=== PATIENT | female | born 1945 | race Caucasian/White ===

== ENCOUNTER 2017-11-02 12:44 | Emergency (ER) | payer MEDICARE, OTHER, SELFPAY ==
[2017-11-02 12:45] VITALS: BP 125/66; PULSE 77; RESP 14; O2SAT 98; BMI 24.5
--- NOTE | 2017-11-02 13:49 | HMH.EDGENADL ---
ED Disposition Clinical Impression: Osteoarthritis of both knees Qualifiers: Osteoarthritis type: primary Qualified Code(s): M17.0 - Bilateral primary osteoarthritis of knee Disposition: Home, Self-Care Condition on Discharge: Fair Instructions: DI for Acute Pain -- Adult Additional Instructions: alternate ice and heat and use whichever helps the most Prescriptions: Diclofenac Potassium [Diclofenac 50mg Tab] 50 mg PO BID 30 Days #60 tab predniSONE [Prednisone 5mg Tab Dose-Pack] 5 mg PO UD DOSE PK 6 Days #21 pack Referrals: Krissy Marin APRN [Primary Care Provider] - Antonio Cruz MD [Staff Physician] - Cy Hatch MD [Staff Physician] - Time of Disposition: 16:21 - Critical Care Critical Care Time: No Attestation: On 11/02/17, the high probability of a clinically significant, sudden or life threatening deterioration of the following system(s) required my full and direct attention, intervention and personal management. The time I documented below is in addition to time spent performing reported procedures but includes the following listed in this critical care notation. Medical Decision Making - Medical Records Medical records reviewed: Yes: I reviewed the patient's medical records. Vital Signs: 11/02/17 12:45 11/02/17 15:45 Temperature 98.3 F Temperature Source Oral Pulse Rate [Right Brachial] 77 60 Respiratory Rate 14 16 Blood Pressure [Right Arm] 125/66 112/70 Blood Pressure Mean [Right Arm] 85 84 Blood Pressure Source [Right Arm] Automatic Cuff Automatic Cuff Blood Pressure Position [Right Arm] Sitting Sitting 02 Sat by Pulse Oximetry 98 98 Oxygen Delivery Method Room Air Room Air - Lab Data Lab results reviewed: Yes: I reviewed the patient's lab results. Lab Results 11/02/17 14:42: WBC 13.7 H, RBC 3.94 L, Hgb 12.4, Hct 38.1, MCV 96.7, MCH 31.4 H, MCHC 32.5, RDW 13.2, Plt Count 366, MPV 7.7, Neut % (Auto) 87.9 H, Lymph % (Auto) 6.9 L, [place] % (Auto) 4.3, Eos % (Auto) 0.6, Baso % (Auto) 0.2, Neut # (Auto) 12.0 H, Lymph # (Auto) 1.0, [place] # (Auto) 0.6, Eos # (Auto) 0.1, Baso # (Auto) 0.0, Total Counted 100, Neutrophils % (Manual) 84 H, Band Neutrophils % 1.0, Lymphocytes % (Manual) 8 L, Atypical Lymphs % 4.0, Monocytes % (Manual) 3, Platelet Estimate Normal, RBC Morphology Normal 11/02/17 14:42: Sodium 137, Potassium 3.3 L, Chloride 102, Carbon Dioxide 26, Anion Gap 12.3, BUN 14, Creatinine 0.73, Estimated Creat Clear 48, Estimated GFR 79, Est GFR ( Amer) 95, Glucose 117 H, Uric Acid 4.3, Calcium 8.2 L, Total Bilirubin 0.7, AST 13 L, ALT 34, Alkaline Phosphatase 113, Total Protein 7.5, Albumin 3.2 L, Globulin 4.3 H, Albumin/Globulin Ratio 0.7 L Result diagrams: 11/02/17 14:42 11/02/17 14:42 Orders (Tests/Meds): ORDERS Category Date Time Status Knee XR bilateral standing [XR knee standing BI] Stat Exams 11/02/17 14:15 Taken - Radiology Data #1 Image(s): Knee Image Reviewed: Yes I reviewed the patient's radiology results, Yes I discussed the image results w/the radiologist severe osteoarthritis - Jn Inquiry Pt receiving controlled substance: No Jn was queried for this patient: No General Adult HPI - General Chief complaint: PAIN Stated complaint: Right knee swollen no accident Time Seen by Provider: 11/02/17 14:00 Mode of Arrival: Ambulatory Limitations: No Limitations Description of Symptoms (Recalled from ER Triage Doc. by RN): Pt c/o right knee swelling. Advises it has been swollen for over a year but is hurting worse today - History of Present Illness HPI narrative: Pt reports she has had problems with both knees for several years after working standing on concrete floor all day. She has never had any surgery on the knees. 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 At one point in time she got a cortisone shot in her shoulder but not in her knee. Now more swollen and more painful than ever before Onset (ago): day(s) Location: lower extremity (ri
--- NOTE | 2017-11-02 14:15 | XR_ITS ---
XR knee standing BI COMPARISON: Right knee 05/10/2014 HISTORY: Bilateral knee pain TECHNIQUE: AP PA and lateral weight-bearing views and sunrise views of each knee FINDINGS: Right knee: There is moderate joint space narrowing medially with almost [id number] appearance of the medial joint space. There is osteophytic spurring at both the medial and lateral tibial plateau. There is a fabella noted. There is minor spurring of the patella superiorly. There is no obvious effusion. Left knee: There is severe joint space narrowing medially with [id number] appearance. There is minimal osteophytic spurring of the medial and lateral tibial plateau. The patella appears normal except for minimal spurring superiorly. There is no obvious effusion. IMPRESSION: Prominent degenerative changes of both knees, the changes in the right knee have only shown slight progression from the previous study in 2013.
[2017-11-02 14:54] LABS: Basophils % 0.2 % (0.1-2.0); Eosinophils # 0.1 K/mm3 (0.0-0.4); Eosinophils % 0.6 % (0.1-12.0); Hematocrit 38.1 % (37.0-47.0); Hemoglobin 12.4 g/dL (12.2-16.2); Lymphocytes % 6.9 K/mm3 (10-50); Mean Corpuscular HGB Conc 32.5 g/dL (31.8-35.4); Mean Corpuscular Hemoglobin 31.4 pg (27.0-31.2); Mean Corpuscular Volume 96.7 fl (81-99); Mean Platelet Volume 7.7 fl (7.4-10.4); Monocytes # 0.6 K/mm3 (0.1-1.0); Monocytes % 4.3 % (1.7-9.3); Neutrophils % 87.9 % (37.0-80.0); Platelet Count 366 K/mm3 (142-424); Red Blood Count 3.94 M/mm3 (4.20-5.40); Red Cell Distribution Width 13.2 % (11.5-17.5); White Blood Count 13.7 K/mm3 (4.8-10.8)
[2017-11-02 15:01] LABS: Alanine Aminotransferase 34 U/L (12-78); Albumin Level 3.2 gm/dL (3.4-5.0); Albumin/Globulin Ratio 0.7 (1.1-1.8); Alkaline Phosphatase 113 U/L (46-116); Anion Gap 12.3 mEq/L (5-15); Aspartate Amino Transferase 13 U/L (15-37); Bilirubin,Total 0.7 mg/dL (0.2-1.0); Blood Urea Nitrogen 14 mg/dL (7-18); Calcium 8.2 mg/dL (8.5-10.1); Carbon Dioxide 26 mmol/L (21.0-32.0); Chloride 102 mmol/L (98-107); Creatinine Clearance Estimated 48 mL/min (0-300); Creatinine,Serum 0.73 mg/dL (0.55-1.02); Estimated Glomerular Filt Rate 79 ml/min (>60); GFR (African American) 95 ML/MIN (>60); Globulin 4.3 gm/dl (1.3-3.2); Glucose 117 mg/dL (74-106); Potassium 3.3 mmoL/L (3.5-5.1); Sodium 137 mmol/L (136-145); Total Protein,Serum 7.5 gm/dL (6.4-8.2); Uric Acid 4.3 mg/dL (2.6-7.2)
[2017-11-02 15:10] LABS: MANUAL DIFFERENTIAL MANUAL DIFFERENTIAL (MANUAL DIFF)
[2017-11-02 15:40] LABS: Lymphocytes % 8 % (10-50); Monocytes % 3 % (2-9); Neutrophils % 84 % (42-76); Platelet Estimate Normal; RBC Morphology Normal; Total Cells Counted 100
[2017-11-02 15:45] VITALS: BP 112/70; PULSE 60; RESP 16; TEMP 36.8; O2SAT 98
[2017-11-02 16:51] VITALS: BP 110/70; PULSE 60; RESP 16; TEMP 36.8; O2SAT 98
== END 2017-11-02 16:52 | disposition home or self-care (01) ==
PROVIDERS: Emergency Provider General Practice; Family Provider Family Medicine; PCP Nurse Practitioner Family
DX: M17.0 Bilateral primary osteoarthritis of knee (principal); M25.461 Effusion, right knee; I10 Essential (primary) hypertension
CPT/HCPCS: 36415; 73565; 80053; 84550; 85007; 85025; 96372; 99282; J1040

== ENCOUNTER → 2018-04-01 09:33 | Outpatient (CLI) | payer MEDICARE, SELFPAY ==
--- NOTE | 2018-04-01 09:35 | MM_ITS ---
MM Dig screening mamm BI w/CAD CAD Screening COMPARISON: None, patient had previous mammograms but there are not available for review. INDICATION: Persistent breast cancer patient's mother diagnosed after menopause. TECHNIQUE: Standard CC and MLO images were obtained. R2 CAD reviewed. FINDINGS: There is a markedly and diffusely dense and heterogenic parenchymal pattern definitely lessening the sensitivity of mammography. There are multiple scattered benign-appearing calcifications in each breast. There is arterial calcification in each breast as well. There is no suspicious lesion and there are no suspicious microcalcifications. IMPRESSION: Markedly dense parenchymal pattern with no suspicious lesion seen BI-RADS Category: 2 Benign Finding(s) RECOMMENDED FOLLOW-UP: 1YR - 1 YEAR FOLLOW-UP (A letter has been sent to the patient regarding results of the study.)
== END ==
PROVIDERS: Family Provider Family Medicine; PCP Nurse Practitioner Family; Visit Provider Obstetrics & Gynecology
DX: Z12.31 Encounter for screening mammogram for malignant neoplasm of breast (principal)
CPT/HCPCS: 77067

== ENCOUNTER → 2019-05-12 09:06 | Outpatient (CLI) | payer MEDICARE, OTHER, SELFPAY ==
--- NOTE | 2019-05-12 09:07 | MM_ITS ---
PROCEDURE: MM DIG SCREENING MAMM BI W/CAD CLINICAL INDICATION: screening there is a history of breast cancer in patient's mother diagnosed age 59 COMPARISON: MM Dig screening mamm BI w/CAD from 04/01/2018 TECHNIQUE: Standard CC and MLO images were obtained. R2 CAD reviewed. FINDINGS: Markedly prominent diffuse heterogenic fibroglandular densities seen throughout both breasts. This definitely lessens the sensitivity of mammography. There are scattered benign-appearing micro and macrocalcifications in each breast. There is moderate arterial calcification in each breast. There is no new or suspicious lesion in either breast and no suspicious microcalcifications. IMPRESSION: Diffusely dense parenchymal pattern with no suspicious lesions seen BI-RAD Category: 2 Benign Finding(s) FOLLOW-UP: 1YR 1 Year Follow-up (A letter has been sent to the patient regarding results of the study.) Dictated by: Dr. Milton Jones MD 05/22/2019 11:50 Signed by: <Electronically signed by Dr. Milton Jones MD in [place]> 05/22/2019 11:50
== END ==
PROVIDERS: PCP Nurse Practitioner Family; Visit Provider Obstetrics & Gynecology
DX: Z12.31 Encounter for screening mammogram for malignant neoplasm of breast (principal)
CPT/HCPCS: 77067

== ENCOUNTER 2022-09-19 19:10 | Emergency (ER) | payer MEDICARE, SELFPAY ==
[2022-09-19 19:11] VITALS: BP 136/76; PULSE 80; RESP 19; TEMP 36.9; O2SAT 97; BMI 22.6
[2022-09-19 19:26] VITALS: BP 130/57; BP 137/66; BP 138/62; PULSE 84; PULSE 86; PULSE 88
[2022-09-19 19:26] LABS: Coronavirus 19, PCR Not Detected (NotDetected); Influenza A, PCR Not Detected (NotDetected); Influenza B, PCR Not Detected (NotDetected)
--- NOTE | 2022-09-19 20:03 | XR_ITS ---
PROCEDURE INFORMATION: Exam: XR Chest Exam date and time: 09/19/2022 8:01 PM Age: 77 years old Clinical indication: Cough TECHNIQUE: Imaging protocol: Radiologic exam of the chest. Views: 2 views. COMPARISON: No relevant prior studies available. FINDINGS: Lungs: Patchy basilar airspace opacity. Pleural spaces: No pneumothorax. Heart/Mediastinum: No cardiomegaly. Bones/joints: No acute fracture. IMPRESSION: Patchy basilar airspace opacity which may be on the basis of atelectasis or pneumonia. Follow-up to radiographic clearance is recommended.
[2022-09-19 20:04] LABS: Basophils # 0.1 K/mm3 (0-0.2); Basophils % 0.3 % (0.1-2.0); Eosinophils # 0.2 K/mm3 (0.0-0.4); Eosinophils % 1.2 % (0.1-12.0); Hematocrit 31.8 % (37.0-47.0); Hemoglobin 10.1 g/dL (12.2-16.2); Lymphocytes # 1.5 K/mm3 (0.7-4.5); Lymphocytes % 10.2 % (10-50); Mean Corpuscular HGB Conc 31.8 g/dL (31.8-35.4); Mean Corpuscular Hemoglobin 27.4 pg (27.0-31.2); Mean Platelet Volume 8.1 fl (7.4-10.4); Monocytes # 0.9 K/mm3 (0.1-1.0); Monocytes % 5.9 % (1.7-9.3); Neutrophils % 82.3 % (37.0-80.0); Platelet Count 558 K/mm3 (142-424); Red Blood Count 3.69 M/mm3 (4.20-5.40); Red Cell Distribution Width 15.3 % (11.5-17.5); White Blood Count 14.6 K/mm3 (4.8-10.8)
[2022-09-19 20:12] LABS: Alanine Aminotransferase 12 U/L (12-78); Albumin Level 3.6 g/dl (3.5-5.0); Alkaline Phosphatase 215 U/L (38-126); Anion Gap 11.6 mEq/L (5-15); Aspartate Amino Transferase 17 U/L (14-36); Bilirubin,Total 0.6 mg/dl (0.2-1.3); Blood Urea Nitrogen 17 mg/dl (7-17); Calcium 8.6 mg/dl (8.4-10.2); Carbon Dioxide 25 mmol/L (22.0-30.0); Chloride 101 mmol/L (98-107); Creatinine Clearance Estimated 27 mL/min (50-200); Estimated Glomerular Filt Rate 34 ml/min (>60); GFR (African American) 41 ML/MIN (>60); Globulin 3.7 g/dL (1.3-3.2); Glucose 131 mg/dl (74-100); Potassium 3.6 mmoL/L (3.5-5.1); Sodium 134 mmol/L (136-145); Total Protein,Serum 7.3 g/dl (6.3-8.2)
[2022-09-19 20:24] LABS: Troponin I 0.05 ng/ml (0.00-0.034)
--- NOTE | 2022-09-19 20:25 | HMH.EDWEAK ---
Discharge Plan Disposition Patient Disposition: Home, Self-Care Prescriptions Prescriptions: New prednisone [prednisone] 20 mg tablet 20 mg PO BID Qty: 10 0RF levofloxacin 500 mg tablet 500 mg PO DAILY Qty: 7 0RF No Action loperamide 2 mg capsule 2 mg PO TID PRN (Reason: diarrhea) 30 Days Qty: 60 0RF amlodipine 10 mg tablet 10 mg PO DAILY 90 Days Qty: 90 1RF metoprolol tartrate 100 mg tablet 100 mg PO DAILY 90 Days Qty: 90 1RF benzonatate 100 mg capsule 100 mg PO TIDP PRN (Reason: Cough) Label Comments: TAKE 1 CAPSULE BY MOUTH EVERY 8 HOURS NEEDED doxepin 10 mg capsule 10 mg PO BID estradiol 2 mg tablet 2 mg PO DAILY losartan 100 mg tablet 100 mg PO DAILY Referrals Follow up/Referrals: Karlos Vickers MD [Primary Care Provider] - See instructions Clinical Impressions Clinical Impression: CAP (community acquired pneumonia), SIRS (systemic inflammatory response syndrome), Arthritis Instructions Patient Instructions: Pneumonia-Adult Discharge ED Provider: Uri Coleman Weakness HPI General Chief complaint: Weakness Stated complaint: cough, weak,diarrhea Time Seen by Provider: 09/19/22 20:10 Mode of Arrival: Family Vehicle Source of Information: Patient, Relative and Medical Record Limitations: No Limitations Description of Symptoms (Recalled from ER Triage Doc. by RN): Pt c/o productive cough, weakness, and poor intake since Saturday (09/15). States she went to [facility] and was tested for Flu & Covid and was negative. History of Present Illness HPI Narrative: pt with prog cough with weakness has seen pcp on saturday and was in [facility] last sat - also has swollen rt wrist w/o trauma - Complaint: generalized weakness Onset (ago): day(s) Duration: intermittent Location: generalized Migration: none Severity: moderate Associated symptoms: denies other symptoms Related Data Home Medications Medication Instructions Recorded Confirmed benzonatate 100 mg capsule 100 mg PO TIDP PRN Cough 09/19/22 09/19/22 doxepin 10 mg capsule 10 mg PO BID . 09/19/22 09/19/22 estradiol 2 mg tablet 2 mg PO DAILY hormone 09/19/22 09/19/22 losartan 100 mg tablet 100 mg PO DAILY htn 09/19/22 09/19/22 Previous Rx's Medication Instructions Recorded loperamide 2 mg capsule 2 mg PO TID PRN diarrhea 30 days 07/12/22 #60 caps amlodipine 10 mg tablet 10 mg PO DAILY HTN 90 days #90 tabs 08/08/22 metoprolol tartrate 100 mg tablet 100 mg PO DAILY HTN 90 days #90 08/08/22 tabs levofloxacin 500 mg tablet 500 mg PO DAILY #7 tabs 09/19/22 prednisone 20 mg tablet 20 mg PO BID #10 tabs 09/19/22 Allergies Allergy/AdvReac Type Severity Reaction Status Date / Time NO KNOWN ALLERGIES - NKA Allergy Unknown Uncoded 08/08/22 12:58 [facility] Disclaimer: The information contained in this section may have been updated after the patient was seen, as this information can be updated by other users. Medical History Cervical cancer Surgical History History of hysterectomy Family History Mother Cancer Father Coronary artery disease Social History Smoking Status: Never smoker alcohol intake: never substance use type: denies use current occupational status: unemployed Travel in the last 8 weeks: None household members: spouse housing: house marital status: ROS Obtained: Yes All systems reviewed & no additional complaints except as documented Physical Exam General General appearance: alert Head Head exam: normocephalic Eye Eye exam: Present PERRL and EOMI ENT ENT exam: Present mucous membranes moist Neck Neck exam: Present trachea midline Respiratory Respiratory exam: Present other (bronchitis ); Absent
[2022-09-19 20:29] LABS: T4 (Thyroxine) 16.5 ug/dl (5.53-11.0)
[2022-09-19 20:43] LABS: Thyroid Stimulating Hormone 0.97 uIU/mL (0.465-4.68)
[2022-09-19 21:00] VITALS: BP 140/61; PULSE 86; O2SAT 93
--- NOTE | 2022-09-19 21:06 | CT_ITS ---
PROCEDURE INFORMATION: Exam: CT Chest Without Contrast; Diagnostic Exam date and time: 09/19/2022 9:24 PM Age: 77 years old Clinical indication: Abnormal findings; Abnormal radiologic exam of lung or chest; Cough; Additional info: Abn cxr, cough TECHNIQUE: Imaging protocol: Diagnostic computed tomography of the chest without contrast. Radiation optimization: All CT scans at this facility use at least one of these dose optimization techniques: automated exposure control; mA and/or kV adjustment per patient size (includes targeted exams where dose is matched to clinical indication); or iterative reconstruction. COMPARISON: CR XR CHEST 2V 09/19/2022 8:01 PM FINDINGS: Lungs: Patchy opacity at the left lung base. Pleural spaces: No pneumothorax. No pleural effusion. Heart: Cardiomegaly. Coronary arteries: Coronary artery calcifications. Lymph nodes: No enlarged lymph nodes. Vasculature: Calcified atherosclerosis. No aneurysm. Gallbladder and bile ducts: Post cholecystectomy change. Bones/joints: No acute fracture. Soft tissues: Limited evaluation without contrast. No obvious soft tissue swelling. IMPRESSION: Patchy opacity at the left lung base as seen on prior chest radiograph which is nonspecific but would be compatible with pneumonia. Follow-up to radiographic clearance is again recommended.
[2022-09-19 21:26] LABS: Lactic Acid 1.2 mmol/L (0.7-2.1)
[2022-09-19 21:30] VITALS: BP 130/79; PULSE 111; O2SAT 92
[2022-09-19 23:10] LABS: Troponin I 0.04 ng/ml (0.00-0.034)
[2022-09-19 23:14] VITALS: BP 131/80; PULSE 98; RESP 18; TEMP 36.8; O2SAT 97
== END 2022-09-19 23:43 | disposition home or self-care (01) ==
PROVIDERS: Emergency Medicine; Emergency Provider Emergency Medicine; PCP Family Medicine
DX: J18.9 Pneumonia, unspecified organism (principal); R19.7 Diarrhea, unspecified; R65.10 Systemic inflammatory response syndrome (SIRS) of non-infectious origin without acute organ dysfunction; R53.1 Weakness; M25.431 Effusion, right wrist; Z20.822 Contact with and (suspected) exposure to COVID-19; Z79.3 Long term (current) use of hormonal contraceptives; Z79.52 Long term (current) use of systemic steroids; Z79.899 Other long term (current) drug therapy; Z85.41 Personal history of malignant neoplasm of cervix uteri; Z82.49 Family history of ischemic heart disease and other diseases of the circulatory system; Z80.9 Family history of malignant neoplasm, unspecified
CPT/HCPCS: 71046; 71250; 80053; 83605; 84436; 84443; 84484; 85025; 87040; 96361; 96374; 99285; C9803; U0003; U0005

== ENCOUNTER → 2023-08-14 16:43 | Outpatient (CLI) | payer MEDICARE, SELFPAY ==
[2023-08-14 16:47] LABS: Basophils % 0.6 % (0.1-2.0); Eosinophils # 0.3 K/mm3 (0.0-0.4); Eosinophils % 4.1 % (0.1-12.0); Lymphocytes % 15.5 % (10-50); Mean Corpuscular HGB Conc 30.4 g/dL (31.8-35.4); Mean Corpuscular Hemoglobin 22.1 pg (27.0-31.2); Mean Corpuscular Volume 72.7 fl (81-99); Mean Platelet Volume 9.5 fl (7.4-10.4); Monocytes # 0.4 K/mm3 (0.1-1.0); Monocytes % 5.3 % (1.7-9.3); Neutrophils % 74.5 % (37.0-80.0); Platelet Count 521 K/mm3 (142-424); Red Blood Count 3.09 M/mm3 (4.20-5.40); Red Cell Distribution Width 19.2 % (11.5-17.5); White Blood Count 6.7 K/mm3 (4.8-10.8)
[2023-08-14 16:52] LABS: Hematocrit 22.4 % (37.0-47.0); Hemoglobin 6.8 g/dL (12.2-16.2)
[2023-08-14 17:07] LABS: Alanine Aminotransferase 14 U/L (12-78); Albumin Level 3.2 g/dl (3.5-5.0); Albumin/Globulin Ratio 1.1 (1.1-1.8); Alkaline Phosphatase 110 U/L (38-126); Anion Gap 15.1 mEq/L (5-15); Aspartate Amino Transferase 19 U/L (14-36); Bilirubin,Total 0.5 mg/dl (0.2-1.3); Blood Urea Nitrogen 11 mg/dl (7-17); Calcium 8.1 mg/dl (8.4-10.2); Carbon Dioxide 21 mmol/L (22.0-30.0); Chloride 106 mmol/L (98-107); Estimated Glomerular Filt Rate 61 ml/min (>60); GFR (African American) 74 ML/MIN (>60); Globulin 2.9 g/dL (1.3-3.2); Glucose 95 mg/dl (74-100); Potassium 4.1 mmoL/L (3.5-5.1); Sodium 138 mmol/L (136-145); Total Protein,Serum 6.1 g/dl (6.3-8.2)
[2023-08-14 17:54] LABS: Vitamin B12 779 pg/mL (239-931)
[2023-08-14 18:07] LABS: Iron 23 ug/dL (37-170)
[2023-08-14 18:17] LABS: Total Iron Binding Capacity 453 ug/dL (265-497)
== END ==
PROVIDERS: PCP Family Medicine; Visit Provider Nurse Practitioner Family
DX: R06.02 Shortness of breath (principal)
CPT/HCPCS: 80053; 82607; 83540; 83550; 85025

== ENCOUNTER 2023-08-14 18:27 | Inpatient (IN) | payer MEDICARE, OTHER, SELFPAY ==
[2023-08-14] VITALS (14 sets, daily range): BP systolic 117–143; BP diastolic 57–73; PULSE 95–137; RESP 16–30; TEMP 36.2–36.7; O2SAT 88–100; BMI 25.9; BMI 25.7
--- NOTE | 2023-08-14 18:39 | ECG_ITS ---
APPROVED REPORT Exam: Resting ECG HR:106 bpm ECG Measurements Heart Rate 106 AXES VT 160 P 71 QRSd 114 QRS -20 QT 326 T 130 QTc 388 Conclusion SINUS TACHYCARDIA POSSIBLE ANTERIOR MYOCARDIAL INFARCTION , OF INDETERMINATE AGE [30 ms Q WAVE IN V3/V4, OR R < 0.2 mV IN V4] POSSIBLE INFERIOR MYOCARDIAL INFARCTION , OF INDETERMINATE AGE [30 ms Q WAVE IN II/aVF] ABNORMAL ECG UNCONFIRMED REPORT Electronically signed by : Olegario Armas MD 08/15/2023 20:59:42
--- NOTE | 2023-08-14 18:48 | HMH.EDGENADL ---
Discharge Plan Disposition Patient Disposition: Admitted Clinical Impressions Clinical Impression: CHF (congestive heart failure) Qualifiers: Heart failure type: systolic Heart failure chronicity: acute Qualified Code(s): I50.21 - Acute systolic (congestive) heart failure Anemia Qualifiers: Anemia type: unspecified type Qualified Code(s): D64.9 - Anemia, unspecified Discharge ED Provider: Tahir Cummings Adult HPI General Chief complaint: Weakness Stated complaint: sent by Dr. Granger, blood transfusion, hemoglobin-7 Time Seen by Provider: 08/14/23 18:34 Mode of Arrival: Wheelchair Source of Information: Patient, Spouse and Medical Record Limitations: No Limitations Description of Symptoms (Recalled from ER Triage Doc. by RN): c/o low blood from PCP, PT states she went to her pcp today for weakness, dizziness and out of breath, he did some lab work and called her this afternoon stating she needed to come to the ER to get blood due to her level being 7. History of Present Illness HPI narrative: 77-year-old female, history of hypertension presents with multiple complaints. She was sent to the ED by PCP for transfusion for anemia. She reports that she over the last 3 days has had sudden onset of bilateral lower extremity swelling and significant shortness of breath. She is unable to lay down secondary to dyspnea. She reports no history of anemia in the past. Reports no history of GI bleeding or other bleeding. Reports no blood thinner use. Reports no chest pain. Reports no cardiac history. No recent illness. Related Data Previous Rx's Medication Instructions Recorded loperamide 2 mg capsule 2 mg PO TID PRN diarrhea 90 days 11/08/22 #270 caps estradiol 2 mg tablet See Rx Instructions .Route 05/22/23 .COMPLEX #90 tabs losartan 100 mg tablet See Rx Instructions .Route 05/22/23 .COMPLEX #90 tabs doxepin 10 mg capsule 10 mg PO BID . 90 days #180 caps 05/29/23 amlodipine 10 mg tablet 10 mg PO DAILY HTN 90 days #90 tabs 08/05/23 metoprolol tartrate 100 mg tablet 100 mg PO DAILY HTN 90 days #90 08/05/23 tabs multivitamin (Daily Multi-Vitamin 1 tab PO DAILY #30 tabs 08/14/23 tablet) prednisone 10 mg tablets in a dose See Rx Instructions PO PER PKG DIR 08/14/23 pack #21 tabs Allergies Allergy/AdvReac Type Severity Reaction Status Date / Time No Known Allergies Allergy Unverified 08/14/23 21:09 [facility] Disclaimer: The information contained in this section may have been updated after the patient was seen, as this information can be updated by other users. Medical History (Updated 08/15/23 @ 00:43 by Tahir Cummings MD) Cervical cancer Surgical History History of hysterectomy Total knee replacement status Family History Mother Cancer Father Coronary artery disease Social History (Updated 08/14/23 @ 21:11 by Dianne Frias RN) Smoking Status: Never smoker alcohol intake: never substance use type: denies use current occupational status: unemployed Travel in the last 8 weeks: None household members: spouse housing: house marital status: ROS Obtained: Yes All systems reviewed & no additional complaints except as documented Physical Exam General General appearance: alert and in no apparent distress Head Head exam: atraumatic and normocephalic Eye Eye exam: Present normal appearance, PERRL, EOMI and other (Pale mucous membranes) ENT ENT exam: Present normal oropharynx and normal external ear exam Neck Neck exam: Present normal inspection and full ROM Chest Chest inspection: Present normal inspection and symmetric chest wall rise; Absent tenderness Respiratory Respiratory exam: Present normal lung sounds bilaterally; Absent respiratory distress Cardiovascular Cardiovascular exam: Present normal rhythm and tachycardia Abdominal Exam Abdo
--- NOTE | 2023-08-14 19:14 | XR_ITS ---
PROCEDURE INFORMATION: Exam: XR Chest Exam date and time: 08/14/2023 7:16 PM Age: 77 years old Clinical indication: Other: Volume overload TECHNIQUE: Imaging protocol: Radiologic exam of the chest. Views: 1 view. COMPARISON: CT CHEST WO CON 09/19/2022 9:24 PM FINDINGS: Lungs: Patchy density at the right lung base. Remainder of the lungs are clear. Pleural spaces: Small right pleural effusion. Heart/Mediastinum: Normal. No cardiomegaly. Bones/joints: Unremarkable. IMPRESSION: 1. Small right pleural effusion. 2. Right lung base patchy density could be atelectasis or pneumonia.
[2023-08-14 19:21] LABS: Basophils % 0.2 % (0.1-2.0); Eosinophils # 0.1 K/mm3 (0.0-0.4); Eosinophils % 1.1 % (0.1-12.0); Hematocrit 21.4 % (37.0-47.0); Lymphocytes # 0.5 K/mm3 (0.7-4.5); Lymphocytes % 7.5 % (10-50); Mean Corpuscular HGB Conc 30.9 g/dL (31.8-35.4); Mean Corpuscular Volume 71.3 fl (81-99); Mean Platelet Volume 8.7 fl (7.4-10.4); Monocytes # 0.1 K/mm3 (0.1-1.0); Monocytes % 0.8 % (1.7-9.3); Neutrophils # 6.1 K/mm3 (1.8-7.8); Neutrophils % 90.5 % (37.0-80.0); Platelet Count 431 K/mm3 (142-424); Red Blood Count 2.99 M/mm3 (4.20-5.40); Red Cell Distribution Width 19.4 % (11.5-17.5); White Blood Count 6.8 K/mm3 (4.8-10.8)
[2023-08-14 19:23] LABS: Hemoglobin 6.6 g/dL (12.2-16.2)
[2023-08-14 19:24] LABS: MANUAL DIFFERENTIAL MANUAL DIFFERENTIAL (MANUAL DIFF)
--- NOTE | 2023-08-14 19:33 | PC.NURSE ---
Resumed care from MARCK Espinosa
[2023-08-14 19:35] LABS: Alanine Aminotransferase 16 U/L (12-78); Albumin Level 3.4 g/dl (3.5-5.0); Alkaline Phosphatase 118 U/L (38-126); Anion Gap 15.5 mEq/L (5-15); Aspartate Amino Transferase 21 U/L (14-36); Bilirubin,Total 0.6 mg/dl (0.2-1.3); Blood Urea Nitrogen 11 mg/dl (7-17); Calcium 8.4 mg/dl (8.4-10.2); Carbon Dioxide 20 mmol/L (22.0-30.0); Chloride 106 mmol/L (98-107); Creatinine Clearance Estimated 47 mL/min (50-200); Estimated Glomerular Filt Rate 61 ml/min (>60); GFR (African American) 74 ML/MIN (>60); Globulin 3.3 g/dL (1.3-3.2); Glucose 161 mg/dl (74-100); Potassium 3.5 mmoL/L (3.5-5.1); Sodium 138 mmol/L (136-145); Total Protein,Serum 6.7 g/dl (6.3-8.2)
[2023-08-14 19:48] LABS: Troponin I < 0.01 ng/ml (0.00-0.034)
--- NOTE | 2023-08-14 19:51 | PC.NURSE ---
collected urine and hemoccult at this time. UO 200 ml. 2nd IV placed in RAC, 20G
--- NOTE | 2023-08-14 19:51 | PC.NURSE ---
on phone with hospitalist
[2023-08-14 19:55] LABS: Occult Blood,Stool Negative (Negative)
--- NOTE | 2023-08-14 19:56 | PC.NURSE ---
notified domestic housekeeper of anemia
[2023-08-14 19:59] LABS: Eosinophils % 1 % (0-3); Hypochromasia 2+; Lymphocytes % 5 % (10-50); Neutrophils % 94 % (42-76); Total Cells Counted 100
[2023-08-14 20:00] LABS: Microcytosis 2+; Platelet Estimate Normal
[2023-08-14 20:01] LABS: Microscopic, Urine URINE MICROSCOPIC (MICROSCOPIC)
[2023-08-14 20:05] LABS: Appearance,Urine CLEAR (Clear); Bilirubin,Urine Negative (Negative); Blood, Urine Negative (Negative); Color,Urine YELLOW (Yellow); Glucose,Urine (UA) Negative (Negative); Ketones,Urine Negative (Negative); Leukocyte Esterase,Urine TRACE (Negative); Nitrate,Urine POSITIVE (Negative); PH,Urine 5.5 (5.0-8.5); Protein,Urine Negative (Negative); Urobilinogen,Urine 0.2 EU/dl (0.2)
[2023-08-14 20:08] LABS: Activated Partial Thrombo Time 24.8 seconds (22.8-30.6); INR 1.01 (0.9-1.1); Prothrombin Time 10.9 seconds (10.1-12.5)
[2023-08-14 20:20] LABS: Bacteria,Urine 1+ /lpf; Squamous Epithelial Cell,Urine Occasional #/hpf (0-5)
--- NOTE | 2023-08-14 20:24 | PC.NURSE ---
Report called to Lucero ACHARYA on 2nd floor
--- NOTE | 2023-08-14 20:40 | PC.NURSE ---
pt arrived to the floor via wheelchair @20:40
--- NOTE | 2023-08-14 21:08 | EXP.HP ---
History of Present Illness *Admission Date: 08/14/23 *Reason for visit:: anemia *History of present illness: 77 year old female presented to ED after being called for abnormal lab result. She presented to her PCP this morning for c/o SOB and increased lower leg swelling for the past few days. At the PCP her hgb was 6.8, at ED repeat was 6.6. No active bleeding reported. Denies dark tarry stools or coffee grounds vomiting. occult stool negative in ED negative. PMHX of htn and chronic diarrhea. The ED work up reveals hgb of 6.6, negative troponin, and chest xray reveals small right pleural effusion. The ED physician ordered 40 mg of lasix and 1 unit of PRBC. The pt appears to have +3 pitting edema which is new. ED physician consulted the hospitalist team for admission. ED physician reports that he did bedside echo that reveals decreased EF. See his note please. I admitted the pt to the medical surgical floor. Upon admission I have ordered a BNP, echo for the morning, and placed a Cardiology consult. Her EKG reveals sinus tachycardia with q waves. [facility] Disclaimer: The information contained in this section may have been updated after the patient was seen, as this information can be updated by other users. Medical History (Updated 08/15/23 @ 12:13 by NADIRA Hu) Cervical cancer Surgical History History of hysterectomy Total knee replacement status Family History Mother Cancer Father Coronary artery disease Social History (Updated 08/14/23 @ 21:11 by Dianne Frias RN) Smoking Status: Never smoker alcohol intake: never substance use type: denies use current occupational status: unemployed Travel in the last 8 weeks: None household members: spouse housing: house marital status: Review of Systems *Cardiovascular Cardiovascular: Reports dyspnea on exertion and Reports leg edema *Respiratory Respiratory: Reports dyspnea on exertion *Gastrointestinal Gastrointestinal: Reports system reviewed and no additional complaints, except as documented and Reports loose stools *Genitourinary Genitourinary: Reports system reviewed and no additional complaints, except as documented *Musculoskeletal Musculoskeletal: Reports system reviewed and no additional complaints, except as documented *Neurologic Neurologic: Reports system reviewed and no additional complaints, except as documented Meds Home Medications and Allergies Home Medications Medication Instructions Recorded Confirmed Type loperamide 2 mg capsule 2 mg PO TID PRN diarrhea 90 days 11/08/22 08/14/23 Rx #270 caps metoprolol tartrate 100 mg tablet 100 mg PO DAILY HTN 90 days #90 08/05/23 08/15/23 Rx tabs multivitamin (Daily Multi-Vitamin 1 tab PO DAILY #30 tabs 08/14/23 08/14/23 Rx tablet) amlodipine 10 mg tablet 10 mg PO DAILY High Blood Pressure 08/15/23 08/15/23 History doxepin 10 mg capsule 10 mg PO BID 08/15/23 08/15/23 History estradiol 2 mg tablet 2 mg PO DAILY 08/15/23 08/15/23 History losartan 100 mg tablet 100 mg PO DAILY High Blood Pressure 08/15/23 08/15/23 History New Prescriptions to Start Prescriptions: Allergies Allergy/AdvReac Type Severity Reaction Status Date / Time No Known Allergies Allergy Unverified 08/14/23 21:09 Exam Data for Last 24 hours Vital signs and Labs for Last 24 Hours: Temp Pulse Resp BP Pulse Ox O2 Del Method 97.9 F 107 H 16 143/71 H 92 L Room Air 08/14/23 20:56 08/14/23 20:56 08/14/23 20:56 08/14/23 20:56 08/14/23 20:56 08/14/23 20:56 Laboratory Results - last 24 hr 08/14/23 10:35: Blood Type Confirm O Positive 08/14/23 17:55: WBC 6.8, RBC 2.99 L, Hgb 6.6 L*, Hct 21.4 L, MCV 71.3 L, MCH 22.0 L, MCHC 30.9 L, RDW 19.4 H, Plt Count 431 H, MPV 8.7, Neut % (Auto) 90.5 H, Lymph % (Auto) 7.5 L, [place] % (Auto) 0.8 L, Eos % (Auto) 1.1, Baso % (Auto) 0.
--- NOTE | 2023-08-14 21:19 | PC.NURSE ---
Ree Mullins APRN states to give 1 unit of PRBC over 4 hours due to pt new onset CHF. repeated and verified.
[2023-08-14 21:27] LABS: NT Pro Brain Natriuretic Pep. 5970 pg/mL (0-450)
[2023-08-14 22:21] LABS: Troponin I < 0.01 ng/ml (0.00-0.034)
[2023-08-15] VITALS (11 sets, daily range): BP systolic 116–139; BP diastolic 49–70; PULSE 80–97; RESP 18; TEMP 36.5–36.8; O2SAT 92–100; BMI 25.8
[2023-08-15 01:14] LABS: Troponin I 0.03 ng/ml (0.00-0.034)
[2023-08-15 03:28] LABS: Chloride 103 mmol/L (98-107); Potassium 3.6 mmoL/L (3.5-5.1); Sodium 139 mmol/L (136-145)
[2023-08-15 03:31] LABS: Anion Gap 13.6 mEq/L (5-15); Blood Urea Nitrogen 13 mg/dl (7-17); Carbon Dioxide 26 mmol/L (22.0-30.0); Creatinine Clearance Estimated 43 mL/min (50-200); Estimated Glomerular Filt Rate 48 ml/min (>60); GFR (African American) 58 ML/MIN (>60)
[2023-08-15 03:32] LABS: Calcium 8.1 mg/dl (8.4-10.2); Glucose 176 mg/dl (74-100)
--- NOTE | 2023-08-15 05:21 | PC.NURSE ---
patient has had a good night. since arriving to the floor the patient has been able to rest, but has not slept at all night. Did get 1 unit of blood. tolerated that well. Dose have a purewick on for I&O has had 2 BM and voided with those as well and then also was incontinent once. Swelling in her legs has gone down alot during the shift. Was a +3 to +4 edema now we are a +2 bilaterally. Patient initially was on 5L of O2 when starting the blood as the blood went in was able to wean her down to RA and remains on RA. No other issue shave been noted on the shift.
[2023-08-15 06:27] LABS: Basophils % 0.2 % (0.1-2.0); Eosinophils % 0.5 % (0.1-12.0); Hemoglobin 7.9 g/dL (12.2-16.2); Lymphocytes # 0.8 K/mm3 (0.7-4.5); Lymphocytes % 10.5 % (10-50); Mean Corpuscular HGB Conc 31.6 g/dL (31.8-35.4); Mean Corpuscular Hemoglobin 22.8 pg (27.0-31.2); Mean Corpuscular Volume 72.2 fl (81-99); Mean Platelet Volume 8.3 fl (7.4-10.4); Monocytes # 0.4 K/mm3 (0.1-1.0); Monocytes % 5.7 % (1.7-9.3); Neutrophils # 6.2 K/mm3 (1.8-7.8); Neutrophils % 83.1 % (37.0-80.0); Platelet Count 443 K/mm3 (142-424); Red Blood Count 3.46 M/mm3 (4.20-5.40); Red Cell Distribution Width 19.4 % (11.5-17.5); White Blood Count 7.5 K/mm3 (4.8-10.8)
[2023-08-15 06:33] LABS: Anion Gap 13.6 mEq/L (5-15); Blood Urea Nitrogen 13 mg/dl (7-17); Calcium 8.2 mg/dl (8.4-10.2); Carbon Dioxide 25 mmol/L (22.0-30.0); Chloride 103 mmol/L (98-107); Creatinine Clearance Estimated 47 mL/min (50-200); Estimated Glomerular Filt Rate 61 ml/min (>60); GFR (African American) 74 ML/MIN (>60); Glucose 149 mg/dl (74-100); Potassium 3.6 mmoL/L (3.5-5.1); Sodium 138 mmol/L (136-145)
--- NOTE | 2023-08-15 07:00 | CA_ITS ---
APPROVED REPORT EXAM: Comprehensive 2D, Doppler, and color-flow Echocardiogram Military Technician: Alise Flores RDCS Ht: 5 ft 1 in Wt: 137lbs BSA: 1.61 BP: 143/71 mmHg Indications: CHF,HTN,HLP,SOA 2D Dimensions LVOT 1.51 cm (M/F) 1.5-2.5 M-Mode Dimensions RVDd 2.04 cm (0.9-2.6) LA Diam 3.83 cm (1.9-4.0) LVDd 5.74 cm (3.5-5.7) Ao Diam 2.89 cm (2.0-3.7) LVDs 4.21 cm (3.5-5.7) IVSd 0.60 cm (0.6-1.1) PWd 0.91 cm (0.6-1.1) EF (Teich) 51.40% FS 26.70% EDV (Teich) 162.60 mL ESV (Teich) 79.00 mL LV Diastology E Decel Time 190.00 (160-240 msec) E/A Ratio 5.0 MED E' 244.40 (< 7 cm/sec) E'/MED E' Ratio 0.45 (>14) LAT E' 10.30 (<10 cm/sec) E/LAT E' Ratio 10.56 (>14) Mitral Valve MV E Max Linus. 109.00 (40-130 cm/s) MV A Velocity 22.00 (40-130 cm/s) E/A Ratio 4.95 MV Decel. Time 190.00 (160-240 ms) MV PHT 56.00 ms Tricuspid Valve TR P. Velocity 375.00 cm/s RAP Estimate 10.00 mmHg RVSP 66.20 mmHg Left Ventricle The left ventricle is normal size. Left ventricular systolic function is mildly decreased. There is increased LV wall thickness. There is akinesis of the distal septal LV wall and the LV apex. Grade 2 diastolic dysfunction is present. LVEF is 45%. Right Ventricle The right ventricle is normal size. Atria The left atrium is normal in size. The right atrium size is normal. There is no Doppler evidence of interatrial shunt. Aortic Valve The aortic valve is mildly thickened. Trace aortic regurgitation. Mitral Valve The mitral valve is normal in structure. No evidence of mitral valve stenosis. Mild mitral regurgitation. Tricuspid Valve The tricuspid valve leaflets are thin and pliable. Mild tricuspid regurgitation. RVSP is 55-60 mmHg. Pulmonic Valve The pulmonary valve is normal in structure. Trace pulmonic regurgitation. Great Vessels The aortic root is normal in size. The ascending aorta is normal in size. IVC is normal in size and collapses >50% with inspiration. Pericardium There is no pericardial effusion. Other Information Study Quality: Fair Conclusion Mild reduction in global LV systolic function (LVEF 45%). Akinesis of the distal septal LV wall and the LV apex. Electronically signed by : Karla Sol MD 08/15/2023 15:08:13
--- NOTE | 2023-08-15 08:07 | HMH.PHAINT1 ---
Pharmacy Intervention Comments: Med reconciliation completed using external fill history and patient interview
--- NOTE | 2023-08-15 12:09 | EXP.CARD.CON ---
History of Present Illness History of Present Illness Consult date: 08/15/23 Requesting physician: Shara Mason Consult reason: congestive heart failure Chief complaint: SOA, weakness History of present illness: 77-year-old white female without known cardiovascular disease. She is treated at home for hypertension and history of cervical cancer and follows closely with primary care physician. Saw her PCP yesterday for complaint of 1 week gradual onset worsening severe shortness of breath with orthopnea and lower extremity edema weakness and tachycardia. She was found to have hemoglobin of 6.6 and referred to the emergency room for evaluation. In ED labs confirm hemoglobin 6.6, she also had right pleural effusion 3+ lower extremity edema. Bedside echo in ER showed low EF she was given Lasix IV x1 admitted to the hospitalist with echo ordered. This morning she reports feeling significantly better following Lasix IV. WBC 7.5, hemoglobin 7.9, creatinine 0.9, proBNP 5970, chest x-ray-right lung base patchy density, atelectasis versus pneumonia otherwise okay. Patient denies any recent acute illness. States she is typically active at home with her and can do daily house chores without symptoms. She denies any prior cardiac issues, denies alcohol, denies family history of heart disease. [facility] Disclaimer: The information contained in this section may have been updated after the patient was seen, as this information can be updated by other users. Medical History (Updated 08/15/23 @ 12:13 by NADIRA Hu) Cervical cancer Surgical History History of hysterectomy Total knee replacement status Family History Mother Cancer Father Coronary artery disease Social History (Updated 08/14/23 @ 21:11 by Dianne Frias RN) Smoking Status: Never smoker alcohol intake: never substance use type: denies use current occupational status: unemployed Travel in the last 8 weeks: None household members: spouse housing: house marital status: Review of Systems Constitutional Constitutional: Denies fatigue and Denies weakness Eyes Eyes: Denies loss of vision ENT Ears, Nose, Mouth, and Throat: Denies hearing loss *Cardiovascular Cardiovascular: Denies chest pain, Reports dyspnea, Reports leg edema and Reports orthopnea *Respiratory Respiratory: Denies cough and Reports dyspnea *Gastrointestinal Gastrointestinal: Denies change in stool character, Denies nausea and Denies vomiting *Musculoskeletal Musculoskeletal: Denies muscle weakness Integumentary/Breasts Skin/Breast: Denies changing lesions *Neurologic Neurologic: Reports system reviewed and no additional complaints, except as documented, Denies loss of vision and Denies weakness Endocrine Endocrine: Denies fatigue Exam Data for Last 24 hours Vital signs and Labs for Last 24 Hours: Temp Pulse Resp BP Pulse Ox O2 Del Method O2 Flow Rate 98.2 F 90 18 134/70 94 L Room Air 1 08/15/23 11:17 08/15/23 11:17 08/15/23 11:17 08/15/23 11:17 08/15/23 11:17 08/15/23 11:17 08/14/23 23:00 Laboratory Results - last 24 hr 08/14/23 10:35: Blood Type Confirm O Positive 08/14/23 17:55: WBC 6.8, RBC 2.99 L, Hgb 6.6 L*, Hct 21.4 L, MCV 71.3 L, MCH 22.0 L, MCHC 30.9 L, RDW 19.4 H, Plt Count 431 H, MPV 8.7, Neut % (Auto) 90.5 H, Lymph % (Auto) 7.5 L, Custer % (Auto) 0.8 L, Eos % (Auto) 1.1, Baso % (Auto) 0.2, Neut # (Auto) 6.1, Lymph # (Auto) 0.5 L, C[place] # (Auto) 0.1, Eos # (Auto) 0.1, Baso # (Auto) 0.0, Total Counted 100, Neutrophils % (Manual) 94 H, Lymphocytes % (Manual) 5 L, Eosinophils % (Manual) 1, Platelet Estimate Normal, Hypochromasia 2+, Microcytosis 2+, PT 10.9, INR 1.01, APTT 24.8, Sodium 138, Potassium 3.5, Chloride 106, Carbon Dioxide 20 L, Anion Gap 15.5 H, BUN 11, Creatinine 0.90, Estimated Creat Clear 47, Estimated GFR 61, Es
--- NOTE | 2023-08-15 13:22 | EXP.PN ---
Subjective *Date: 08/15/23 *Time: 13:22 Interval history: Patient was seen and evaluated at the bedside. denies chest pain, shortness of breath, nausea, vomiting, abdominal pain. Patient does not have any complaints at this time. feels better overall Exam Data for Last 24 hours Vital signs and Labs for Last 24 Hours: Temp Pulse Resp BP Pulse Ox O2 Del Method O2 Flow Rate 98.2 F 90 18 134/70 94 L Room Air 1 08/15/23 11:17 08/15/23 11:17 08/15/23 11:17 08/15/23 11:17 08/15/23 11:17 08/15/23 12:57 08/14/23 23:00 Laboratory Results - last 24 hr 08/14/23 10:35: Blood Type Confirm O Positive 08/14/23 17:55: WBC 6.8, RBC 2.99 L, Hgb 6.6 L*, Hct 21.4 L, MCV 71.3 L, MCH 22.0 L, MCHC 30.9 L, RDW 19.4 H, Plt Count 431 H, MPV 8.7, Neut % (Auto) 90.5 H, Lymph % (Auto) 7.5 L, Elliott % (Auto) 0.8 L, Eos % (Auto) 1.1, Baso % (Auto) 0.2, Neut # (Auto) 6.1, Lymph # (Auto) 0.5 L, Elliott # (Auto) 0.1, Eos # (Auto) 0.1, Baso # (Auto) 0.0, Total Counted 100, Neutrophils % (Manual) 94 H, Lymphocytes % (Manual) 5 L, Eosinophils % (Manual) 1, Platelet Estimate Normal, Hypochromasia 2+, Microcytosis 2+, PT 10.9, INR 1.01, APTT 24.8, Sodium 138, Potassium 3.5, Chloride 106, Carbon Dioxide 20 L, Anion Gap 15.5 H, BUN 11, Creatinine 0.90, Estimated Creat Clear 47, Estimated GFR 61, Est GFR ( Amer) 74, Glucose 161 H D, Calcium 8.4, Total Bilirubin 0.6, AST 21, ALT 16, Alkaline Phosphatase 118, Troponin I < 0.01, NT-Pro-B Natriuret Pep 5970 H, Total Protein 6.7, Albumin 3.4 L, Globulin 3.3 H, Albumin/Globulin Ratio 1.0 L, Blood Type O Positive, Antibody Screen Negative, Crossmatch (AHG) See Detail 08/14/23 19:45: Urine Color Yellow, Urine Appearance Clear, Urine pH 5.5, Ur Specific Chester 1.020, Urine Protein Negative, Urine Glucose (UA) Negative, Urine Ketones Negative, Urine Blood Negative, Urine Nitrate Positive, Urine Bilirubin Negative, Urine Urobilinogen 0.2, Ur Leukocyte Esterase Trace, Urine RBC None, Urine WBC 3-5, Ur Squamous Epith Cells Occasional, Urine Bacteria 1+, Stool Occult Blood Negative 08/14/23 21:55: Troponin I < 0.01 08/15/23 00:45: Troponin I 0.03 08/15/23 03:00: Hgb 8.0 L D, Hct 25.0 L, Sodium 139, Potassium 3.6, Chloride 103, Carbon Dioxide 26, Anion Gap 13.6, BUN 13, Creatinine 1.10 H D, Estimated Creat Clear 43, Estimated GFR 48 L, Est GFR ( Amer) 58 L D, Glucose 176 H, Calcium 8.1 L 08/15/23 06:01: WBC 7.5, RBC 3.46 L, Hgb 7.9 L, Hct 25.0 L, MCV 72.2 L, MCH 22.8 L, MCHC 31.6 L, RDW 19.4 H, Plt Count 443 H, MPV 8.3, Neut % (Auto) 83.1 H, Lymph % (Auto) 10.5, Elliott % (Auto) 5.7, Eos % (Auto) 0.5, Baso % (Auto) 0.2, Neut # (Auto) 6.2, Lymph # (Auto) 0.8, Elliott # (Auto) 0.4, Eos # (Auto) 0.0, Baso # (Auto) 0.0, Sodium 138, Potassium 3.6, Chloride 103, Carbon Dioxide 25, Anion Gap 13.6, BUN 13, Creatinine 0.90, Estimated Creat Clear 47, Estimated GFR 61, Est GFR ( Amer) 74 D, Glucose 149 H, Calcium 8.2 L I & O for Last 24 hours: Intake & Output 08/12/23 08/13/23 08/14/23 08/15/23 23:59 23:59 23:59 23:59 Intake Total 0 / 0 490 / 490 Output Total 500 / 1400 1150 / 1150 Balance -500 / -1400 -660 / -660 Weight 61.915 kg 62.051 kg Constitutional Constitutional: no acute distress *Routine HEENT Exam Head: Present normocephalic Eye: Present EOMI and PERRL ENT: Present mucous membranes moist *Routine Neck Exam Neck: Present supple; Absent lymphadenopathy *Routine Respiratory Exam Respiratory: Present CTA bilaterally *Routine Cardiovascular Exam Cardiovascular: Present RRR *Routine Abdominal Exam Abdominal: Present soft and normoactive bowel sounds; Absent tenderness *Routine Extremities Exam Extremities: Present edema; Absent cyanosis or clubbing Comments: has edema b/l lower legs *Routine Skin Exam Skin: Present warm; Absent rash *Routine Neurological Exam Neurological: Present alert and oriented X3 Assessment and Plan *Assessment and plan (1) CHF (congestive heart failure): Stat
--- NOTE | 2023-08-15 17:12 | PC.NURSE ---
[facility] STATED THAT PT CAN HAVE LOVENOX THIS EVENING BUT HOLD MORNING DOSE BEFORE HEART CATH.
--- NOTE | 2023-08-15 18:24 | PC.NURSE ---
Pt A&Ox4, no complaints of pain or nausea. Pt did complain of diarrhea, treated per mar. Pt ambulating to the restroom with standby assist. 1+ edema to Bilateral lower extremities. Pt has been room air all shift. Lung sounds clear.
[2023-08-16] VITALS (23 sets, daily range): BP systolic 99–134; BP diastolic 53–69; PULSE 70–83; RESP 16–19; TEMP 36.5–36.9; O2SAT 90–100; BMI 25.0
--- NOTE | 2023-08-16 07:23 | IR_ITS ---
APPROVED REPORT Patient Location: Inpatient PROCEDURES Left heart catheterization Left ventriculogram Selective coronary angiogram INDICATION Abnormal echocardiogram, Regional wall motion abnormality, Non-ST elevation myocardial infarction, Informed consent was obtained prior to the procedure. COMPLICATIONS NONE Estimated Blood Loss: LESS THAN 10 ML TECHNIQUE One percent lidocaine used to anesthetize the right anterior aspect of the wrist. The right radial artery was accessed via the Seldinger technique. A 6 [place] sheath was placed in the right radial artery. 2.5 mg of Verapamil, 800 mcg of nitroglycerin, 1mg Lidocaine and 5000 U Heparin were given through the arterial sheath. The papa catheter was also used to perform left heart catheterization, left ventriculogram and selective coronary angiogram. At the end of the procedure the sheath was removed good hemostasis was achieved using Traclet band, patient was transferred to the postop holding area in stable condition. ANGIOGRAPHIC RESULTS The left main artery Normal The left anterior descending artery Has proximal 10 to 20% stenosis with mid vessel 30% concentric stenosis in the LAD is then occluded after the second septal garnett mechanic. The distal vessel fills via collaterals from the circumflex artery. The entire mid LAD is angiographically absent with antegrade angiography however the vessel is collateralized through septal perforators from the posterior descending artery. A large first diagonal artery has long proximal tubular 40% stenosis with remaining vessel being tortuous. Large septal garnett mechanic collateralizes the right coronary arteries posterior descending artery The circumflex artery Is a large-caliber vessel and gives rise to a moderate size ramus intermedius which has a proximal eccentric 70% stenosis. The circumflex artery itself has mid vessel 40% stenosis with a focal concentric 70% stenosis supplying a large terminal obtuse marginal artery. The right coronary artery Is a dominant vessel and has an ostial 40% stenosis which creates significant dampening upon engagement of a 6 [place] catheter. There is additional 40% proximal stenosis. A large RV marginal branch arises and is widely patent. Distal to the RV marginal branch there is an additional marginal branch which is tortuous but patent. Distal to this large marginal branch of the right coronary artery is subtotally occluded. The vessel fills via left to right collaterals mostly from the large first septal garnett mechanic off the LAD The FLAHERTY ventriculogram reveals Mid anterior apical akinesis with suggestion of aneurysmal dilatation. Estimated ejection fraction 40% The left ventricular end-diastolic pressure 15 mmHg IMPRESSION Three-vessel coronary disease as described above Large regional wall motion abnormality with reduced ejection fraction PLAN 1. Recommend medical management for the chronically occluded LAD. 2. I would recommend stenting of the circumflex artery as this is a large-caliber vessel with a focal concentric stenosis which supplies a large amount of myocardium 3. Standard therapy for ischemic cardiomyopathy 4. Standard therapy for systolic congestive heart failure 5. Evaluation of acute on chronic anemia and once stable only then consider percutaneous revascularization Electronically signed by : Brian Martins MD 08/16/2023 14:35:18
--- NOTE | 2023-08-16 08:57 | PC.NURSE ---
TYPE CUTTER APPROVED ADMIN OF JARDIANCE THIS MORNING.
[2023-08-16 09:46] LABS: Basophils % 0.4 % (0.1-2.0); Eosinophils # 0.3 K/mm3 (0.0-0.4); Eosinophils % 4.1 % (0.1-12.0); Hematocrit 27.1 % (37.0-47.0); Hemoglobin 8.4 g/dL (12.2-16.2); Lymphocytes # 1.2 K/mm3 (0.7-4.5); Lymphocytes % 15.1 % (10-50); Mean Corpuscular HGB Conc 30.9 g/dL (31.8-35.4); Mean Corpuscular Hemoglobin 22.7 pg (27.0-31.2); Mean Corpuscular Volume 73.6 fl (81-99); Mean Platelet Volume 7.3 fl (7.4-10.4); Monocytes # 0.4 K/mm3 (0.1-1.0); Neutrophils # 5.8 K/mm3 (1.8-7.8); Neutrophils % 75.4 % (37.0-80.0); Platelet Count 379 K/mm3 (142-424); Red Blood Count 3.68 M/mm3 (4.20-5.40); Red Cell Distribution Width 18.9 % (11.5-17.5); White Blood Count 7.7 K/mm3 (4.8-10.8)
[2023-08-16 10:06] LABS: Alanine Aminotransferase 12 U/L (12-78); Albumin Level 2.8 g/dl (3.5-5.0); Alkaline Phosphatase 96 U/L (38-126); Anion Gap 6.7 mEq/L (5-15); Aspartate Amino Transferase 18 U/L (14-36); Bilirubin,Total 0.7 mg/dl (0.2-1.3); Blood Urea Nitrogen 11 mg/dl (7-17); Calcium 7.9 mg/dl (8.4-10.2); Carbon Dioxide 28 mmol/L (22.0-30.0); Chloride 105 mmol/L (98-107); Creatinine Clearance Estimated 45 mL/min (50-200); Estimated Glomerular Filt Rate 70 ml/min (>60); GFR (African American) 84 ML/MIN (>60); Globulin 2.9 g/dL (1.3-3.2); Glucose 103 mg/dl (74-100); Potassium 3.7 mmoL/L (3.5-5.1); Sodium 136 mmol/L (136-145); Total Protein,Serum 5.7 g/dl (6.3-8.2)
[2023-08-16 10:37] LABS: NT Pro Brain Natriuretic Pep. 5840 pg/mL (0-450)
--- NOTE | 2023-08-16 12:05 | PC.NURSE ---
courtesy tech note: rounded on patient. no verbalized requests at this time. call light w/in reach.
--- NOTE | 2023-08-16 13:31 | EXP.CARD.PN ---
Subjective Subjective Date: 08/16/23 Time: 09:30 Principal diagnosis: Shortness of breath, weakness Interval history: No events overnight. She is able to ambulate to the restroom on her own. Denies orthopnea. Agreeable to diagnostic left heart cath today. Exam Constitutional Constitutional: no acute distress *Routine Respiratory Exam Respiratory: Present normal respiratory effort; Absent wheezes or crackles *Routine Cardiovascular Exam Cardiovascular: Present RRR; Absent murmur *Routine Extremities Exam Extremities: Absent edema *Routine Skin Exam Skin: Present intact and warm *Routine Neurological Exam Neurological: Present alert and oriented X3 Routine Psychiatric Exam Psychiatric: Present cooperative Progress Note: A&P Assessment and plan (1) Heart failure, left systolic, acute: Status: Acute (2) Anemia: Status: Acute (3) Hypertension: Status: Acute Assessment and Plan Assessment and Plan for All Diagnoses:: ALSHF/HFrEF -new dx this admission with 1 week of LE edema, orthopnea, GARCIA, ProBNP 5k -symptoms improved following Lasix 40mg IV x1 -ECHO revealed EF 45% with severe apical hypokinesis -Start Entresto, Aldactone, Jardiance. She is already on metoprolol. -Reduce Lasix to as needed -She is agreeable to [facility] to discern ischemic vs nonischemic etiology of her symptoms. Will await her anemia w/u before any stenting which would necessitate DAPT therapy. Severe microcytic anemia -Hemoglobin 6.6 on arrival status post transfusion -No source identified yet, she has negative Hemoccult here, this is possibly chronic iron deficiency -Hospital service recommending outpatient colonoscopy -This will need clarification prior to any possible stenting/DAPT Hypertension -Well-controlled at this time, 120 -Continue home dose metoprolol -DC amlodipine, add Entresto and Aldactone for heart failure
--- NOTE | 2023-08-16 13:50 | EXP.PN ---
Subjective *Date: 08/16/23 *Time: 13:50 Interval history: Patient was seen and evaluated at the bedside. denies chest pain, shortness of breath, nausea, vomiting, abdominal pain. Patient does not have any complaints at this time. feels better overall Exam Data for Last 24 hours Vital signs and Labs for Last 24 Hours: Temp Pulse Resp BP Pulse Ox O2 Del Method O2 Flow Rate 98.1 F 79 16 129/67 91 L Room Air 1 08/16/23 11:08 08/16/23 11:08 08/16/23 11:08 08/16/23 11:08 08/16/23 11:08 08/16/23 11:08 08/14/23 23:00 Laboratory Results - last 24 hr 08/16/23 09:37: WBC 7.7, RBC 3.68 L, Hgb 8.4 L, Hct 27.1 L, MCV 73.6 L, MCH 22.7 L, MCHC 30.9 L, RDW 18.9 H, Plt Count 379, MPV 7.3 L, Neut % (Auto) 75.4, Lymph % (Auto) 15.1, Benton % (Auto) 5.0, Eos % (Auto) 4.1, Baso % (Auto) 0.4, Neut # (Auto) 5.8, Lymph # (Auto) 1.2, Benton # (Auto) 0.4, Eos # (Auto) 0.3, Baso # (Auto) 0.0, Sodium 136, Potassium 3.7, Chloride 105, Carbon Dioxide 28, Anion Gap 6.7, BUN 11, Creatinine 0.80, Estimated Creat Clear 45, Estimated GFR 70, Est GFR ( Amer) 84, Glucose 103 H, Calcium 7.9 L, Total Bilirubin 0.7, AST 18, ALT 12, Alkaline Phosphatase 96, NT-Pro-B Natriuret Pep 5840 H, Total Protein 5.7 L, Albumin 2.8 L, Globulin 2.9, Albumin/Globulin Ratio 1.0 L I & O for Last 24 hours: Intake & Output 08/13/23 08/14/23 08/15/23 08/16/23 23:59 23:59 23:59 23:59 Intake Total 0 / 0 730 / 1030 300 / 300 Output Total 500 / 1400 1275 / 1475 200 / 200 Balance -500 / -1400 -545 / -445 100 / 100 Weight 61.915 kg 62.051 kg 60.192 kg Constitutional Constitutional: no acute distress *Routine HEENT Exam Head: Present normocephalic Eye: Present EOMI and PERRL ENT: Present mucous membranes moist *Routine Neck Exam Neck: Present supple; Absent lymphadenopathy *Routine Respiratory Exam Respiratory: Present CTA bilaterally *Routine Cardiovascular Exam Cardiovascular: Present RRR *Routine Abdominal Exam Abdominal: Present soft and normoactive bowel sounds; Absent tenderness *Routine Extremities Exam Extremities: Present edema; Absent cyanosis or clubbing Comments: has edema b/l lower legs *Routine Skin Exam Skin: Present warm; Absent rash *Routine Neurological Exam Neurological: Present alert and oriented X3 Assessment and Plan *Assessment and plan (1) CHF (congestive heart failure): Status: Acute Qualifiers: Heart failure chronicity: acute Heart failure type: systolic Qualified Code(s): I50.21 - Acute systolic (congestive) heart failure Category: Medical Code(s): I50.9 - Heart failure, unspecified (2) Anemia: Status: Acute Qualifiers: Anemia type: unspecified type Qualified Code(s): D64.9 - Anemia, unspecified Category: Medical Code(s): D64.9 - Anemia, unspecified (3) Hypertension: Status: Acute Category: Medical Code(s): I10 - Essential (primary) hypertension (4) Chronic diarrhea: Status: Acute Category: Medical Code(s): K52.9 - Noninfective gastroenteritis and colitis, unspecified Plan Patient is a 77-year-old female who presented to hospital due to low hemoglobin. She was called from PCP office due to low hemoglobin. Patient also mentions she has been feeling short of breath especially while walking. Assessment Exertional shortness of breath, bilateral lower extremity edema likely secondary to CHF Anemia Hypertension Chronic diarrhea Plan Echo results pending-showed severe apical hypokinesis Cardiology consulted-recommend cardiac cath, patient agrees with the plan Monitor and replace electrolytes Continue diuresis Patient was given 1 unit of RBC, had a good response, denies blood in his stool, urine, denies being on blood thinners, did not have colonoscopy recently Monitor and replace electrolytes Patient may need colonoscopy as outpatient Patient is started on iron supplementation for anemia DVT prophylaxis
[2023-08-17] VITALS: PULSE 70
[2023-08-17 04:00] VITALS: BP 121/61; PULSE 70; PULSE 80; RESP 17; TEMP 36.6; O2SAT 95; BMI 24.3
[2023-08-17 07:54] VITALS: BP 118/61; PULSE 84; RESP 16; TEMP 36.6; O2SAT 98
[2023-08-17 08:00] VITALS: PULSE 80
[2023-08-17 11:52] VITALS: BP 121/64; PULSE 70; RESP 16; TEMP 36.4; O2SAT 98
--- NOTE | 2023-08-20 14:50 | CARE MANAGER ---
Contacted patient related to hospital discharge. She states she is tired but doing better. She picked up her medications. She has not made a follow up appointment with cardiology and so attempted to transfer her down there to schedule it, but there was no answer. Patient states she will call them back later and schedule it. MARCK Banegas
--- NOTE | 2023-08-30 15:18 | EXP.DC.SUM ---
General Admission date:: 08/16/23 Discharge date: 08/17/23 HPI HPI HPI: 77 year old female presented to ED after being called for abnormal lab result. She presented to her PCP this morning for c/o SOB and increased lower leg swelling for the past few days. At the PCP her hgb was 6.8, at ED repeat was 6.6. No active bleeding reported. Denies dark tarry stools or coffee grounds vomiting. occult stool negative in ED negative. PMHX of htn and chronic diarrhea. The ED work up reveals hgb of 6.6, negative troponin, and chest xray reveals small right pleural effusion. The ED physician ordered 40 mg of lasix and 1 unit of PRBC. The pt appears to have +3 pitting edema which is new. ED physician consulted the hospitalist team for admission. ED physician reports that he did bedside echo that reveals decreased EF. See his note please. I admitted the pt to the medical surgical floor. Upon admission I have ordered a BNP, echo for the morning, and placed a Cardiology consult. Her EKG reveals sinus tachycardia with q waves. Hospital Course Hospital Course Hospital Course: Patient is a 77-year-old female who presented to hospital due to low hemoglobin. She was called from PCP office due to low hemoglobin. Patient also mentions she has been feeling short of breath especially while walking. Assessment Exertional shortness of breath, bilateral lower extremity edema likely secondary to CHF Anemia Hypertension Chronic diarrhea Plan Echo results pending-showed severe apical hypokinesis Cardiology consulted-recommend cardiac cath- patient underwent cath and tolerated well. New Medications prescribed and patient was cleared for dc per cardiology, patient discharged ion stable condition Patient was seen and evaluated at the bedside on the day of discharge. Patient is stable for discharge. Patient wishes to be discharged. All patient questions were answered and patient was given time to ask questions. Patient was discharged in stable condition. Patient understands that she can return to ER in case of any sudden changes in health. Total time spent on DC - 38 mins Exam Data for Last 24 hours Vital signs and Labs for Last 24 Hours: Temp Pulse Resp BP Pulse Ox O2 Del Method O2 Flow Rate 97.5 F L 70 16 121/64 98 Room Air 1 08/17/23 11:52 08/17/23 11:52 08/17/23 11:52 08/17/23 11:52 11/18/23 11:52 08/17/23 13:00 08/14/23 23:00 Constitutional Constitutional: no acute distress *Routine HEENT Exam Head: Present normocephalic Eye: Present EOMI and PERRL ENT: Present mucous membranes moist *Routine Neck Exam Neck: Present supple; Absent lymphadenopathy *Routine Respiratory Exam Respiratory: Present CTA bilaterally *Routine Cardiovascular Exam Cardiovascular: Present RRR *Routine Abdominal Exam Abdominal: Present soft and normoactive bowel sounds; Absent tenderness *Routine Extremities Exam Extremities: Present edema; Absent cyanosis or clubbing Comments: has edema b/l lower legs *Routine Skin Exam Skin: Present warm; Absent rash *Routine Neurological Exam Neurological: Present alert and oriented X3 DS: Diagnosis Discharge Diagnosis (1) CHF (congestive heart failure): Status: Inactive Code(s): I50.9 - Heart failure, unspecified Qualifiers: Heart failure chronicity: acute Heart failure type: systolic Qualified Code(s): I50.21 - Acute systolic (congestive) heart failure (2) Anemia: Status: Inactive Code(s): D64.9 - Anemia, unspecified Qualifiers: Anemia type: unspecified type Qualified Code(s): D64.9 - Anemia, unspecified (3) Hypertension: Status: Inactive Code(s): I10 - Essential (primary) hypertension (4) Chronic diarrhea: Status: Acute Code(s): K52.9 - Noninfective gastroenteritis and colitis, unspecified Meds Home Medications and Allergies Home Medications Medication Instructions Recorded Confirmed Type loperamide 2 mg capsul
== END 2023-08-17 13:08 | disposition home or self-care (01) | DRG 286 ==
LOC: ER 18:46 → 2ND 20:03
PROVIDERS: Internal Medicine; Nurse Practitioner Critical Care Medicine; Physician Assistant; Admitting Provider Internal Medicine; Emergency Provider Emergency Medicine; PCP Family Medicine; Visit Provider Internal Medicine
PROC: 4A023N7 Measurement of Cardiac Sampling and Pressure, Left Heart, Percutaneous Approach (ICD-10-PCS; principal; 2023-08-16 14:00)
DX: I11.0 Hypertensive heart disease with heart failure (principal); I50.23 Acute on chronic systolic (congestive) heart failure; K52.9 Noninfective gastroenteritis and colitis, unspecified; Z85.41 Personal history of malignant neoplasm of cervix uteri; D50.9 Iron deficiency anemia, unspecified; K52.89 Other specified noninfective gastroenteritis and colitis; I25.10 Atherosclerotic heart disease of native coronary artery without angina pectoris; I25.5 Ischemic cardiomyopathy
CPT/HCPCS: 36415; 71045; 80048; 80053; 81001; 82272; 82607; 83540; 83550; 83880; 84484; 85007; 85014; 85018; 85025; 85610; 85730; 86850; 93005; 93306; 93458; 99152; 99291; C1725; C1769; G0328; G0378; J1644; P9016; Q9967

== ENCOUNTER → 2023-08-27 07:56 | Outpatient (CLI) | payer MEDICARE, OTHER, SELFPAY ==
[2023-08-27 16:30] LABS: Chloride 107 mmol/L (98-107); Sodium 138 mmol/L (136-145)
[2023-08-27 16:31] LABS: Potassium 5.2 mmoL/L (3.5-5.1)
[2023-08-27 16:33] LABS: Alanine Aminotransferase 12 U/L (12-78); Alkaline Phosphatase 92 U/L (38-126); Anion Gap 10.2 mEq/L (5-15); Aspartate Amino Transferase 21 U/L (14-36); Bilirubin,Total 0.4 mg/dl (0.2-1.3); Blood Urea Nitrogen 27 mg/dl (7-17); Carbon Dioxide 26 mmol/L (22.0-30.0); Estimated Glomerular Filt Rate 44 ml/min (>60); GFR (African American) 53 ML/MIN (>60); Iron 35 ug/dL (37-170)
[2023-08-27 16:34] LABS: Albumin Level 3.4 g/dl (3.5-5.0); Albumin/Globulin Ratio 1.1 (1.1-1.8); Calcium 8.2 mg/dl (8.4-10.2); Globulin 3.1 g/dL (1.3-3.2); Glucose 109 mg/dl (74-100); Total Protein,Serum 6.5 g/dl (6.3-8.2)
[2023-08-27 16:40] LABS: Basophils % 0.4 % (0.1-2.0); Eosinophils # 0.3 K/mm3 (0.0-0.4); Hematocrit 26.8 % (37.0-47.0); Hemoglobin 8.1 g/dL (12.2-16.2); Lymphocytes # 1.2 K/mm3 (0.7-4.5); Lymphocytes % 14.3 % (10-50); Mean Corpuscular HGB Conc 30.1 g/dL (31.8-35.4); Mean Corpuscular Hemoglobin 23.1 pg (27.0-31.2); Mean Corpuscular Volume 76.7 fl (81-99); Mean Platelet Volume 7.4 fl (7.4-10.4); Monocytes # 0.3 K/mm3 (0.1-1.0); Monocytes % 3.9 % (1.7-9.3); Neutrophils # 6.6 K/mm3 (1.8-7.8); Neutrophils % 78.4 % (37.0-80.0); Platelet Count 606 K/mm3 (142-424); Red Cell Distribution Width 20.4 % (11.5-17.5); White Blood Count 8.5 K/mm3 (4.8-10.8)
[2023-08-27 16:43] LABS: Total Iron Binding Capacity 486 ug/dL (265-497)
== END ==
PROVIDERS: PCP Nurse Practitioner Family; Visit Provider Nurse Practitioner Family
DX: D50.9 Iron deficiency anemia, unspecified (principal); D64.9 Anemia, unspecified
CPT/HCPCS: 80053; 83540; 83550; 85025

== ENCOUNTER → 2023-09-03 23:12 | Outpatient (CLI) | payer MEDICARE, OTHER, SELFPAY | PROVIDERS: PCP Nurse Practitioner Family; Visit Provider Nurse Practitioner Family | DX: D50.9 Iron deficiency anemia, unspecified (principal) ==

== ENCOUNTER → 2023-09-04 07:46 | Outpatient (CLI) | payer MEDICARE, OTHER, SELFPAY ==
[2023-09-03 17:11] LABS: Basophils % 0.4 % (0.1-2.0); Eosinophils # 0.4 K/mm3 (0.0-0.4); Eosinophils % 5.1 % (0.1-12.0); Hematocrit 26.8 % (37.0-47.0); Hemoglobin 8.1 g/dL (12.2-16.2); Lymphocytes # 1.2 K/mm3 (0.7-4.5); Lymphocytes % 14.3 % (10-50); Mean Corpuscular HGB Conc 30.3 g/dL (31.8-35.4); Mean Corpuscular Hemoglobin 23.7 pg (27.0-31.2); Mean Corpuscular Volume 78.3 fl (81-99); Mean Platelet Volume 7.9 fl (7.4-10.4); Monocytes # 0.4 K/mm3 (0.1-1.0); Monocytes % 4.9 % (1.7-9.3); Neutrophils # 6.5 K/mm3 (1.8-7.8); Neutrophils % 75.4 % (37.0-80.0); Platelet Count 574 K/mm3 (142-424); Red Blood Count 3.43 M/mm3 (4.20-5.40); Red Cell Distribution Width 22.6 % (11.5-17.5); White Blood Count 8.6 K/mm3 (4.8-10.8)
[2023-09-03 18:03] LABS: Chloride 107 mmol/L (98-107); Potassium 5.4 mmoL/L (3.5-5.1); Sodium 137 mmol/L (136-145)
[2023-09-03 18:06] LABS: Blood Urea Nitrogen 20 mg/dl (7-17); Estimated Glomerular Filt Rate 54 ml/min (>60); GFR (African American) 65 ML/MIN (>60)
[2023-09-03 18:07] LABS: Anion Gap 10.4 mEq/L (5-15); Calcium 8.3 mg/dl (8.4-10.2); Carbon Dioxide 25 mmol/L (22.0-30.0); Glucose 101 mg/dl (74-100)
== END ==
PROVIDERS: PCP Nurse Practitioner Family; Visit Provider Nurse Practitioner Family
DX: D50.9 Iron deficiency anemia, unspecified (principal)
CPT/HCPCS: 80048; 85025

== ENCOUNTER 2023-10-03 10:35 | Outpatient (CLI) | payer MEDICARE, OTHER, SELFPAY ==
[2023-10-03 16:36] LABS: Iron 31 ug/dL (37-170)
[2023-10-03 16:37] LABS: Reticulocyte % (Auto) 2.4 % (0.9-3.2)
[2023-10-03 16:45] LABS: Total Iron Binding Capacity 360 ug/dL (265-497)
[2023-10-04 08:17] LABS: Alanine Aminotransferase 13 U/L (12-78); Albumin Level 2.8 g/dl (3.5-5.0); Alkaline Phosphatase 95 U/L (38-126); Anion Gap 6.2 mEq/L (5-15); Aspartate Amino Transferase 20 U/L (14-36); Bilirubin,Total 0.2 mg/dl (0.2-1.3); Blood Urea Nitrogen 16 mg/dl (7-17); Calcium 7.7 mg/dl (8.4-10.2); Carbon Dioxide 26 mmol/L (22.0-30.0); Chloride 107 mmol/L (98-107); Estimated Glomerular Filt Rate 54 ml/min (>60); GFR (African American) 65 ML/MIN (>60); Globulin 2.8 g/dL (1.3-3.2); Glucose 93 mg/dl (74-100); Potassium 5.2 mmoL/L (3.5-5.1); Sodium 134 mmol/L (136-145); Total Protein,Serum 5.6 g/dl (6.3-8.2)
[2023-10-04 09:01] LABS: Basophils # 0.1 K/mm3 (0-0.2); Basophils % 0.7 % (0.1-2.0); Eosinophils # 0.3 K/mm3 (0.0-0.4); Eosinophils % 4.4 % (0.1-12.0); Hemoglobin 9.9 g/dL (12.2-16.2); Lymphocytes # 1.2 K/mm3 (0.7-4.5); Mean Corpuscular Hemoglobin 28.2 pg (27.0-31.2); Mean Corpuscular Volume 97.3 fl (81-99); Mean Platelet Volume 10.4 fl (7.4-10.4); Monocytes # 0.3 K/mm3 (0.1-1.0); Monocytes % 5.1 % (1.7-9.3); Neutrophils # 4.9 K/mm3 (1.8-7.8); Platelet Count 462 K/mm3 (142-424); Red Blood Count 3.49 M/mm3 (4.20-5.40); Red Cell Distribution Width 21.7 % (11.5-17.5); White Blood Count 6.7 K/mm3 (4.8-10.8)
== END 2023-10-03 23:59 ==
LOC: LAB.DROPOF 10-04 11:13
PROVIDERS: PCP Nurse Practitioner Family; Visit Provider Nurse Practitioner Family
DX: D64.9 Anemia, unspecified (principal); R30.0 Dysuria; B96.29 Other Escherichia coli [E. coli] as the cause of diseases classified elsewhere
CPT/HCPCS: 80053; 83540; 83550; 85025; 85044; 87086

== ENCOUNTER 2023-10-25 20:37 | Outpatient (CLI) | payer MEDICARE, OTHER, SELFPAY ==
[2023-10-25 17:34] LABS: Basophils # 0.1 K/mm3 (0-0.2); Basophils % 0.5 % (0.1-2.0); Eosinophils # 0.3 K/mm3 (0.0-0.4); Eosinophils % 3.3 % (0.1-12.0); Hemoglobin 9.1 g/dL (12.2-16.2); Lymphocytes # 1.1 K/mm3 (0.7-4.5); Lymphocytes % 12.6 % (10-50); Mean Corpuscular HGB Conc 30.2 g/dL (31.8-35.4); Mean Corpuscular Hemoglobin 27.5 pg (27.0-31.2); Mean Corpuscular Volume 90.9 fl (81-99); Mean Platelet Volume 8.9 fl (7.4-10.4); Monocytes # 0.5 K/mm3 (0.1-1.0); Monocytes % 5.4 % (1.7-9.3); Neutrophils # 6.8 K/mm3 (1.8-7.8); Neutrophils % 78.1 % (37.0-80.0); Platelet Count 570 K/mm3 (142-424); Red Cell Distribution Width 17.5 % (11.5-17.5); White Blood Count 8.7 K/mm3 (4.8-10.8)
[2023-10-25 18:37] LABS: Anion Gap 13.5 mEq/L (5-15); Blood Urea Nitrogen 11 mg/dl (7-17); Calcium 7.9 mg/dl (8.4-10.2); Carbon Dioxide 25 mmol/L (22.0-30.0); Chloride 104 mmol/L (98-107); Estimated Glomerular Filt Rate 61 ml/min (>60); GFR (African American) 73 ML/MIN (>60); Glucose 62 mg/dl (74-100); Potassium 4.5 mmoL/L (3.5-5.1); Sodium 138 mmol/L (136-145)
[2023-10-25 19:22] LABS: Iron 27 ug/dL (37-170)
[2023-10-25 19:31] LABS: Total Iron Binding Capacity 254 ug/dL (265-497)
== END 2023-10-25 23:59 ==
LOC: LAB.DROPOF 20:38
PROVIDERS: PCP Nurse Practitioner Family; Visit Provider Nurse Practitioner Family
DX: D64.9 Anemia, unspecified (principal)
CPT/HCPCS: 80048; 83540; 83550; 85025

== ENCOUNTER 2023-11-01 11:00 | Outpatient (CLI) | payer MEDICARE, OTHER, SELFPAY ==
[2023-11-01 11:25] VITALS: BP 128/62; PULSE 82; RESP 16; TEMP 36.4; BMI 24.0
[2023-11-01] MEDS: SODIUM CHLORIDE 0.9% 10ML FLUSH SYRINGE 10 ML IV (11:28)
[2023-11-01] MEDS: FERRIC CARBOXYMALTOSE 750 MG in 0.9 % SODIUM CHLORIDE 250 ML 530 MG IV (11:28)
[2023-11-01] MEDS: SODIUM CHLORIDE 0.9% 50ML BAG 50 ML IV (11:29)
[2023-11-01 12:25] VITALS: BP 127/66; PULSE 85; RESP 16; TEMP 36.6; O2SAT 97
== END 2023-11-01 12:25 | disposition home or self-care (01) ==
PROVIDERS: PCP Family Medicine; Visit Provider Nurse Practitioner Family
DX: D64.9 Anemia, unspecified (principal); D50.8 Other iron deficiency anemias; T45.4X5A Adverse effect of iron and its compounds, initial encounter
CPT/HCPCS: 96365; J1439

== ENCOUNTER 2023-11-08 10:47 | Outpatient (CLI) | payer MEDICARE, OTHER, SELFPAY ==
[2023-11-08 11:15] VITALS: BP 109/45; PULSE 72; RESP 18; TEMP 36.7; O2SAT 97
[2023-11-08] MEDS: FERRIC CARBOXYMALTOSE 750 MG in 0.9 % SODIUM CHLORIDE 250 ML 530 MG IV (11:15)
[2023-11-08 11:45] VITALS: BP 119/58; PULSE 74
[2023-11-08] MEDS: SODIUM CHLORIDE 0.9% 10ML FLUSH SYRINGE 10 ML IV (11:47)
[2023-11-08] MEDS: SODIUM CHLORIDE 0.9% 50ML BAG 50 ML IV (11:47)
== END 2023-11-08 11:50 | disposition home or self-care (01) ==
LOC: INF 10:47
PROVIDERS: PCP Nurse Practitioner Family; Visit Provider Nurse Practitioner Family
DX: D64.9 Anemia, unspecified (principal)
CPT/HCPCS: 96365; J1439

== ENCOUNTER 2023-12-17 16:49 | Outpatient (CLI) | payer MEDICARE, OTHER, SELFPAY ==
[2023-12-17 17:50] LABS: Basophils # 0.1 K/mm3 (0-0.2); Eosinophils # 0.3 K/mm3 (0.0-0.4); Eosinophils % 5.1 % (0.1-12.0); Hematocrit 36.2 % (37.0-47.0); Hemoglobin 10.6 g/dL (12.2-16.2); Lymphocytes # 0.8 K/mm3 (0.7-4.5); Lymphocytes % 12.4 % (10-50); Mean Corpuscular HGB Conc 29.3 g/dL (31.8-35.4); Mean Corpuscular Hemoglobin 31.9 pg (27.0-31.2); Mean Corpuscular Volume 108.6 fl (81-99); Mean Platelet Volume 9.1 fl (7.4-10.4); Monocytes # 0.4 K/mm3 (0.1-1.0); Monocytes % 5.2 % (1.7-9.3); Neutrophils # 5.1 K/mm3 (1.8-7.8); Neutrophils % 76.3 % (37.0-80.0); Platelet Count 431 K/mm3 (142-424); Red Blood Count 3.33 M/mm3 (4.20-5.40); Red Cell Distribution Width 20.6 % (11.5-17.5); White Blood Count 6.7 K/mm3 (4.8-10.8)
[2023-12-17 18:08] LABS: Iron 68 ug/dL (37-170)
[2023-12-17 18:21] LABS: Total Iron Binding Capacity 245 ug/dL (265-497)
== END 2023-12-17 23:59 ==
PROVIDERS: PCP Nurse Practitioner Family; Visit Provider Nurse Practitioner Family
DX: D64.9 Anemia, unspecified (principal)
CPT/HCPCS: 83540; 83550; 85025

== ENCOUNTER 2024-01-14 16:40 | Outpatient (CLI) | payer MEDICARE, OTHER, SELFPAY ==
[2024-01-14 17:43] LABS: Basophils # 0.1 K/mm3 (0-0.2); Basophils % 0.8 % (0.1-2.0); Eosinophils # 0.3 K/mm3 (0.0-0.4); Eosinophils % 3.5 % (0.1-12.0); Hematocrit 31.5 % (37.0-47.0); Hemoglobin 9.9 g/dL (12.2-16.2); Lymphocytes # 1.1 K/mm3 (0.7-4.5); Lymphocytes % 14.4 % (10-50); Mean Corpuscular HGB Conc 31.6 g/dL (31.8-35.4); Mean Corpuscular Hemoglobin 32.6 pg (27.0-31.2); Mean Corpuscular Volume 103.3 fl (81-99); Mean Platelet Volume 9.9 fl (7.4-10.4); Monocytes # 0.4 K/mm3 (0.1-1.0); Monocytes % 5.1 % (1.7-9.3); Neutrophils # 5.6 K/mm3 (1.8-7.8); Neutrophils % 76.2 % (37.0-80.0); Platelet Count 423 K/mm3 (142-424); Red Blood Count 3.05 M/mm3 (4.20-5.40); Red Cell Distribution Width 16.2 % (11.5-17.5); White Blood Count 7.3 K/mm3 (4.8-10.8)
[2024-01-14 20:16] LABS: Alanine Aminotransferase 17 U/L (12-78); Albumin Level 3.4 g/dl (3.5-5.0); Albumin/Globulin Ratio 1.2 (1.1-1.8); Alkaline Phosphatase 115 U/L (38-126); Anion Gap 12.4 mEq/L (5-15); Aspartate Amino Transferase 29 U/L (14-36); Bilirubin,Total 0.5 mg/dl (0.2-1.3); Blood Urea Nitrogen 14 mg/dl (7-17); Calcium 9.1 mg/dl (8.4-10.2); Carbon Dioxide 24 mmol/L (22.0-30.0); Chloride 109 mmol/L (98-107); Estimated Glomerular Filt Rate 81 ml/min (>60); GFR (African American) 98 ML/MIN (>60); Globulin 2.8 g/dL (1.3-3.2); Glucose 91 mg/dl (74-100); Potassium 4.4 mmoL/L (3.5-5.1); Sodium 141 mmol/L (136-145); Total Protein,Serum 6.2 g/dl (6.3-8.2)
[2024-01-14 20:46] LABS: Thyroid Stimulating Hormone 4.55 uIU/mL (0.465-4.68)
[2024-01-14 21:05] LABS: Vitamin B12 325 pg/mL (239-931)
[2024-01-14 22:00] LABS: Iron 68 ug/dL (37-170)
[2024-01-14 22:09] LABS: Total Iron Binding Capacity 299 ug/dL (265-497)
== END 2024-01-14 23:59 | disposition home or self-care (01) ==
LOC: LAB.DROPOF 16:40
PROVIDERS: PCP Nurse Practitioner Family; Visit Provider Nurse Practitioner Family
DX: D64.9 Anemia, unspecified (principal); I10 Essential (primary) hypertension; Z68.24 Body mass index [BMI] 24.0-24.9, adult
CPT/HCPCS: 80053; 82607; 83540; 83550; 84443; 85025

== ENCOUNTER 2024-02-21 09:59 | Outpatient (CLI) | payer MEDICARE, OTHER, SELFPAY ==
--- NOTE | 2024-02-21 10:01 | CA_ITS ---
APPROVED REPORT EXAM: Comprehensive 2D, Doppler, and color-flow Echocardiogram Track Layer: VALREIE Walker, RVS Ht: 5 ft 1 in Wt: 131lbs BSA: 1.58 BP: 143/59 mmHg Indications: CM, CAD, CHF, Known akinetic LV apex, SOA, Fatigue Echo Enhancing Agent Comments: no IV access/ Patient declined contrast 2D Dimensions Left Atrium 3.38 cm F: 2.7 - 3.8 LA Volume 69.70 mL LA Volume Index 44.11 mL/m2 (M/F) 16-34 EF AP4 35.80 % GL Strain -10.9 % M-Mode Dimensions RVDd 2.07 cm (0.9-2.6) LA Diam 3.86 cm (1.9-4.0) LVDd 5.81 cm (3.5-5.7) LVDs 3.89 cm (3.5-5.7) IVSd 0.85 cm (0.6-1.1) PWd 0.72 cm (0.6-1.1) EF (Teich) 53.20% EPSs 1.00 cm FS 27.70% EDV (Teich) 140.10 mL TAPSE 1.72 (<1.7) ESV (Teich) 65.50 mL LV Diastology E Decel Time 143 (160-240 msec) E/A Ratio 0.93 MED A' 7.70 cm/s LAT A' 5.30 cm/s Aortic Valve ZAHIRA Index 1.08 cm2/m2 AoV Peak Linus. 128.0 (50-130 cm/s) AO Peak GR. 6.60 mmHg AO Mean GR. 3.30 (<5 mmHg) AO VTI 30.3 (18-25 cm) ZAHIRA (VTI) 1.75 (2.5-4.5 cm2) Mitral Valve MV A Velocity 102.0 (40-130 cm/s) E/A Ratio 0.93 MV Mean Gr. 2.70 (<2mmHg) Pulmonary Valve MA End VMAX 146.0 cm/s Tricuspid Valve TR P. Velocity 280.00 cm/s RAP Estimate 10.00 mmHg RVSP 41.40 mmHg Left Ventricle The left ventricle is normal size. There is moderate reduction in LV systolic function. There is normal left ventricular wall thickness. In the mid to distal septal, inferoseptal, and anteroseptal LV greene, as well as the LV apex are akinetic. Grade 2 diastolic dysfunction. The LV apex is highly suspicious for presence of LV thrombus. However, the patient declined administration of ultrasound enhancing agent. LVEF is 40%. Right Ventricle The right ventricle is normal size. The right ventricular systolic function is normal. Atria Left atrium is moderately dilated. Right atrium is moderately dilated. There is no Doppler evidence of interatrial shunt. Aortic Valve Aortic valve is mildly thickened. There is no aortic valvular stenosis. No aortic regurgitation is present. Mitral Valve Mild mitral annular calcification. The mitral valve leaflets are mildly thickened. No evidence of mitral valve stenosis. Moderate mitral regurgitation. Tricuspid Valve The tricuspid valve leaflets are thin and pliable. Mild tricuspid regurgitation. RVSP is 30-35 mmHg. Pulmonic Valve The pulmonary valve is normal in structure. Trace pulmonic regurgitation. Great Vessels The aortic root is normal in size. The ascending aorta is not well-visualized. IVC is normal in size and collapses >50% with inspiration. Pericardium There is no pericardial effusion. Other Information Study Quality: Fair Conclusion Moderate reduction in LV systolic function (LVEF 40%). Grade 2 diastolic dysfunction. The LV function in the bases is preserved, however there is akinesis of the mid to distal septal, inferoseptal, and anteroseptal LV greene, as well as the LV apex. The LV apex is highly suspicious for presence of LV thrombus. However, the patient declined administration of ultrasound enhancing agent. Biatrial dilation. Moderate MR. Mild TR. RVSP 30-35 mmHg. In the setting of persistent reduction in LVEF and difficult to quantify LVEF (due to mismatch between LV bases and LV apex), as well as due to concern for apical LV thrombus, further evaluation with cardiac MRI (cardiomyopathy protocol + mass protocol to r/o LV thrombus) is recommended. Electronically signed by : Karla Sol MD 02/25/2024 13:10:16
== END 2024-02-21 23:59 | disposition home or self-care (01) ==
LOC: RT 09:59
PROVIDERS: PCP Family Medicine; Visit Provider Physician Assistant
DX: I25.5 Ischemic cardiomyopathy (principal); I11.0 Hypertensive heart disease with heart failure; I25.10 Atherosclerotic heart disease of native coronary artery without angina pectoris; I50.21 Acute systolic (congestive) heart failure; R42 Dizziness and giddiness; R06.00 Dyspnea, unspecified; D64.9 Anemia, unspecified
CPT/HCPCS: 93306

== ENCOUNTER 2024-03-10 12:41 | Outpatient (CLI) | payer MEDICARE, OTHER, SELFPAY ==
[2024-03-10 14:26] LABS: Occult Blood,Stool Positive (Negative)
[2024-03-14 15:01] LABS: Pancreatic Elastase, Fecal 178 (>200)
[2024-03-15 03:36] LABS: Calprotectin, Fecal 31 ug/g (0-120)
== END 2024-03-10 23:59 | disposition home or self-care (01) ==
LOC: LAB 12:42
PROVIDERS: PCP Family Medicine; Visit Provider Nurse Practitioner
DX: K52.9 Noninfective gastroenteritis and colitis, unspecified (principal); R10.10 Upper abdominal pain, unspecified
CPT/HCPCS: 82272; 82656; 83993; G0328

== ENCOUNTER 2024-04-06 09:05 | Outpatient (CLI) | payer MEDICARE, OTHER, SELFPAY ==
--- NOTE | 2024-04-06 09:28 | MR_ITS ---
APPROVED REPORT Admissions Dean: CLINICAL INDICATION Cardiomyopathy evaluation, possible apical LV thrombus TECHNIQUE Image Acquisition: Cardiac magnetic resonance (CMR) was performed on Siemens Espree MRI 1.5T scanner. Software platform sequences were performed using the Siemens Remotium MR B19 platform. A set of three-plane, low-resolution, large aehcr-mc-pzaw localizers were initially acquired. Then axial, coronal, sagittal TrueFISP, as well as axial HASTE images, were obtained. These were followed by gated TrueFISP breathold cinematic sequences obtained in the short axis with 8 mm slices and 2 mm gaps, 2-chamber (vertical long axis), 3-chamber, 4-chamber (horizontal long axis). A bolus of contrast was injected intravenously with first-pass sequences obtained in the short axis and four-chamber planes. After approximately 10 minutes, a TI curtain stretcher sequence was performed to determine the optimal TI time. Using the optimized TI time, delayed contrast enhancement segmented inversion???recovery TurboFLASH sequences were obtained in the short axis, 2-chamber, 3-chamber, and 4-chamber projections. 2D-velocity phase mapping was performed. Functional parameters were calculated by offline analysis on an independent workstation ([employer] Imaging Platform, [employer]). Contrast: ProHance??? (Gadoteridol) FINDINGS MORPHOLOGY AND FUNCTION Left ventricle: The left ventricle is severely dilated.. The indexed left ventricular end-diastolic volume (LVEDVi) is 134 ml/m2 (reference range 57-105 ml/m2 in males, 56-96 ml/m2 in females). There is moderate reduction in left ventricular systolic function. There is normal left ventricular wall thickness. There is akinesis of the mid to distal septal, anteroseptal, inferior and inferolateral LV greene, as well as the LV apex. An LV apical thrombus is present, measuring 1.2 cm x 1.3 cm in its largest dimensions. LVEF is calculated at 37.7% (reference range 57-77%). Right ventricle: The right ventricle is normal in size. The indexed right ventricular end-diastolic volume (RVEDVi) is 70 ml/m2 (reference range 61-121 ml/m2 in males, 48-112 ml/m2 in females). Normal right ventricular systolic function is present. RVEF is calculated at 57.0% (reference range 52-72% in males, 51-71% in females). Atria: The left atrium is mildly dilated. The maximum indexed left atrial volume is 53 ml/m2 (reference range 26-52 ml/m2 in males, 27-53 ml/m2 in females). The right atrium is normal in size. The maximum indexed right atrial volume is 35 ml/m2 (reference range 18-90 ml/m2). Aorta: The diameter of the aortic annulus is normal, measuring 26 mm (coronal view reference range 21-30 mm in males, 19-27 mm in females). The diameter of the aortic sinus is normal, measuring 37 mm (coronal view reference range 25-42 mm in males, 24-36 mm in females). The diameter of the sinotubular junction is normal, measuring 23 mm (coronal view reference range 18-32 mm in males, 18-28 mm in females). The diameters of the ascending and descending thoracic aorta are normal. Main pulmonary artery: The main pulmonary artery diameter is normal. Pericardium: The pericardial thickness is normal. The pericardial thickness measures 2.3 mm (normal < 4.0 mm). There is no pericardial effusion. VALVES The posterior mitral valve leaflet is tethered with restricted motion. There is mild mitral regurgitation present. The MR jet is eccentric and posteriorly directed. Systolic anterior motion of the mitral valve is not visualized. Ratio of pulmonary to systemic flow, Qp:Qs ratio = 1.14 (normal < or = 1.2, hemodynamically significant shunt > 1.5), demonstrating no evidence of hemodynamically significant shunt. TISSUE CHARACTERIZATION Resting Perfusion: Resting hypoperfusion is present in the inferior, inferolateral, and septal LV greene. Myocardial Fibrosis and/or edema: Abnormal gadolinium kinetics are present. There is transmural late gadolinium enhancement (LGE) noted in the mid to distal septal, anteroseptal, anterior, inferior, and inferolateral LV greene, as well as the LV apex. Within the scarred LV apical region, there is a region of microvascular obstruction present. The scarred region does not demonstrate evidence of viable tissue. OTHER No other significant findings are noted. However, this exam is focused on the cardiac structure and function. IMPRESSION Severely dilated LV size with moderate reduction in LV systolic function. LVEDVi= 134 ml/m2 and LVEF= 37.7%. Akinesis of the mid to distal septal, anteroseptal, inferior and inferolateral LV greene, as well as the LV apex. An LV apical thrombus is present, measuring 1.2 cm x 1.3 cm in its largest dimensions. Normal RV size with normal RV systolic function. RVEDVi= 70 ml/m2 and RVEF= 57.0%. Mild LA dilation. Transmural LGE in the mid to distal septal, anteroseptal, anterior, inferior, and inferolateral LV greene, as well as the LV apex. Within the scarred LV apical region, there is a region of microvascular obstruction present. The scarred region does not demonstrate evidence of viable tissue. Resting hypoperfusion is present in the inferior, inferolateral, and septal LV greene. Tethering of the posterior MV leaflet. Mild MR (posteriorly directed eccentric jet). Ratio of pulmonary to systemic flow, Qp:Qs ratio = 1.14 (normal < or = 1.2, hemodynamically significant shunt > 1.5), demonstrating no evidence of hemodynamically significant shunt. The above findings are most suggestive of ischemic cardiomyopathy (LVEF 37%) with prior infarct in the LAD and possibly LCx territories. The infarcted region demonstrates transmural LGE with evidence of microvascular obstruction, and is unlikely to have underlying viable tissue. Apical LV thrombus is also present, which requires anticoagulation if clinically feasible. Repeat cardiac MRI within 3 months after inititaion of management is recommended. COMPARISON None CRITICAL RESULT Apical LV thrombus is present. COMMUNICATION The above findings, including presence of LV apical thrombus, were communicated with the outpatient cardiology team. The patient is planned to attend cardiology clinic very shortly to discuss above findings and possible initiation of anticoagulation. The findings of this cardiac MR were reviewed, reported, and signed by Gene Sol MD ([employer]). Conclusion Electronically signed by : Karla Sol MD 04/13/2024 01:45:27
[2024-04-06 09:37] LABS: Blood Urea Nitrogen 17 mg/dl (7-17); Estimated Glomerular Filt Rate 70 ml/min (>60); GFR (African American) 84 ML/MIN (>60)
[2024-04-06] MEDS: SODIUM CHLORIDE 0.9% 10ML SYR (RAD ONLY) 10 ML IV (11:00)
[2024-04-06] MEDS: GADOTERIDOL INJ 20ML SYRINGE 14 ML IV (11:00)
[2024-04-06] MEDS: 0.9 % SODIUM CHLORIDE 50 ML VIAL 25 ML IV (11:00)
== END 2024-04-06 23:59 | disposition home or self-care (01) ==
LOC: RAD 09:08
PROVIDERS: PCP Family Medicine; Visit Provider Nurse Practitioner
DX: I25.5 Ischemic cardiomyopathy (principal); I11.0 Hypertensive heart disease with heart failure; I25.10 Atherosclerotic heart disease of native coronary artery without angina pectoris; I50.21 Acute systolic (congestive) heart failure; R06.09 Other forms of dyspnea; R42 Dizziness and giddiness; D64.9 Anemia, unspecified
CPT/HCPCS: 36415; 75561; 82565; 84520; A9576

== ENCOUNTER 2024-04-13 14:41 | Outpatient (CLI) | payer MEDICARE, OTHER, SELFPAY ==
[2024-04-13 15:49] LABS: Basophils # 0.1 K/mm3 (0-0.2); Basophils % 0.8 % (0.1-2.0); Eosinophils # 0.3 K/mm3 (0.0-0.4); Eosinophils % 3.8 % (0.1-12.0); Hemoglobin 10.3 g/dL (12.2-16.2); Lymphocytes # 1.5 K/mm3 (0.7-4.5); Mean Corpuscular HGB Conc 32.3 g/dL (31.8-35.4); Mean Corpuscular Hemoglobin 30.3 pg (27.0-31.2); Mean Corpuscular Volume 93.8 fl (81-99); Mean Platelet Volume 8.4 fl (7.4-10.4); Monocytes # 0.4 K/mm3 (0.1-1.0); Monocytes % 4.3 % (1.7-9.3); Neutrophils # 6.4 K/mm3 (1.8-7.8); Neutrophils % 74.1 % (37.0-80.0); Platelet Count 459 K/mm3 (142-424); Red Blood Count 3.41 M/mm3 (4.20-5.40); Red Cell Distribution Width 15.2 % (11.5-17.5); White Blood Count 8.6 K/mm3 (4.8-10.8)
[2024-04-13 21:56] LABS: Alanine Aminotransferase 15 U/L (12-78); Albumin Level 3.5 g/dl (3.5-5.0); Alkaline Phosphatase 101 U/L (38-126); Anion Gap 9.8 mEq/L (5-15); Aspartate Amino Transferase 23 U/L (14-36); Bilirubin,Indirect 0.5 mg/dL (0.0-0.9); Bilirubin,Total 0.5 mg/dl (0.2-1.3); Bilirubin,Unconjugated 0.5 mg/dL (0.0-1.1); Blood Urea Nitrogen 20 mg/dl (7-17); Calcium 9.6 mg/dl (8.4-10.2); Carbon Dioxide 26 mmol/L (22.0-30.0); Chloride 106 mmol/L (98-107); Chol/HDL Ratio 3.8 (1-3.5); Cholesterol 150 mg/dl (140-200); Estimated Glomerular Filt Rate 54 ml/min (>60); GFR (African American) 65 ML/MIN (>60); Glucose 88 mg/dl (74-100); HDL Cholesterol 39 mg/dl (40-60); Magnesium 1.6 mg/dl (1.6-2.3); Potassium 4.8 mmoL/L (3.5-5.1); Sodium 137 mmol/L (136-145); Total Protein,Serum 6.7 g/dl (6.3-8.2); Triglycerides 283 mg/dl (30-150); VLDL Cholesterol 57 mg/dL (0-40)
[2024-04-13 22:15] LABS: Free T4 (Free Thyroxine) 1.02 ng/dl (0.78-2.19)
[2024-04-13 22:28] LABS: Thyroid Stimulating Hormone 6.29 uIU/mL (0.465-4.68)
== END 2024-04-13 23:59 | disposition home or self-care (01) ==
LOC: LAB 14:42
PROVIDERS: PCP Family Medicine; Visit Provider Physician Assistant
DX: I25.10 Atherosclerotic heart disease of native coronary artery without angina pectoris (principal); I25.5 Ischemic cardiomyopathy; D64.9 Anemia, unspecified; I10 Essential (primary) hypertension; I50.21 Acute systolic (congestive) heart failure
CPT/HCPCS: 36415; 80048; 80061; 80076; 83735; 84439; 84443; 85025

== ENCOUNTER 2024-05-14 07:28 | Day surgery (SDC) | payer MEDICARE, OTHER, SELFPAY ==
[2024-05-13 10:42] VITALS: BMI 24.9
[2024-05-14] MEDS: LACTATED RINGERS 1000ML 1,000 ML 25 ML IV (07:41)
[2024-05-14 07:46] VITALS: BP 148/71; PULSE 84; RESP 18; TEMP 36.8; O2SAT 98
--- NOTE | 2024-05-14 08:21 | P.PNANES_ITS ---
[facility] Disclaimer: The information contained in this section may have been updated after the patient was seen, as this information can be updated by other users. 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 History of hysterectomy Family History Mother Cancer Father Coronary artery disease Social History Smoking Status: Never smoker alcohol intake: never substance use type: denies use current occupational status: unemployed Travel in the last 8 weeks: None household members: spouse housing: house marital status: [facility] Anesthesia Checklist Patient Identification Patient Identification: Arm Band and Family Structural Data Admitted From: Home Planned Operative Procedure/s: EGD/Colonoscopy Consent for Planned Operative Procedure(s) Verified: Yes Verified Documents: Surgical Consent and History and Physical NPO Status Verified Time NPO: 00:00 Additional verifications Anesthesia Reactions: No Airway Assessment Mallampati Score:: Class II C-Spine Mobility Assessed: Yes TMJ Mobility Assessed: Yes Dentition: Good Dentition (upper dentures removed) Neurological Assessment Level of Consciousness: Awake, Alert and Appropriate Anesthesia Plan Anesthesia Risk discussed: Yes Anesthesia Plan: Verified ASA Class: III Anesthesia Type: MAC
[2024-05-14 09:03] VITALS: O2SAT 98
--- NOTE | 2024-05-14 09:30 | HMH.SCOPE ---
Procedure: Date: 05/14/24 Patient Date of :: 1945 Procedure Performed:: EGD Indications:: Recurrent anemia Performing Provider:: Marlen Rogers MD Referring Provider:: Flower Rogers APRN Sedation:: Propofol Procedure:: The gastroscope was gently passed through the incisoral orifice into the oral cavity and under direct visualization the esophagus was intubated. The endoscope was passed down the esophagus, through the stomach, and into the duodenum. Color, texture, mucosa, and anatomy of the esophagus, stomach, and duodenum were carefully examined with the scope. Findings:: Oropharynx: normal Esophagus: normal EG Junction: intact at 40 cm Cardia: normal Fundus: normal Body: normal Antrum: normal Duodenal bulb: normal Duodenum (second and third portion): normal Impression: Normal EGD, no blood loss identified Recommendations:: Proceed with colonoscopy evaluation Complications:: None Estimated blood obtained (mL): 0 Colonoscopy Component Colonoscopy Component Was a colonoscopy performed during today's procedure?: No
--- NOTE | 2024-05-14 09:34 | HMH.SCOPE ---
Procedure: Date: 05/14/24 Patient Date of :: 1945 Procedure Performed:: Colonoscopy with biopsies and tattoo Indications:: Recurrent anemia Performing Provider:: Marlen Rogers MD Referring Provider:: Flower Rogers APRN Sedation:: Propofol Procedure:: After placing the patient in the left lateral decubitus position, the colonoscopy was gently inserted into the rectum and under direct visualization advanced to the cecum which was identified by transillumination in the right lower quadrant, identification of the ileocecal valve, appendiceal orifice, and cecal strap. Color, texture, mucosa, and anatomy of the colon were carefully examined with the scope. Findings:: Anal canal: normal Rectum: normal Sigmoid colon: normal with several adenomatous polyps identified Descending colon: normal without polyps or inflammatory changes Splenic flexure: normal Transverse colon: Large multilobulated fungating mass at proxminal transverse colon, biopsied, area marked with tattoo ink Hepatic flexure: normal Ascending colon: Proximal region affected by the cecal mass Cecum: Large ulcerated, fungating, multilobulated villous mass occupying the entire cecal region, biopsied and area marked with tattoo ink Terminal ileum: not visualized Impression: Large malignant colon masses affecting the cecum and transverse colon. This is the reason for recurrent anemia Specimens:: Colon mass Recommendations:: Oncology consult Complications:: None Estimated blood obtained (mL): 1 Colonoscopy Component Colonoscopy Component Was a colonoscopy performed during today's procedure?: Yes Recommended follow up colonoscopy of at least 10 years?: No If no, follow up colonoscopy recommended in ___ years?: To be determined Reason for not recommending >/= 10 yr follow-up interval?: Colon cancer found
[2024-05-14 09:38] VITALS: BP 122/65; PULSE 85; RESP 16; TEMP 36.6; O2SAT 95
[2024-05-14 09:40] VITALS: BP 124/68; PULSE 78; RESP 16; O2SAT 97
[2024-05-14 09:50] VITALS: BP 140/67; PULSE 78; RESP 16; O2SAT 99
--- NOTE | 2024-05-14 10:51 | SUR.PHASEII ---
1030- Sue at bedside with this RN explaining colonoscopy results. MD Rogers ordered for an appointment with oncology at this time. Shweta Felton RN contacted Oncology appointment scheduled with Shweta Felton RN, pt called and verbalized understanding. Also scheduled a follow up appointment with Dr Chamberlain.
== END 2024-05-14 10:15 | disposition home or self-care (01) ==
PROVIDERS: PCP Family Medicine; Visit Provider Internal Medicine Gastroenterology
PROC: 0DJ08ZZ Inspection of Upper Intestinal Tract, Via Natural or Artificial Opening Endoscopic (ICD-10-PCS; CPT 43235; principal; 2024-05-14 09:00)
DX: R19.7 Diarrhea, unspecified (principal); K52.9 Noninfective gastroenteritis and colitis, unspecified; D64.9 Anemia, unspecified; C18.0 Malignant neoplasm of cecum; C18.2 Malignant neoplasm of ascending colon; C18.4 Malignant neoplasm of transverse colon
CPT/HCPCS: 45380; 45381; 88305; 88341; 88342; J7120

== ENCOUNTER 2024-05-27 12:09 | Outpatient (CLI) | payer MEDICARE, OTHER, SELFPAY ==
[2024-05-27 12:54] LABS: Basophils # 0.1 K/mm3 (0-0.2); Basophils % 0.7 % (0.1-2.0); Eosinophils # 0.5 K/mm3 (0.0-0.4); Eosinophils % 4.7 % (0.1-12.0); Hematocrit 33.1 % (37.0-47.0); Hemoglobin 10.3 g/dL (12.2-16.2); Lymphocytes # 1.4 K/mm3 (0.7-4.5); Lymphocytes % 14.1 % (10-50); Mean Corpuscular HGB Conc 31.1 g/dL (31.8-35.4); Mean Corpuscular Volume 93.3 fl (81-99); Mean Platelet Volume 8.1 fl (7.4-10.4); Monocytes # 0.4 K/mm3 (0.1-1.0); Neutrophils # 7.3 K/mm3 (1.8-7.8); Neutrophils % 76.6 % (37.0-80.0); Platelet Count 512 K/mm3 (142-424); Red Blood Count 3.55 M/mm3 (4.20-5.40); Red Cell Distribution Width 14.5 % (11.5-17.5); White Blood Count 9.6 K/mm3 (4.8-10.8)
[2024-05-27 13:17] LABS: Albumin Level 3.6 g/dl (3.5-5.0); Chloride 107 mmol/L (98-107); Sodium 139 mmol/L (136-145)
[2024-05-27 13:18] LABS: Potassium 4.9 mmoL/L (3.5-5.1)
[2024-05-27 13:20] LABS: Alanine Aminotransferase 14 U/L (12-78); Albumin/Globulin Ratio 1.2 (1.1-1.8); Alkaline Phosphatase 93 U/L (38-126); Anion Gap 10.9 mEq/L (5-15); Aspartate Amino Transferase 22 U/L (14-36); Bilirubin,Total 0.5 mg/dl (0.2-1.3); Blood Urea Nitrogen 17 mg/dl (7-17); Carbon Dioxide 26 mmol/L (22.0-30.0); Estimated Glomerular Filt Rate 70 ml/min (>60); GFR (African American) 84 ML/MIN (>60); Globulin 3.1 g/dL (1.3-3.2); Total Protein,Serum 6.7 g/dl (6.3-8.2)
[2024-05-27 13:21] LABS: Calcium 8.9 mg/dl (8.4-10.2); Glucose 100 mg/dl (74-100)
== END 2024-05-27 23:59 | disposition home or self-care (01) ==
LOC: LAB 12:10
PROVIDERS: PCP Family Medicine; Visit Provider Internal Medicine Medical Oncology
DX: C18.9 Malignant neoplasm of colon, unspecified (principal)
CPT/HCPCS: 36415; 80053; 82378; 85025

== ENCOUNTER 2024-05-29 12:30 | Outpatient (CLI) | payer MEDICARE, OTHER, SELFPAY ==
--- NOTE | 2024-05-29 | CT_ITS ---
FINAL REPORT TECHNIQUE: Routine axial images were obtained from the lung apices to below the diaphragm following IV contrast administration. Individualized dose reduction techniques using automated exposure control or adjustment of the mA and/or kV according to the patient size were employed. CLINICAL HISTORY: COLON CANCER COMPARISON: 09/20/2022 FINDINGS: No pleural or pericardial effusion is seen. No adenopathy or mass lesion is present. There is a calcified granuloma in the left upper lobe. There is a noncalcified nodule in the anterior right upper lobe measuring 4 mm in diameter which is unchanged. Nodule at the left base was previously obscured by consolidation and measures 4 mm in diameter. This nodule appears to be centrally calcified. IMPRESSION: Stable right upper lobe nodule. Left base nodule, centrally calcified. Reviewed, Interpreted and Dictated by Ishaan Cedillo MD Transcribed by Sonia Bose Authenticated and [facility]
--- NOTE | 2024-05-29 12:37 | CT_ITS ---
FINAL REPORT TECHNIQUE: After the administration of intravenous contrast, axial images were obtained through the abdomen and pelvis by computed tomography. The study was performed with techniques to keep radiation dose as low as reasonably achievable, (ALARA). Individual dose reduction techniques using automated exposure control or adjustment of mA and/or kV according to the patient's size were employed. CLINICAL HISTORY: COLON CANCER COMPARISON: None FINDINGS: Abdomen: There are several low-attenuation lesions in the liver. Three separate lesions are identified. The largest in the lateral segment of the left lobe of the liver measures 2.7 cm in greatest dimension. These masses are somewhat lobular and ill-defined. The gallbladder is absent. The spleen, pancreas, and adrenals are unremarkable. There is a benign-appearing cyst in the right kidney measuring 3.8 cm in diameter. The aorta is normal in caliber. There is a low-attenuation nodule or mass or masses in the mesentery medial to the ascending colon measuring up to 4.0 cm in greatest dimension, probably related to confluent necrotic adenoma. Pelvis: There is a mass in the proximal transverse colon measuring approximately 5.2 x 4.1 cm highly concerning for underlying neoplasm. The appendix is unremarkable. The urinary bladder is incompletely distended. Trace free fluid is noted in the pelvis. IMPRESSION: Dominant mass proximal transverse colon consistent with localized neoplasm. Low-attenuation lesions in the liver, likely related to hepatic metastases. Lobular density right lower quadrant, likely related to confluent necrotic adenoma. Reviewed, Interpreted and Dictated by Ishaan Cedillo MD Transcribed by Sonia Bose Authenticated and [facility]
[2024-05-29] MEDS: IOPAMIDOL-370 (76%);100ML BOTTLE 75 ML IV (13:09)
[2024-05-29] MEDS: SODIUM CHLORIDE 0.9% 10ML SYR (RAD ONLY) 10 ML IV (13:09)
== END 2024-05-29 23:59 | disposition home or self-care (01) ==
LOC: RAD 12:31
PROVIDERS: PCP Family Medicine; Visit Provider Internal Medicine Medical Oncology
DX: C18.9 Malignant neoplasm of colon, unspecified (principal)
CPT/HCPCS: 71260; 74177; Q9967

== ENCOUNTER 2024-06-03 09:53 | Outpatient (CLI) | payer MEDICARE, OTHER, SELFPAY ==
[2024-06-03 09:56] VITALS: BMI 24.9
[2024-06-03 10:28] LABS: Iron 41 ug/dL (37-170)
--- NOTE | 2024-06-03 10:33 | PC.NURSE ---
1011 - BLOOD DRAWN USING BUTTERFLY NEEDLE TO CHECK LABS PER DR AGUIAR, INCLUDING GUARDANT 360.
[2024-06-03 10:43] LABS: Total Iron Binding Capacity 348 ug/dL (265-497)
[2024-06-03 11:12] LABS: Ferritin 17.6 ng/ml (11.1-264)
== END 2024-06-03 10:15 | disposition home or self-care (01) ==
LOC: INF 09:55
PROVIDERS: PCP Family Medicine; Visit Provider Internal Medicine Medical Oncology
DX: C18.9 Malignant neoplasm of colon, unspecified (principal)
CPT/HCPCS: 36415; 82728; 83540; 83550

== ENCOUNTER 2024-06-08 08:58 | Outpatient (CLI) | payer MEDICARE, OTHER, SELFPAY ==
--- NOTE | 2024-06-08 | CA_ITS ---
APPROVED REPORT EXAM: Limited 2D Echocardiogram with contrast Sales Receptionist: Alfreda Dominguez CRT Ht: 5 ft 1 in Wt: 137lbs BSA: 1.61 BP: 140/96 mmHg Indications: Cardiac thrombus, CHF, CAD, CM, colon CA Echo Enhancing Agent Indication: Rule out thrombus Agent(s) / Amount(s) Used: Definity 2 cc Comments: Definity contrast ordered to rule out LV thrombus. Cardiac MRI + for LV thrombus 04/06/24 Other Information Study Quality: Fair Conclusion This is a limited TTE to evaluate for LV thrombus. Limited windows were obtained. The left ventricle is normal in size. There is increased LV wall thickness. There is moderate to severe reduction in LV systolic function. The distal and apical LV greene are akinetic. LVEF is 35-40%. Administration of ultrasound enhancing agent demonstrates apical filling defect, consistent with the presence of apical LV thrombus, measuring 1.2 x 0.8 cm in its largest dimensions. Overall, there are 2 foci of thrombi in the apical region which correlate with the cardiac MRI findings. Continued anticoagulation is recommended. Electronically signed by : Karla Sol MD 06/08/2024 12:37:40
[2024-06-08] MEDS: DEFINITY US ECHO CONTRAST 2ML INJ 2 MG IV (10:50)
== END 2024-06-08 23:59 | disposition home or self-care (01) ==
LOC: RT 08:58
PROVIDERS: PCP Family Medicine; Visit Provider Physician Assistant
DX: I51.3 Intracardiac thrombosis, not elsewhere classified (principal)
CPT/HCPCS: 93308; Q9957

== ENCOUNTER 2024-06-12 10:00 | Outpatient (CLI) | payer MEDICARE, OTHER, SELFPAY ==
[2024-06-12 10:20] VITALS: BP 115/51; PULSE 62; RESP 18; O2SAT 99
[2024-06-12] MEDS: SODIUM CHLORIDE 0.9% 50ML BAG 50 ML IV (10:20)
[2024-06-12] MEDS: SODIUM CHLORIDE 0.9% 10ML FLUSH SYRINGE 10 ML IV (10:20)
[2024-06-12] MEDS: IRON SUCROSE COMPLEX 200 MG in 0.9 % SODIUM CHLORIDE 100 ML 220 MG IV (10:20)
[2024-06-12 10:50] VITALS: BP 107/43; PULSE 61
== END 2024-06-12 11:00 | disposition home or self-care (01) ==
LOC: INF 10:01
PROVIDERS: PCP Family Medicine; Visit Provider Internal Medicine Medical Oncology
DX: D50.9 Iron deficiency anemia, unspecified (principal)
CPT/HCPCS: 96365; J1756

== ENCOUNTER 2024-06-16 15:14 | Outpatient (CLI) | payer MEDICARE, OTHER, SELFPAY ==
[2024-06-16 15:36] LABS: Basophils # 0.1 K/mm3 (0-0.2); Basophils % 0.8 % (0.1-2.0); Eosinophils # 0.6 K/mm3 (0.0-0.4); Eosinophils % 5.9 % (0.1-12.0); Hematocrit 32.7 % (37.0-47.0); Lymphocytes # 1.4 K/mm3 (0.7-4.5); Lymphocytes % 14.1 % (10-50); Mean Corpuscular HGB Conc 30.7 g/dL (31.8-35.4); Mean Corpuscular Hemoglobin 29.2 pg (27.0-31.2); Mean Platelet Volume 7.3 fl (7.4-10.4); Monocytes # 0.5 K/mm3 (0.1-1.0); Monocytes % 4.6 % (1.7-9.3); Neutrophils # 7.3 K/mm3 (1.8-7.8); Neutrophils % 74.6 % (37.0-80.0); Platelet Count 514 K/mm3 (142-424); Red Blood Count 3.44 M/mm3 (4.20-5.40); Red Cell Distribution Width 15.5 % (11.5-17.5); White Blood Count 9.8 K/mm3 (4.8-10.8)
[2024-06-16 16:00] LABS: Chloride 108 mmol/L (98-107)
[2024-06-16 16:01] LABS: Albumin Level 3.7 g/dl (3.5-5.0); Potassium 4.5 mmoL/L (3.5-5.1); Sodium 138 mmol/L (136-145)
[2024-06-16 16:03] LABS: Alanine Aminotransferase 15 U/L (12-78); Anion Gap 8.5 mEq/L (5-15); Aspartate Amino Transferase 23 U/L (14-36); Blood Urea Nitrogen 20 mg/dl (7-17); Carbon Dioxide 26 mmol/L (22.0-30.0); Estimated Glomerular Filt Rate 70 ml/min (>60); GFR (African American) 84 ML/MIN (>60)
[2024-06-16 16:04] LABS: Albumin/Globulin Ratio 1.3 (1.1-1.8); Alkaline Phosphatase 112 U/L (38-126); Bilirubin,Total 0.6 mg/dl (0.2-1.3); Calcium 8.9 mg/dl (8.4-10.2); Globulin 2.9 g/dL (1.3-3.2); Glucose 99 mg/dl (74-100); Total Protein,Serum 6.6 g/dl (6.3-8.2)
[2024-06-18 08:41] LABS: CEA 27.8 ng/mL (0.0-4.7)
== END 2024-06-16 23:59 | disposition home or self-care (01) ==
LOC: LAB 15:15
PROVIDERS: PCP Family Medicine; Visit Provider Internal Medicine Medical Oncology
DX: D64.9 Anemia, unspecified (principal); I10 Essential (primary) hypertension; C18.9 Malignant neoplasm of colon, unspecified
CPT/HCPCS: 36415; 80053; 82378; 85025

== ENCOUNTER 2024-06-19 10:10 | Outpatient (CLI) | payer MEDICARE, OTHER, SELFPAY ==
[2024-06-19 10:35] VITALS: BP 122/59; PULSE 67; RESP 18; TEMP 37.1; O2SAT 97
[2024-06-19] MEDS: IRON SUCROSE COMPLEX 200 MG in 0.9 % SODIUM CHLORIDE 100 ML 220 MG IV (10:35)
[2024-06-19] MEDS: 0.9 % SODIUM CHLORIDE 50 ML 100 ML IV (10:35)
[2024-06-19 11:10] VITALS: BP 113/68; PULSE 67; RESP 18; TEMP 37; O2SAT 98
== END 2024-06-19 11:10 | disposition home or self-care (01) ==
LOC: INF 10:11
PROVIDERS: PCP Family Medicine; Visit Provider Internal Medicine Medical Oncology
DX: D50.9 Iron deficiency anemia, unspecified (principal)
CPT/HCPCS: J1756

== ENCOUNTER 2024-06-29 09:55 | Outpatient (CLI) | payer MEDICARE, OTHER, SELFPAY ==
[2024-06-29 10:08] VITALS: BP 129/55; PULSE 80; RESP 16; TEMP 36.8; O2SAT 99; BMI 24.9
[2024-06-29] MEDS: 0.9 % SODIUM CHLORIDE 50 ML IV (10:13)
[2024-06-29] MEDS: SODIUM CHLORIDE 0.9% 10ML FLUSH SYRINGE 10 ML IV (10:13)
[2024-06-29] MEDS: IRON SUCROSE COMPLEX 200 MG in 0.9 % SODIUM CHLORIDE 100 ML 220 MG IV (10:13)
[2024-06-29 10:56] VITALS: BP 113/40; PULSE 62; RESP 16; TEMP 36.8; O2SAT 98
== END 2024-06-29 10:57 | disposition home or self-care (01) ==
LOC: INF 09:58
PROVIDERS: PCP Family Medicine; Visit Provider Internal Medicine Medical Oncology
DX: D50.9 Iron deficiency anemia, unspecified (principal)
CPT/HCPCS: 96365; J1756

== ENCOUNTER 2024-07-07 13:30 | Outpatient (CLI) | payer MEDICARE, OTHER, SELFPAY ==
[2024-07-07 13:47] VITALS: BMI 24.9
--- NOTE | 2024-07-07 14:20 | PC.NURSE ---
1411 Patient here for labs only. Labs collected per MD order via venipuncture to R outer AC area with butterfly needle x 1 stick. patient tolerated well.
[2024-07-07 14:23] LABS: Basophils % 0.6 % (0.1-2.0); Eosinophils # 0.4 K/mm3 (0.0-0.4); Eosinophils % 6.1 % (0.1-12.0); Hematocrit 27.6 % (37.0-47.0); Hemoglobin 9.1 g/dL (12.2-16.2); Lymphocytes % 15.1 % (10-50); Mean Corpuscular HGB Conc 33.1 g/dL (31.8-35.4); Mean Corpuscular Hemoglobin 30.5 pg (27.0-31.2); Mean Platelet Volume 7.7 fl (7.4-10.4); Monocytes # 0.3 K/mm3 (0.1-1.0); Monocytes % 4.5 % (1.7-9.3); Neutrophils # 4.8 K/mm3 (1.8-7.8); Neutrophils % 73.8 % (37.0-80.0); Platelet Count 462 K/mm3 (142-424); Red Cell Distribution Width 20.1 % (11.5-17.5); White Blood Count 6.5 K/mm3 (4.8-10.8)
[2024-07-07 14:29] LABS: Albumin Level 3.4 g/dl (3.5-5.0); Chloride 107 mmol/L (98-107); Potassium 3.9 mmoL/L (3.5-5.1); Sodium 139 mmol/L (136-145)
[2024-07-07 14:31] LABS: Blood Urea Nitrogen 13 mg/dl (7-17); Creatinine Clearance Estimated 45 mL/min (50-200); Estimated Glomerular Filt Rate 61 ml/min (>60); GFR (African American) 73 ML/MIN (>60)
[2024-07-07 14:32] LABS: Alanine Aminotransferase 12 U/L (12-78); Albumin/Globulin Ratio 1.2 (1.1-1.8); Alkaline Phosphatase 75 U/L (38-126); Anion Gap 10.9 mEq/L (5-15); Aspartate Amino Transferase 21 U/L (14-36); Bilirubin,Total 0.7 mg/dl (0.2-1.3); Calcium 8.9 mg/dl (8.4-10.2); Carbon Dioxide 25 mmol/L (22.0-30.0); Globulin 2.9 g/dL (1.3-3.2); Glucose 101 mg/dl (74-100); Total Protein,Serum 6.3 g/dl (6.3-8.2)
== END 2024-07-07 14:21 | disposition home or self-care (01) ==
PROVIDERS: PCP Family Medicine; Visit Provider Internal Medicine Medical Oncology
DX: C18.9 Malignant neoplasm of colon, unspecified (principal)
CPT/HCPCS: 36415; 80053; 82378; 85025

== ENCOUNTER 2024-07-15 11:52 | Outpatient (CLI) | payer MEDICARE, OTHER, SELFPAY ==
--- NOTE | 2024-07-15 12:07 | PC.NURSE ---
1207-collected labs via venipuncture in left ac; pt d/c home.
[2024-07-15 12:21] LABS: Basophils # 0.1 K/mm3 (0-0.2); Basophils % 0.7 % (0.1-2.0); Eosinophils # 0.6 K/mm3 (0.0-0.4); Eosinophils % 8.6 % (0.1-12.0); Hematocrit 28.8 % (37.0-47.0); Hemoglobin 9.3 g/dL (12.2-16.2); Lymphocytes % 13.1 % (10-50); Mean Corpuscular HGB Conc 32.5 g/dL (31.8-35.4); Mean Corpuscular Hemoglobin 31.7 pg (27.0-31.2); Mean Corpuscular Volume 97.8 fl (81-99); Mean Platelet Volume 7.4 fl (7.4-10.4); Monocytes # 0.4 K/mm3 (0.1-1.0); Monocytes % 5.6 % (1.7-9.3); Neutrophils # 5.3 K/mm3 (1.8-7.8); Neutrophils % 71.9 % (37.0-80.0); Platelet Count 338 K/mm3 (142-424); Red Blood Count 2.94 M/mm3 (4.20-5.40); Red Cell Distribution Width 22.3 % (11.5-17.5); White Blood Count 7.3 K/mm3 (4.8-10.8)
[2024-07-15 12:26] LABS: Albumin Level 3.5 g/dl (3.5-5.0); Chloride 112 mmol/L (98-107); Sodium 140 mmol/L (136-145)
[2024-07-15 12:27] LABS: Potassium 3.8 mmoL/L (3.5-5.1)
[2024-07-15 12:29] LABS: Alanine Aminotransferase 15 U/L (12-78); Anion Gap 7.8 mEq/L (5-15); Aspartate Amino Transferase 22 U/L (14-36); Blood Urea Nitrogen 15 mg/dl (7-17); Carbon Dioxide 24 mmol/L (22.0-30.0); Estimated Glomerular Filt Rate 70 ml/min (>60); GFR (African American) 84 ML/MIN (>60)
[2024-07-15 12:30] LABS: Albumin/Globulin Ratio 1.2 (1.1-1.8); Alkaline Phosphatase 87 U/L (38-126); Bilirubin,Total 0.7 mg/dl (0.2-1.3); Calcium 8.7 mg/dl (8.4-10.2); Glucose 102 mg/dl (74-100); Total Protein,Serum 6.5 g/dl (6.3-8.2)
[2024-07-16 08:23] LABS: CEA 51.4 ng/mL (0.0-4.7)
== END 2024-07-15 12:08 | disposition home or self-care (01) ==
LOC: INF 11:53
PROVIDERS: PCP Family Medicine; Visit Provider Internal Medicine Medical Oncology
DX: C18.9 Malignant neoplasm of colon, unspecified (principal)
CPT/HCPCS: 36415; 80053; 82378; 85025

== ENCOUNTER 2024-08-05 09:49 | Outpatient (CLI) | payer MEDICARE, OTHER, SELFPAY ==
--- NOTE | 2024-08-05 10:12 | PC.NURSE ---
0958-l.shabana alva collected labs via venipuncture stick with butterfly needle; to call pt with results.
[2024-08-05 10:13] LABS: Basophils # 0.1 K/mm3 (0-0.2); Basophils % 0.8 % (0.1-2.0); Eosinophils # 0.7 K/mm3 (0.0-0.4); Eosinophils % 8.4 % (0.1-12.0); Hematocrit 27.6 % (37.0-47.0); Lymphocytes % 12.4 % (10-50); Mean Corpuscular HGB Conc 32.6 g/dL (31.8-35.4); Mean Corpuscular Hemoglobin 32.8 pg (27.0-31.2); Mean Corpuscular Volume 100.5 fl (81-99); Mean Platelet Volume 7.7 fl (7.4-10.4); Monocytes # 0.5 K/mm3 (0.1-1.0); Monocytes % 6.7 % (1.7-9.3); Neutrophils # 5.6 K/mm3 (1.8-7.8); Neutrophils % 71.6 % (37.0-80.0); Platelet Count 526 K/mm3 (142-424); Red Blood Count 2.74 M/mm3 (4.20-5.40); Red Cell Distribution Width 23.7 % (11.5-17.5); White Blood Count 7.8 K/mm3 (4.8-10.8)
[2024-08-05 10:17] LABS: Alanine Aminotransferase 14 U/L (12-78); Albumin Level 3.5 g/dl (3.5-5.0); Albumin/Globulin Ratio 1.2 (1.1-1.8); Alkaline Phosphatase 114 U/L (38-126); Anion Gap 11.2 mEq/L (5-15); Aspartate Amino Transferase 26 U/L (14-36); Bilirubin,Total 0.8 mg/dl (0.2-1.3); Blood Urea Nitrogen 14 mg/dl (7-17); Calcium 8.7 mg/dl (8.4-10.2); Carbon Dioxide 24 mmol/L (22.0-30.0); Chloride 109 mmol/L (98-107); Estimated Glomerular Filt Rate 61 ml/min (>60); GFR (African American) 73 ML/MIN (>60); Globulin 2.9 g/dL (1.3-3.2); Glucose 105 mg/dl (74-100); Potassium 4.2 mmoL/L (3.5-5.1); Sodium 140 mmol/L (136-145); Total Protein,Serum 6.4 g/dl (6.3-8.2)
== END 2024-08-05 10:00 | disposition home or self-care (01) ==
LOC: INF 09:50
PROVIDERS: PCP Family Medicine; Visit Provider Internal Medicine Medical Oncology
DX: C18.9 Malignant neoplasm of colon, unspecified (principal)
CPT/HCPCS: 36415; 80053; 85025

== ENCOUNTER 2024-08-06 10:53 | Outpatient (CLI) | payer MEDICARE, OTHER, SELFPAY ==
--- NOTE | 2024-08-06 10:55 | PC.NURSE ---
1055-collected labs via venipuncture stick in in left ac with butterfly needle; to call pt with results.
== END 2024-08-06 11:00 | disposition home or self-care (01) ==
LOC: INF 10:53
PROVIDERS: PCP Family Medicine; Visit Provider Internal Medicine Medical Oncology
DX: C18.9 Malignant neoplasm of colon, unspecified (principal)
CPT/HCPCS: 36415; 82378

== ENCOUNTER 2024-08-11 08:55 | Outpatient (CLI) | payer MEDICARE, OTHER, SELFPAY ==
--- NOTE | 2024-08-11 08:56 | CT_ITS ---
FINAL REPORT TECHNIQUE: After the administration of intravenous contrast, axial images through the chest were performed by computed tomography.This study was performed with techniques to keep radiation doses as low as reasonably achievable, (ALARA). Individualized dose reduction techniques using automated exposure control or adjustment of mA and/or kV according to the patient''s size were employed. CLINICAL HISTORY: tumor marker rising regardless of chemo COMPARISON: 05/29/2024 FINDINGS: There is a 7 mm right thyroid lobe nodule which is stable. There is no axillary adenopathy. There is no hilar or mediastinal adenopathy. The heart size is normal. There is no pericardial or pleural effusion. Note is made of mild scarring. There are several calcified granulomas. No new mass or nodule is identified. 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 IMPRESSION: Stable left ventricular apex aneurysm. Stable right thyroid lobe nodule. Reviewed, Interpreted and Dictated by Khanh Krause III, MD Transcribed by Nicolette Wall Authenticated and [facility]
--- NOTE | 2024-08-11 08:56 | CT_ITS ---
FINAL REPORT TECHNIQUE: After the administration of intravenous contrast, axial images were obtained through the abdomen and pelvis by computed tomography. The study was performed with techniques to keep radiation dose as low as reasonably achievable, (ALARA). Individual dose reduction techniques using automated exposure control or adjustment of mA and/or kV according to the patient's size were employed. CLINICAL HISTORY: tumor marker rising regardless of chemo COMPARISON: 05/29/2024 FINDINGS: Abdomen: There are multiple hepatic masses consistent with hepatic metastatic disease, visually worse. Largest mass in the lateral segment of the left hepatic lobe measures 3.8 x 3.6 cm, previously measured 2.4 x 2.3 cm. Other hepatic masses are larger. There is a new mass in the right liver dome measuring 1.8 x 1.8 cm consistent with new metastases. Several other new smaller masses are identified. The patient is status postcholecystectomy. The spleen is unremarkable. The adrenals are normal. The pancreas is unremarkable. Bilateral renal cysts are identified. The aorta is normal in caliber. Pelvis: The appendix is not identified. Proximal transverse colon mass measuring 3.8 cm is stable. Mass is involving the cecum is stable consistent with neoplastic involvement. There is a mass superomedial to this measuring 4.5 x 4.3 cm, previously measured 3.3 x 3.1 cm, likely cystic or necrotic adenopathy. Multiple other enlarged lymph nodes are identified. There is a small to moderate amount of pelvic free fluid. The urinary bladder is unremarkable. IMPRESSION: Worsening hepatic metastatic disease. Worsening right lower quadrant mass consistent with worsening neoplastic involvement. Worsening other areas of adenopathy in the right pelvis. Reviewed, Interpreted and Dictated by Khanh Krause III, MD Transcribed by Nicolette Wall Authenticated and [facility]
[2024-08-11] MEDS: IOPAMIDOL-370 (76%);100ML BOTTLE 75 ML IV (10:08)
[2024-08-11] MEDS: SODIUM CHLORIDE 0.9% 10ML SYR (RAD ONLY) 10 ML IV (10:08)
== END 2024-08-11 23:59 | disposition home or self-care (01) ==
LOC: RAD 08:56
PROVIDERS: PCP Family Medicine; Visit Provider Internal Medicine Medical Oncology
DX: C18.9 Malignant neoplasm of colon, unspecified (principal)
CPT/HCPCS: 71260; 74177; Q9967

== ENCOUNTER 2024-08-20 07:32 | Day surgery (SDC) | payer MEDICARE, OTHER, SELFPAY ==
[2024-08-18 08:59] VITALS: BMI 24.7
[2024-08-20] VITALS (9 sets, daily range): BP systolic 130–168; BP diastolic 62–79; PULSE 79–87; RESP 16–18; TEMP 36.2–36.5; O2SAT 95–99
--- NOTE | 2024-08-20 08:06 | P.PNANES_ITS ---
[facility] Disclaimer: The information contained in this section may have been updated after the patient was seen, as this information can be updated by other users. Medical History Pre-op evaluation LV (left ventricular) mural thrombus Iron deficiency anemia Heart failure, left systolic, acute Chronic diarrhea Anemia CHF (congestive heart failure) Arthritis SIRS (systemic inflammatory response syndrome) CAP (community acquired pneumonia) Menopausal symptom Hypertension Cervical cancer Hormone replacement therapy (HRT) Osteoarthritis of both knees Surgical History H/O colonoscopy Total knee replacement status History of hysterectomy Family History Mother Cancer Father Coronary artery disease Social History Smoking Status: Never smoker alcohol intake: never substance use type: denies use current occupational status: unemployed and retired Travel in the last 8 weeks: None household members: spouse housing: house marital status: [facility] Anesthesia Checklist Patient Identification Patient Identification: Arm Band and Verbal (Name & ) Structural Data Admitted From: Home Planned Operative Procedure/s: Port placement Consent for Planned Operative Procedure(s) Verified: Yes Verified Documents: Surgical Consent, History and Physical and Cardiac Clearance NPO Status Verified Time NPO: 00:00 Chart Verification Results Verified: CBC, BMP and ECG Additional verifications Anesthesia Reactions: No Hx Blood Transfusions: No Blood Transfusion Reaction: No Airway Assessment Mallampati Score:: Class III C-Spine Mobility Assessed: Yes TMJ Mobility Assessed: Yes Dentition: Dentures-poor fitting (Removed) Neurological Assessment Level of Consciousness: Awake Hx Seizures: No Numbness or tingling in extremities: No Anesthesia Plan Anesthesia Risk discussed: Yes Anesthesia Plan: Verified ASA Class: IV Anesthesia Type: General
[2024-08-20] MEDS: 0.9 % SODIUM CHLORIDE 1000ML 1,000 ML 25 ML IV (08:27)
--- NOTE | 2024-08-20 08:33 | P.OP_ITS ---
Date of procedure: 08/20/24 Pre-op Diagnosis:: Colon cancer Post-op Diagnosis:: Same Procedure performed:: Port-A-Cath placement Surgeon:: Pascual Nuñez MD DIRECTOR OCCUPATIONAL:: Antonio Burger Anesthesia: local and LMA Estimated blood loss (mL): 10 Operative findings:: Catheter placement confirmed fluoroscopically Operative note:: After informed consent was obtained the patient was taken to the operating room and placed in the supine position. General anesthesia with laryngeal mask airway was achieved. Her chest and neck were prepped and draped in a sterile fashion. After infiltration with local anesthetic a large bore needle was utilized to access the left subclavian vein. The guidewire was placed in position and confirmed fluoroscopically. A transverse incision was made at the guidewire exit site. Electrocautery was then utilized to transect through the subcutaneous tissue to create a pocket for the port hub. Utilizing a modified Seldinger technique the port catheter was placed in position and confirmed fluo roscopically. The catheter was cut to appropriate length and secured to the hub. The hub was then secured to the underlying fascia with interrupted Prolene suture. The deep subcutaneous tissue was reapproximated with interrupted Vicryl. Skin was then closed with 4-0 Monocryl in a running subcuticular manner. The port was flushed with heparinized saline without difficulty. Dressings were applied and the patient was transferred to recovery in stable condition. Condition: stable Disposition: PACU Specimens:: None Complications:: No immediate. Chest x-ray pending.
[2024-08-20] MEDS: CEFAZOLIN SODIUM 1 GM in 0.9 % SODIUM CHLORIDE 50 ML IV (08:44)
[2024-08-20] MEDS: LIDOCAINE 1% 20ML MDV 20 ML (09:08)
[2024-08-20] MEDS: SODIUM CHLORIDE 0.9% 20ML VIAL 40 ML IV (09:08)
--- NOTE | 2024-08-20 09:32 | XR_ITS ---
FINAL REPORT CLINICAL HISTORY: PORT A CATH PLACEMENT IN THE OR FT: 0.27 5.91MGY FINDINGS: FLUOROSCOPY LESS THAN 1 HOUR HISTORY: Fluoroscopy guidance. FINDINGS: Fluoroscopic guidance was provided for Port-A-Cath placement in the OR. Two spot films were obtained. A total of 0.27 minutes of fluoroscopy time were used. DAP: 5.91 mGy IMPRESSION: As above. Reviewed, Interpreted and Dictated by Ishaan Cedillo MD Transcribed by Sonia Bose Authenticated and [facility]
--- NOTE | 2024-08-20 09:45 | XR_ITS ---
FINAL REPORT CLINICAL HISTORY: port placement COMPARISON: 08/14/2023 FINDINGS: The heart size is mildly enlarged. There is a left subclavian chest port with the tip in the SVC. The previously noted patchy bibasilar airspace infiltrates have improved, consistent with resolving pneumonia. There are no pleural effusions. There is no pneumothorax. There is no osseous abnormality. IMPRESSION: Left subclavian chest port tip in the SVC. Resolving bibasilar pneumonia. Reviewed, Interpreted and Dictated by Ishaan Cedillo MD Transcribed by Sonia Bose Authenticated and [facility]
--- NOTE | 2024-08-20 09:58 | P.PNANES_ITS ---
[facility] Anesthesia Record Part I Anesthesia Record I Intake, IV Amount: 1,200 Hydration: Adequate Estimated blood loss (mL): 2 Urine output (mL): 0 Blood Products used (#): none Blood Pressure: 148/64 SaO2: 96 Pulse Rate: 83 Airway Patency: Patent (16) Respiratory Rate: 16 Temperature: 97.2 F Patient is:: Drowsy and Stable Stable to PACU at:: 09:51
--- NOTE | 2024-08-21 08:08 | P.PNANES_ITS ---
[facility] Anesthesia Record Part II Anesthesia Record Part II Discharge Time: 10:21 Destination: Surgical Day Care (OP Surgery) PACU nurse assessment reviewed?: Yes Patient Condition:: Good Anesthesia Complications:: None Swallowing reflex intact?: Yes Airway Patency: Patent Cyanosis?: No Blood Pressure: 167/62 SaO2: 95 Respiratory Rate: 16 Pulse Rate: 80 Temperature: 97.2 F Mental Status: Alert & Oriented Pain level:: 0 Nausea and/or vomitting:: None Intake, IV Amount: 0 Hydration: Adequate
[2024-08-21 08:09] VITALS: BP 167/62; PULSE 80; RESP 16; TEMP 36.2; O2SAT 95
== END 2024-08-20 11:40 | disposition home or self-care (01) ==
PROVIDERS: PCP Family Medicine; Visit Provider Surgery
PROC: (CPT 36561; principal; 2024-08-20 09:15)
DX: C18.9 Malignant neoplasm of colon, unspecified (principal)
CPT/HCPCS: 36561; 77001; 71045; 76000; 96374; C1788; J1100; J1642; J2250; J2405; J3010; J7030

== ENCOUNTER 2024-09-02 08:24 | Outpatient (CLI) | payer MEDICARE, OTHER, SELFPAY ==
[2024-09-02] VITALS (8 sets, daily range): BP systolic 146–154; BP diastolic 58–76; PULSE 74–85; RESP 18; TEMP 36.8; O2SAT 96–97
[2024-09-02 09:00] LABS: Basophils # 0.1 K/mm3 (0-0.2); Basophils % 0.9 % (0.1-2.0); Eosinophils # 0.8 K/mm3 (0.0-0.4); Eosinophils % 10.2 % (0.1-12.0); Hematocrit 26.7 % (37.0-47.0); Hemoglobin 8.2 g/dL (12.2-16.2); Lymphocytes # 0.8 K/mm3 (0.7-4.5); Lymphocytes % 10.6 % (10-50); Mean Corpuscular HGB Conc 30.5 g/dL (31.8-35.4); Mean Corpuscular Hemoglobin 29.4 pg (27.0-31.2); Mean Corpuscular Volume 96.3 fl (81-99); Mean Platelet Volume 8.9 fl (7.4-10.4); Monocytes # 0.4 K/mm3 (0.1-1.0); Monocytes % 5.3 % (1.7-9.3); Neutrophils # 5.4 K/mm3 (1.8-7.8); Neutrophils % 73.1 % (37.0-80.0); Platelet Count 339 K/mm3 (142-424); Red Blood Count 2.78 M/mm3 (4.20-5.40); Red Cell Distribution Width 19.6 % (11.5-17.5); White Blood Count 7.4 K/mm3 (4.8-10.8)
[2024-09-02 09:07] LABS: Albumin Level 3.1 g/dl (3.5-5.0); Chloride 108 mmol/L (98-107); Potassium 3.6 mmoL/L (3.5-5.1); Sodium 139 mmol/L (136-145)
[2024-09-02 09:10] LABS: Alanine Aminotransferase 13 U/L (12-78); Albumin/Globulin Ratio 1.1 (1.1-1.8); Alkaline Phosphatase 114 U/L (38-126); Anion Gap 6.6 mEq/L (5-15); Aspartate Amino Transferase 24 U/L (14-36); Bilirubin,Total 0.7 mg/dl (0.2-1.3); Blood Urea Nitrogen 12 mg/dl (7-17); Calcium 8.3 mg/dl (8.4-10.2); Carbon Dioxide 28 mmol/L (22.0-30.0); Estimated Glomerular Filt Rate 61 ml/min (>60); GFR (African American) 73 ML/MIN (>60); Globulin 2.7 g/dL (1.3-3.2); Glucose 109 mg/dl (74-100); Total Protein,Serum 5.8 g/dl (6.3-8.2)
[2024-09-02] MEDS: POTASSIUM CHLORIDE 20MEQ TAB 40 MEQ PO (09:42)
[2024-09-02] MEDS: DEXAMETHASONE 4MG TABLET 12 MG PO (09:42)
[2024-09-02] MEDS: FAMOTIDINE 20MG TABLET 20 MG PO (09:43)
[2024-09-02] MEDS: MONTELUKAST SODIUM 10MG TAB 10 MG PO (09:43)
[2024-09-02] MEDS: diphenhydrAMINE 25MG CAPSULE 25 MG PO (09:43)
[2024-09-02] MEDS: ONDANSETRON 4MG ODT 16 MG SL (09:44)
[2024-09-02] MEDS: SODIUM CHLORIDE 0.9% 10ML FLUSH SYRINGE 10 ML IV (09:47)
[2024-09-02] MEDS: CALCIUM GLUCONATE 1,000 MG, MAGNESIUM SULFATE 1 GM in DEXTROSE 5 % IN WATER 100 ML 224 MG IV ×2 (09:49→12:31)
[2024-09-02] MEDS: OXALIPLATIN IV (10:17)
[2024-09-02] MEDS: DEXTROSE 5% IV (10:17)
[2024-09-02] MEDS: WATER IV (10:17)
== END 2024-09-02 13:15 | disposition home or self-care (01) ==
LOC: INF 08:26
PROVIDERS: PCP Family Medicine; Visit Provider Internal Medicine Medical Oncology
DX: C18.9 Malignant neoplasm of colon, unspecified (principal)
CPT/HCPCS: 80053; 82378; 85025; 96413; 96415; J1642; J7060; J8540; J9263; Q0162

== ENCOUNTER 2024-09-26 11:54 | Emergency (ER) | payer MEDICARE, OTHER, SELFPAY ==
--- NOTE | 2024-09-26 12:32 | XR_ITS ---
PROCEDURE INFORMATION: Exam: XR Right Wrist Exam date and time: 09/26/2024 12:37 PM Age: 79 years old Clinical indication: Pain; Wrist; Right TECHNIQUE: Imaging protocol: Radiologic exam of the right wrist. Views: 3 or more views. COMPARISON: No relevant prior studies available. FINDINGS: Bones/joints: There are moderate to severe chronic osteoarthritic changes of the 1st metacarpal trapezial joint space and scaphotrapezial joint space. No visible right wrist fracture. The distal right radius and ulna are intact. Soft tissues: Normal. IMPRESSION: Chronic degenerative changes of the right wrist as above. No evidence of a fracture.
--- NOTE | 2024-09-26 12:32 | XR_ITS ---
PROCEDURE INFORMATION: Exam: XR Right Hip Exam date and time: 09/26/2024 12:31 PM Age: 79 years old Clinical indication: Hip pain; Right hip TECHNIQUE: Imaging protocol: Radiologic exam of the right hip. Views: 2 or 3 views hip with pelvis when performed. COMPARISON: CT ABDOMEN PELVIS W CON 08/11/2024 9:52 AM FINDINGS: Bones/joints: Normal anatomic alignment of both hips. No evidence of a fracture. There are mild osteoarthritic changes at both hips. The sacrum, iliac bones and pubic rami are intact. Soft tissues: Unremarkable. IMPRESSION: Mild chronic osteoarthritic changes of both hips without fracture.
--- NOTE | 2024-09-26 12:32 | XR_ITS ---
PROCEDURE INFORMATION: Exam: XR Right Hand Exam date and time: 09/26/2024 12:39 PM Age: 79 years old Clinical indication: Pain; Hand; Right TECHNIQUE: Imaging protocol: Radiologic exam of the right hand. Views: 3 or more views. COMPARISON: CR Wrist R 09/26/2024 12:37 PM FINDINGS: Bones/joints: There are moderate-severe chronic osteoarthritic changes of the 1st metacarpal-trapezial joint space. There are moderate-severe chronic osteoarthritic changes of the DIP and MIP joints of the right fingers. No right hand fracture or destructive bone lesion identified. Soft tissues: Normal. IMPRESSION: 1. No evidence of a right hand fracture. 2. Chronic osteoarthritic changes throughout the DIP and MIP joints of the right fingers. 3. Chronic osteoarthritic changes at the 1st metacarpal-trapezial joint.
--- NOTE | 2024-09-26 12:32 | XR_ITS ---
PROCEDURE INFORMATION: Exam: XR Right Forearm Exam date and time: 09/26/2024 12:41 PM Age: 79 years old Clinical indication: Pain; Lower or forearm; Right TECHNIQUE: Imaging protocol: Radiologic exam of the right forearm. Views: 2 views. COMPARISON: CR Hand R 09/26/2024 12:39 PM FINDINGS: Bones/joints: Normal. No fracture or destructive bone lesion. Please reference the right hand and wrist radiograph reports dictated separately earlier today. Soft tissues: Normal. IMPRESSION: No acute findings.
[2024-09-26 12:42] LABS: POC Glucose,Bedside 130 (70-110)
[2024-09-26 13:25] VITALS: BP 113/55; PULSE 92; RESP 20; TEMP 36.8; O2SAT 99; BMI 24.3
--- NOTE | 2024-09-26 13:29 | EXP.UTC ---
Discharge Plan Disposition Patient Disposition: Home, Self-Care Condition: Good Prescriptions Prescriptions: New prednisone 10 mg tablet 10 mg PO BID 4 Days Qty: 8 0RF ondansetron 4 mg Tablet,Disintegrating 4 mg PO Q8H PRN (Reason: Nausea) Qty: 20 2RF No Action nystatin 100,000 unit/gram ointment 1 applic topical NEEDED PRN (Reason: Rash) Patient Comments: APPLY A THIN FILM TO THE AFFECTED AREA OF SKIN 3 TIMES EACH DAY mirtazapine 15 mg tablet 15 mg PO DAILY Patient Comments: TAKE 1 TABLET 1 TIME EACH DAY AT BEDTIME FOR SLEEP oxybutynin chloride 5 mg tablet 5 mg PO DAILY Patient Comments: TAKE 1 TABLET 1 TIME EACH DAY valsartan 40 mg tablet 40 mg PO DAILY Patient Comments: TAKE 1 TABLET 1 TIME EACH DAY colestipol [Colestid] 1 gram tablet 1 g PO BID Qty: 60 12RF Creon 36,000-114,000- 180,000 unit capsule,delayed release(DR/EC) 1 cap PO .With meals 30 Days Qty: 100 4RF Rx Instructions: administer with meals and/or snacks Eliquis 2.5 mg tablet 2.5 mg PO BID Qty: 60 5RF methylprednisolone 4 mg tablets,dose pack 4 mg PO PER PKG DIR Qty: 21 0RF multivitamin [Daily Multi-Vitamin] Tablet 1 tab PO DAILY Qty: 30 8RF metoprolol succinate [Toprol XL] 100 mg tablet extended release 24 hr 100 mg PO DAILY Qty: 30 5RF ferrous sulfate [FeroSul] 325 mg (65 mg iron) tablet 325 mg PO DAILY Qty: 30 3RF spironolactone 25 mg tablet 25 mg PO DAILY 90 Days Qty: 90 1RF doxepin 10 mg capsule 10 mg PO BID 90 Days Qty: 180 0RF meclizine 12.5 mg tablet 12.5 mg PO TID PRN (Reason: dizziness) Qty: 90 1RF estradiol 2 mg tablet 2 mg PO DAILY 90 Days Qty: 90 0RF loperamide 2 mg capsule 2 mg PO TID PRN (Reason: diarrhea) 90 Days Qty: 270 0RF amlodipine 10 mg tablet 10 mg PO DAILY 90 Days Qty: 90 0RF prochlorperazine maleate [Compazine] 10 mg tablet 10 mg PO Q6H PRN (Reason: nausea and vomiting) Qty: 30 1RF ondansetron 8 mg tablet,disintegrating 8 mg PO Q8H Qty: 30 3RF Referrals Follow up/Referrals: Karlos Vickers MD [Primary Care Provider] - See instructions Activity Restrictions/Add. Instructions Additional Instructions/Restrictions: Go home and rest. Take tylenol or ibuprofen for pain. Take the medications as directed. Follow up with your regular doctor as scheduled on Saturday. Call them on Saturday if you are not feeling any better by then. GO TO THE ER FOR ANY WORSENING SYMPTOMS Clinical Impressions Clinical Impression: Arthralgia, Fatigue Instructions Patient Instructions: Ketorolac Injection, Dexamethasone Injection Print Language Print Language: Maldivian Discharge ED Provider: Antonio Arrington [facility] General Stated complaint: Pain in R hip, Pain in R arm Mode of Arrival: Ambulatory Source of Information: Patient Time Seen by Provider: 09/26/24 13:26 Description of Symptoms (Recalled from Triage Doc. by RN): RIGHT HAND SWOLLEN, RIGHT HIP PAIN ACHY, CAN NOT SLEEP OR EAT HEENT Symptoms (Recalled from RN notes): No Resp Symptoms (Recalled from RN notes): No Skin Symptoms (Recalled from RN notes): No MS Symptoms (Recalled from RN notes): Yes Functional Status (Recalled from RN notes): WNL Related Data Home Medications ?Medication ?Instructions ?Recorded ?Confirmed nystatin 100,000 unit/gram topical 1 applic topical NEEDED PRN Rash 12/17/23 09/29/24 ointment mirtazapine 15 mg tablet 15 mg PO DAILY 05/27/24 09/29/24 oxybutynin chloride 5 mg tablet 5 mg PO DAILY 05/27/24 09/29/24 valsartan 40 mg tablet 40 mg PO DAILY 05/27/24 09/29/24 Previous Rx's ?Medication ?Instructions ?Recorded multivitamin (Daily Multi-Vitamin 1 tab PO DAILY #30 tabs 08/14/23 tablet) ferrous sulfate 325 mg (65 mg 325 mg PO DAILY #30 tabs 08/27/23 iron) tablet (FeroSul) spironolactone 25 mg tablet 25 mg PO DAILY 90 days #90 tabs 03/12/24 doxepin 10 mg capsule 10 mg PO BID 90 days #180 caps 03/16/24 meclizine 12.5 mg tablet 12.5 mg PO TID PRN dizziness #90 03/16/24 tabs estradiol 2 mg tablet 2 mg PO DAILY 90 days #90 tabs 06/02/24 loperamide 2 mg capsule 2 mg PO TID PRN diarrhea 90 days 06/02/24 #270 caps amlodipine 10 mg tablet 10 mg PO DAILY High Blood Pressure 06/09/24 90 days #90 tabs apixaban 2.5 mg tablet (Eliquis) 2.5 mg PO BID #60 tabs 06/16/24 prochlorperazine maleate 10 mg 10 mg PO Q6H PRN nausea and 06/30/24 tablet (Compazine) vomiting #30 tabs colestipol 1 gram tablet (Colestid) 1 g PO BID #60 tabs 07/07/24 [id number] 1 cap PO .With meals 30 days #100 07/07/24 36,000-114,000-180,000 unit caps capsule,delay rel (Creon) metoprolol succinate 100 mg 100 mg PO DAILY #30 tabs 07/15/24 tablet,extended release 24 hr (Toprol XL) ondansetron 8 mg disintegrating 8 mg PO Q8H #30 tabs 08/21/24 tablet ondansetron 4 mg disintegrating 4 mg PO Q8H PRN Nausea #20 tabs 09/26/24 tablet prednisone 10 mg tablet 10 mg PO BID 4 days #8 tabs 09/26/24 methylprednisolone 4 mg tablets in 4 mg PO PER PKG DIR #21 tabs 09/29/24 a dose pack Allergies Allergy/AdvReac Type Severity Reaction Status Date / Time No Known Allergies Allergy Verified 09/29/24 09:08 Worker's Comp Is this a Worker's Comp case?: No [facility] Disclaimer: The information contained in this section may have been updated after the patient was seen, as this information can be updated by other users. 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 History of hysterectomy Family History Mother Cancer Father Coronary artery disease Social History Smoking Status: Never smoker alcohol intake: never substance use type: denies use current occupational status: unemployed and retired Travel in the last 8 weeks: None household members: none housing: house lives independently: Yes marital status: ROS Obtained: Yes All systems reviewed & no additional complaints except as documented Constitutional Constitutional: Reports poor appetite Eyes Eyes: Reports system reviewed and no additional complaints, except as documented ENT Ears, Nose, Mouth, and Throat: Reports as per HPI Cardiovascular Cardiovascular: Reports system reviewed and no additional complaints, except as documented and Denies chest pain Respiratory Respiratory: Denies shortness of breath, Denies chest congestion, Reports cough, Denies stridor and Denies wheezing Gastrointestinal Gastrointestingal: Reports system reviewed and no additional complaints, except as documented; Denies abdominal pain, diarrhea or vomiting Musculoskeletal Musculoskeletal: Reports system reviewed and no additional complaints, except as documented and Denies arthralgias Integumentary/Breasts Skin/Breast: Reports system reviewed and no additional complaints, except as documented and Denies rash Neurologic Neurologic: Denies paresthesias Allergic/Immunologic Allergic/Immunologic: Denies wheezing Physical Exam General General appearance: alert and in no apparent distress Head Head exam: atraumatic, normocephalic and normal inspection Eye Eye exam: Present normal appearance, PERRL and EOMI ENT ENT exam: Present normal exam, normal oropharynx, mucous membranes moist, TM's normal bilaterally and normal external ear exam Neck Neck exam: Present normal inspection, full ROM and trachea midline; Absent meningismus or lymphadenopathy Chest Chest inspection: Present normal inspection and symmetric chest wall rise; Absent tenderness Respiratory Respiratory exam: Present normal lung sounds bilaterally; Absent respiratory distress Cardiovascular Cardiovascular exam: Present regular rate and normal rhythm; Absent JVD Abdominal Exam Abdominal exam: Present soft and normal bowel sounds; Absent distention, tenderness or guarding Extremities Exam Extremities exam: Present normal inspection, full ROM and normal capillary refill; Absent calf tenderness Back Exam Back exam: Present normal inspection; Absent tenderness Neurological Exam Neurological exam: Present alert and oriented X3 Psychiatric Psychiatric exam: Present normal affect and normal mood Skin Skin exam: Present warm, dry, intact and normal color Lymphatic Lymphatic Findings: no adenopathy Medical Decision Making Medical Records Medical records reviewed: No I reviewed the patient's medical records. Screening: Per USPSTF and CDC recommendations, given the prevalence of disease in our region, it is our hospital?s policy to screen for HIV and viral Hepatitis for all patients aged 18 and over and those with ongoing risk factors. Jn Inquiry Pt receiving controlled substance: No Vital Signs: 09/26/24 13:25 Temperature 98.2 F Temperature Source Oral Pulse Rate [Left Radial] 92 H Respiratory Rate 20 Blood Pressure [Left Arm] 113/55 L Blood Pressure Mean [Left Arm] 74 02 Sat by Pulse Oximetry 99 Lab Data Lab results reviewed: Yes I reviewed the patient's lab results. Lab Results 09/26/24 12:34: POC Glucose 130 H 09/26/24 14:36 09/26/24 14:36 Orders (Tests/Meds): ORDERS Category Date Time Status Hand XR right minimum 3 views [XR hand RT min 3V] Stat Exams 09/26/24 12:32 Taken XR forearm RT 2V Stat Exams 09/26/24 12:32 Taken XR hip RT 2-3V w/pelvis Stat Exams 09/26/24 12:32 Taken XR wrist RT min 3V Stat Exams 09/26/24 12:32 Taken POC Glucose,Bedside Routine Lab 09/26/24 12:34 Completed
[2024-09-26 14:50] LABS: Basophils % 0.4 % (0.1-2.0); Eosinophils # 0.1 K/mm3 (0.0-0.4); Eosinophils % 0.6 % (0.1-12.0); Hematocrit 26.4 % (37.0-47.0); Hemoglobin 8.3 g/dL (12.2-16.2); Lymphocytes # 0.7 K/mm3 (0.7-4.5); Lymphocytes % 7.4 % (10-50); Mean Corpuscular HGB Conc 31.4 g/dL (31.8-35.4); Mean Corpuscular Hemoglobin 29.3 pg (27.0-31.2); Mean Corpuscular Volume 93.3 fl (81-99); Mean Platelet Volume 9.5 fl (7.4-10.4); Monocytes # 0.8 K/mm3 (0.1-1.0); Monocytes % 8.2 % (1.7-9.3); Neutrophils # 8.2 K/mm3 (1.8-7.8); Neutrophils % 83.1 % (37.0-80.0); Platelet Count 294 K/mm3 (142-424); Red Blood Count 2.83 M/mm3 (4.20-5.40); Red Cell Distribution Width 20.3 % (11.5-17.5); White Blood Count 9.8 K/mm3 (4.8-10.8)
[2024-09-26 15:02] LABS: Chloride 101 mmol/L (98-107); Potassium 3.9 mmoL/L (3.5-5.1); Sodium 132 mmol/L (136-145)
[2024-09-26 15:05] LABS: Blood Urea Nitrogen 14 mg/dl (7-17); Creatinine Clearance Estimated 43 mL/min (50-200); Estimated Glomerular Filt Rate 54 ml/min (>60); GFR (African American) 65 ML/MIN (>60)
[2024-09-26 15:06] LABS: Anion Gap 10.9 mEq/L (5-15); Calcium 8.8 mg/dl (8.4-10.2); Carbon Dioxide 24 mmol/L (22.0-30.0); Glucose 135 mg/dl (74-100)
[2024-09-26] MEDS: DEXAMETHASONE 4MG/ML 1ML VIAL 6 MG IM (15:31)
[2024-09-26] MEDS: KETOROLAC 60MG/2ML VIAL 30 MG IM (15:31)
[2024-09-26 15:49] VITALS: BP 113/55; PULSE 92; RESP 20; TEMP 36.8
== END 2024-09-26 15:55 | disposition home or self-care (01) ==
PROVIDERS: Emergency Provider Nurse Practitioner Family; PCP Family Medicine
DX: M25.50 Pain in unspecified joint (principal); R53.83 Other fatigue; M25.551 Pain in right hip; M79.601 Pain in right arm; R63.8 Other symptoms and signs concerning food and fluid intake; R05.9 Cough, unspecified
CPT/HCPCS: 73090; 73110; 73130; 73502; 80048; 82962; 85025; 99212; G0381; J1100; J1885

== ENCOUNTER 2024-09-29 08:08 | Outpatient (CLI) | payer MEDICARE, OTHER, SELFPAY ==
[2024-09-29] VITALS (7 sets, daily range): BP systolic 126–145; BP diastolic 58–66; PULSE 70–79; RESP 17–18; O2SAT 99; BMI 24.7
[2024-09-29 08:35] LABS: Albumin Level 3.3 g/dl (3.5-5.0); Chloride 106 mmol/L (98-107); Sodium 135 mmol/L (136-145)
[2024-09-29 08:36] LABS: Potassium 4.2 mmoL/L (3.5-5.1)
[2024-09-29 08:38] LABS: Alanine Aminotransferase 14 U/L (12-78); Albumin/Globulin Ratio 1.1 (1.1-1.8); Alkaline Phosphatase 122 U/L (38-126); Anion Gap 9.2 mEq/L (5-15); Aspartate Amino Transferase 21 U/L (14-36); Basophils % 0.1 % (0.1-2.0); Bilirubin,Total 0.5 mg/dl (0.2-1.3); Blood Urea Nitrogen 40 mg/dl (7-17); Carbon Dioxide 24 mmol/L (22.0-30.0); Creatinine Clearance Estimated 43 mL/min (50-200); Estimated Glomerular Filt Rate 54 ml/min (>60); GFR (African American) 65 ML/MIN (>60); Globulin 3.1 g/dL (1.3-3.2); Hematocrit 26.1 % (37.0-47.0); Lymphocytes # 0.6 K/mm3 (0.7-4.5); Lymphocytes % 6.4 % (10-50); Mean Corpuscular HGB Conc 30.7 g/dL (31.8-35.4); Mean Corpuscular Hemoglobin 29.5 pg (27.0-31.2); Mean Corpuscular Volume 96.3 fl (81-99); Mean Platelet Volume 9.6 fl (7.4-10.4); Monocytes # 0.4 K/mm3 (0.1-1.0); Monocytes % 4.4 % (1.7-9.3); Neutrophils # 8.5 K/mm3 (1.8-7.8); Neutrophils % 88.7 % (37.0-80.0); Platelet Count 435 K/mm3 (142-424); Red Blood Count 2.71 M/mm3 (4.20-5.40); Total Protein,Serum 6.4 g/dl (6.3-8.2); White Blood Count 9.6 K/mm3 (4.8-10.8)
[2024-09-29 08:39] LABS: Calcium 8.8 mg/dl (8.4-10.2); Glucose 129 mg/dl (74-100)
[2024-09-29 08:40] LABS: MANUAL DIFFERENTIAL MANUAL DIFFERENTIAL (MANUAL DIFF)
[2024-09-29 09:11] LABS: Lymphocytes % 5 % (10-50); Monocytes % 2 % (2-9); Neutrophils % 93 % (42-76); Total Cells Counted 100
[2024-09-29 09:12] LABS: Platelet Estimate Slight Increase; RBC Morphology Normal
[2024-09-29] MEDS: DEXAMETHASONE 4MG TABLET 12 MG PO (10:01)
[2024-09-29] MEDS: CALCIUM GLUCONATE 1,000 MG, MAGNESIUM SULFATE 1 GM in DEXTROSE 5 % IN WATER 100 ML 224 MG IV ×2 (10:01→12:56)
[2024-09-29] MEDS: ONDANSETRON 4MG ODT 16 MG SL (10:02)
[2024-09-29] MEDS: diphenhydrAMINE 25MG CAPSULE 25 MG PO (10:02)
[2024-09-29] MEDS: FAMOTIDINE 20MG TABLET 20 MG PO (10:02)
[2024-09-29] MEDS: OXALIPLATIN IV (10:36)
[2024-09-29] MEDS: DEXTROSE 5% IV (10:36)
[2024-09-29] MEDS: WATER IV (10:36)
[2024-09-29] MEDS: SODIUM CHLORIDE 0.9% 10ML FLUSH SYRINGE 10 ML IV (13:30)
== END 2024-09-29 13:35 ==
LOC: INF 08:10
PROVIDERS: PCP Family Medicine; Visit Provider Internal Medicine Medical Oncology
DX: C18.0 Malignant neoplasm of cecum (principal)
CPT/HCPCS: 80053; 85007; 85025; 96413; 96415; J1642; J7060; J8540; J9263; Q0162

== ENCOUNTER 2024-10-20 07:55 | Outpatient (CLI) | payer MEDICARE, OTHER, SELFPAY ==
[2024-10-20] VITALS (8 sets, daily range): BP systolic 140–172; BP diastolic 65–94; PULSE 73–79; RESP 18; TEMP 36.8; O2SAT 100; BMI 24.0
[2024-10-20 08:32] LABS: Basophils % 0.6 % (0.1-2.0); Eosinophils # 0.3 K/mm3 (0.0-0.4); Eosinophils % 4.9 % (0.1-12.0); Hematocrit 27.5 % (37.0-47.0); Hemoglobin 8.2 g/dL (12.2-16.2); Lymphocytes # 0.8 K/mm3 (0.7-4.5); Lymphocytes % 15.5 % (10-50); Mean Corpuscular HGB Conc 29.8 g/dL (31.8-35.4); Mean Corpuscular Hemoglobin 28.8 pg (27.0-31.2); Mean Corpuscular Volume 96.5 fl (81-99); Monocytes # 0.5 K/mm3 (0.1-1.0); Neutrophils # 3.5 K/mm3 (1.8-7.8); Neutrophils % 68.8 % (37.0-80.0); Platelet Count 242 K/mm3 (142-424); Red Blood Count 2.85 M/mm3 (4.20-5.40); Red Cell Distribution Width 20.3 % (11.5-17.5); White Blood Count 5.1 K/mm3 (4.8-10.8)
[2024-10-20 08:42] LABS: Albumin Level 2.8 g/dl (3.5-5.0); Chloride 105 mmol/L (98-107)
[2024-10-20 08:43] LABS: Potassium 3.6 mmoL/L (3.5-5.1); Sodium 135 mmol/L (136-145)
[2024-10-20 08:45] LABS: Alanine Aminotransferase 14 U/L (12-78); Aspartate Amino Transferase 23 U/L (14-36); Blood Urea Nitrogen 9 mg/dl (7-17); Creatinine Clearance Estimated 42 mL/min (50-200); Estimated Glomerular Filt Rate 81 ml/min (>60); GFR (African American) 98 ML/MIN (>60)
[2024-10-20 08:46] LABS: Alkaline Phosphatase 138 U/L (38-126); Anion Gap 5.6 mEq/L (5-15); Bilirubin,Total 0.5 mg/dl (0.2-1.3); Carbon Dioxide 28 mmol/L (22.0-30.0); Globulin 2.9 g/dL (1.3-3.2); Glucose 94 mg/dl (74-100); Iron 33 ug/dL (37-170); Total Protein,Serum 5.7 g/dl (6.3-8.2)
[2024-10-20 08:55] LABS: Total Iron Binding Capacity 352 ug/dL (265-497)
[2024-10-20 09:23] LABS: Ferritin 52.3 ng/ml (11.1-264)
[2024-10-20] MEDS: MONTELUKAST SODIUM 10MG TAB 10 MG PO (10:04)
[2024-10-20] MEDS: ONDANSETRON 4MG ODT 16 MG SL (10:04)
[2024-10-20] MEDS: POTASSIUM CHLORIDE 20MEQ TAB 40 MEQ PO (10:04)
[2024-10-20] MEDS: DEXAMETHASONE 4MG TABLET 12 MG PO (10:04)
[2024-10-20] MEDS: diphenhydrAMINE 25MG CAPSULE 25 MG PO (10:05)
[2024-10-20] MEDS: CALCIUM GLUCONATE 1,000 MG, MAGNESIUM SULFATE 1 GM in DEXTROSE 5 % IN WATER 100 ML 224 MG IV ×2 (10:05→12:51)
[2024-10-20] MEDS: FAMOTIDINE 20MG TABLET 20 MG PO (10:05)
[2024-10-20] MEDS: WATER IV (10:46)
[2024-10-20] MEDS: OXALIPLATIN IV (10:46)
[2024-10-20] MEDS: DEXTROSE 5% IV (10:46)
[2024-10-20] MEDS: SODIUM CHLORIDE 0.9% 50ML BAG 50 ML IV (13:30)
[2024-10-20] MEDS: SODIUM CHLORIDE 0.9% 10ML FLUSH SYRINGE 10 ML IV (13:30)
== END 2024-10-20 13:35 | disposition home or self-care (01) ==
LOC: INF 07:57
PROVIDERS: PCP Family Medicine; Visit Provider Internal Medicine Medical Oncology
DX: Z51.11 Encounter for antineoplastic chemotherapy (principal); C18.9 Malignant neoplasm of colon, unspecified; D63.0 Anemia in neoplastic disease; C78.7 Secondary malignant neoplasm of liver and intrahepatic bile duct; C79.89 Secondary malignant neoplasm of other specified sites; C78.6 Secondary malignant neoplasm of retroperitoneum and peritoneum
CPT/HCPCS: 80053; 82728; 83540; 83550; 85025; 96413; 96415; J1642; J7060; J8540; J9263; Q0162

== ENCOUNTER 2024-10-26 10:40 | Outpatient (CLI) | payer MEDICARE, OTHER, SELFPAY ==
[2024-10-26] VITALS (8 sets, daily range): BP systolic 147–155; BP diastolic 63–75; PULSE 72–78; RESP 18; O2SAT 99; BMI 24.9
[2024-10-26] MEDS: IRON SUCROSE COMPLEX 200 MG in 0.9 % SODIUM CHLORIDE 100 ML 220 MG IV (11:05)
[2024-10-26] MEDS: ONDANSETRON 4MG/2ML VIAL 8 MG IV (11:48)
[2024-10-26 12:10] LABS: Basophils % 0.7 % (0.1-2.0); Eosinophils # 0.2 K/mm3 (0.0-0.4); Eosinophils % 3.4 % (0.1-12.0); Hematocrit 27.6 % (37.0-47.0); Hemoglobin 8.4 g/dL (12.2-16.2); Lymphocytes # 0.7 K/mm3 (0.7-4.5); Lymphocytes % 16.6 % (10-50); Mean Corpuscular HGB Conc 30.4 g/dL (31.8-35.4); Mean Corpuscular Hemoglobin 28.8 pg (27.0-31.2); Mean Corpuscular Volume 94.5 fl (81-99); Mean Platelet Volume 10.8 fl (7.4-10.4); Monocytes # 0.5 K/mm3 (0.1-1.0); Neutrophils % 67.1 % (37.0-80.0); Platelet Count 180 K/mm3 (142-424); Red Blood Count 2.92 M/mm3 (4.20-5.40); Red Cell Distribution Width 18.9 % (11.5-17.5); White Blood Count 4.4 K/mm3 (4.8-10.8)
[2024-10-26 12:40] LABS: Chloride 102 mmol/L (98-107); Potassium 3.1 mmoL/L (3.5-5.1); Sodium 137 mmol/L (136-145)
[2024-10-26 12:42] LABS: Alanine Aminotransferase 13 U/L (12-78); Aspartate Amino Transferase 26 U/L (14-36); Blood Urea Nitrogen 10 mg/dl (7-17); Creatinine Clearance Estimated 44 mL/min (50-200); Estimated Glomerular Filt Rate 54 ml/min (>60); GFR (African American) 65 ML/MIN (>60)
[2024-10-26 12:43] LABS: Alkaline Phosphatase 148 U/L (38-126); Anion Gap 10.1 mEq/L (5-15); Bilirubin,Total 1.1 mg/dl (0.2-1.3); Calcium 7.8 mg/dl (8.4-10.2); Carbon Dioxide 28 mmol/L (22.0-30.0); Glucose 103 mg/dl (74-100); Magnesium 1.5 mg/dl (1.6-2.3)
[2024-10-26] MEDS: 0.9 % SODIUM CHLORIDE 1000ML 1,000 ML 999 ML IV (13:05)
[2024-10-26] MEDS: KCl 20mEq/100ml 100 ML 50 MEQ IV (13:10)
[2024-10-26] MEDS: SODIUM CHLORIDE 0.9% 50ML BAG 50 ML IV (13:10)
[2024-10-26] MEDS: SODIUM CHLORIDE 0.9% 10ML FLUSH SYRINGE 10 ML IV (14:08)
== END 2024-10-26 14:15 | disposition home or self-care (01) ==
LOC: INF 10:42
PROVIDERS: PCP Family Medicine; Visit Provider Internal Medicine Medical Oncology
DX: D64.9 Anemia, unspecified (principal)
CPT/HCPCS: 36591; 80053; 83735; 85025; 96360; 96361; 96365; 96367; 96375; J1642; J1756; J2405; J7030

== ENCOUNTER 2024-10-27 14:32 | Outpatient (CLI) | payer MEDICARE, OTHER, SELFPAY ==
[2024-10-27 14:37] VITALS: BMI 24.9
[2024-10-27 15:08] LABS: Alanine Aminotransferase 13 U/L (12-78); Alkaline Phosphatase 137 U/L (38-126); Anion Gap 10.4 mEq/L (5-15); Aspartate Amino Transferase 25 U/L (14-36); Bilirubin,Total 0.5 mg/dl (0.2-1.3); Blood Urea Nitrogen 8 mg/dl (7-17); Calcium 7.7 mg/dl (8.4-10.2); Carbon Dioxide 27 mmol/L (22.0-30.0); Chloride 103 mmol/L (98-107); Creatinine Clearance Estimated 44 mL/min (50-200); Estimated Glomerular Filt Rate 54 ml/min (>60); GFR (African American) 65 ML/MIN (>60); Globulin 2.9 g/dL (1.3-3.2); Glucose 97 mg/dl (74-100); Potassium 3.4 mmoL/L (3.5-5.1); Sodium 137 mmol/L (136-145); Total Protein,Serum 5.9 g/dl (6.3-8.2)
[2024-10-27] MEDS: SODIUM CHLORIDE 0.9% 10ML FLUSH SYRINGE 10 ML IV (15:43)
== END 2024-10-27 15:37 | disposition home or self-care (01) ==
LOC: INF 14:33
PROVIDERS: PCP Family Medicine; Visit Provider Internal Medicine Medical Oncology
DX: C18.9 Malignant neoplasm of colon, unspecified (principal)
CPT/HCPCS: 36591; 80053; J1642

== ENCOUNTER 2024-11-02 10:28 | Outpatient (CLI) | payer MEDICARE, OTHER, SELFPAY ==
[2024-11-02] MEDS: SODIUM CHLORIDE 0.9% 50ML BAG 50 ML IV (10:52)
[2024-11-02 10:53] VITALS: BP 146/63; PULSE 71; RESP 16; TEMP 37.3; O2SAT 99
[2024-11-02] MEDS: IRON SUCROSE COMPLEX 200 MG in 0.9 % SODIUM CHLORIDE 100 ML 220 MG IV (10:53)
[2024-11-02 11:30] VITALS: BP 140/62; PULSE 75; RESP 16; TEMP 37.3; O2SAT 98
[2024-11-02] MEDS: SODIUM CHLORIDE 0.9% 10ML FLUSH SYRINGE 10 ML IV (11:30)
== END 2024-11-02 11:35 | disposition home or self-care (01) ==
LOC: INF 10:30
PROVIDERS: PCP Family Medicine; Visit Provider Internal Medicine Medical Oncology
DX: D50.9 Iron deficiency anemia, unspecified (principal)
CPT/HCPCS: 96365; J1642; J1756

== ENCOUNTER 2024-11-09 10:39 | Outpatient (CLI) | payer MEDICARE, OTHER, SELFPAY ==
[2024-11-09 10:55] VITALS: BMI 23.8
[2024-11-09 11:00] VITALS: BP 112/55; PULSE 88; RESP 16; TEMP 36.6; O2SAT 97
[2024-11-09] MEDS: IRON SUCROSE COMPLEX 200 MG in 0.9 % SODIUM CHLORIDE 100 ML 220 MG IV (11:00)
[2024-11-09] MEDS: SODIUM CHLORIDE 0.9% 50ML BAG 50 ML IV (11:00)
[2024-11-09 11:03] LABS: Basophils % 0.7 % (0.1-2.0); Eosinophils # 0.1 K/mm3 (0.0-0.4); Eosinophils % 1.1 % (0.1-12.0); Hematocrit 32.3 % (37.0-47.0); Hemoglobin 9.6 g/dL (12.2-16.2); Lymphocytes # 0.7 K/mm3 (0.7-4.5); Lymphocytes % 12.4 % (10-50); Mean Corpuscular HGB Conc 29.7 g/dL (31.8-35.4); Mean Corpuscular Hemoglobin 28.6 pg (27.0-31.2); Mean Corpuscular Volume 96.1 fl (81-99); Mean Platelet Volume 9.7 fl (7.4-10.4); Monocytes # 0.6 K/mm3 (0.1-1.0); Monocytes % 10.2 % (1.7-9.3); Neutrophils # 4.1 K/mm3 (1.8-7.8); Neutrophils % 75.2 % (37.0-80.0); Platelet Count 331 K/mm3 (142-424); Red Blood Count 3.36 M/mm3 (4.20-5.40); Red Cell Distribution Width 19.2 % (11.5-17.5); White Blood Count 5.4 K/mm3 (4.8-10.8)
[2024-11-09 11:14] LABS: Chloride 102 mmol/L (98-107)
[2024-11-09 11:15] LABS: Albumin Level 3.1 g/dl (3.5-5.0); Potassium 3.5 mmoL/L (3.5-5.1); Sodium 136 mmol/L (136-145)
[2024-11-09 11:17] LABS: Alanine Aminotransferase 16 U/L (12-78); Anion Gap 10.5 mEq/L (5-15); Aspartate Amino Transferase 25 U/L (14-36); Blood Urea Nitrogen 11 mg/dl (7-17); Carbon Dioxide 27 mmol/L (22.0-30.0); Creatinine Clearance Estimated 42 mL/min (50-200); Estimated Glomerular Filt Rate 54 ml/min (>60); GFR (African American) 65 ML/MIN (>60)
[2024-11-09 11:18] LABS: Alkaline Phosphatase 147 U/L (38-126); Bilirubin,Total 0.4 mg/dl (0.2-1.3); Calcium 8.3 mg/dl (8.4-10.2); Glucose 111 mg/dl (74-100); Total Protein,Serum 6.1 g/dl (6.3-8.2)
[2024-11-09 11:40] VITALS: BP 116/52; PULSE 83; RESP 16; TEMP 36.6; O2SAT 98
[2024-11-09] MEDS: SODIUM CHLORIDE 0.9% 10ML FLUSH SYRINGE 10 ML IV (11:40)
== END 2024-11-09 11:45 | disposition home or self-care (01) ==
LOC: INF 10:40
PROVIDERS: PCP Family Medicine; Visit Provider Internal Medicine Medical Oncology
DX: D64.9 Anemia, unspecified (principal)
CPT/HCPCS: 36591; 80053; 85025; 96365; J1642; J1756

== ENCOUNTER 2024-11-12 10:40 | Outpatient (CLI) | payer MEDICARE, OTHER, SELFPAY ==
[2024-11-12] VITALS (7 sets, daily range): BP systolic 124–157; BP diastolic 60–77; PULSE 68–77; RESP 20; TEMP 36.7; O2SAT 97–98
[2024-11-12] MEDS: POTASSIUM CHLORIDE 20MEQ TAB 40 MEQ PO (11:55)
[2024-11-12] MEDS: CALCIUM GLUCONATE 1,000 MG, MAGNESIUM SULFATE 1 GM in DEXTROSE 5 % IN WATER 100 ML 224 MG IV ×2 (11:55→14:43)
[2024-11-12] MEDS: MONTELUKAST SODIUM 10MG TAB 10 MG PO (11:55)
[2024-11-12] MEDS: diphenhydrAMINE 25MG CAPSULE 25 MG PO (11:56)
[2024-11-12] MEDS: DEXAMETHASONE 4MG TABLET 12 MG PO (11:56)
[2024-11-12] MEDS: ONDANSETRON 4MG ODT 16 MG SL (11:56)
[2024-11-12] MEDS: FAMOTIDINE 20MG TABLET 20 MG PO (11:56)
--- NOTE | 2024-11-12 12:23 | PC.NURSE ---
1223-C.CHANDRIKA RN CALLED [employer] TO VERBALLY ORDER DOSE REDUCTION PER . GAVE NEW ORDER XELODA 500MG TAB X2 PO BID AND 150MG TAB X 2 PO BID.
[2024-11-12] MEDS: WATER IV (12:32)
[2024-11-12] MEDS: DEXTROSE 5% IV (12:32)
[2024-11-12] MEDS: OXALIPLATIN IV (12:32)
[2024-11-12] MEDS: SODIUM CHLORIDE 0.9% 10ML FLUSH SYRINGE 10 ML IV (15:27)
== END 2024-11-12 15:10 | disposition home or self-care (01) ==
LOC: INF 10:40
PROVIDERS: PCP Family Medicine; Visit Provider Internal Medicine Medical Oncology
DX: C18.9 Malignant neoplasm of colon, unspecified (principal); C78.7 Secondary malignant neoplasm of liver and intrahepatic bile duct
CPT/HCPCS: 96413; 96415; J1642; J7060; J8540; J9263; Q0162

== ENCOUNTER 2024-11-16 10:30 | Outpatient (CLI) | payer MEDICARE, OTHER, SELFPAY ==
[2024-11-16 10:48] VITALS: BMI 24.5
[2024-11-16] MEDS: DEXAMETHASONE 4MG/ML 1ML VIAL 8 MG IV (10:55)
[2024-11-16 11:00] VITALS: BP 121/66; PULSE 122; RESP 18; TEMP 37.1; O2SAT 98
[2024-11-16] MEDS: 0.9 % SODIUM CHLORIDE 1000ML 1,000 ML 999 ML IV (11:00)
[2024-11-16 11:02] LABS: Basophils % 0.6 % (0.1-2.0); Eosinophils # 0.1 K/mm3 (0.0-0.4); Eosinophils % 1.2 % (0.1-12.0); Hematocrit 34.7 % (37.0-47.0); Hemoglobin 10.6 g/dL (12.2-16.2); Lymphocytes # 0.6 K/mm3 (0.7-4.5); Lymphocytes % 11.1 % (10-50); Mean Corpuscular HGB Conc 30.5 g/dL (31.8-35.4); Mean Corpuscular Hemoglobin 28.7 pg (27.0-31.2); Mean Platelet Volume 10.1 fl (7.4-10.4); Monocytes # 0.5 K/mm3 (0.1-1.0); Monocytes % 10.4 % (1.7-9.3); Neutrophils # 3.9 K/mm3 (1.8-7.8); Neutrophils % 75.5 % (37.0-80.0); Platelet Count 229 K/mm3 (142-424); Red Blood Count 3.69 M/mm3 (4.20-5.40); Red Cell Distribution Width 18.3 % (11.5-17.5); White Blood Count 5.1 K/mm3 (4.8-10.8)
[2024-11-16 11:13] LABS: Albumin Level 3.2 g/dl (3.5-5.0); Chloride 105 mmol/L (98-107)
[2024-11-16 11:14] LABS: Potassium 3.4 mmoL/L (3.5-5.1); Sodium 138 mmol/L (136-145)
[2024-11-16 11:16] LABS: Alanine Aminotransferase 14 U/L (12-78); Aspartate Amino Transferase 33 U/L (14-36); Blood Urea Nitrogen 11 mg/dl (7-17); Creatinine Clearance Estimated 43 mL/min (50-200); Estimated Glomerular Filt Rate 61 ml/min (>60); GFR (African American) 73 ML/MIN (>60)
[2024-11-16 11:17] LABS: Alkaline Phosphatase 168 U/L (38-126); Anion Gap 9.4 mEq/L (5-15); Bilirubin,Total 0.7 mg/dl (0.2-1.3); Carbon Dioxide 27 mmol/L (22.0-30.0); Globulin 3.1 g/dL (1.3-3.2); Glucose 111 mg/dl (74-100); Magnesium 1.4 mg/dl (1.6-2.3); Total Protein,Serum 6.3 g/dl (6.3-8.2)
[2024-11-16 11:30] VITALS: BP 134/62; PULSE 113
[2024-11-16 12:00] VITALS: BP 140/68; PULSE 105
[2024-11-16 12:15] VITALS: BP 157/77; PULSE 104; RESP 18; O2SAT 99
[2024-11-16] MEDS: KCl 20mEq/100ml 100 ML 50 MEQ IV (12:15)
[2024-11-16] MEDS: MAGNESIUM OXIDE 400MG TABLET 800 MG PO (12:22)
[2024-11-16 12:45] VITALS: BP 130/71; PULSE 100
[2024-11-16 13:15] VITALS: BP 152/62; PULSE 103
== END 2024-11-16 13:23 | disposition home or self-care (01) ==
LOC: INF 10:32
PROVIDERS: PCP Family Medicine; Visit Provider Internal Medicine Medical Oncology
DX: C18.9 Malignant neoplasm of colon, unspecified (principal); C78.7 Secondary malignant neoplasm of liver and intrahepatic bile duct
CPT/HCPCS: 36591; 80053; 83735; 85025; 96360; 96367; 96375; J1100; J1642; J7030

== ENCOUNTER 2024-11-17 10:28 | Outpatient (CLI) | payer MEDICARE, OTHER, SELFPAY ==
[2024-11-17 10:34] VITALS: BMI 23.4
[2024-11-17 10:42] VITALS: BP 132/68; PULSE 72; RESP 18; TEMP 36.8; O2SAT 99
[2024-11-17] MEDS: 0.9 % SODIUM CHLORIDE 1000ML 1,000 ML 999 ML IV (10:52)
[2024-11-17 11:00] LABS: Albumin Level 3.2 g/dl (3.5-5.0); Chloride 108 mmol/L (98-107); Potassium 3.8 mmoL/L (3.5-5.1); Sodium 139 mmol/L (136-145)
[2024-11-17 11:03] LABS: Alanine Aminotransferase 17 U/L (12-78); Alkaline Phosphatase 140 U/L (38-126); Anion Gap 7.8 mEq/L (5-15); Aspartate Amino Transferase 29 U/L (14-36); Bilirubin,Total 0.6 mg/dl (0.2-1.3); Blood Urea Nitrogen 10 mg/dl (7-17); Carbon Dioxide 27 mmol/L (22.0-30.0); Creatinine Clearance Estimated 41 mL/min (50-200); Estimated Glomerular Filt Rate 61 ml/min (>60); GFR (African American) 73 ML/MIN (>60); Globulin 3.1 g/dL (1.3-3.2); Total Protein,Serum 6.3 g/dl (6.3-8.2)
[2024-11-17 11:04] LABS: Calcium 8.1 mg/dl (8.4-10.2); Glucose 108 mg/dl (74-100)
[2024-11-17 11:27] LABS: Magnesium 1.5 mg/dl (1.6-2.3)
[2024-11-17] MEDS: IRON SUCROSE COMPLEX 200 MG in 0.9 % SODIUM CHLORIDE 100 ML 220 MG IV (11:50)
[2024-11-17] MEDS: SODIUM CHLORIDE 0.9% 10ML FLUSH SYRINGE 10 ML IV (11:55)
[2024-11-17 11:56] VITALS: BP 144/77; PULSE 78; RESP 18; O2SAT 99
[2024-11-17 12:35] VITALS: BP 155/79; PULSE 78; RESP 18; O2SAT 98
== END 2024-11-17 12:40 | disposition home or self-care (01) ==
LOC: INF 10:29
PROVIDERS: PCP Family Medicine; Visit Provider Internal Medicine Medical Oncology
DX: D50.9 Iron deficiency anemia, unspecified (principal)
CPT/HCPCS: 80053; 83735; 96360; 96361; 96365; 96367; J1642; J1756; J7030

== ENCOUNTER 2024-11-23 10:23 | Outpatient (CLI) | payer MEDICARE, OTHER, SELFPAY ==
[2024-11-23 10:37] VITALS: BP 139/59; PULSE 62; RESP 16; TEMP 36.8; O2SAT 98
[2024-11-23] MEDS: IRON SUCROSE COMPLEX 200 MG in 0.9 % SODIUM CHLORIDE 100 ML 220 MG IV (10:37)
[2024-11-23] MEDS: SODIUM CHLORIDE 0.9% 50ML BAG 50 ML IV (10:37)
[2024-11-23 11:10] VITALS: BP 126/64; PULSE 68; RESP 16; TEMP 36.8; O2SAT 99
[2024-11-23] MEDS: SODIUM CHLORIDE 0.9% 10ML FLUSH SYRINGE 10 ML IV (11:10)
== END 2024-11-23 11:15 | disposition home or self-care (01) ==
LOC: INF 10:24
PROVIDERS: PCP Family Medicine; Visit Provider Internal Medicine Medical Oncology
DX: D50.9 Iron deficiency anemia, unspecified (principal)
CPT/HCPCS: 96365; J1642; J1756

== ENCOUNTER 2024-12-01 09:32 | Outpatient (CLI) | payer MEDICARE, OTHER, SELFPAY ==
[2024-12-01 09:31] VITALS: BMI 23.4
--- NOTE | 2024-12-01 09:40 | CT_ITS ---
FINAL REPORT TECHNIQUE: After the administration of intravenous contrast, axial images through the chest were performed by computed tomography. Coronal and sagittal reconstructions obtained and reviewed. This study was performed with techniques to keep radiation doses as low as reasonably achievable, (ALARA). Individualized dose reduction techniques using automated exposure control or adjustment of mA and/or kV according to the patient''s size were employed. CLINICAL HISTORY: colon cancer COMPARISON: 08/11/2024 FINDINGS: There is a right thyroid nodule measuring 8 mm which is unchanged there is no axillary adenopathy. There is no hilar or mediastinal adenopathy. Significant cardiac enlargement is noted. 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 The mural thrombus appears larger in quantity from the prior exam. There is no pericardial or pleural effusion. There is a 3 mm nodule in the anterior aspect of the right upper lobe seen on image 15. This may have been calcified on the prior exam but is stable in size. No new suspicious pulmonary nodules are identified. IMPRESSION: No evidence of metastatic disease. Increasing thrombus within left ventricular aneurysm. Reviewed, Interpreted and Dictated by Dayanara Gonzalez MD Transcribed by Sonia Bose Authenticated and [facility]
--- NOTE | 2024-12-01 09:40 | CT_ITS ---
FINAL REPORT TECHNIQUE: Oral and IV contrast enhanced exam. Coronal and sagittal reconstructions obtained and reviewed. This study was performed with techniques to keep radiation doses as low as reasonably achievable, (ALARA). Individualized dose reduction techniques using automated exposure control or adjustment of mA and/or kV according to the patient''s size were employed. CLINICAL HISTORY: colon cancer COMPARISON: 08/11/2024 FINDINGS: Abdomen: Multiple liver masses are again noted, compatible with metastatic disease. A new lesion in the posterior right liver measuring 13 mm is well-seen on image 30. The largest lesion in the lateral segment of the left hepatic lobe measures 50 x 46 mm and previously measured 38 x 38 mm. Lesion in the liver dome measures 39 x 28 mm and previously measured 20 x 18 mm. There is a right renal cyst measuring 40 mm. Remaining solid organs are normal. The patient is status postcholecystectomy. There is a new small amount of perihepatic ascites. Long segment wall thickening of the colon is new and compatible with colitis. There is no evidence of bowel obstruction. There is no adenopathy. Pelvis: There is a mass in the pericolonic region above the ileocecal valve measuring 57 x 53 mm and previously measured 45 x 43 mm. A mass of the ileocecal region directly involves bowel and measures 63 x 45 mm, previously measured 57 x 40 mm. There is a small amount of ascites, slightly increased from the prior exam. The urinary bladder is decompressed. There is no adenopathy IMPRESSION: Worsening metastatic disease as above Reviewed, Interpreted and Dictated by Dayanara Gonzalez MD Transcribed by Sonia Bose Authenticated and [facility]
[2024-12-01 09:49] LABS: Chloride 106 mmol/L (98-107); Sodium 139 mmol/L (136-145)
[2024-12-01 09:51] LABS: Basophils % 0.6 % (0.1-2.0); Eosinophils # 0.1 K/mm3 (0.0-0.4); Eosinophils % 2.3 % (0.1-12.0); Hematocrit 33.1 % (37.0-47.0); Hemoglobin 10.2 g/dL (12.2-16.2); Lymphocytes # 0.6 K/mm3 (0.7-4.5); Lymphocytes % 18.1 % (10-50); Mean Corpuscular HGB Conc 30.8 g/dL (31.8-35.4); Mean Corpuscular Hemoglobin 29.4 pg (27.0-31.2); Mean Corpuscular Volume 95.4 fl (81-99); Mean Platelet Volume 9.7 fl (7.4-10.4); Monocytes # 0.4 K/mm3 (0.1-1.0); Monocytes % 11.3 % (1.7-9.3); Neutrophils # 2.4 K/mm3 (1.8-7.8); Neutrophils % 67.4 % (37.0-80.0); Platelet Count 206 K/mm3 (142-424); Red Blood Count 3.47 M/mm3 (4.20-5.40); Red Cell Distribution Width 18.1 % (11.5-17.5); White Blood Count 3.5 K/mm3 (4.8-10.8)
[2024-12-01 09:52] LABS: Alanine Aminotransferase 16 U/L (12-78); Alkaline Phosphatase 150 U/L (38-126); Aspartate Amino Transferase 26 U/L (14-36); Bilirubin,Total 0.4 mg/dl (0.2-1.3); Blood Urea Nitrogen 6 mg/dl (7-17); Carbon Dioxide 26 mmol/L (22.0-30.0); Creatinine Clearance Estimated 41 mL/min (50-200); Estimated Glomerular Filt Rate 61 ml/min (>60); GFR (African American) 73 ML/MIN (>60); Globulin 2.9 g/dL (1.3-3.2); Total Protein,Serum 5.9 g/dl (6.3-8.2)
[2024-12-01 09:53] LABS: Calcium 8.2 mg/dl (8.4-10.2); Glucose 116 mg/dl (74-100)
[2024-12-01] MEDS: SODIUM CHLORIDE 0.9% 10ML SYR (RAD ONLY) 10 ML IV (10:15)
[2024-12-01] MEDS: IOPAMIDOL-370 (76%);100ML BOTTLE 75 ML IV (10:15)
== END 2024-12-01 23:59 | disposition home or self-care (01) ==
LOC: RAD 09:34 → INF 10:46
PROVIDERS: PCP Family Medicine; Visit Provider Internal Medicine Medical Oncology
DX: C18.9 Malignant neoplasm of colon, unspecified (principal); C78.7 Secondary malignant neoplasm of liver and intrahepatic bile duct
CPT/HCPCS: 36591; 71260; 74177; 80053; 85025; Q9967

== ENCOUNTER 2024-12-03 10:07 | Outpatient (CLI) | payer MEDICARE, OTHER, SELFPAY | END 2024-12-03 10:25 | LOC: INF 10:08 | PROVIDERS: PCP Family Medicine; Visit Provider Internal Medicine Medical Oncology | DX: C18.9 Malignant neoplasm of colon, unspecified (principal); C78.7 Secondary malignant neoplasm of liver and intrahepatic bile duct | CPT/HCPCS: 36415; 82378; J1642 ==

== ENCOUNTER 2024-12-08 09:58 | Outpatient (CLI) | payer MEDICARE, OTHER, SELFPAY ==
[2024-12-08 10:05] VITALS: BMI 22.8
[2024-12-08 10:32] LABS: Basophils % 0.9 % (0.1-2.0); Eosinophils # 0.1 K/mm3 (0.0-0.4); Eosinophils % 3.1 % (0.1-12.0); Hematocrit 31.8 % (37.0-47.0); Hemoglobin 9.9 g/dL (12.2-16.2); Lymphocytes # 0.9 K/mm3 (0.7-4.5); Lymphocytes % 19.2 % (10-50); Mean Corpuscular HGB Conc 31.1 g/dL (31.8-35.4); Mean Corpuscular Hemoglobin 29.8 pg (27.0-31.2); Mean Corpuscular Volume 95.8 fl (81-99); Mean Platelet Volume 9.9 fl (7.4-10.4); Monocytes # 0.4 K/mm3 (0.1-1.0); Monocytes % 8.4 % (1.7-9.3); Neutrophils # 3.1 K/mm3 (1.8-7.8); Neutrophils % 68.2 % (37.0-80.0); Platelet Count 204 K/mm3 (142-424); Red Blood Count 3.32 M/mm3 (4.20-5.40); Red Cell Distribution Width 17.5 % (11.5-17.5); White Blood Count 4.5 K/mm3 (4.8-10.8)
[2024-12-08 10:55] LABS: Alanine Aminotransferase 14 U/L (12-78); Albumin Level 2.8 g/dl (3.5-5.0); Alkaline Phosphatase 138 U/L (38-126); Anion Gap 6.1 mEq/L (5-15); Aspartate Amino Transferase 25 U/L (14-36); Bilirubin,Total 0.4 mg/dl (0.2-1.3); Blood Urea Nitrogen 8 mg/dl (7-17); Calcium 8.1 mg/dl (8.4-10.2); Carbon Dioxide 27 mmol/L (22.0-30.0); Chloride 107 mmol/L (98-107); Creatinine Clearance Estimated 40 mL/min (50-200); Estimated Glomerular Filt Rate 69 ml/min (>60); GFR (African American) 84 ML/MIN (>60); Globulin 2.9 g/dL (1.3-3.2); Glucose 86 mg/dl (74-100); Potassium 4.1 mmoL/L (3.5-5.1); Sodium 136 mmol/L (136-145); Total Protein,Serum 5.7 g/dl (6.3-8.2)
[2024-12-08 11:25] VITALS: BP 153/63; PULSE 65; RESP 18; TEMP 36.8; O2SAT 98
[2024-12-08] MEDS: 0.9 % SODIUM CHLORIDE 50 ML IV (11:25)
[2024-12-08] MEDS: DEXAMETHASONE 4MG TABLET 12 MG PO (11:25)
[2024-12-08] MEDS: ONDANSETRON 4MG ODT 16 MG SL (11:25)
[2024-12-08 11:54] VITALS: BP 150/64; PULSE 63; RESP 18; O2SAT 97
[2024-12-08] MEDS: IRINOTECAN HCL IV (11:54)
[2024-12-08] MEDS: DEXTROSE 5% IV (11:54)
[2024-12-08] MEDS: WATER IV (11:54)
[2024-12-08 12:16] VITALS: BP 164/76; PULSE 64; RESP 18; O2SAT 98
[2024-12-08] MEDS: ATROPINE SULFATE 0.4MG/ML VIAL 0.25 MG IV (12:16)
[2024-12-08 12:46] VITALS: BP 167/78; PULSE 78; RESP 18; O2SAT 97
[2024-12-08 13:16] VITALS: BP 144/71; PULSE 79; RESP 18; O2SAT 97
[2024-12-08] MEDS: LOPERAMIDE 2MG CAPSULE 4 MG PO (13:29)
[2024-12-08 13:55] VITALS: BP 139/61; PULSE 81; RESP 18; O2SAT 98
== END 2024-12-08 14:00 | disposition home or self-care (01) ==
PROVIDERS: PCP Family Medicine; Visit Provider Internal Medicine Medical Oncology
DX: C18.9 Malignant neoplasm of colon, unspecified (principal)
CPT/HCPCS: 80053; 85025; 96413; 96415; J0461; J1642; J7060; J8540; J9206; Q0162

== ENCOUNTER 2024-12-15 09:26 | Outpatient (CLI) | payer MEDICARE, OTHER, SELFPAY ==
[2024-12-15] VITALS (9 sets, daily range): BP systolic 103–162; BP diastolic 44–73; PULSE 77–82; RESP 17–19; TEMP 37.1; O2SAT 97–98; BMI 22.8
[2024-12-15 09:41] LABS: Eosinophils # 0.1 K/mm3 (0.0-0.4); Eosinophils % 3.4 % (0.1-12.0); Hemoglobin 9.7 g/dL (12.2-16.2); Lymphocytes # 0.5 K/mm3 (0.7-4.5); Lymphocytes % 14.1 % (10-50); Mean Corpuscular HGB Conc 31.3 g/dL (31.8-35.4); Mean Corpuscular Hemoglobin 29.7 pg (27.0-31.2); Mean Corpuscular Volume 94.8 fl (81-99); Mean Platelet Volume 9.3 fl (7.4-10.4); Monocytes # 0.3 K/mm3 (0.1-1.0); Monocytes % 7.3 % (1.7-9.3); Neutrophils # 2.8 K/mm3 (1.8-7.8); Neutrophils % 73.7 % (37.0-80.0); Platelet Count 223 K/mm3 (142-424); Red Blood Count 3.27 M/mm3 (4.20-5.40); Red Cell Distribution Width 16.1 % (11.5-17.5); White Blood Count 3.8 K/mm3 (4.8-10.8)
[2024-12-15 09:53] LABS: Alanine Aminotransferase 18 U/L (12-78); Albumin Level 3.3 g/dl (3.5-5.0); Alkaline Phosphatase 149 U/L (38-126); Aspartate Amino Transferase 24 U/L (14-36); Bilirubin,Total 0.6 mg/dl (0.2-1.3); Blood Urea Nitrogen 7 mg/dl (7-17); Calcium 8.7 mg/dl (8.4-10.2); Carbon Dioxide 27 mmol/L (22.0-30.0); Chloride 103 mmol/L (98-107); Creatinine Clearance Estimated 40 mL/min (50-200); Estimated Glomerular Filt Rate 54 ml/min (>60); GFR (African American) 65 ML/MIN (>60); Globulin 3.2 g/dL (1.3-3.2); Glucose 137 mg/dl (74-100); Sodium 135 mmol/L (136-145); Total Protein,Serum 6.5 g/dl (6.3-8.2)
[2024-12-15] MEDS: 0.9% NaCl w/40mEq KCL 1,000 ML 500 ML IV (10:45)
[2024-12-15 11:35] LABS: Magnesium 1.6 mg/dl (1.6-2.3)
[2024-12-15] MEDS: OCTREOTIDE 100 MCG/ML 1ML AMP SUBCUT (12:50)
[2024-12-15] MEDS: SODIUM CHLORIDE 0.9% 10ML FLUSH SYRINGE 10 ML IV (12:55)
== END 2024-12-15 12:58 | disposition home or self-care (01) ==
LOC: INF 09:27
PROVIDERS: PCP Family Medicine; Visit Provider Internal Medicine Medical Oncology
DX: C18.0 Malignant neoplasm of cecum (principal)
CPT/HCPCS: 80053; 83735; 85025; 96360; 96361; 96372; J1642; J2354

== ENCOUNTER 2024-12-17 09:13 | Outpatient (CLI) | payer MEDICARE, OTHER, SELFPAY ==
[2024-12-17] VITALS (8 sets, daily range): BP systolic 137–145; BP diastolic 64–79; PULSE 88–95; RESP 14–18; TEMP 36.6; O2SAT 97–99
[2024-12-17 09:27] LABS: Basophils % 0.5 % (0.1-2.0); Eosinophils # 0.1 K/mm3 (0.0-0.4); Eosinophils % 2.6 % (0.1-12.0); Hematocrit 31.1 % (37.0-47.0); Hemoglobin 9.8 g/dL (12.2-16.2); Lymphocytes # 0.7 K/mm3 (0.7-4.5); Lymphocytes % 17.5 % (10-50); Mean Corpuscular HGB Conc 31.5 g/dL (31.8-35.4); Mean Corpuscular Volume 95.1 fl (81-99); Mean Platelet Volume 9.6 fl (7.4-10.4); Monocytes # 0.3 K/mm3 (0.1-1.0); Monocytes % 8.8 % (1.7-9.3); Neutrophils # 2.7 K/mm3 (1.8-7.8); Neutrophils % 70.3 % (37.0-80.0); Platelet Count 291 K/mm3 (142-424); Red Blood Count 3.27 M/mm3 (4.20-5.40); Red Cell Distribution Width 16.2 % (11.5-17.5); White Blood Count 3.9 K/mm3 (4.8-10.8)
[2024-12-17 09:33] LABS: Alanine Aminotransferase 18 U/L (12-78); Albumin Level 3.1 g/dl (3.5-5.0); Alkaline Phosphatase 137 U/L (38-126); Anion Gap 7.9 mEq/L (5-15); Aspartate Amino Transferase 24 U/L (14-36); Bilirubin,Total 0.6 mg/dl (0.2-1.3); Blood Urea Nitrogen 4 mg/dl (7-17); Calcium 8.5 mg/dl (8.4-10.2); Carbon Dioxide 26 mmol/L (22.0-30.0); Chloride 106 mmol/L (98-107); Estimated Glomerular Filt Rate 54 ml/min (>60); GFR (African American) 65 ML/MIN (>60); Globulin 3.1 g/dL (1.3-3.2); Glucose 109 mg/dl (74-100); Sodium 137 mmol/L (136-145); Total Protein,Serum 6.2 g/dl (6.3-8.2)
[2024-12-17 09:35] LABS: Potassium 2.9 mmoL/L (3.5-5.1)
[2024-12-17] MEDS: OCTREOTIDE 100 MCG/ML 1ML AMP SUBCUT (10:28)
[2024-12-17] MEDS: 0.9% NaCl w/40mEq KCL 1,000 ML 500 ML IV (10:31)
[2024-12-17 10:41] LABS: Magnesium 1.4 mg/dl (1.6-2.3)
[2024-12-17] MEDS: MAGNESIUM OXIDE 400MG TABLET 400 MG PO (11:39)
[2024-12-17] MEDS: SODIUM CHLORIDE 0.9% 10ML FLUSH SYRINGE 10 ML IV (12:45)
--- NOTE | 2024-12-17 16:17 | DIET.NUTRFU ---
RD was consulted via Dr Pruitt secondary to chemo tx. Patient has been having diarrhea and has been following a BRAT diet for next 2 days and then slowly add blander foods in, encouraged her to add proteins- chicken/turkey eggs or fish in. Nothing greasy/fried and high fat. From chart review she has lost some weight when appropriate she may want to add in a supplements. Currently he recommended no milk products. provided contact information
== END 2024-12-17 23:59 | disposition home or self-care (01) ==
PROVIDERS: PCP Family Medicine; Visit Provider Internal Medicine Medical Oncology
DX: C18.9 Malignant neoplasm of colon, unspecified (principal); C78.7 Secondary malignant neoplasm of liver and intrahepatic bile duct
CPT/HCPCS: 80053; 83735; 85025; 96360; 96361; 96372; J1642; J2354

== ENCOUNTER 2024-12-18 09:28 | Outpatient (CLI) | payer MEDICARE, OTHER, SELFPAY ==
[2024-12-18 09:33] VITALS: BMI 22.1
[2024-12-18 09:52] LABS: Magnesium 1.4 mg/dl (1.6-2.3)
[2024-12-18 10:15] LABS: Alanine Aminotransferase 18 U/L (12-78); Albumin Level 3.1 g/dl (3.5-5.0); Alkaline Phosphatase 130 U/L (38-126); Anion Gap 9.8 mEq/L (5-15); Aspartate Amino Transferase 24 U/L (14-36); Bilirubin,Total 0.8 mg/dl (0.2-1.3); Blood Urea Nitrogen 2 mg/dl (7-17); Calcium 8.4 mg/dl (8.4-10.2); Carbon Dioxide 24 mmol/L (22.0-30.0); Chloride 108 mmol/L (98-107); Creatinine Clearance Estimated 39 mL/min (50-200); Estimated Glomerular Filt Rate 54 ml/min (>60); GFR (African American) 65 ML/MIN (>60); Globulin 3.1 g/dL (1.3-3.2); Glucose 113 mg/dl (74-100); Potassium 3.8 mmoL/L (3.5-5.1); Sodium 138 mmol/L (136-145); Total Protein,Serum 6.2 g/dl (6.3-8.2)
[2024-12-18] MEDS: SODIUM CHLORIDE 0.9% 10ML FLUSH SYRINGE 10 ML IV (10:15)
== END 2024-12-18 10:15 | disposition home or self-care (01) ==
LOC: INF 09:29
PROVIDERS: PCP Family Medicine; Visit Provider Internal Medicine Medical Oncology
DX: C18.9 Malignant neoplasm of colon, unspecified (principal)
CPT/HCPCS: 36591; 80053; 83735; J1642

== ENCOUNTER 2024-12-19 09:54 | Outpatient (CLI) | payer MEDICARE, OTHER, SELFPAY | END 2024-12-19 23:59 | disposition home or self-care (01) | LOC: LAB.DROPOF 12-22 10:53 | PROVIDERS: PCP Internal Medicine Medical Oncology; Visit Provider Internal Medicine Medical Oncology | DX: C18.9 Malignant neoplasm of colon, unspecified (principal) | CPT/HCPCS: J1642 ==

== ENCOUNTER 2024-12-23 09:24 | Outpatient (CLI) | payer MEDICARE, OTHER, SELFPAY ==
[2024-12-23 09:45] LABS: Eosinophils # 0.1 K/mm3 (0.0-0.4); Eosinophils % 3.5 % (0.1-12.0); Hemoglobin 10.2 g/dL (12.2-16.2); Lymphocytes # 0.7 K/mm3 (0.7-4.5); Lymphocytes % 18.1 % (10-50); Mean Corpuscular HGB Conc 31.9 g/dL (31.8-35.4); Mean Corpuscular Hemoglobin 30.4 pg (27.0-31.2); Mean Corpuscular Volume 95.2 fl (81-99); Mean Platelet Volume 9.5 fl (7.4-10.4); Monocytes # 0.4 K/mm3 (0.1-1.0); Monocytes % 8.8 % (1.7-9.3); Neutrophils # 2.7 K/mm3 (1.8-7.8); Neutrophils % 68.3 % (37.0-80.0); Platelet Count 269 K/mm3 (142-424); Red Blood Count 3.36 M/mm3 (4.20-5.40); Red Cell Distribution Width 15.9 % (11.5-17.5)
[2024-12-23 10:15] LABS: Alanine Aminotransferase 11 U/L (12-78); Albumin Level 3.2 g/dl (3.5-5.0); Albumin/Globulin Ratio 1.1 (1.1-1.8); Alkaline Phosphatase 124 U/L (38-126); Anion Gap 12.4 mEq/L (5-15); Aspartate Amino Transferase 21 U/L (14-36); Bilirubin,Total 0.5 mg/dl (0.2-1.3); Blood Urea Nitrogen 10 mg/dl (7-17); Calcium 8.2 mg/dl (8.4-10.2); Carbon Dioxide 25 mmol/L (22.0-30.0); Chloride 105 mmol/L (98-107); Estimated Glomerular Filt Rate 36 ml/min (>60); GFR (African American) 44 ML/MIN (>60); Glucose 79 mg/dl (74-100); Potassium 3.4 mmoL/L (3.5-5.1); Sodium 139 mmol/L (136-145); Total Protein,Serum 6.2 g/dl (6.3-8.2)
[2024-12-23] MEDS: SODIUM CHLORIDE 0.9% 10ML FLUSH SYRINGE 10 ML IV (10:45)
== END 2024-12-23 10:40 | disposition home or self-care (01) ==
LOC: INF 09:25
PROVIDERS: PCP Family Medicine; Visit Provider Internal Medicine Medical Oncology
DX: C18.9 Malignant neoplasm of colon, unspecified (principal)
CPT/HCPCS: 36591; 80053; 85025; J1642

== ENCOUNTER 2024-12-29 17:00 | Observation (INO) | payer MEDICARE, OTHER, SELFPAY ==
[2024-12-29] VITALS (19 sets, daily range): BP systolic 121–153; BP diastolic 55–79; PULSE 92–107; RESP 15–18; TEMP 36.6–36.7; O2SAT 80–98; BMI 21.9; BMI 22.4
--- NOTE | 2024-12-29 16:46 | ED_ITS ---
Discharge Plan Disposition Patient Disposition: Admitted Condition: Fair Clinical Impressions Clinical Impression: Hypomagnesemia, Hypokalemia, Widespread metastatic malignant neoplastic disease Discharge ED Provider: Jorge Anders Adult HPI <NADIRA Guzman - Last Filed: 12/29/24 20:56> General Chief complaint: PAIN Stated complaint: Weakness Time Seen by Provider: 12/29/24 17:03 History of Present Illness HPI narrative: Patient presents for evaluation of a left hand injury and back pain. Patient reports that she suddenly fell last falling backwards. She injured her left hand and has been complaining of back pain since. Patient has widespread malignant neoplastic disease and is currently undergoing chemotherapy with Dr. Szymanski. She is also on Eliquis. She did not lose consciousness and initially did not seek care because she thought she was fine. However as the days have gone on her left hand is swollen more it is very painful and her back pain is increased. Patient also reports that she is felt increasingly weak but denies chest pain shortness of breath fever chills hemoptysis hematochezia melena nausea vomit diarrhea. Related Data Home Medications ?Medication ?Instructions ?Recorded ?Confirmed potassium chloride 20 mEq 20 meq PO DAILY 12/08/24 12/30/24 tablet,extended release Previous Rx's ?Medication ?Instructions ?Recorded ferrous sulfate 325 mg (65 mg 325 mg PO DAILY #30 tabs 08/27/23 iron) tablet (FeroSul) loperamide 2 mg capsule 2 mg PO TID PRN diarrhea 90 days 06/02/24 #270 caps colestipol 1 gram tablet (Colestid) 1 g PO BID #60 tabs 07/07/24 metoprolol succinate 100 mg 100 mg PO DAILY #30 tabs 07/15/24 tablet,extended release 24 hr (Toprol XL) apixaban 2.5 mg tablet (Eliquis) 2.5 mg PO BID #60 tabs 12/03/24 prochlorperazine maleate 10 mg 10 mg PO Q6H PRN nausea and 12/08/24 tablet (Compazine) vomiting #30 tabs diphenoxylate-atropine 2.5 1 tab PO QID PRN diarrhea #30 tabs 12/15/24 mg-0.025 mg tablet (Lomotil) magnesium oxide 400 mg PO BID #60 tabs 12/17/24 Allergies Allergy/AdvReac Type Severity Reaction Status Date / Time No Known Allergies Allergy Verified 12/23/24 10:07 [facility] <NADIRA Guzman - Last Filed: 12/29/24 20:56> [facility] Disclaimer: The information contained in this section may have been updated after the patient was seen, as this information can be updated by other users. 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 History of hysterectomy Family History Mother Cancer Father Coronary artery disease Social History (Updated 12/29/24 @ 22:13 by Tahmina Damon RN) Smoking Status: Never smoker alcohol intake: never substance use type: denies use current occupational status: unemployed and retired Travel in the last 8 weeks: None household members: none housing: house lives independently: Yes marital status: Other Medical History Have you received the Flu Vaccine for this season: No Have you received the Pneumonia Vaccine: No <NADIRA Guzman - Last Filed: 12/29/24 20:56> ROS Obtained: Yes Systems reviewed as appropriate & no additional complaints except as documented Physical Exam <NADIRA Guzman - Last Filed: 12/29/24 20:56> General General appearance: alert and in no apparent distress Respiratory Respiratory exam: Present normal lung sounds bilaterally Cardiovascular Cardiovascular exam: Present regular rate Neurological Exam Neurological exam: Present alert and oriented X3 Medical Decision Making <NADIRA Guzman - Last Filed: 12/29/24 20:56> Medical Records Medical records reviewed: Yes I reviewed the patient's medical records. Screening: Per USPSTF and CDC recommendations, given the prevalence of disease in our region, it is our hospital?s policy to screen for HIV and viral Hepatitis for all patients aged 18 and over and those with ongoing risk factors. Jn Inquiry Pt receiving controlled substance: No Vital Signs: 12/29/24 16:57 12/29/24 17:00 12/29/24 17:30 Temperature 97.9 F Temperature Source Oral Pulse Rate 92 H 93 H Pulse Rate [Right] 98 H Respiratory Rate 15 Blood Pressure 148/57 H 146/67 H Blood Pressure [Right Arm] 152/79 H Blood Pressure Mean 87 80 Blood Pressure Mean [Right Arm] 103 Blood Pressure Source Blood Pressure Source [Right Arm] Automatic Cuff Blood Pressure Position Blood Pressure Position [Right Arm] Supine 02 Sat by Pulse Oximetry 98 Oxygen Delivery Method Room Air 12/29/24 18:00 12/29/24 18:30 12/29/24 19:13 Temperature Temperature Source Pulse Rate 97 H 103 H 107 H Pulse Rate [Right] Respiratory Rate Blood Pressure 153/66 H 146/66 H Blood Pressure [Right Arm] Blood Pressure Mean 81 Blood Pressure Mean [Right Arm] Blood Pressure Source Blood Pressure Source [Right Arm] Blood Pressure Position Blood Pressure Position [Right Arm] 02 Sat by Pulse Oximetry 97 97 Oxygen Delivery Method 12/29/24 19:15 12/29/24 19:25 12/29/24 19:30 Temperature Temperature Source Pulse Rate 105 H 104 H 105 H Pulse Rate [Right] Respiratory Rate Blood Pressure 147/64 H 135/63 Blood Pressure [Right Arm] Blood Pressure Mean Blood Pressure Mean [Right Arm] Blood Pressure Source Blood Pressure Source [Right Arm] Blood Pressure Position Blood Pressure Position [Right Arm] 02 Sat by Pulse Oximetry 98 96 97 Oxygen Delivery Method 12/29/24 19:45 12/29/24 20:00 12/29/24 20:15 Temperature Temperature Source Pulse Rate 105 H 105 H 103 H Pulse Rate [Right] Respiratory Rate Blood Pressure 136/68 Blood Pressure [Right Arm] Blood Pressure Mean Blood Pressure Mean [Right Arm] Blood Pressure Source Blood Pressure Source [Right Arm] Blood Pressure Position Blood Pressure Position [Right Arm] 02 Sat by Pulse Oximetry 95 80 L 95 Oxygen Delivery Method 12/29/24 20:30 12/29/24 20:45 12/29/24 21:00 Temperature Temperature Source Pulse Rate 103 H 105 H 101 H Pulse Rate [Right] Respiratory Rate Blood Pressure 121/55 L 134/66 Blood Pressure [Right Arm] Blood Pressure Mean Blood Pressure Mean [Right Arm] Blood Pressure Source Blood Pressure Source [Right Arm] Blood Pressure Position Blood Pressure Position [Right Arm] 02 Sat by Pulse Oximetry 94 L 90 L 96 Oxygen Delivery Method 12/29/24 21:04 12/29/24 21:15 12/29/24 21:18 Temperature 98.1 F Temperature Source Pulse Rate 99 H 101 H Pulse Rate [Right] Respiratory Rate 18 Blood Pressure 134/66 Blood Pressure [Right Arm] Blood Pressure Mean Blood Pressure Mean [Right Arm] Blood Pressure Source Automatic Cuff Blood Pressure Source [Right Arm] Blood Pressure Position Supine Blood Pressure Position [Right Arm] 02 Sat by Pulse Oximetry 96 Oxygen Delivery Method Room Air Room Air Lab Data Lab results reviewed: Yes I reviewed the patient's lab results. Lab Results 12/29/24 17:40: WBC 7.0, RBC 3.21 L, Hgb 9.6 L, Hct 29.3 L, MCV 91.3, MCH 29.9, MCHC 32.8, RDW 15.2, Plt Count 185, MPV 10.2, Neut % (Auto) 82.3 H, Lymph % (Auto) 7.7 L, Jennings % (Auto) 9.2, Eos % (Auto) 0.1, Baso % (Auto) 0.4, Neut # (Auto) 5.7, Lymph # (Auto) 0.5 L, Jennings # (Auto) 0.6, Eos # (Auto) 0.0, Baso # (Auto) 0.0, Sodium 133 L, Potassium 2.9 L*, Chloride 98, Carbon Dioxide 27, Anion Gap 10.9, BUN 9, Creatinine 0.70, Estimated Creat Clear 39, Estimated GFR 81, Est GFR ( Amer) 98, Glucose 126 H, Calcium 7.8 L, Magnesium 0.8 L, T otal Bilirubin 1.5 H, AST 17, ALT 9 L, Alkaline Phosphatase 137 H, Total Protein 6.0 L, Albumin 2.7 L, Globulin 3.3 H, Albumin/Globulin Ratio 0.8 L, HCV Ab AYAN w/Rflx PCR Qn Negative, HIV Ag/Ab Combo Qual Negative 12/30/24 05:31 12/30/24 05:31 Orders (Tests/Meds): ED MEDICATIONS Generic Name Dose Route Start Last Admin Trade Name Freq PRN Reason Stop Dose Admin Acetaminophen 650 mg 12/29/24 20:47 12/30/24 04:36 Acetaminophen 325mg Tab PO 01/28/25 20:46 650 mg Q4HP PRN Administration Fever or Mild Pain (1-3) Apixaban 2.5 mg 12/29/24 21:50 12/30/24 09:33 Apixaban 5mg Tablet PO 01/28/25 21:49 2.5 mg BID JAIME Administration Sodium Chloride 1,000 mls @ 75 mls/hr 12/29/24 21:00 12/30/24 11:29 Sod Chlor 0.9% 1000ml Bag IV 01/28/25 20:59 Not Given .[id number] JAIME Ceftriaxone Sodium 2 gm/ 100 mls @ 200 mls/hr 12/29/24 22:00 12/29/24 22:35 Sodium Chloride IV 01/08/25 21:59 200 mls/hr Q24H JAIME Administration Ondansetron HCl 4 mg 12/29/24 20:47 Ondansetron 4mg/2ml Vial IV 01/28/25 20:46 Q8HP PRN Nausea Sodium Chloride 10 ml 12/30/24 13:58 Sodium Chloride 0.9% 10ml Flush Syringe IV 01/29/25 13:57 NEEDED PRN Maintain IV Site Discontinued Medications Generic Name Dose Route Start Last Admin Trade Name Freq PRN Reason Stop Dose Admin Acetaminophen 1,000 mg 12/29/24 16:58 12/29/24 17:44 Acetaminophen 500mg Tab PO 12/29/24 16:59 1,000 mg ONCE ONE Administration Gadoteridol 10 ml 12/30/24 11:06 12/30/24 11:10 Gadoteridol Inj 20ml Syringe IV 12/30/24 11:07 10 ml ONCE ONE Administration Sodium Chloride 1,000 mls @ 999 mls/hr 12/29/24 16:58 12/29/24 17:44 Sod Chlor 0.9% 1000ml Bag IV 12/29/24 17:58 999 mls/hr .Q1H1M ONE Administration Magnesium Sulfate 2 gm in 50 mls @ 50 mls/hr 12/29/24 18:36 12/29/24 18:44 Magnesium Sulfate 2gm/50ml Premix IV 12/29/24 19:35 50 mls/hr ONCE ONE Administration Potassium Chloride/Water 100 mls @ 50 mls/hr 12/29/24 18:37 12/30/24 00:50 Potassium Chloride 20meq/100ml Ivpb IV 12/30/24 00:36 50 mls/hr Q2H JAIME Administration Magnesium Sulfate 2 gm in 50 mls @ 50 mls/hr 12/30/24 07:45 12/30/24 11:28 Magnesium Sulfate 2gm/50ml Premix IV 12/30/24 09:44 50 mls/hr Q1H JAIME Administration Iopamidol 160 ml 12/29/24 19:13 12/29/24 19:15 Iopamidol-370 (76%);100ml Bottle IV 12/29/24 19:14 160 ml ONCE ONE Administration Ondansetron HCl 4 mg 12/29/24 16:58 12/29/24 17:44 Ondansetron 4mg/2ml Vial IV 12/29/24 16:59 4 mg ONCE ONE Administration Potassium Chloride 40 meq 12/30/24 07:45 12/30/24 11:32 Potassium Chloride 20meq Tab PO 12/30/24 11:46 40 meq Q4H JAIME Administration Sodium Chloride 10 ml 12/29/24 19:13 12/29/24 19:15 Sodium Chloride 0.9% 10ml Syr (Rad Only) IV 01/28/25 19:12 10 ml NEEDED PRN Administration Maintain IV Site Sodium Chloride 100 ml 12/29/24 19:13 12/29/24 19:15 0.9 % Sodium Chloride 50 Ml Vial IV 12/29/24 19:14 100 ml ONCE ONE Administration ORDERS Category Date Time Status CT angio abd/pel - TRAUMA Stat Cat Scan 12/29/24 17:[address] angio chest - dissection Stat Cat Scan 12/29/24 17:[address] angio head Stat Cat Scan 12/29/24 17:[address] angio neck Stat Cat Scan 12/29/24 17:[address] bony pelvis Stat Cat Scan 12/29/24 17:[address] cervical spine wo con Stat Cat Scan 12/29/24 17:[address] head/brain wo con Stat Cat Scan 12/29/24 17:[address] lumbar spine wo con Stat Cat Scan 12/29/24 17:[address] thoracic spine wo con Stat Cat Scan 12/29/24 17:01 Completed Forearm XR left 2 views [XR forearm LT 2V] Stat Exams 12/29/24 16:58 Completed Hand XR left minimum 3 views [XR hand LT min 3V] Stat Exams 12/29/24 16:58 Completed Wrist XR left minimum 3 views [XR wrist LT min 3V] Stat Exams 12/29/24 16:58 Completed Basic Metabolic Panel AMLAB Lab 12/30/24 05:31 Completed CBC w/Auto Diff [Complete Blood Count Auto Diff] Stat Lab 12/29/24 17:40 Completed CMP [Comprehensive Metabolic Panel] Stat Lab 12/29/24 17:40 Completed Complete Blood Count Auto Diff AMLAB Lab 12/30/24 05:31 Completed HIV Combo Stat Lab 12/29/24 17:40 Completed Hepatitis C Ab Qual. W/ RFX Stat Lab 12/29/24 17:40 Completed Magnesium Routine Lab 12/29/24 20:47 Completed Magnesium Stat Lab 12/29/24 17:40 Completed Phosphorous AMLAB Lab 12/30/24 05:31 Completed UA [Urinalysis and Microscopic] Stat Lab 12/29/24 19:54 Stop Req Medical Decision Narrative: In summary patient is a 79-year-old female who presents to the emergency department for evaluation of a fall with back pain and left hand injury. Patient is hemodynamically stable with a blood pressure 152/79 pulse 98 respiratory rate is 15 O2 sat is 98% room air upon arrival, afebrile at 97.9. Physical exam is remarkable for swelling and ecchymosis at the radial aspect of her left wrist that is painful to palpation but no palpable bony deformities. Patient has full but painful range of motion and is neurovascular intact distally. Patient also has ecchymosis in her right flank but no palpable bony deformity dorsal spine is nontender to palpation C-spine is nontender patient has full range of motion of the neck Hali Coma Score is 15 cranial nerves II through XII intact respiratory exam patient has no nuchal rigidity breath sounds clear and equal bilaterally to the bases without adventitious sounds abdomen soft no rebound or guarding no rigidity. Patient moves all 4 extremities and is neurovascularly intact distally.. Differential diagnosis includes wrist sprain versus contusion versus fracture versus occult spinal injury versus occult bleed versus electrolyte abnormality versus infection etc. Initial workup will be conducted with ED trauma scans hematologic labs urinalysis plain film x-rays of the left upper extremity. Initial interventions include Tylenol only for now. Initial workup reviewed by me shows that her white count is normal hemoglobin hematocrit 9.6 and 29.3 respectively absolute neutrophil count is 5.7 sodium is 133 potassium is 2.9 glucose 126 calcium 7.8 but corrected is 8.8 magnesium is critically low at 0.8 total bilirubin is 1.5 AST 17 ALT is 9 alk phos is 137 the remainder of her hematologic labs are nonactionable. My informal interpretation of her plain film and CT scan imaging does not show any evidence of acute fracture intracranial bleed or other acute abnormality however she does have significant widespread metastatic that neoplastic disease in the abdomen.. Upon repeat evaluation patient reports feeling slightly better however given her critically low magnesium which will require IV repletion as well as IV potassium repletion I had an interactive discussion with the patient regarding her KING and findings and I recommended admission. Patient was agreeable.. Given this I had interactive discussion with hospital medicine regarding patient's presentation KING and patient management and she will be admitted for further evaluation and care. <Jorge Anders MD - Last Filed: 12/30/24 16:54> Vital Signs: 12/29/24 16:57 12/29/24 17:00 12/29/24 17:30 Temperature 97.9 F Temperature Source Oral Pulse Rate 92 H 93 H Pulse Rate [Right] 98 H Respiratory Rate 15 Blood Pressure 148/57 H 146/67 H Blood Pressure [Right Arm] 152/79 H Blood Pressure Mean 87 80 Blood Pressure Mean [Right Arm] 103 Blood Pressure Source Blood Pressure Source [Right Arm] Automatic Cuff Blood Pressure Position Blood Pressure Position [Right Arm] Supine 02 Sat by Pulse Oximetry 98 Oxygen Delivery Method Room Air 12/29/24 18:00 12/29/24 18:30 12/29/24 19:13 Temperature Temperature Source Pulse Rate 97 H 103 H 107 H Pulse Rate [Right] Respiratory Rate Blood Pressure 153/66 H 146/66 H Blood Pressure [Right Arm] Blood Pressure Mean 81 Blood Pressure Mean [Right Arm] Blood Pressure Source Blood Pressure Source [Right Arm] Blood Pressure Position Blood Pressure Position [Right Arm] 02 Sat by Pulse Oximetry 97 97 Oxygen Delivery Method 12/29/24 19:15 12/29/24 19:25 12/29/24 19:30 Temperature Temperature Source Pulse Rate 105 H 104 H 105 H Pulse Rate [Right] Respiratory Rate Blood Pressure 147/64 H 135/63 Blood Pressure [Right Arm] Blood Pressure Mean Blood Pressure Mean [Right Arm] Blood Pressure Source Blood Pressure Source [Right Arm] Blood Pressure Position Blood Pressure Position [Right Arm] 02 Sat by Pulse Oximetry 98 96 97 Oxygen Delivery Method 12/29/24 19:45 12/29/24 20:00 12/29/24 20:15 Temperature Temperature Source Pulse Rate 105 H 105 H 103 H Pulse Rate [Right] Respiratory Rate Blood Pressure 136/68 Blood Pressure [Right Arm] Blood Pressure Mean Blood Pressure Mean [Right Arm] Blood Pressure Source Blood Pressure Source [Right Arm] Blood Pressure Position Blood Pressure Position [Right Arm] 02 Sat by Pulse Oximetry 95 80 L 95 Oxygen Delivery Method 12/29/24 20:30 12/29/24 20:45 12/29/24 21:00 Temperature Temperature Source Pulse Rate 103 H 105 H 101 H Pulse Rate [Right] Respiratory Rate Blood Pressure 121/55 L 134/66 Blood Pressure [Right Arm] Blood Pressure Mean Blood Pressure Mean [Right Arm] Blood Pressure Source Blood Pressure Source [Right Arm] Blood Pressure Position Blood Pressure Position [Right Arm] 02 Sat by Pulse Oximetry 94 L 90 L 96 Oxygen Delivery Method 12/29/24 21:04 12/29/24 21:15 12/29/24 21:18 Temperature 98.1 F Temperature Source Pulse Rate 99 H 101 H Pulse Rate [Right] Respiratory Rate 18 Blood Pressure 134/66 Blood Pressure [Right Arm] Blood Pressure Mean Blood Pressure Mean [Right Arm] Blood Pressure Source Automatic Cuff Blood Pressure Source [Right Arm] Blood Pressure Position Supine Blood Pressure Position [Right Arm] 02 Sat by Pulse Oximetry 96 Oxygen Delivery Method Room Air Room Air Lab Data Lab Results 12/29/24 17:40: WBC 7.0, RBC 3.21 L, Hgb 9.6 L, Hct 29.3 L, MCV 91.3, MCH 29.9, MCHC 32.8, RDW 15.2, Plt Count 185, MPV 10.2, Neut % (Auto) 82.3 H, Lymph % (Auto) 7.7 L, Jennings % (Auto) 9.2, Eos % (Auto) 0.1, Baso % (Auto) 0.4, Neut # (Auto) 5.7, Lymph # (Auto) 0.5 L, Jennings # (Auto) 0.6, Eos # (Auto) 0.0, Baso # (Auto) 0.0, Sodium 133 L, Potassium 2.9 L*, Chloride 98, Carbon Dioxide 27, Anion Gap 10.9, BUN 9, Creatinine 0.70, Estimated Creat Clear 39, Estimated GFR 81, Est GFR ( Amer) 98, Glucose 126 H, Calcium 7.8 L, Magnesium 0.8 L, T otal Bilirubin 1.5 H, AST 17, ALT 9 L, Alkaline Phosphatase 137 H, Total Protein 6.0 L, Albumin 2.7 L, Globulin 3.3 H, Albumin/Globulin Ratio 0.8 L, HCV Ab AYAN w/Rflx PCR Qn Negative, HIV Ag/Ab Combo Qual Negative Orders (Tests/Meds): ED MEDICATIONS Generic Name Dose Route Start Last Admin Trade Name Freq PRN Reason Stop Dose Admin Acetaminophen 650 mg 12/29/24 20:47 12/30/24 04:36 Acetaminophen 325mg Tab PO 01/28/25 20:46 650 mg Q4HP PRN Administration Fever or Mild Pain (1-3) Apixaban 2.5 mg 12/29/24 21:50 12/30/24 09:33 Apixaban 5mg Tablet PO 01/28/25 21:49 2.5 mg BID JAIME Administration Sodium Chloride 1,000 mls @ 75 mls/hr 12/29/24 21:00 12/30/24 11:29 Sod Chlor 0.9% 1000ml Bag IV 01/28/25 20:59 Not Given .[id number] JAIME Ceftriaxone Sodium 2 gm/ 100 mls @ 200 mls/hr 12/29/24 22:00 12/29/24 22:35 Sodium Chloride IV 01/08/25 21:59 200 mls/hr Q24H JAIME Administration Ondansetron HCl 4 mg 12/29/24 20:47 Ondansetron 4mg/2ml Vial IV 01/28/25 20:46 Q8HP PRN Nausea Sodium Chloride 10 ml 12/30/24 13:58 Sodium Chloride 0.9% 10ml Flush Syringe IV 01/29/25 13:57 NEEDED PRN Maintain IV Site Discontinued Medications Generic Name Dose Route Start Last Admin Trade Name Freq PRN Reason Stop Dose Admin Acetaminophen 1,000 mg 12/29/24 16:58 12/29/24 17:44 Acetaminophen 500mg Tab PO 12/29/24 16:59 1,000 mg ONCE ONE Administration Gadoteridol 10 ml 12/30/24 11:06 12/30/24 11:10 Gadoteridol Inj 20ml Syringe IV 12/30/24 11:07 10 ml ONCE ONE Administration Sodium Chloride 1,000 mls @ 999 mls/hr 12/29/24 16:58 12/29/24 17:44 Sod Chlor 0.9% 1000ml Bag IV 12/29/24 17:58 999 mls/hr .Q1H1M ONE Administration Magnesium Sulfate 2 gm in 50 mls @ 50 mls/hr 12/29/24 18:36 12/29/24 18:44 Magnesium Sulfate 2gm/50ml Premix IV 12/29/24 19:35 50 mls/hr ONCE ONE Administration Potassium Chloride/Water 100 mls @ 50 mls/hr 12/29/24 18:37 12/30/24 00:50 Potassium Chloride 20meq/100ml Ivpb IV 12/30/24 00:36 50 mls/hr Q2H JAIME Administration Magnesium Sulfate 2 gm in 50 mls @ 50 mls/hr 12/30/24 07:45 12/30/24 11:28 Magnesium Sulfate 2gm/50ml Premix IV 12/30/24 09:44 50 mls/hr Q1H JAIME Administration Iopamidol 160 ml 12/29/24 19:13 12/29/24 19:15 Iopamidol-370 (76%);100ml Bottle IV 12/29/24 19:14 160 ml ONCE ONE Administration Ondansetron HCl 4 mg 12/29/24 16:58 12/29/24 17:44 Ondansetron 4mg/2ml Vial IV 12/29/24 16:59 4 mg ONCE ONE Administration Potassium Chloride 40 meq 12/30/24 07:45 12/30/24 11:32 Potassium Chloride 20meq Tab PO 12/30/24 11:46 40 meq Q4H JAIME Administration Sodium Chloride 10 ml 12/29/24 19:13 12/29/24 19:15 Sodium Chloride 0.9% 10ml Syr (Rad Only) IV 01/28/25 19:12 10 ml NEEDED PRN Administration Maintain IV Site Sodium Chloride 100 ml 12/29/24 19:13 12/29/24 19:15 0.9 % Sodium Chloride 50 Ml Vial IV 12/29/24 19:14 100 ml ONCE ONE Administration ORDERS Category Date Time Status CT angio abd/pel - TRAUMA Stat Cat Scan 12/29/24 17:[address] angio chest - dissection Stat Cat Scan 12/29/24 17:[address] angio head Stat Cat Scan 12/29/24 17:[address] angio neck Stat Cat Scan 12/29/24 17:[address] bony pelvis Stat Cat Scan 12/29/24 17:[address] cervical spine wo con Stat Cat Scan 12/29/24 17:[address] head/brain wo con Stat Cat Scan 12/29/24 17:[address] lumbar spine wo con Stat Cat Scan 12/29/24 17:[address] thoracic spine wo con Stat Cat Scan 12/29/24 17:01 Completed Forearm XR left 2 views [XR forearm LT 2V] Stat Exams 12/29/24 16:58 Completed Hand XR left minimum 3 views [XR hand LT min 3V] Stat Exams 12/29/24 16:58 Completed Wrist XR left minimum 3 views [XR wrist LT min 3V] Stat Exams 12/29/24 16:58 Completed Basic Metabolic Panel AMLAB Lab 12/30/24 05:31 Completed CBC w/Auto Diff [Complete Blood Count Auto Diff] Stat Lab 12/29/24 17:40 Completed CMP [Comprehensive Metabolic Panel] Stat Lab 12/29/24 17:40 Completed Complete Blood Count Auto Diff AMLAB Lab 12/30/24 05:31 Completed HIV Combo Stat Lab 12/29/24 17:40 Completed Hepatitis C Ab Qual. W/ RFX Stat Lab 12/29/24 17:40 Completed Magnesium Routine Lab 12/29/24 20:47 Completed Magnesium Stat Lab 12/29/24 17:40 Completed Phosphorous AMLAB Lab 12/30/24 05:31 Completed UA [Urinalysis and Microscopic] Stat Lab 12/29/24 19:54 Stop Req Medical Decision Narrative: In summary patient is a 79-year-old female who presents to the emergency department for evaluation of a fall with back pain and left hand injury. Patient is hemodynamically stable with a blood pressure 152/79 pulse 98 respiratory rate is 15 O2 sat is 98% room air upon arrival, afebrile at 97.9. Physical exam is remarkable for swelling and ecchymosis at the radial aspect of her left wrist that is painful to palpation but no palpable bony deformities. Patient has full but painful range of motion and is neurovascular intact distally. Patient also has ecchymosis in her right flank but no palpable bony deformity dorsal spine is nontender to palpation C-spine is nontender patient has full range of motion of the neck Ahli Coma Score is 15 cranial nerves II through XII intact respiratory exam patient has no nuchal rigidity breath sounds clear and equal bilaterally to the bases without adventitious sounds abdomen soft no rebound or guarding no rigidity. Patient moves all 4 extremities and is neurovascularly intact distally.. Differential diagnosis includes wrist sprain versus contusion versus fracture versus occult spinal injury versus occult bleed versus electrolyte abnormality versus infection etc. Initial workup will be conducted with ED trauma scans hematologic labs urinalysis plain film x-rays of the left upper extremity. Initial interventions include Tylenol only for now. Initial workup reviewed by me shows that her white count is normal hemoglobin hematocrit 9.6 and 29.3 respectively absolute neutrophil count is 5.7 sodium is 133 potassium is 2.9 glucose 126 calcium 7.8 but corrected is 8.8 magnesium is critically low at 0.8 total bilirubin is 1.5 AST 17 ALT is 9 alk phos is 137 the remainder of her hematologic labs are nonactionable. My informal interpretation of her plain film and CT scan imaging does not show any evidence of acute fracture intracranial bleed or other acute abnormality however she does have significant widespread metastatic that neoplastic disease in the abdomen.. Upon repeat evaluation patient reports feeling slightly better however given her critically low magnesium which will require IV repletion as well as IV potassium repletion I had an interactive discussion with the patient regarding her KING and findings and I recommended admission. Patient was agreeable.. Given this I had interactive discussion with hospital medicine regarding patient's presentation KING and patient management and she will be admitted for further evaluation and care. I was consulted by the KAVEH, and we discussed the complexity of the problems being addressed.I approved the treatment and management plan for this patient?s care in the Emergency Department, thus performing a substantive portion of the medical decision making.Signed, Jorge Anders MD MBA Critical Care <NADIRA Guzman - Last Filed: 12/29/24 20:56> Critical Care Time Critical Care Time: Yes Attestation: On 12/29/24, the high probability of a clinically significant, sudden or life threatening deterioration of the following system(s) required my full and direct attention, intervention and personal management. The time I documented below is in addition to time spent performing reported procedures but includes the following listed in this critical care notation. Total Time Total Critical Care Time: 30
--- NOTE | 2024-12-29 16:58 | XR_ITS ---
PROCEDURE INFORMATION: Exam: XR Left Wrist Exam date and time: 12/29/2024 7:05 PM Age: 79 years old Clinical indication: Injury or trauma; Fall; Other: Pain; Additional info: Fall last TECHNIQUE: Imaging protocol: Radiologic exam of the left wrist. Views: 3 or more views. COMPARISON: CR XR HAND LT MIN 3V 12/29/2024 7:05 PM FINDINGS: Bones/joints: Large marginal osteophytes and significant degenerative changes involving the triscaphe joint. Moderate osteophytosis and degenerative changes involve the proximal carpal row. Soft tissues: Moderate left wrist soft tissue swelling without acute osseous abnormality. IMPRESSION: 1. Large marginal osteophytes and significant degenerative changes involving the triscaphe joint. 2. Moderate osteophytosis and degenerative changes involve the proximal carpal row. 3. Moderate left wrist soft tissue swelling without acute osseous abnormality.
--- NOTE | 2024-12-29 16:58 | XR_ITS ---
PROCEDURE INFORMATION: Exam: XR Left Forearm Exam date and time: 12/29/2024 7:05 PM Age: 79 years old Clinical indication: Injury or trauma; Fall; Other: Pain TECHNIQUE: Imaging protocol: Radiologic exam of the left forearm. Views: 2 views. COMPARISON: CR XR WRIST LT MIN 3V 12/29/2024 7:05 PM FINDINGS: Bones/joints: Large marginal osteophytes and significant degenerative changes involving the triscaphe joint. Moderate osteophytosis and degenerative changes involve the proximal carpal row. Small marginal osteophytes and degenerative changes involving the radiocapitellar joint. No evidence of acute osseous abnormality. Soft tissues: Moderate left wrist soft tissue swelling without acute osseous abnormality. IMPRESSION: 1. Large marginal osteophytes and significant degenerative changes involving the triscaphe joint. 2. Moderate osteophytosis and degenerative changes involve the proximal carpal row. 3. Moderate left wrist soft tissue swelling without acute osseous abnormality. 4. Small marginal osteophytes and degenerative changes involving the radiocapitellar joint. 5. No evidence of acute osseous abnormality.
--- NOTE | 2024-12-29 16:58 | XR_ITS ---
PROCEDURE INFORMATION: Exam: XR Left Hand Exam date and time: 12/29/2024 7:05 PM Age: 79 years old Clinical indication: Injury or trauma; Fall; Other: Pain; Additional info: Fall last TECHNIQUE: Imaging protocol: Radiologic exam of the left hand. Views: 3 or more views. COMPARISON: CR XR WRIST LT MIN 3V 12/29/2024 7:05 PM FINDINGS: Bones/joints: Large marginal osteophytes and significant degenerative changes involving the triscaphe joint. Moderate osteophytosis and degenerative changes involve the proximal carpal row. Moderate osteophytosis and degenerative changes involve the PIP and DIP joints. Soft tissues: Moderate left wrist soft tissue swelling without acute osseous abnormality. IMPRESSION: 1. Large marginal osteophytes and significant degenerative changes involving the triscaphe joint. 2. Moderate osteophytosis and degenerative changes involve the proximal carpal row. 3. Moderate left wrist soft tissue swelling without acute osseous abnormality. 4. Moderate osteophytosis and degenerative changes involve the PIP and DIP joints.
--- NOTE | 2024-12-29 17:01 | CT_ITS ---
PROCEDURE INFORMATION: Exam: CTA Abdomen and Pelvis With Contrast Exam date and time: 12/29/2024 6:59 PM Age: 79 years old Clinical indication: Injury or trauma; Fall; Blunt trauma; Lower abdominal or back area; Bilateral; Additional info: Fall on eliquis TECHNIQUE: Imaging protocol: Computed tomographic angiography of the abdomen and pelvis with contrast. Exam focused on the arteries. 3D rendering (Not supervised by radiologist): MIP and/or 3D reconstructed images were created by the technologist. Radiation optimization: All CT scans at this facility use at least one of these dose optimization techniques: automated exposure control; mA and/or kV adjustment per patient size (includes targeted exams where dose is matched to clinical indication); or iterative reconstruction. Contrast material: ISOVUE 370; Contrast volume: 160 ml; Contrast route: INTRAVENOUS (IV); COMPARISON: CT BONY PELVIS 12/29/2024 6:48 PM FINDINGS: Aorta: Moderate calcific atherosclerotic disease of the abdominal aorta without aneurysmal dilatation is present. Celiac trunk and mesenteric arteries: No occlusion or significant stenosis. Renal arteries: No occlusion or significant stenosis. Right iliac arteries: No occlusion or significant stenosis. Left iliac arteries: No occlusion or significant stenosis. Liver: Multiple suspicious liver masses largest within the left hepatic lobe measuring 4.3 cm in diameter favoring colon cancer metastatic disease similar to prior exam.. Enhancing colon mass at the right hepatic flexure measures 4.0 x 4.7 x 3.3 cm and heterogeneously enhancing mass at the cecum measuring 10.3 x 6.9 x 3.7 cm compatible with colon malignancy given liver findings similar to prior exam.. Gallbladder and biliary ducts: There are surgical clips within the gallbladder fossa. Pancreas: Unremarkable. No mass. No ductal dilation. Spleen: Splenomegaly measuring 12.6 cm with heterogeneous enhancement pattern unchanged from prior exam. Adrenal glands: Unremarkable. No mass. Kidneys and ureters: Right renal Bosniak 1 cystic lesion that is homogeneous and fluid density (-9-20 HU), no septations or calcifications, having greene smooth and thin. Measurement is 3.3 cm. No follow-up recommended. Stomach and bowel: See Liver finding. Appendix: No evidence of appendicitis. Intraperitoneal space: Unremarkable. No free air. No significant fluid collection. Lymph nodes: Mesenteric adenopathy tracking along the right lower quadrant mesenteric vein. Urinary bladder: Inflammatory stranding of the urinary bladder wall favors cystitis. Reproductive: Unremarkable as visualized. Bones/joints: No acute fracture. Soft tissues: Unremarkable. IMPRESSION: 1. Multiple suspicious liver masses largest within the left hepatic lobe measuring 4.3 cm in diameter favoring colon cancer metastatic disease similar to prior exam.. 2. Inflammatory stranding of the urinary bladder wall favors cystitis. 3. Enhancing colon mass at the right hepatic flexure measures 4.0 x 4.7 x 3.3 cm and heterogeneously enhancing mass at the cecum measuring 10.3 x 6.9 x 3.7 cm compatible with colon malignancy given liver findings similar to prior exam. 4. Mesenteric adenopathy tracking along the right lower quadrant mesenteric vein.
--- NOTE | 2024-12-29 17:01 | CT_ITS ---
PROCEDURE INFORMATION: Exam: CT Thoracic Spine Without Contrast Exam date and time: 12/29/2024 6:42 PM Age: 79 years old Clinical indication: Injury or trauma; Fall; Blunt trauma (contusions or hematomas); Additional info: Following eliquis TECHNIQUE: Imaging protocol: Computed tomography of the thoracic spine without contrast. Radiation optimization: All CT scans at this facility use at least one of these dose optimization techniques: automated exposure control; mA and/or kV adjustment per patient size (includes targeted exams where dose is matched to clinical indication); or iterative reconstruction. COMPARISON: PT P.E.T./CT SKULL BASE TO MID-THIGH 06/10/2024 12:30 PM FINDINGS: Bones/joints: Moderate loss of intervertebral disc space with degenerative changes involving midthoracic spine without spinal canal or neural foraminal stenosis. The vertebral bodies are maintained in height and alignment. No evidence of acute osseous abnormality. Soft tissues: Unremarkable. IMPRESSION: No evidence of acute osseous abnormality.
--- NOTE | 2024-12-29 17:01 | CT_ITS ---
PROCEDURE INFORMATION: Exam: CTA Neck With Contrast Exam date and time: 12/29/2024 6:54 PM Age: 79 years old Clinical indication: Injury or trauma; Fall; Blunt trauma; Head; Additional info: Following , fall TECHNIQUE: Imaging protocol: Computed tomographic angiography of the neck with contrast. Exam focused on the cervical segments of the vasculature. 3D rendering (Not supervised by radiologist): MIP and/or 3D reconstructed images were created by the technologist. Radiation optimization: All CT scans at this facility use at least one of these dose optimization techniques: automated exposure control; mA and/or kV adjustment per patient size (includes targeted exams where dose is matched to clinical indication); or iterative reconstruction. Contrast material: ISOVUE 370; Contrast volume: 160 ml; Contrast route: INTRAVENOUS (IV); COMPARISON: PT P.E.T./CT SKULL BASE TO MID-THIGH 06/10/2024 12:30 PM FINDINGS: Right common carotid artery: Mild calcific atherosclerotic disease of the right carotid bulb resulting in mild stenosis. Right internal carotid artery: No stenosis of the extracranial segment. No dissection or occlusion. Right external carotid artery: No occlusion or stenosis of the origin. Left common carotid artery: No stenosis. No dissection or occlusion. Left internal carotid artery: No stenosis of the extracranial segment. No dissection or occlusion. Left external carotid artery: No occlusion or stenosis of the origin. Right vertebral artery: No stenosis. No dissection or occlusion. Left vertebral artery: No stenosis. No dissection or occlusion. Soft tissues: Normal. No significant soft tissue swelling. Bones/joints: Moderate loss of intervertebral disc space with degenerative changes involving C4 through T1. IMPRESSION: Mild calcific atherosclerotic disease of the right carotid bulb resulting in mild stenosis. REFERENCES: NASCET CRITERIA. The degree of stenosis in the cervical segment of the internal carotid artery is based on NASCET criteria. Normal is no stenosis. Mild is less than 50% stenosis. Moderate is 50-69% stenosis. Severe is 70% to 99% stenosis. Total occlusion is no detectable patent lumen.
--- NOTE | 2024-12-29 17:01 | CT_ITS ---
PROCEDURE INFORMATION: Exam: CT Head Without Contrast Exam date and time: 12/29/2024 6:38 PM Age: 79 years old Clinical indication: Injury or trauma; Fall; Blunt trauma (contusions or hematomas); Additional info: Fall last TECHNIQUE: Imaging protocol: Computed tomography of the head without contrast. Radiation optimization: All CT scans at this facility use at least one of these dose optimization techniques: automated exposure control; mA and/or kV adjustment per patient size (includes targeted exams where dose is matched to clinical indication); or iterative reconstruction. COMPARISON: PT P.E.T./CT SKULL BASE TO MID-THIGH 06/10/2024 12:30 PM FINDINGS: Brain: No acute intracranial hemorrhage.. There is moderate diffuse heterogeneity of the white matter attenuation, consistent with chronic white matter ischemic changes. Moderate cerebral atrophy. There are multiple small hypodensities in the basal ganglia, consistent with remote lacunar infarctions. Cerebral ventricles: No ventriculomegaly. Paranasal sinuses: Visualized sinuses are unremarkable. No fluid levels. Mastoid air cells: Visualized mastoid air cells are well aerated. Bones: Degenerative changes in the temporomandibular joints. No acute fracture. Soft tissues: Unremarkable. IMPRESSION: No acute intracranial hemorrhage..
--- NOTE | 2024-12-29 17:01 | CT_ITS ---
PROCEDURE INFORMATION: Exam: CT Lumbar Spine Without Contrast Exam date and time: 12/29/2024 6:45 PM Age: 79 years old Clinical indication: Injury or trauma; Fall; Blunt trauma (contusions or hematomas); Additional info: Fall on adelfoquis last TECHNIQUE: Imaging protocol: Computed tomography of the lumbar spine without contrast. Radiation optimization: All CT scans at this facility use at least one of these dose optimization techniques: automated exposure control; mA and/or kV adjustment per patient size (includes targeted exams where dose is matched to clinical indication); or iterative reconstruction. COMPARISON: PT P.E.T./CT SKULL BASE TO MID-THIGH 06/10/2024 12:30 PM FINDINGS: Bones/joints: Moderate loss of intervertebral disc space with degenerative changes involving T12 through L3 with endplate and facet osteophytosis resulting in mild bilateral neural foraminal stenosis at these levels. Mild loss of intervertebral disc space with degenerative changes involving L3 through S1. The vertebral bodies are maintained in height and alignment. No evidence of acute osseous abnormality. Soft tissues: Unremarkable. IMPRESSION: No evidence of acute osseous abnormality.
--- NOTE | 2024-12-29 17:01 | CT_ITS ---
PROCEDURE INFORMATION: Exam: CT Cervical Spine Without Contrast Exam date and time: 12/29/2024 6:40 PM Age: 79 years old Clinical indication: Injury or trauma; Fall; Blunt trauma; Additional info: Fall on eliquis TECHNIQUE: Imaging protocol: Computed tomography of the cervical spine without contrast. Radiation optimization: All CT scans at this facility use at least one of these dose optimization techniques: automated exposure control; mA and/or kV adjustment per patient size (includes targeted exams where dose is matched to clinical indication); or iterative reconstruction. COMPARISON: PT P.E.T./CT SKULL BASE TO MID-THIGH 06/10/2024 12:30 PM FINDINGS: Bones: No acute fracture of the cervical spine. No subluxation or dislocation of the cervical spine. Anterolisthesis of C6 with respect to C7. Intervertebral disc space narrowing C4 through C6 may represent degenerative disc disease.. Anterior osteophyte formation C2 through C6. Posterior osteophyte formation C4 through C6. Degenerative changes in the facets at multiple levels. Degenerative changes at C1/C2. Degenerative changes in the temporomandibular joints Paranasal sinuses: Polyp or retention cyst in the right maxillary sinus Lungs: Lung apices are normal. Thyroid: Nodule in the right lobe of the thyroid 16 mm. Recommend thyroid ultrasound. Soft tissues: Unremarkable. IMPRESSION: 1. No acute fracture of the cervical spine. 2. No subluxation or dislocation of the cervical spine. 3. Intervertebral disc space narrowing C4 through C6 may represent degenerative disc disease.. 4. Nodule in the right lobe of the thyroid 16 mm. Recommend thyroid ultrasound. COMMENTS: Consistent with the [employer]'s Incidental Findings Committee white paper (J Am Abbie Radiol 2015): In patients aged 35 years and older with an incidental thyroid nodule equal to or greater than 1.[address], MRI or extrathyroidal US, further evaluation with dedicated thyroid US is recommended for patients with normal life expectancy and without comorbidities. For smaller nodules without suspicious features, no further evaluation or follow up is recommended.
--- NOTE | 2024-12-29 17:01 | CT_ITS ---
PROCEDURE INFORMATION: Exam: CTA Chest With Contrast Exam date and time: 12/29/2024 6:59 PM Age: 79 years old Clinical indication: Injury or trauma; Fall; Blunt trauma (contusions or hematomas); Additional info: Fall last TECHNIQUE: Imaging protocol: Computed tomographic angiography of the chest with contrast. Exam focused on the arteries. 3D rendering (Not supervised by radiologist): MIP and/or 3D reconstructed images were created by the technologist. Radiation optimization: All CT scans at this facility use at least one of these dose optimization techniques: automated exposure control; mA and/or kV adjustment per patient size (includes targeted exams where dose is matched to clinical indication); or iterative reconstruction. Contrast material: ISOVUE 370; Contrast volume: 160 ml; Contrast route: INTRAVENOUS (IV); COMPARISON: CT CHEST W CON 12/01/2024 10:08 AM FINDINGS: Tubes, catheters and devices: Single lead internal cardiac device implanted at the left chest with lead extending to the right heart. Pulmonary arteries: Normal. No pulmonary emboli. Aorta: There is moderate calcific atherosclerotic disease of the thoracic aorta without aneurysmal dilatation. Lungs: Compressive atelectasis of the lungs. Bilateral upper lobe and left lower lobe calcified nodules compatible with granulomas. Pleural spaces: Small bilateral pleural effusions are present. Heart: Cardiomegaly unchanged from prior exam. Coronary arteries: Moderate three-vessel calcific atherosclerotic disease of the coronary arteries. Lymph nodes: Unremarkable. No enlarged lymph nodes. Bones/joints: Unremarkable. No acute fracture. Soft tissues: Unremarkable. IMPRESSION: Small bilateral pleural effusions with compressive atelectasis.
--- NOTE | 2024-12-29 17:01 | CT_ITS ---
PROCEDURE INFORMATION: Exam: CTA Head With Contrast, Arteriography Exam date and time: 12/29/2024 6:54 PM Age: 79 years old Clinical indication: Injury or trauma; Fall; Blunt trauma; Head; Additional info: Fall on allyn last TECHNIQUE: Imaging protocol: Computed tomographic angiography of the head with contrast. Exam focused on the arteries. 3D rendering (Not supervised by radiologist): MIP and/or 3D reconstructed images were created by the technologist. Radiation optimization: All CT scans at this facility use at least one of these dose optimization techniques: automated exposure control; mA and/or kV adjustment per patient size (includes targeted exams where dose is matched to clinical indication); or iterative reconstruction. Contrast material: ISOVUE 370; Contrast volume: 160 ml; Contrast route: INTRAVENOUS (IV); COMPARISON: CT HEAD/BRAIN WO CON 12/29/2024 6:38 PM FINDINGS: ANTERIOR CIRCULATION: Right internal carotid artery: Intracranial segment is patent with no significant stenosis. No aneurysm. Right middle cerebral artery: No occlusion or significant stenosis. No aneurysm. Right anterior cerebral artery: No occlusion or significant stenosis. No aneurysm. Left internal carotid artery: Intracranial segment is patent with no significant stenosis. No aneurysm. Left middle cerebral artery: No occlusion or significant stenosis. No aneurysm. Left anterior cerebral artery: No occlusion or significant stenosis. No aneurysm. POSTERIOR CIRCULATION: Right vertebral artery: No occlusion or significant stenosis. No aneurysm. Left vertebral artery: No occlusion or significant stenosis. No aneurysm. Basilar artery: No occlusion or significant stenosis. No aneurysm. Right posterior cerebral artery: No occlusion or significant stenosis. No aneurysm. Left posterior cerebral artery: No occlusion or significant stenosis. No aneurysm. Brain: No definite mass, mass effect, or midline shift. Cerebral ventricles: No ventriculomegaly. Bones/joints: Unremarkable. No acute fracture. Soft tissues: Unremarkable. IMPRESSION: No large vessel stenosis or occlusion.
--- NOTE | 2024-12-29 17:01 | CT_ITS ---
PROCEDURE INFORMATION: Exam: CT Pelvis Without Contrast, Skeleton Exam date and time: 12/29/2024 6:48 PM Age: 79 years old Clinical indication: Injury or trauma; Fall; Other: Pain; Additional info: Fall on eliquis. Fell last TECHNIQUE: Imaging protocol: Computed tomography of the pelvis without contrast. Exam focused on the skeleton. Radiation optimization: All CT scans at this facility use at least one of these dose optimization techniques: automated exposure control; mA and/or kV adjustment per patient size (includes targeted exams where dose is matched to clinical indication); or iterative reconstruction. COMPARISON: CT ABDOMEN PELVIS W CON 12/01/2024 10:08 AM FINDINGS: Bones/joints: No evidence of acute osseous abnormality. Scattered lucencies of the pelvic and hips osseous structures may represent metastatic disease versus severe demineralization. Soft tissues: Unremarkable. IMPRESSION: No evidence of acute osseous abnormality.
[2024-12-29] MEDS: ONDANSETRON 4MG/2ML VIAL 4 MG IV (17:44)
[2024-12-29] MEDS: ACETAMINOPHEN 500MG TAB 1000 MG PO (17:44)
[2024-12-29] MEDS: 0.9 % SODIUM CHLORIDE 1000ML 1,000 ML 999 ML IV (17:44)
[2024-12-29 17:53] LABS: Basophils % 0.4 % (0.1-2.0); Eosinophils % 0.1 % (0.1-12.0); Hematocrit 29.3 % (37.0-47.0); Hemoglobin 9.6 g/dL (12.2-16.2); Lymphocytes # 0.5 K/mm3 (0.7-4.5); Lymphocytes % 7.7 % (10-50); Mean Corpuscular HGB Conc 32.8 g/dL (31.8-35.4); Mean Corpuscular Hemoglobin 29.9 pg (27.0-31.2); Mean Corpuscular Volume 91.3 fl (81-99); Mean Platelet Volume 10.2 fl (7.4-10.4); Monocytes # 0.6 K/mm3 (0.1-1.0); Monocytes % 9.2 % (1.7-9.3); Neutrophils # 5.7 K/mm3 (1.8-7.8); Neutrophils % 82.3 % (37.0-80.0); Platelet Count 185 K/mm3 (142-424); Red Blood Count 3.21 M/mm3 (4.20-5.40); Red Cell Distribution Width 15.2 % (11.5-17.5)
[2024-12-29 18:13] LABS: Alanine Aminotransferase 9 U/L (12-78); Albumin Level 2.7 g/dl (3.5-5.0); Albumin/Globulin Ratio 0.8 (1.1-1.8); Alkaline Phosphatase 137 U/L (38-126); Anion Gap 10.9 mEq/L (5-15); Aspartate Amino Transferase 17 U/L (14-36); Bilirubin,Total 1.5 mg/dl (0.2-1.3); Blood Urea Nitrogen 9 mg/dl (7-17); Calcium 7.8 mg/dl (8.4-10.2); Carbon Dioxide 27 mmol/L (22.0-30.0); Chloride 98 mmol/L (98-107); Creatinine Clearance Estimated 39 mL/min (50-200); Estimated Glomerular Filt Rate 81 ml/min (>60); GFR (African American) 98 ML/MIN (>60); Globulin 3.3 g/dL (1.3-3.2); Glucose 126 mg/dl (74-100); Sodium 133 mmol/L (136-145)
[2024-12-29 18:21] LABS: Magnesium 0.8 mg/dl (1.6-2.3); Potassium 2.9 mmoL/L (3.5-5.1)
--- NOTE | 2024-12-29 18:24 | PC.NURSE ---
Critical K+ 2.9 and Mag 0.8 reported to NADIRA Vazquez.
[2024-12-29] MEDS: MAGNESIUM SULFATE IN WATER 2 GM/50 ML PIGGYBACK IV (18:44)
[2024-12-29] MEDS: 0.9 % SODIUM CHLORIDE 50 ML VIAL 100 ML IV (19:15)
[2024-12-29] MEDS: IOPAMIDOL-370 (76%);100ML BOTTLE 160 ML IV (19:15)
[2024-12-29] MEDS: SODIUM CHLORIDE 0.9% 10ML SYR (RAD ONLY) 10 ML IV (19:15)
[2024-12-29] MEDS: KCl 20mEq/100ml 100 ML 50 MEQ IV ×2 (20:14→22:36)
[2024-12-29 21:03] LABS: HIV Combo NEGATIVE (Negative)
[2024-12-29 21:10] LABS: Hepatitis C Ab Qual. W/ RFX NEGATIVE (Negative)
--- NOTE | 2024-12-29 21:30 | PC.NURSE ---
Patient arrived to floor via stretcher from ED at [id number]
--- NOTE | 2024-12-29 21:48 | EXP.HP ---
History of Present Illness *Admission Date: 12/29/24 *Reason for visit:: Fall *History of present illness: This is a 79-year-old female with a past medical history of adenocarcinoma of the colon, intracardiac thrombus on Eliquis, CAD, hypertension, anemia who presents emergency department today with complaints of generalized weakness, nausea vomiting diarrhea. She reports being started on new chemo medicine with Dr. Szymanski on December 08 (Salvage chemotherapy with Camptosar) and developed significant diarrhea. This was stopped due to persistent diarrhea. She is supposed to have an appointment with him tomorrow to restart medication at 20% reduction. She reports vomiting and a fall at home approximately 1 week ago she feels is related to poor nutritional intake. She presents today status post fall with generalized weakness and left wrist swelling and pain. She also endorses vomiting x 4 episodes today. With persistent diarrhea. Emergency department workup notable for hypokalemia with a potassium of 2.9. Hypomagnesemia with mag level of 0.8. Trauma imaging was obtained and no new findings. She does have osteophytes noted to the left hand and wrist. With soft tissue swelling and edema. Given the fact she lives alone has had persistent weakness with nausea vomiting diarrhea and now electrolyte derangement it was felt she would benefit from hospitalization. She is admitted to the hospital service at this time. [facility] Disclaimer: The information contained in this section may have been updated after the patient was seen, as this information can be updated by other users. 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 History of hysterectomy Family History Mother Cancer Father Coronary artery disease Social History (Updated 12/29/24 @ 22:13 by Tahmina Damon RN) Smoking Status: Never smoker alcohol intake: never substance use type: denies use current occupational status: unemployed and retired Travel in the last 8 weeks: None household members: none housing: house lives independently: Yes marital status: Other Medical History Have you received the Flu Vaccine for this season: No Have you received the Pneumonia Vaccine: No Review of Systems Review of Systems Review of systems:: other and pertinent systems reviewed and negative unless documented below Review of systems (narrative): Negative except for HPI Meds Home Medications and Allergies Home Medications ?Medication ?Instructions ?Recorded ?Confirmed ?Type ferrous sulfate 325 mg (65 mg 325 mg PO DAILY #30 tabs 08/27/23 12/29/24 Rx iron) tablet (FeroSul) loperamide 2 mg capsule 2 mg PO TID PRN diarrhea 90 days 06/02/24 12/29/24 Rx #270 caps colestipol 1 gram tablet (Colestid) 1 g PO BID #60 tabs 07/07/24 12/30/24 Rx metoprolol succinate 100 mg 100 mg PO DAILY #30 tabs 07/15/24 12/29/24 Rx tablet,extended release 24 hr (Toprol XL) apixaban 2.5 mg tablet (Eliquis) 2.5 mg PO BID #60 tabs 12/03/24 12/29/24 Rx potassium chloride 20 mEq 20 meq PO DAILY 12/08/24 12/30/24 History tablet,extended release prochlorperazine maleate 10 mg 10 mg PO Q6H PRN nausea and 12/08/24 12/30/24 Rx tablet (Compazine) vomiting #30 tabs diphenoxylate-atropine 2.5 1 tab PO QID PRN diarrhea #30 tabs 12/15/24 12/29/24 Rx mg-0.025 mg tablet (Lomotil) magnesium oxide 400 mg PO BID #60 tabs 12/17/24 12/29/24 Rx New Prescriptions to Start Prescriptions: Allergies Allergy/AdvReac Type Severity Reaction Status Date / Time No Known Allergies Allergy Verified 12/23/24 10:07 Exam Data for Last 24 hours Vital signs and Labs for Last 24 Hours: Temp Pulse Resp BP Pulse Ox O2 Del Method 98.1 F 101 H 18 134/66 96 Room Air 12/29/24 21:18 12/29/24 21:18 12/29/24 21:18 12/29/24 21:18 12/29/24 21:15 12/29/24 21:18 Laboratory Results - last 24 hr 12/29/24 17:40: WBC 7.0, RBC 3.21 L, Hgb 9.6 L, Hct 29.3 L, MCV 91.3, MCH 29.9, MCHC 32.8, RDW 15.2, Plt Count 185, MPV 10.2, Neut % (Auto) 82.3 H, Lymph % (Auto) 7.7 L, [place] % (Auto) 9.2, Eos % (Auto) 0.1, Baso % (Auto) 0.4, Neut # (Auto) 5.7, Lymph # (Auto) 0.5 L, [place] # (Auto) 0.6, Eos # (Auto) 0.0, Baso # (Auto) 0.0, Sodium 133 L, Potassium 2.9 L*, Chloride 98, Carbon Dioxide 27, Anion Gap 10.9, BUN 9, Creatinine 0.70, Estimated Creat Clear 39, Estimated GFR 81, Est GFR ( Amer) 98, Glucose 126 H, Calcium 7.8 L, Magnesium 0.8 L, Total Bilirubin 1.5 H, AST 17, ALT 9 L, Alkaline Phosphatase 137 H, Total Protein 6.0 L, Albumin 2.7 L, Globulin 3.3 H, Albumin/Globulin Ratio 0.8 L, HCV Ab AYAN w/Rflx PCR Qn Negative, HIV Ag/Ab Combo Qual Negative I & O for Last 24 hours: Intake & Output 12/26/24 12/27/24 12/28/24 12/29/24 23:59 23:59 23:59 23:59 Weight 52.617 kg Constitutional Constitutional: no acute distress *Routine HEENT Exam Head: Present normocephalic Eye: Present EOMI and PERRL ENT: Present mucous membranes moist *Routine Neck Exam Neck: Present supple; Absent lymphadenopathy *Routine Respiratory Exam Respiratory: Present CTA bilaterally *Routine Cardiovascular Exam Cardiovascular: Present RRR *Routine Abdominal Exam Abdominal: Present soft and normoactive bowel sounds; Absent tenderness *Routine Rectal Exam Rectal:: deferred *Routine Genitalia Exam Genitalia:: deferred *Routine Extremities Exam Extremities: Present joint swelling (Left wrist and hand, erythema noted, decreased ROM); Absent full ROM *Routine Skin Exam Skin: Present warm; Absent rash *Routine Neurological Exam Neurological: Present alert and oriented X3 Assessment and Plan *Assessment and plan (1) Hypokalemia: Status: Acute Category: Medical Code(s): E87.6 - Hypokalemia (2) Hypomagnesemia: Status: Acute Category: Medical Code(s): E83.42 - Hypomagnesemia (3) Arthralgia: Status: Acute Category: Medical Code(s): M25.50 - Pain in unspecified joint (4) Left wrist pain: Status: Acute Category: Medical Code(s): M25.532 - Pain in left wrist (5) Malignant neoplasm of cecum: Status: Acute Category: Medical Code(s): C18.0 - Malignant neoplasm of cecum (6) LV (left ventricular) mural thrombus: Status: Acute Category: Medical Code(s): I51.3 - Intracardiac thrombosis, not elsewhere classified Plan Admit to medicine #Hypokalemia #Hypomagnesemia Replacement initiated in ER. Continue replacement per protocol. Repeat labs in a.m. #Left wrist pain #Arthralgia Left wrist and hand with erythema and edema. ? Septic arthritis versus inflammation ESR CRP and uric acid pending Will initiate Rocephin in the acute phase. #Left mural thrombus Per oncology, would like patient to stay on Eliquis 2.5 mg. Patient does have risk of bleeding: Given metastatic cancer but benefits outweigh risk. Continue patient's home Eliquis. #Metastatic neoplasm of the cecum/colon #Adenocarcinoma Follows with Dr. Szymanski. Was supposed to follow-up in office tomorrow. Will have the team reach out and let him know that she is hospitalized.
[2024-12-29] MEDS: CEFTRIAXONE SODIUM 2 GM in 0.9 % SODIUM CHLORIDE 100 ML IV (22:35)
[2024-12-29] MEDS: 0.9 % SODIUM CHLORIDE 1000ML 1,000 ML 75 ML IV (22:36)
[2024-12-29] MEDS: APIXABAN 5MG TABLET 2.5 MG PO (22:43)
--- NOTE | 2024-12-29 23:01 | PC.NURSE ---
Patient is unsure of complete medication list at home. The medications I named off and patient knew she took is confirmed. The others, she is unsure.
[2024-12-29 23:02] LABS: Uric Acid 4.2 mg/dl (2.5-6.2)
[2024-12-29 23:07] LABS: C-Reactive Protein 149.3 mg/L (0-4)
[2024-12-29 23:21] LABS: Erythrocyte Sedimentation Rate 135 mm/hr (0-30)
[2024-12-30] VITALS (9 sets, daily range): BP systolic 111–155; BP diastolic 60–88; PULSE 90–130; RESP 16–24; TEMP 36.4–36.9; O2SAT 97–100; BMI 22.4
[2024-12-30] MEDS: KCl 20mEq/100ml 100 ML 50 MEQ IV (00:50)
--- NOTE | 2024-12-30 04:18 | ECG_ITS ---
APPROVED REPORT Exam: Resting ECG HR:103 bpm ECG Measurements Heart Rate 103 AXES IL 125 P 39 QRSd 105 QRS -28 QT 365 T 0 QTc 424 Conclusion SINUS TACHYCARDIA old anterior and inferior changes UNCONFIRMED REPORT Electronically signed by : Olegario Armas MD 12/30/2024 08:24:13
[2024-12-30] MEDS: ACETAMINOPHEN 325MG TAB 650 MG PO ×2 (04:36→18:37)
--- NOTE | 2024-12-30 05:00 | PC.NURSE ---
New admit. Pt arrived with port access to Left chest wall, redressed. V/s, ox4, up with 1 assist to bedside commode. Pt stated she fell at home going to the bathroom, Left wrist area is swollen and ecchymotic. Pt c/o pain, treated per NOV. Plan of care ongoing.
[2024-12-30 06:26] LABS: Basophils % 0.4 % (0.1-2.0); Eosinophils % 0.6 % (0.1-12.0); Hematocrit 27.1 % (37.0-47.0); Hemoglobin 8.8 g/dL (12.2-16.2); Lymphocytes # 0.4 K/mm3 (0.7-4.5); Mean Corpuscular HGB Conc 32.5 g/dL (31.8-35.4); Mean Corpuscular Hemoglobin 30.2 pg (27.0-31.2); Mean Corpuscular Volume 93.1 fl (81-99); Mean Platelet Volume 10.3 fl (7.4-10.4); Monocytes # 0.5 K/mm3 (0.1-1.0); Monocytes % 9.9 % (1.7-9.3); Neutrophils # 3.8 K/mm3 (1.8-7.8); Neutrophils % 79.7 % (37.0-80.0); Platelet Count 165 K/mm3 (142-424); Red Blood Count 2.91 M/mm3 (4.20-5.40); Red Cell Distribution Width 15.5 % (11.5-17.5); White Blood Count 4.8 K/mm3 (4.8-10.8)
[2024-12-30 06:33] LABS: Chloride 104 mmol/L (98-107)
[2024-12-30 06:34] LABS: Potassium 3.3 mmoL/L (3.5-5.1); Sodium 134 mmol/L (136-145)
[2024-12-30 06:37] LABS: Anion Gap 6.3 mEq/L (5-15); Blood Urea Nitrogen 7 mg/dl (7-17); Calcium 7.1 mg/dl (8.4-10.2); Carbon Dioxide 27 mmol/L (22.0-30.0); Creatinine Clearance Estimated 39 mL/min (50-200); Estimated Glomerular Filt Rate 81 ml/min (>60); GFR (African American) 98 ML/MIN (>60); Glucose 110 mg/dl (74-100); Phosphorous 2.2 mg/dl (2.5-4.5)
[2024-12-30 06:55] LABS: Magnesium 1.5 mg/dl (1.6-2.3)
--- NOTE | 2024-12-30 08:26 | P.CONS_ITS ---
History of Present Illness *Admission Date: 12/29/24 *History of present illness: This is a 79-year-old female with a past medical history of adenocarcinoma of the colon, intracardiac thrombus on Eliquis, CAD, hypertension, anemia who presents emergency department today with complaints of generalized weakness, nausea vomiting diarrhea. She reports being started on new chemo medicine with Dr. Szymanski on December 08 (Salvage chemotherapy with Camptosar) and developed significant diarrhea. This was stopped due to persistent diarrhea. She is supposed to have an appointment with him tomorrow to restart medication at 20% reduction. She reports vomiting and a fall at home approximately 1 week ago she feels is related to poor nutritional intake. She presents today status post fall with generalized weakness and left wrist swelling and pain. She also endorses vomiting x 4 episodes today. With persistent diarrhea. Emergency department workup notable for hypokalemia with a potassium of 2.9. Hypomagnesemia with mag level of 0.8. Trauma imaging was obtained and no new findings. She does have osteophytes noted to the left hand and wrist. With soft tissue swelling and edema. Given the fact she lives alone has had persistent weakness with nausea vomiting diarrhea and now electrolyte derangement it was felt she would benefit from hospitalization. She is admitted to the hospital service at this time. Orthopedic service consulted regarding evaluation of left wrist because of redness and swelling inflammatory traumatic versus septic [facility] Disclaimer: The information contained in this section may have been updated after the patient was seen, as this information can be updated by other users. 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 History of hysterectomy Family History Mother Cancer Father Coronary artery disease Social History (Updated 12/29/24 @ 22:13 by Tahmina Damon RN) Smoking Status: Never smoker alcohol intake: never substance use type: denies use current occupational status: unemployed and retired Travel in the last 8 weeks: None household members: none housing: house lives independently: Yes marital status: Have you lived/traveled outside [place] in past 30 days?: No Contact w/someone who lives/traveled outside US past 30 days?: No Exposure to someone with infectious disease in past 14 days?: No Do you have a fever (greater than 100.4 F or 38 C)?: No Have you tested positive for COVID-19: No Exposed to someone with COVID-19 in past 14 days?: No Do you have a sore throat?: No Do you have a cough?: No Do you have any weakness?: No Are you experiencing any nausea/vomitting?: No Do you have any diarrhea?: No Are you experiencing any unusual bleeding?: No Do you have any muscle aches/pain?: No Do you have any abdominal pain?: No Are you experiencing loss of taste or smell?: No Meds Home Medications and Allergies Home Medications ?Medication ?Instructions ?Recorded ?Confirmed ?Type ferrous sulfate 325 mg (65 mg 325 mg PO DAILY #30 tabs 08/27/23 12/29/24 Rx iron) tablet (FeroSul) loperamide 2 mg capsule 2 mg PO TID PRN diarrhea 90 days 06/02/24 12/29/24 Rx #270 caps colestipol 1 gram tablet (Colestid) 1 g PO BID #60 tabs 07/07/24 12/30/24 Rx metoprolol succinate 100 mg 100 mg PO DAILY #30 tabs 07/15/24 12/29/24 Rx tablet,extended release 24 hr (Toprol XL) apixaban 2.5 mg tablet (Eliquis) 2.5 mg PO BID #60 tabs 12/03/24 12/29/24 Rx potassium chloride 20 mEq 20 meq PO DAILY 12/08/24 12/30/24 History tablet,extended release prochlorperazine maleate 10 mg 10 mg PO Q6H PRN nausea and 12/08/24 12/30/24 Rx tablet (Compazine) vomiting #30 tabs diphenoxylate-atropine 2.5 1 tab PO QID PRN diarrhea #30 tabs 12/15/24 12/29/24 Rx mg-0.025 mg tablet (Lomotil) magnesium oxide 400 mg PO BID #60 tabs 12/17/24 12/29/24 Rx New Prescriptions to Start Prescriptions: Allergies Allergy/AdvReac Type Severity Reaction Status Date / Time No Known Allergies Allergy Verified 12/23/24 10:07 Ortho Exam (Inpt) Vital signs and Labs for Last 24 Hours: Temp Pulse Resp BP Pulse Ox O2 Del Method 97.5 F L 117 H 24 147/78 H 99 Room Air 12/30/24 08:00 12/30/24 08:00 12/30/24 08:00 12/30/24 08:00 12/30/24 08:00 12/30/24 08:00 Laboratory Results - last 24 hr 12/29/24 17:40: WBC 7.0, RBC 3.21 L, Hgb 9.6 L, Hct 29.3 L, MCV 91.3, MCH 29.9, MCHC 32.8, RDW 15.2, Plt Count 185, MPV 10.2, Neut % (Auto) 82.3 H, Lymph % (Auto) 7.7 L, [place] % (Auto) 9.2, Eos % (Auto) 0.1, Baso % (Auto) 0.4, Neut # (Auto) 5.7, Lymph # (Auto) 0.5 L, [place] # (Auto) 0.6, Eos # (Auto) 0.0, Baso # (Auto) 0.0, Sodium 133 L, Potassium 2.9 L*, Chloride 98, Carbon Dioxide 27, Anion Gap 10.9, BUN 9, Creatinine 0.70, Estimated Creat Clear 39, Estimated GFR 81, Est GFR ( Amer) 98, Glucose 126 H, Calcium 7.8 L, Magnesium 0.8 L, T otal Bilirubin 1.5 H, AST 17, ALT 9 L, Alkaline Phosphatase 137 H, Total Protein 6.0 L, Albumin 2.7 L, Globulin 3.3 H, Albumin/Globulin Ratio 0.8 L, HCV Ab AAYN w/Rflx PCR Qn Negative, HIV Ag/Ab Combo Qual Negative 12/29/24 22:17: ESR 135 H, Uric Acid 4.2, C-Reactive Protein 149.3 H 12/30/24 05:31: WBC 4.8 D, RBC 2.91 L, Hgb 8.8 L, Hct 27.1 L, MCV 93.1, MCH 30.2, MCHC 32.5, RDW 15.5, Plt Count 165, MPV 10.3, Neut % (Auto) 79.7, Lymph % (Auto) 9.0 L, [place] % (Auto) 9.9 H, Eos % (Auto) 0.6, Baso % (Auto) 0.4, Neut # (Auto) 3.8, Lymph # (Auto) 0.4 L, [place] # (Auto) 0.5, Eos # (Auto) 0.0, Baso # (Auto) 0.0, Sodium 134 L, Potassium 3.3 L, Chloride 104, Carbon Dioxide 27, Anion Gap 6.3, BUN 7, Creatinine 0.70, Estimated Creat Clear 39, Estimated GFR 81, Est GFR ( Amer) 98, Glucose 110 H, Calcium 7.1 L, Phosphorus 2.2 L, M agnesium 1.5 L D I & O for Labs for Last 24 Hours: Intake & Output 12/27/24 12/28/24 12/29/24 12/30/24 23:59 23:59 23:59 23:59 Intake Total 100 / 100 Output Total 500 / 500 Balance -400 / -400 Weight 118 lb 9.6 oz 118 lb 9.6 oz Head: Present normocephalic and atraumatic Additional findings:: Left wrist: Skin intact sensation intact there is diffuse swelling at the wrist down to the index middle finger. There is no increased warmth she has mild pain with passive range of motion with flexion extension at the radiocarpal joint. Mild pain with passive extension of the index middle ring fingers radiating to the radiocarpal joint. Volar and dorsal sided swelling present. No evident ecchymosis. X-rays of the left wrist shows soft tissue swelling but no acute fractures or dislocations are visualized Results Labs 12/30/24 05:31 12/30/24 05:31 Labs: Abnormal lab results 12/29/24 12/29/24 12/30/24 Range/Units 17:40 22:17 05:31 RBC 3.21 L 2.91 L (4.20-5.40) M/mm3 Hgb 9.6 L 8.8 L (12.2-16.2) g/dL Hct 29.3 L 27.1 L (37.0-47.0) % Neut % (Auto) 82.3 H (37.0-80.0) % Lymph % (Auto) 7.7 L 9.0 L (10-50) % [place] % (Auto) 9.9 H (1.7-9.3) % Lymph # (Auto) 0.5 L 0.4 L (0.7-4.5) K/mm3 ESR 135 H (0-30) mm/hr Sodium 133 L 134 L (136-145) mmol/L Potassium 2.9 L* 3.3 L (3.5-5.1) mmoL/L Glucose 126 H 110 H (74-100) mg/dl Calcium 7.8 L 7.1 L (8.4-10.2) mg/dl Phosphorus 2.2 L (2.5-4.5) mg/dl Magnesium 0.8 L 1.5 L D (1.6-2.3) mg/dl Total Bilirubin 1.5 H (0.2-1.3) mg/dl ALT 9 L (12-78) U/L Alkaline Phosphatase 137 H (38-126) U/L C-Reactive Protein 149.3 H (0-4) mg/L Total Protein 6.0 L (6.3-8.2) g/dl Albumin 2.7 L (3.5-5.0) g/dl Globulin 3.3 H (1.3-3.2) g/dL Albumin/Globulin Ratio 0.8 L (1.1-1.8) H & H 12/29/24 12/30/24 Range/Units 17:40 05:31 Hgb 9.6 L 8.8 L (12.2-16.2) g/dL Hct 29.3 L 27.1 L (37.0-47.0) % All other labs normal. Assessment and Plan *Assessment and plan (1) Left wrist pain: Status: Acute Category: Medical Code(s): M25.532 - Pain in left wrist Plan I reviewed findings with the labs with the patient. There is see no acute fractures on the x-ray imaging. The pain seems to be outside of the radiocarpal joint and the soft tissues of the volar aspect of the wrist and dorsal aspect of the wrist. She is at high risk of hematoma given the blood thinners and the traumatic fall. It is possible the swelling is due to that it is difficult to isolate the pain strictly to the radiocarpal joint. Given the traumatic nature increased CRP and swelling findings MRI scan of the wrist is indicated to evaluate for wrist effusion to evaluate the soft tissues of the wrist and rule out occult fracture not evident on plain x-rays. If there is a large wrist effusion aspiration of the wrist would be indicated. Will make evaluation recommendations following MRI scan of the wrist.
--- NOTE | 2024-12-30 08:26 | HMH.PHAINT1 ---
Pharmacy Intervention Comments: HOME MEDICATION LIST VERIFIED USING LIST FROM OUTPATIENT PHARMACY AND PHYSICIAN OFFICES. PT POOR HISTORIAN.
--- NOTE | 2024-12-30 08:31 | MR_ITS ---
FINAL REPORT CLINICAL HISTORY: Rule out occult fracture. Eval wrist effusion fall last week, swelling to the wrist area FINDINGS: Multiplanar MR imaging of the left wrist was performed with and without contrast. The bony structures are intact without evidence of fracture, bone bruise or marrow edema. TFCC is intact. Ligaments are normal. Carpal tunnel is unremarkable. Moderate sized joint effusions are seen involving the radiocarpal joint and intercarpal joints. There is significant synovitis. There is tenosynovitis of the extensor tendons. Diffuse, nonspecific subcutaneous edema is seen. There are severe degenerative changes of the first carpometacarpal joint. IMPRESSION: No evidence of fracture. Moderate joint effusions with findings of synovitis. Tenosynovitis of the extensor tendons without evidence of tear. Reviewed, Interpreted and Dictated by Dayanara Gonzalez MD Transcribed by Sahara Panda Authenticated and [facility]
[2024-12-30] MEDS: MAGNESIUM SULFATE IN WATER 2 GM/50 ML PIGGYBACK IV ×2 (09:33→11:28)
[2024-12-30] MEDS: APIXABAN 5MG TABLET 2.5 MG PO ×2 (09:33→21:11)
[2024-12-30] MEDS: POTASSIUM CHLORIDE 20MEQ TAB 40 MEQ PO ×2 (09:33→11:32)
--- NOTE | 2024-12-30 11:05 | HMH.PTEV ---
Physical Therapy Evaluation Rehab PT IP Evaluation Start: 12/30/24 09:45 Freq: ONCE Status: Active Protocol: Document 12/30/24 09:50 SUNNY (Rec: 12/30/24 11:05 PHODIONISIO [id number]) Subjective/History History History 79-year-old female with a past medical history of adenocarcinoma of the colon, intracardiac thrombus on Eliquis, CAD, hypertension, anemia who presents emergency department today with complaints of generalized weakness, nausea vomiting diarrhea. She reports being started on new chemo medicine with Dr. Szymanski on December 08 (Salvage chemotherapy with Camptosar) and developed significant diarrhea. This was stopped due to persistent diarrhea. She is supposed to have an appointment with him tomorrow to restart medication at 20% reduction. She reports vomiting and a fall at home approximately 1 week ago she feels is related to poor nutritional intake. She presents today status post fall with generalized weakness and left wrist swelling and pain. She also endorses vomiting x 4 episodes today. With persistent diarrhea. She reports she lives alone, no JAIRO the home, and she is generally independent with all ambulation and ADLs with cane at baseline. Subjective Subjective Pt reports pain in the L wrist sustained after her recent fall, but otherwise feeling better. She agrees to mobility assessment this am. [facility] How much help from another person do you currently need... Turning from your back to your side None while in a flat bed without using bedrails? Moving from lying on back to sitting on None the side of a flat bed without using bedrails? Moving to and from a bed to a chair ( None including a wheelchair)? Standing up from a chair using your arms None ? (e.g., wheelchair, bedside chair) Walking in hospital room? A little Climbing 3-5 steps with a railing? A little Mobility Score 22 Mobility Level [facility] Mobility Calculator Mobility 7 Walk 25 feet or more Rehab PT IP Eval Objective Appearance Patient Behavior Appropriate Patient Orientation Person,Place,Time Difficulty following instructions none Speech Pattern Clear Ambulation Patient Able to Ambulate Yes Ambulation Observation IP General Gait Pattern Observation No Deviations/Normal Ambulation Distance (feet) 10 Ambulation Assistive Device None Ambulation Ability Contact Guard/Hand Hold Balance Ability to Arise Able, uses arms to help Sitting Balance Steady, safe Standing Balance Steady, wide stance Dynamic Sitting Balance Ability Good Dynamic Standing Balance Ability Fair Transfers Bed Transfer Ability Contact Guard/Hand Hold Chair Transfer Ability Contact Guard/Hand Hold Sit to Stand Bed Transfer Ability Contact Guard/Hand Hold Sit to Stand Chair Transfer Ability Contact Guard/Hand Hold Rehab PT IP prob,goals,plan Problems Date of Evaluation: 12/30/24 PT IP Problems Transfers,Gait Rehab Potential Rehab Potential Good Plan PT Intervention Plan Transfers,Gait,Therapeutic Exercise PT Plan Frequency Daily Duration LOS Discharge Goals Bed Transfer Ability Independent Sit to Stand Chair Transfer Ability Independent Ambulation Assistive Device Straight Cane Ambulation Distance (feet) 30 Discharge Plan PT Discharge Plan Pt is currently appropriate to return home once medically stable for d/c. Recommend home health therapy after return home. Skilled acute therapy is indicated to improve transfers and gait in order to return pt to [facility]. Eval Complexity Eval Charge Codes 33021 - High Complexity PHYSICIAN CERTIFICATION: I certify the specified therapy services for Viviane Richard are required, authorized, and reviewed every 30 days.
[2024-12-30] MEDS: GADOTERIDOL INJ 20ML SYRINGE 10 ML IV (11:10)
[2024-12-30 11:36] LABS: Adenovirus F 40/41, stool Not Detected (NotDetected); Astrovirus Not Detected (NotDetected); Campylobacter Not Detected (NotDetected); Clostridium Difficile A/B, PCR Not Detected (NotDetected); Cryptosporidium Not Detected (NotDetected); Cyclospora Cayetanesis Not Detected (NotDetected); Entamoeba histolytica Not Detected (NotDetected); Enteroaggregative E coli Not Detected (NotDetected); Enteropathogenic E coli Not Detected (NotDetected); Enterotoxigenic E coli Not Detected (NotDetected); Giardia lamblia Not Detected (NotDetected); Norovirus Not Detected (NotDetected); Plesimonas Shigalloides, PCR Not Detected (NotDetected); Rotavirus A Not Detected (NotDetected); Salmonella, PCR Not Detected (NotDetected); Sapovirus Not Detected (NotDetected); Shiga-like toxin E coli Not Detected (NotDetected); Shigella Enterovasive E coli Not Detected (NotDetected); Vibrio Cholerae Not Detected (NotDetected); Vibrio, PCR Not Detected (NotDetected); Yersinia Entercolitica, PCR Not Detected (NotDetected)
--- NOTE | 2024-12-30 11:58 | SW/DCPLANNER ---
Addendum entered by Netta Bass 12/31/24 13:57: [facility] is able to accept patient. Benjamin Eisenberg Addendum entered by Netta Bass 12/31/24 11:50: Spoke with patient again about home health services this morning and if she might have changed her mind. Patient stated that she would give home health a try. I faxed patients information to [facility] home health and will update when i hear back from them if they were able to accept patient or not. Benjamin Eisenberg Original Note: Spoke with patient about home health services once she is fully stable and ready for DC. Patient stated that once she is fully discharged and home she is able to take care of herself. Benjamin eisenberg
--- NOTE | 2024-12-30 14:53 | P.PN_ITS ---
Subjective *Date: 12/30/24 *Time: 14:53 Interval history: Patient had MRI scan of the wrist this morning. She is sitting up comfortably in bed feels like compared to this morning she feels better she has less swelling around the wrist and less pain. Ortho Exam (Inpt) Vital signs and Labs for Last 24 Hours: Temp Pulse Resp BP Pulse Ox O2 Del Method 97.7 F 110 H 18 155/70 H 100 Room Air 12/30/24 11:38 12/30/24 12:00 12/30/24 11:38 12/30/24 11:38 12/30/24 11:38 12/30/24 11:38 Laboratory Results - last 24 hr 12/29/24 17:40: WBC 7.0, RBC 3.21 L, Hgb 9.6 L, Hct 29.3 L, MCV 91.3, MCH 29.9, MCHC 32.8, RDW 15.2, Plt Count 185, MPV 10.2, Neut % (Auto) 82.3 H, Lymph % (Auto) 7.7 L, [place] % (Auto) 9.2, Eos % (Auto) 0.1, Baso % (Auto) 0.4, Neut # (Auto) 5.7, Lymph # (Auto) 0.5 L, [place] # (Auto) 0.6, Eos # (Auto) 0.0, Baso # (Auto) 0.0, Sodium 133 L, Potassium 2.9 L*, Chloride 98, Carbon Dioxide 27, Anion Gap 10.9, BUN 9, Creatinine 0.70, Estimated Creat Clear 39, Estimated GFR 81, Est GFR ( Amer) 98, Glucose 126 H, Calcium 7.8 L, Magnesium 0.8 L, Total Bilirubin 1.5 H, AST 17, ALT 9 L, Alkaline Phosphatase 137 H, Total Protein 6.0 L, Albumin 2.7 L, Globulin 3.3 H, Albumin/Globulin Ratio 0.8 L, HCV Ab AYAN w/Rflx PCR Qn Negative, HIV Ag/Ab Combo Qual Negative 12/29/24 22:17: ESR 135 H, Uric Acid 4.2, C-Reactive Protein 149.3 H 12/30/24 05:31: WBC 4.8 D, RBC 2.91 L, Hgb 8.8 L, Hct 27.1 L, MCV 93.1, MCH 30.2, MCHC 32.5, RDW 15.5, Plt Count 165, MPV 10.3, Neut % (Auto) 79.7, Lymph % (Auto) 9.0 L, [place] % (Auto) 9.9 H, Eos % (Auto) 0.6, Baso % (Auto) 0.4, Neut # (Auto) 3.8, Lymph # (Auto) 0.4 L, [place] # (Auto) 0.5, Eos # (Auto) 0.0, Baso # (Auto) 0.0, Sodium 134 L, Potassium 3.3 L, Chloride 104, Carbon Dioxide 27, Anion Gap 6.3, BUN 7, Creatinine 0.70, Estimated Creat Clear 39, Estimated GFR 81, Est GFR ( Amer) 98, Glucose 110 H, Calcium 7.1 L, Phosphorus 2.2 L, Magnesium 1.5 L D I & O for Labs for Last 24 Hours: Intake & Output 12/27/24 12/28/24 12/29/24 12/30/24 23:59 23:59 23:59 23:59 Intake Total 610 / 610 Output Total 500 / 500 Balance 110 / 110 Weight 118 lb 9.6 oz 118 lb 9.6 oz Additional findings:: Examination of the wrist does show some improvement in regards to pain especially over the radiocarpal joint she is able to actively and passively stretch her fingers better than this morning. There is still diffuse swelling around the fingers and wrist joint and the volar dorsal aspect of the wrist. No warmth Assessment and Plan *Assessment and plan (1) Left wrist pain: Status: Acute Category: Medical Code(s): M25.532 - Pain in left wrist Plan I reviewed MRI scan findings with the patient. There is no evidence of occult fracture there is no evidence of osteomyelitis there is no large hematoma. There are findings with tenosynovitis and soft tissue nonspecific swelling around the wrist. There are small joint effusions present radiocarpal joint as well. I discussed with her these findings on the MRI scan. I offered to aspirate the wrist to get fluid for cell count and culture also discussed operative intervention if radiocarpal joint was affected and symptoms of septic arthritis exist. Patient is alert and oriented and of sound mind and reported that she does not want a needle or an aspiration of her wrist she certainly does not want surgery. She would like to continue antibiotics to see if this gets better but has no interest in aspiration of the wrist or surgery even if this were to make her systemically ill. I told her that if it was making her systemically ill then intervention certainly is indicated if there is persistence of septic arthritis in the wrist that we will call the degenerative changes and potential complications in the future she states she fully understands this does not want to have an aspiration of the wrist and does not want to have surgery under any circumstances. So we will treat with antibiotics monitor inflammatory markers and plan accordingly.
--- NOTE | 2024-12-30 16:42 | PC.NURSE ---
Pt alert and oriented x4. Pt up to bedside chair most of day. She has had multiple incontinent bowel movements today. She stated this is normal for her, stool sample was collected. Her left wrist is still very swollen, MRI was taken today that found no fractures. Pt has been working with PT who said she could ambulate independently. Pt eating most of meals. She has no complaints at this time, will continue to monitor. Call light in reach.
--- NOTE | 2024-12-30 17:09 | EXP.ACUTE.PN ---
Subjective *Date: 12/30/24 *Time: 17:37 Interval history: Seeing some improvement in the swelling of her left wrist. Remains afebrile. No nausea or vomiting. Denies chest pain. States she is feeling somewhat better. Electrolytes of better this morning on labs though still abnormal. Continues to require patient management Medical Exam Vital signs and Labs for Last 24 Hours: Vital Signs Temp Pulse Pulse Resp BP BP Pulse Ox 12/30/24 16:41 12/30/24 16:00 110 H 12/30/24 16:00 98.3 F 112 H 18 155/85 H 100 12/30/24 15:00 12/30/24 13:00 12/30/24 12:00 110 H 12/30/24 11:38 97.7 F 100 H 18 155/70 H 100 12/30/24 11:00 12/30/24 09:00 12/30/24 08:00 12/30/24 08:00 130 H 12/30/24 08:00 97.5 F L 117 H 24 147/78 H 99 12/30/24 06:10 12/30/24 04:53 12/30/24 04:00 97.9 F 96 H 16 111/60 98 12/30/24 04:00 97.9 F 96 H 16 111/60 98 12/30/24 04:00 90 12/30/24 03:00 12/30/24 01:00 12/30/24 00:00 110 H 12/30/24 00:00 97.8 F 120 H 17 152/88 H 100 12/29/24 23:00 12/29/24 22:10 98.0 F 103 H 16 140/69 98 12/29/24 21:44 95 H 12/29/24 21:18 98.1 F 101 H 18 134/66 12/29/24 21:15 99 H 96 12/29/24 21:04 12/29/24 21:00 101 H 134/66 96 12/29/24 20:45 105 H 90 L 12/29/24 20:30 103 H 121/55 L 94 L 12/29/24 20:15 103 H 95 12/29/24 20:00 105 H 136/68 80 L 12/29/24 19:45 105 H 95 12/29/24 19:30 105 H 135/63 97 12/29/24 19:25 104 H 147/64 H 96 12/29/24 19:15 105 H 98 12/29/24 19:13 107 H 97 12/29/24 18:30 103 H 146/66 H 97 12/29/24 18:00 97 H 153/66 H 12/29/24 17:30 93 H 146/67 H O2 Del Method 12/30/24 16:41 Room Air 12/30/24 16:00 12/30/24 16:00 Room Air 12/30/24 15:00 Room Air 12/30/24 13:00 Room Air 12/30/24 12:00 12/30/24 11:38 Room Air 12/30/24 11:00 Room Air 12/30/24 09:00 Room Air 12/30/24 08:00 Room Air 12/30/24 08:00 12/30/24 08:00 Room Air 12/30/24 06:10 Room Air 12/30/24 04:53 Room Air 12/30/24 04:00 Room Air 12/30/24 04:00 Room Air 12/30/24 04:00 12/30/24 03:00 Room Air 12/30/24 01:00 Room Air 12/30/24 00:00 12/30/24 00:00 Room Air 12/29/24 23:00 Room Air 12/29/24 22:10 Room Air 12/29/24 21:44 12/29/24 21:18 Room Air 12/29/24 21:15 12/29/24 21:04 Room Air 12/29/24 21:00 12/29/24 20:45 12/29/24 20:30 12/29/24 20:15 12/29/24 20:00 12/29/24 19:45 12/29/24 19:30 12/29/24 19:25 12/29/24 19:15 12/29/24 19:13 12/29/24 18:30 12/29/24 18:00 12/29/24 17:30 Intake and Output 12/30/24 12/30/24 12/30/24 07:59 15:59 23:59 Intake Total 100 / 610 510 / 610 Output Total 500 / 500 0 / 500 Balance -400 / 110 510 / 110 Intake: Intake, Oral Amount 100 / 610 510 / 610 Output: Output, Urine Amount 500 / 500 0 / 500 Other: Number of Unmeasured Voids 1 1 Number of Bowel Movements 1 1 Weight 53.796 kg Patient Weight 12/30/24 23:59 Weight 53.796 kg Laboratory Results - last 24 hr 12/29/24 17:40: WBC 7.0, RBC 3.21 L, Hgb 9.6 L, Hct 29.3 L, MCV 91.3, MCH 29.9, MCHC 32.8, RDW 15.2, Plt Count 185, MPV 10.2, Neut % (Auto) 82.3 H, Lymph % (Auto) 7.7 L, [place] % (Auto) 9.2, Eos % (Auto) 0.1, Baso % (Auto) 0.4, Neut # (Auto) 5.7, Lymph # (Auto) 0.5 L, [place] # (Auto) 0.6, Eos # (Auto) 0.0, Baso # (Auto) 0.0, Sodium 133 L, Potassium 2.9 L*, Chloride 98, Carbon Dioxide 27, Anion Gap 10.9, BUN 9, Creatinine 0.70, Estimated Creat Clear 39, Estimated GFR 81, Est GFR ( Amer) 98, Glucose 126 H, Calcium 7.8 L, Magnesium 0.8 L, Total Bilirubin 1.5 H, AST 17, ALT 9 L, Alkaline Phosphatase 137 H, Total Protein 6.0 L, Albumin 2.7 L, Globulin 3.3 H, Albumin/Globulin Ratio 0.8 L, HCV Ab AYAN w/Rflx PCR Qn Negative, HIV Ag/Ab Combo Qual Negative 12/29/24 22:17: ESR 135 H, Uric Acid 4.2, C-Reactive Protein 149.3 H 12/30/24 05:31: WBC 4.8 D, RBC 2.91 L, Hgb 8.8 L, Hct 27.1 L, MCV 93.1, MCH 30.2, MCHC 32.5, RDW 15.5, Plt Count 165, MPV 10.3, Neut % (Auto) 79.7, Lymph % (Auto) 9.0 L, [place] % (Auto) 9.9 H, Eos % (Auto) 0.6, Baso % (Auto) 0.4, Neut # (Auto) 3.8, Lymph # (Auto) 0.4 L, [place] # (Auto) 0.5, Eos # (Auto) 0.0, Baso # (Auto) 0.0, Sodium 134 L, Potassium 3.3 L, Chloride 104, Carbon Dioxide 27, Anion Gap 6.3, BUN 7, Creatinine 0.70, Estimated Creat Clear 39, Estimated GFR 81, Est GFR ( Amer) 98, Glucose 110 H, Calcium 7.1 L, Phosphorus 2.2 L, Magnesium 1.5 L D 12/30/24 11:24: Stl Aeromonas (PCR) Not detected, Stl C. cayetanensis PCR Not detected, Stool Rotavirus (PCR) Not detected, Stl Adenov F 40/41 PCR Not detected, Stool Astrovirus (PCR) Not detected, Stool Campylobacter PCR Not detected, Stl C.difficile Tox PCR Not detected, Stool Cryptosporidium PCR Not detected, Stl E.coli Shiga Tox PCR Not detected, Stool E coli O157 PCR Not detected, Stl Enterotoxigenic E PCR Not detected, Stool EPEC (PCR) Not detected, Stool EAEC (PCR) Not detected, Stl E. histolytica PCR Not detected, Stool Giardia Lamblia PCR Not detected, Stool Salmonella PCR Not detected, Stool Sapovirus (PCR) Not detected, Stl P. shigelloides PCR Not detected, Stl Shigella/EIEC PCR Not detected, St Y.enterocolitica PCR Not detected, Stool Vibrio (PCR) Not detected, Stl Vibrio cholerae PCR Not detected, Stl Norovirus GI/GII PCR Not detected I & O for Labs for Last 24 Hours: Intake & Output 12/27/24 12/28/24 12/29/24 12/30/24 23:59 23:59 23:59 23:59 Intake Total 610 / 610 Output Total 500 / 500 Balance 110 / 110 Weight 53.796 kg 53.796 kg Constitutional: Present no acute distress, average body habitus, chronically ill appearing and cooperative Head: Present atraumatic and normocephalic ENT: Present normal exam Respiratory: Present CTA bilaterally; Absent respiratory distress, rhonchi, stridor or wheezes Cardiac: Present Reg Rate and Rhythm GI: Present soft and normal bowel sounds; Absent distention or tenderness Extremities: Present full ROM; Absent normal inspection Comment:: Left wrist red and tender. Slight improvement in swelling from admission. Skin: Present intact; Absent erythema Neuro: Present Grossly Intact, alert, awake, oriented x 3 and moves all extremities Assessment and Plan *Assessment and plan (1) Hypokalemia: Status: Acute Category: Medical Code(s): E87.6 - Hypokalemia (2) Hypomagnesemia: Status: Acute Category: Medical Code(s): E83.42 - Hypomagnesemia (3) Arthralgia: Status: Acute Category: Medical Code(s): M25.50 - Pain in unspecified joint (4) Left wrist pain: Status: Acute Category: Medical Code(s): M25.532 - Pain in left wrist (5) Malignant neoplasm of cecum: Status: Acute Category: Medical Code(s): C18.0 - Malignant neoplasm of cecum (6) LV (left ventricular) mural thrombus: Status: Acute Category: Medical Code(s): I51.3 - Intracardiac thrombosis, not elsewhere classified Plan 79-year-old female with adenocarcinoma, having diarrhea and electrolyte disturbances. Also found to have swollen left wrist. Concerning for gout versus infection. Orthopedics consulted and assisted with care. Continues to require patient management. Problems addressed as follows: #Hypokalemia #Hypomagnesemia Seeing improvement in electrolytes, potassium 3.3, magnesium 1.5, phosphorus 2.2. Replacing per protocol. Repeat BMP, magnesium, phosphorus ordered for the afternoon. Repeat CBC, CMP, magnesium ordered for the morning #Left wrist pain #Arthralgia # Tenosynovitis -MRI obtained, per my review does not show kellen osteomyelitis. Per formal evaluation, findings concerning for tenosynovitis. Nonspecific soft tissue swelling. No kellen evidence of osteomyelitis. Will continue empiric antibiotics and anti-inflammatories. Patient declined arthrocentesis of wrist. Orthopedics will continue to follow along. Patient understands risk of complication with no aspiration or further workup of wrist. -ESR 135, CRP 149. White count normal at 4.8. Repeat CBC, CMP, ESR and CRP ordered for the morning. -Continue Rocephin 2 g daily #Left mural thrombus Per oncology, would like patient to stay on Eliquis 2.5 mg. Patient does have risk of bleeding: Given metastatic cancer but benefits outweigh risk. Continue patient's home Eliquis. #Metastatic neoplasm of the cecum/colon #Adenocarcinoma Follows with Dr. Pruitt. Was supposed to follow-up in office tomorrow. Will have the team reach out and let him know that she is hospitalized. Full code Eliquis Regular diet
[2024-12-30] MEDS: CEFTRIAXONE SODIUM 2 GM in 0.9 % SODIUM CHLORIDE 100 ML IV (21:12)
[2024-12-31] VITALS: PULSE 110
[2024-12-31] MEDS: ACETAMINOPHEN 325MG TAB 650 MG PO (00:05)
[2024-12-31 04:00] VITALS: BP 151/75; PULSE 100; PULSE 106; RESP 16; TEMP 36.8; O2SAT 99; BMI 23.2
--- NOTE | 2024-12-31 04:00 | PC.NURSE ---
Patient is alert and oriented x4. Family members visited with the patient yesterday evening and later departed at bedtime. She was observed to be awake for the majority of the shift. Patient's left wrist/hand was assessed; wrist/hand is slightly bruised with redness and significant swelling noted. Tylenol was requested and given once per MAR this shift for left hand pain. Ice pack application was utilized for additional pain relief. Elevation of the left upper extremity with pillows encouraged. Due to history of malignancy, the patient has a port, of which is currently accessed, to the left side of her chest. Sinus tachycardia on telemetry. Scheduled medications were administered as appropriately per MAR. Upon auscultation of her lungs, diminished lung sounds were heard. Auscultation of heart and bowels were within normal findings. Patient had 1 loose bowel movement with urgency for this shift thus far. Bedside commode/toilet utilized for elimination needs. She has been requiring standby assistance during ambulation/transfers. Blood pressures and heart rate elevated; other vital signs stable. At this time, the patient is resting upright in bed without any further complaints. No acute changes noted thus far. Call light within reach.
[2024-12-31 06:56] LABS: Basophils % 0.4 % (0.1-2.0); Eosinophils # 0.1 K/mm3 (0.0-0.4); Eosinophils % 2.3 % (0.1-12.0); Hematocrit 27.3 % (37.0-47.0); Hemoglobin 8.6 g/dL (12.2-16.2); Lymphocytes # 0.6 K/mm3 (0.7-4.5); Lymphocytes % 12.9 % (10-50); Mean Corpuscular HGB Conc 31.5 g/dL (31.8-35.4); Mean Corpuscular Hemoglobin 29.8 pg (27.0-31.2); Mean Corpuscular Volume 94.5 fl (81-99); Mean Platelet Volume 10.7 fl (7.4-10.4); Monocytes # 0.4 K/mm3 (0.1-1.0); Neutrophils # 3.6 K/mm3 (1.8-7.8); Neutrophils % 76.2 % (37.0-80.0); Platelet Count 202 K/mm3 (142-424); Red Blood Count 2.89 M/mm3 (4.20-5.40); Red Cell Distribution Width 15.5 % (11.5-17.5); White Blood Count 4.7 K/mm3 (4.8-10.8)
[2024-12-31 07:10] LABS: Albumin Level 2.2 g/dl (3.5-5.0); Chloride 107 mmol/L (98-107); Potassium 3.9 mmoL/L (3.5-5.1); Sodium 136 mmol/L (136-145)
[2024-12-31 07:12] LABS: Blood Urea Nitrogen 7 mg/dl (7-17); Creatinine Clearance Estimated 41 mL/min (50-200); Estimated Glomerular Filt Rate 97 ml/min (>60); GFR (African American) 117 ML/MIN (>60)
[2024-12-31 07:13] LABS: Alanine Aminotransferase 8 U/L (12-78); Albumin/Globulin Ratio 0.8 (1.1-1.8); Alkaline Phosphatase 149 U/L (38-126); Anion Gap 4.9 mEq/L (5-15); Aspartate Amino Transferase 17 U/L (14-36); Bilirubin,Total 0.4 mg/dl (0.2-1.3); Calcium 7.6 mg/dl (8.4-10.2); Carbon Dioxide 28 mmol/L (22.0-30.0); Globulin 2.8 g/dL (1.3-3.2); Glucose 90 mg/dl (74-100)
[2024-12-31 07:20] LABS: C-Reactive Protein 193.2 mg/L (0-4)
[2024-12-31 08:00] VITALS: BP 151/72; PULSE 135; RESP 17; TEMP 36.7; O2SAT 98
[2024-12-31 08:39] LABS: Erythrocyte Sedimentation Rate 125 mm/hr (0-30)
[2024-12-31] MEDS: APIXABAN 5MG TABLET 2.5 MG PO (08:59)
--- NOTE | 2024-12-31 09:50 | EXP.DC.SUM ---
General Admission date:: 12/29/24 Discharge date: 12/31/24 HPI HPI HPI: This is a 79-year-old female with a past medical history of adenocarcinoma of the colon, intracardiac thrombus on Eliquis, CAD, hypertension, anemia who presents emergency department today with complaints of generalized weakness, nausea vomiting diarrhea. She reports being started on new chemo medicine with Dr. Szymanski on December 08 (Salvage chemotherapy with Camptosar) and developed significant diarrhea. This was stopped due to persistent diarrhea. She is supposed to have an appointment with him tomorrow to restart medication at 20% reduction. She reports vomiting and a fall at home approximately 1 week ago she feels is related to poor nutritional intake. She presents today status post fall with generalized weakness and left wrist swelling and pain. She also endorses vomiting x 4 episodes today. With persistent diarrhea. Emergency department workup notable for hypokalemia with a potassium of 2.9. Hypomagnesemia with mag level of 0.8. Trauma imaging was obtained and no new findings. She does have osteophytes noted to the left hand and wrist. With soft tissue swelling and edema. Given the fact she lives alone has had persistent weakness with nausea vomiting diarrhea and now electrolyte derangement it was felt she would benefit from hospitalization. She is admitted to the hospital service at this time. Orthopedic service consulted regarding evaluation of left wrist because of redness and swelling inflammatory traumatic versus septic Hospital Course Hospital Course Hospital Course: 79-year-old female with adenocarcinoma, having diarrhea and electrolyte disturbances. Also found to have swollen left wrist. Concerning for gout versus infection. Orthopedics consulted and assisted with care. Patient showed good response during admission to antibiotics. Improvement in redness. Diarrhea improving with improvement in her electrolyte disturbances and kidney dysfunction. Declined aspiration of joint. Stable discharge home to complete antibiotic course with follow-up with oncology and Ortho as an outpatient. Problems addressed as follows: #Hypokalemia #Hypomagnesemia Significant electrolyte disturbances on admission with potassium, magnesium, phosphorus. Replaced aggressively. Improved by day of discharge. Potassium 3.9, magnesium 2.0, kidney function with BUN 7, creatinine 0.6 on day of discharge. Tolerating p.o. intake. Continue supplementation with magnesium and potassium orally at discharge. #Left wrist pain #Arthralgia # Tenosynovitis -MRI obtained, per my review does not show kellen osteomyelitis. Per formal evaluation, findings concerning for tenosynovitis. Nonspecific soft tissue swelling. No kellen evidence of osteomyelitis. Orthopedics was consulted. Patient was initiated on empiric antibiotics. She declined arthrocentesis. Does not want any further workup at this time of her wrist. Inflammatory markers were elevated, showing slight improvement during admission. White count normal at 4.7 on day of discharge. Transitioned from Rocephin to Bactrim double strength twice daily to complete 10-day course. Follow-up with orthopedics as an outpatient for further evaluation -Would benefit from repeat CBC, ESR, CRP at follow-up. #Left mural thrombus Per oncology, would like patient to stay on Eliquis 2.5 mg. Patient does have risk of bleeding: Given metastatic cancer but benefits outweigh risk. Continue patient's home Eliquis. #Metastatic neoplasm of the cecum/colon #Adenocarcinoma Follows with Dr. Pruitt. Follow-up per routine schedule. Defer chemotherapy regimen to oncology Total time spent on discharge 32 minutes in counseling, documentation, chart review, and direct care with patient. Exam Data for Last 24 hours Vital signs and Labs for Last 24 Hours: Temp Pulse Resp BP Pulse Ox O2 Del Method 98.1 F 135 H 17 151/72 H 98 Room Air 12/31/24 08:00 12/31/24 08:00 12/31/24 08:00 12/31/24 08:00 12/31/24 08:00 12/31/24 09:00 Laboratory Results - last 24 hr 12/30/24 11:24: Stl Aeromonas (PCR) Not detected, Stl C. cayetanensis PCR Not detected, Stool Rotavirus (PCR) Not detected, Stl Adenov F 40/41 PCR Not detected, Stool Astrovirus (PCR) Not detected, Stool Campylobacter PCR Not detected, Stl C.difficile Tox PCR Not detected, Stool Cryptosporidium PCR Not detected, Stl E.coli Shiga Tox PCR Not detected, Stool E coli O157 PCR Not detected, Stl Enterotoxigenic E PCR Not detected, Stool EPEC (PCR) Not detected, Stool EAEC (PCR) Not detected, Stl E. histolytica PCR Not detected, Stool Giardia Lamblia PCR Not detected, Stool Salmonella PCR Not detected, Stool Sapovirus (PCR) Not detected, Stl P. shigelloides PCR Not detected, Stl Shigella/EIEC PCR Not detected, St Y.enterocolitica PCR Not detected, Stool Vibrio (PCR) Not detected, Stl Vibrio cholerae PCR Not detected, Stl Norovirus GI/GII PCR Not detected 12/31/24 06:03: WBC 4.7 L, RBC 2.89 L, Hgb 8.6 L, Hct 27.3 L, MCV 94.5, MCH 29.8, MCHC 31.5 L, RDW 15.5, Plt Count 202, MPV 10.7 H, Neut % (Auto) 76.2, Lymph % (Auto) 12.9, [place] % (Auto) 8.0, Eos % (Auto) 2.3, Baso % (Auto) 0.4, Neut # (Auto) 3.6, Lymph # (Auto) 0.6 L, [place] # (Auto) 0.4, Eos # (Auto) 0.1, Baso # (Auto) 0.0, ESR 125 H, Sodium 136, Potassium 3.9, Chloride 107, Carbon Dioxide 28, Anion Gap 4.9 L, BUN 7, Creatinine 0.60, Estimated Creat Clear 41, Estimated GFR 97, Est GFR ( Amer) 117, Glucose 90, Calcium 7.6 L, Magnesium 2.0 D, Total Bilirubin 0.4, AST 17, ALT 8 L, Alkaline Phosphatase 149 H, C-Reactive Protein 193.2 H, Total Protein 5.0 L, Albumin 2.2 L, Globulin 2.8, Albumin/Globulin Ratio 0.8 L I & O for Last 24 hours: Intake & Output 12/28/24 12/29/24 12/30/24 12/31/24 23:59 23:59 23:59 23:59 Intake Total 1100 / 1422 682 / 682 Output Total 700 / 700 200 / 200 Balance 400 / 722 482 / 482 Weight 53.796 kg 53.796 kg 55.747 kg Constitutional Constitutional: no acute distress, thin, chronically ill appearing and cooperative *Routine HEENT Exam Head: Present normocephalic Eye: Present EOMI and PERRL ENT: Present mucous membranes moist *Routine Neck Exam Neck: Present supple; Absent lymphadenopathy *Routine Respiratory Exam Respiratory: Present CTA bilaterally; Absent rhonchi, wheezes or crackles *Routine Cardiovascular Exam Cardiovascular: Present RRR *Routine Abdominal Exam Abdominal: Present soft and normoactive bowel sounds; Absent tenderness, distended or rebound *Routine Rectal Exam Patient deferred: visual exam *Routine Exam Patient deferred: external exam *Routine Extremities Exam Extremities: Present edema (swelling of left wrist, improved erythema); Absent cyanosis or clubbing *Routine Skin Exam Skin: Present warm; Absent rash *Routine Neurological Exam Neurological: Present alert, oriented X3 and moving all extremities; Absent altered mental status Results Data Completed and Pending Labs on day of discharge: Labs from last 24 hours 12/31/24 12/30/24 06:03 11:24 WBC 4.7 L RBC 2.89 L Hgb 8.6 L Hct 27.3 L MCV 94.5 MCH 29.8 MCHC 31.5 L RDW 15.5 Plt Count 202 MPV 10.7 H Neut % (Auto) 76.2 Lymph % (Auto) 12.9 [place] % (Auto) 8.0 Eos % (Auto) 2.3 Baso % (Auto) 0.4 Neut # (Auto) 3.6 Lymph # (Auto) 0.6 L [place] # (Auto) 0.4 Eos # (Auto) 0.1 Baso # (Auto) 0.0 ESR 125 H Sodium 136 Potassium 3.9 Chloride 107 Carbon Dioxide 28 Anion Gap 4.9 L BUN 7 Creatinine 0.60 Estimated Creat Clear 41 Estimated GFR 97 Est GFR ( Amer) 117 Glucose 90 Calcium 7.6 L Magnesium 2.0 D Total Bilirubin 0.4 AST 17 ALT 8 L Alkaline Phosphatase 149 H C-Reactive Protein 193.2 H Total Protein 5.0 L Albumin 2.2 L Globulin 2.8 Albumin/Globulin Ratio 0.8 L Stl Aeromonas (PCR) Not detected Stl C. cayetanensis PCR Not detected Stool Rotavirus (PCR) Not detected Stl Adenov F 40/41 PCR Not detected Stool Astrovirus (PCR) Not detected Stool Campylobacter PCR Not detected Stl C.difficile Tox PCR Not detected Stool Cryptosporidium PCR Not detected Stl E.coli Shiga Tox PCR Not detected Stool E coli O157 PCR Not detected Stl Enterotoxigenic E PCR Not detected Stool EPEC (PCR) Not detected Stool EAEC (PCR) Not detected Stl E. histolytica PCR Not detected Stool Giardia Lamblia PCR Not detected Stool Salmonella PCR Not detected Stool Sapovirus (PCR) Not detected Stl P. shigelloides PCR Not detected Stl Shigella/EIEC PCR Not detected St Y.enterocolitica PCR Not detected Stool Vibrio (PCR) Not detected Stl Vibrio cholerae PCR Not detected Stl Norovirus GI/GII PCR Not detected DS: Diagnosis Discharge Diagnosis (1) Hypokalemia: Status: Acute Code(s): E87.6 - Hypokalemia (2) Hypomagnesemia: Status: Acute Code(s): E83.42 - Hypomagnesemia (3) Arthralgia: Status: Acute Code(s): M25.50 - Pain in unspecified joint (4) Left wrist pain: Status: Acute Code(s): M25.532 - Pain in left wrist (5) Malignant neoplasm of cecum: Status: Acute Code(s): C18.0 - Malignant neoplasm of cecum (6) LV (left ventricular) mural thrombus: Status: Acute Code(s): I51.3 - Intracardiac thrombosis, not elsewhere classified (7) Tenosynovitis of left wrist: Status: Acute Code(s): M65.932 - Unspecified synovitis and tenosynovitis, left forearm Meds Home Medications and Allergies Home Medications ?Medication ?Instructions ?Recorded ?Confirmed ?Type ferrous sulfate 325 mg (65 mg 325 mg PO DAILY #30 tabs 08/27/23 01/06/25 Rx iron) tablet (FeroSul) loperamide 2 mg capsule 2 mg PO TID PRN diarrhea 90 days 06/02/24 01/06/25 Rx #270 caps colestipol 1 gram tablet (Colestid) 1 g PO BID #60 tabs 07/07/24 01/06/25 Rx metoprolol succinate 100 mg 100 mg PO DAILY #30 tabs 07/15/24 01/06/25 Rx tablet,extended release 24 hr (Toprol XL) apixaban 2.5 mg tablet (Eliquis) 2.5 mg PO BID #60 tabs 12/03/24 01/06/25 Rx potassium chloride 20 mEq 20 meq PO DAILY 12/08/24 01/06/25 History tablet,extended release prochlorperazine maleate 10 mg 10 mg PO Q6H PRN nausea and 12/08/24 01/06/25 Rx tablet (Compazine) vomiting #30 tabs diphenoxylate-atropine 2.5 1 tab PO QID PRN diarrhea #30 tabs 12/15/24 01/06/25 Rx mg-0.025 mg tablet (Lomotil) magnesium oxide 400 mg PO BID #60 tabs 12/17/24 01/06/25 Rx sulfamethoxazole 800 1 tab PO BID 8 days #16 tabs 12/31/24 01/06/25 Rx mg-trimethoprim 160 mg tablet (Bactrim DS) New Prescriptions to Start Prescriptions: sulfamethoxazole-trimethoprim [Bactrim DS] Antonio Garnica Allergies Allergy/AdvReac Type Severity Reaction Status Date / Time No Known Allergies Allergy Verified 01/06/25 10:16 Discharge Plan Disposition Patient Disposition: Home Health Service Condition: Fair Discharge Order Discharge Orders: Discharge Order (Routine); Ordered 12/31/24 Ordered By: Antonio Garnica Follow up Plan Follow up with: Yasir Pascual DO [Staff Physician] - 01/14/25 2:00 pm Uri Pruitt MD [Staff Physician] - Enter time for follow up (please call office for follow up appointment) Prescriptions/Medication Reconciliation: New sulfamethoxazole-trimethoprim [Bactrim DS] 800-160 mg tablet 1 tab PO BID 8 Days Qty: 16 0RF Continued colestipol [Colestid] 1 gram tablet 1 g PO BID Qty: 60 12RF magnesium oxide 400 mg magnesium tablet 400 mg PO BID Qty: 60 3RF metoprolol succinate [Toprol XL] 100 mg tablet extended release 24 hr 100 mg PO DAILY Qty: 30 5RF Eliquis 2.5 mg tablet 2.5 mg PO BID Qty: 60 3RF ferrous sulfate [FeroSul] 325 mg (65 mg iron) tablet 325 mg PO DAILY Qty: 30 3RF loperamide 2 mg capsule 2 mg PO TID PRN (Reason: diarrhea) 90 Days Qty: 270 0RF prochlorperazine maleate [Compazine] 10 mg tablet 10 mg PO Q6H PRN (Reason: nausea and vomiting) Qty: 30 0RF Rx Instructions: take one tablet by mouth every 6 hrs as needed for N/V diphenoxylate-atropine [Lomotil] 2.5-0.025 mg tablet 1 tab PO QID PRN (Reason: diarrhea) Qty: 30 0RF potassium chloride 20 mEq tablet extended release 20 meq PO DAILY Problem Reconciliation Problems Reviewed?: Yes Patient Discharge Instructions ACTIVITY: Continue current activity DIET: continue same diet Patient Instructions: DI for Hypokalemia Print Language: Faroese Providers Primary Care Provider: Provider,Referral Admit Provider: Antonio Garnica Attending Provider: Antonio Garnica
[2024-12-31 11:37] VITALS: BP 159/64; PULSE 128; RESP 17; TEMP 36.6; O2SAT 100
--- NOTE | 2024-12-31 15:52 | HMH.OTEV ---
OT Inpatient Evaluation Rehab OT IP Evaluation Start: 12/30/24 09:45 Freq: ONCE Status: Discharge Protocol: Document 12/30/24 15:50 KOSTAS (Rec: 12/31/24 15:52 KOSTAS [id number]) Rehab OT IP Assessment Subjective History This is a 79-year-old female with a past medical history of adenocarcinoma of the colon, intracardiac thrombus on Eliquis, CAD, hypertension, anemia who presents emergency department today with complaints of generalized weakness, nausea vomiting diarrhea. She reports being started on new chemo medicine with Dr. Szymanski on December 08 (Salvage chemotherapy with Camptosar) and developed significant diarrhea. This was stopped due to persistent diarrhea. She is supposed to have an appointment with him tomorrow to restart medication at 20% reduction. She reports vomiting and a fall at home approximately 1 week ago she feels is related to poor nutritional intake. She presents today status post fall with generalized weakness and left wrist swelling and pain. She also endorses vomiting x 4 episodes today. With persistent diarrhea. Emergency department workup notable for hypokalemia with a potassium of 2.9. Hypomagnesemia with mag level of 0.8. Trauma imaging was obtained and no new findings. She does have osteophytes noted to the left hand and wrist. With soft tissue swelling and edema. Given the fact she lives alone has had persistent weakness with nausea vomiting diarrhea and now electrolyte derangement it was felt she would benefit from hospitalization. She is admitted to the hospital service at this time. Subjective I can get up. Instructed Patient on safety awareness to complete bed mobility, transfers training and LB drsg. Patient completed all tasks with Min A for safety. Objective Patient Orientation Person,Place,Name,Birthday Right Upper Extremity Gross ROM WFL Left Upper Extremity Gross ROM WFL Bed Mobility bed mobility - supine/sit Assist Level Contact Guard/Hand Hold Transfer Training Sit/Stand/Step Transfer Assist Level Contact Guard/Hand Hold Chair Transfer Ability Contact Guard/Hand Hold Chair Transfer Technique Sit to/from Ambulatory Chair Transfer Assistive Devices Rolling Walker Rehab OT IP prob,goals,plan Problems Date of Evaluation: 12/31/24 OT IP Problems Bed Mobility,Transfers,Balance ,Self care,Safety Rehab Potential Rehab Potential Good Equipment Needs Assistive Devices Rolling / Wheeled Walker Plan OT intervention Plan Bed Mobility,Transfers,Balance ,Self care,Safety,Therapeutic Exercise OT Plan Frequency Daily Duration LOS Discharge Goals Bed Mobility Ability Assistance x1 Sit to Stand Chair Transfer Ability Contact Guard/Hand Hold Chair Transfer Ability Contact Guard/Hand Hold Chair Transfer Technique Sit to/from Ambulatory Chair Transfer Assistive Devices Rolling Walker Discharge Plan OT Discharge Plan Recommend patient to return home after medical d/c. Patient to continue skilled OT IP services while here at [facility] . Eval Complexity Eval Charge Codes 88673 - Low Complexity PHYSICIAN CERTIFICATION: I certify the specified therapy services for Viviane Richard are required, authorized, and reviewed every 30 days.
--- NOTE | 2025-01-01 12:02 | SW/DCPLANNER ---
Spoke with patient on the phone. Patient stated that she is doing okay. Patient stated that she is aware of her upcoming appointments. Patient stated that she was able to get her new medicine picked up. Patient stated that she has no concerns or question at this time. Benjamin Eisenberg
== END 2024-12-31 13:30 | disposition home health service (06) ==
LOC: ER 20:47 → 2ND 21:03
PROVIDERS: Nurse Practitioner Acute Care; Physician Assistant; Admitting Provider Internal Medicine Adolescent Medicine; Emergency Provider Emergency Medicine; Visit Provider Internal Medicine Adolescent Medicine
DX: M25.532 Pain in left wrist (principal); E87.6 Hypokalemia; C18.0 Malignant neoplasm of cecum; I51.3 Intracardiac thrombosis, not elsewhere classified; E83.42 Hypomagnesemia; M65.932 Unspecified synovitis and tenosynovitis, left forearm; Z79.01 Long term (current) use of anticoagulants; Z79.899 Other long term (current) drug therapy; I50.22 Chronic systolic (congestive) heart failure; I11.0 Hypertensive heart disease with heart failure; D50.9 Iron deficiency anemia, unspecified; Z96.653 Presence of artificial knee joint, bilateral; W01.0XXA Fall on same level from slipping, tripping and stumbling without subsequent striking against object, initial encounter; Z79.634 Long term (current) use of topoisomerase inhibitor; K52.1 Toxic gastroenteritis and colitis
CPT/HCPCS: 70450; 70496; 70498; 71275; 72125; 72128; 72131; 72192; 73090; 73110; 73130; 73223; 74174; 80048; 80053; 83735; 84100; 84550; 85025; 85651; 86140; 86803; 87389; 87507; 93005; 97110; 97163; 97165; 99291; A9576; G0378; J0696; J1642; J2405; J3475; J7030; Q9967

== ENCOUNTER 2025-01-06 09:29 | Outpatient (CLI) | payer MEDICARE, OTHER, SELFPAY ==
[2025-01-06 09:55] LABS: Albumin Level 2.9 g/dl (3.5-5.0); Basophils # 0.1 K/mm3 (0-0.2); Basophils % 0.9 % (0.1-2.0); Chloride 105 mmol/L (98-107); Eosinophils # 0.2 K/mm3 (0.0-0.4); Eosinophils % 4.1 % (0.1-12.0); Hematocrit 29.9 % (37.0-47.0); Hemoglobin 9.2 g/dL (12.2-16.2); Lymphocytes # 0.9 K/mm3 (0.7-4.5); Lymphocytes % 15.7 % (10-50); Mean Corpuscular HGB Conc 30.8 g/dL (31.8-35.4); Mean Corpuscular Hemoglobin 29.3 pg (27.0-31.2); Mean Corpuscular Volume 95.2 fl (81-99); Mean Platelet Volume 9.4 fl (7.4-10.4); Monocytes # 0.4 K/mm3 (0.1-1.0); Monocytes % 7.7 % (1.7-9.3); Neutrophils # 3.9 K/mm3 (1.8-7.8); Neutrophils % 71.1 % (37.0-80.0); Platelet Count 372 K/mm3 (142-424); Red Blood Count 3.14 M/mm3 (4.20-5.40); Red Cell Distribution Width 15.5 % (11.5-17.5); White Blood Count 5.6 K/mm3 (4.8-10.8)
[2025-01-06 09:56] LABS: Potassium 4.3 mmoL/L (3.5-5.1); Sodium 136 mmol/L (136-145)
[2025-01-06 09:58] LABS: Anion Gap 8.3 mEq/L (5-15); Blood Urea Nitrogen 5 mg/dl (7-17); Carbon Dioxide 27 mmol/L (22.0-30.0); Estimated Glomerular Filt Rate 54 ml/min (>60); GFR (African American) 65 ML/MIN (>60)
[2025-01-06 09:59] LABS: Alanine Aminotransferase 11 U/L (12-78); Albumin/Globulin Ratio 0.9 (1.1-1.8); Alkaline Phosphatase 185 U/L (38-126); Aspartate Amino Transferase 23 U/L (14-36); Bilirubin,Total 0.4 mg/dl (0.2-1.3); Calcium 8.7 mg/dl (8.4-10.2); Globulin 3.3 g/dL (1.3-3.2); Glucose 96 mg/dl (74-100); Magnesium 1.6 mg/dl (1.6-2.3); Total Protein,Serum 6.2 g/dl (6.3-8.2)
[2025-01-06] MEDS: SODIUM CHLORIDE 0.9% 10ML FLUSH SYRINGE 10 ML IV (10:58)
== END 2025-01-06 10:47 | disposition home or self-care (01) ==
LOC: INF 09:30
PROVIDERS: PCP Family Medicine; Visit Provider Internal Medicine Medical Oncology
DX: C18.9 Malignant neoplasm of colon, unspecified (principal); C78.7 Secondary malignant neoplasm of liver and intrahepatic bile duct
CPT/HCPCS: 36591; 80053; 83735; 85025; J1642

== ENCOUNTER 2025-01-13 09:08 | Outpatient (CLI) | payer MEDICARE, OTHER, SELFPAY ==
[2025-01-13 14:31] LABS: Iron 48 ug/dL (37-170)
[2025-01-13 14:42] LABS: Total Iron Binding Capacity 227 ug/dL (265-497)
[2025-01-13 15:06] LABS: Ferritin 211 ng/ml (11.1-264)
== END 2025-01-13 23:59 | disposition home or self-care (01) ==
LOC: LAB.DROPOF 01-15 09:10
PROVIDERS: PCP Family Medicine; Visit Provider Internal Medicine Medical Oncology
DX: C18.9 Malignant neoplasm of colon, unspecified (principal)
CPT/HCPCS: 82728; 83540; 83550

== ENCOUNTER 2025-01-13 10:20 | Outpatient (CLI) | payer MEDICARE, OTHER, SELFPAY ==
[2025-01-13 10:45] LABS: Basophils % 0.5 % (0.1-2.0); Eosinophils # 0.3 K/mm3 (0.0-0.4); Eosinophils % 3.6 % (0.1-12.0); Hematocrit 28.6 % (37.0-47.0); Hemoglobin 8.8 g/dL (12.2-16.2); Lymphocytes # 0.8 K/mm3 (0.7-4.5); Lymphocytes % 9.9 % (10-50); Mean Corpuscular HGB Conc 30.8 g/dL (31.8-35.4); Mean Corpuscular Hemoglobin 29.9 pg (27.0-31.2); Mean Corpuscular Volume 97.3 fl (81-99); Mean Platelet Volume 9.4 fl (7.4-10.4); Monocytes # 0.4 K/mm3 (0.1-1.0); Monocytes % 5.6 % (1.7-9.3); Neutrophils # 6.1 K/mm3 (1.8-7.8); Neutrophils % 80.1 % (37.0-80.0); Nucleated Red Blood Cells # 0 10^3/uL; Nucleated Red Blood Cells % 0 %; Platelet Count 294 K/mm3 (142-424); Red Blood Count 2.94 M/mm3 (4.20-5.40); Red Cell Distribution Width 16.3 % (11.5-17.5); Red Cell Distribution Width-SD 58.4 fL; White Blood Count 7.6 K/mm3 (4.8-10.8)
[2025-01-13 10:57] LABS: Albumin Level 2.9 g/dl (3.5-5.0); Chloride 104 mmol/L (98-107); Potassium 3.8 mmoL/L (3.5-5.1); Sodium 137 mmol/L (136-145)
[2025-01-13 11:00] LABS: Alanine Aminotransferase 10 U/L (12-78); Albumin/Globulin Ratio 0.9 (1.1-1.8); Alkaline Phosphatase 162 U/L (38-126); Anion Gap 8.8 mEq/L (5-15); Aspartate Amino Transferase 21 U/L (14-36); Bilirubin,Total 0.5 mg/dl (0.2-1.3); Blood Urea Nitrogen 11 mg/dl (7-17); Carbon Dioxide 28 mmol/L (22.0-30.0); Estimated Glomerular Filt Rate 48 ml/min (>60); GFR (African American) 58 ML/MIN (>60); Globulin 3.2 g/dL (1.3-3.2); Total Protein,Serum 6.1 g/dl (6.3-8.2)
[2025-01-13 11:01] LABS: Glucose 97 mg/dl (74-100)
[2025-01-13] MEDS: SODIUM CHLORIDE 0.9% 10ML FLUSH SYRINGE 10 ML IV (12:33)
== END 2025-01-13 12:38 | disposition home or self-care (01) ==
LOC: INF 10:23
PROVIDERS: PCP Family Medicine; Visit Provider Internal Medicine Medical Oncology
DX: C18.9 Malignant neoplasm of colon, unspecified (principal)
CPT/HCPCS: 36591; 80053; 85025; J1642

== ENCOUNTER 2025-02-01 20:41 | Inpatient (IN) | payer MEDICARE, OTHER, SELFPAY ==
[2025-02-01] VITALS (15 sets, daily range): BP systolic 140–186; BP diastolic 71–115; PULSE 89–120; RESP 14–16; TEMP 37.2–37.4; O2SAT 92–98; BMI 29.2
--- NOTE | 2025-02-01 21:16 | CT_ITS ---
PROCEDURE INFORMATION: Exam: CT Abdomen And Pelvis With Contrast Exam date and time: 02/01/2025 10:11 PM Age: 79 years old Clinical indication: Abdominal pain; Additional info: Nausea vomiting diarrhea, widespread colon cancer TECHNIQUE: Imaging protocol: Computed tomography of the abdomen and pelvis with contrast. Radiation optimization: All CT scans at this facility use at least one of these dose optimization techniques: automated exposure control; mA and/or kV adjustment per patient size (includes targeted exams where dose is matched to clinical indication); or iterative reconstruction. Contrast material: ISOVUE; Contrast volume: 75 ml; Contrast route: IV; COMPARISON: CT ANGIO ABD/PEL - TRAUMA 12/29/2024 6:59 PM FINDINGS: Tubes, catheters and devices: None noted. Lungs: Lung bases appear clear. Heart: No significant coronary calcifications. No cardiomegaly. No significant pericardial effusion. Liver: Hepatic metastatic disease. Gallbladder and biliary ducts: Cholecystectomy. No ductal dilation. Pancreas: Normal. No ductal dilation. Spleen: Normal. No splenomegaly. Adrenal glands: Normal. No mass. Kidneys and ureters: Normal. No hydronephrosis. Stomach and bowel: Cecal mass. Mass in the hepatic flexure with lead point intussusception into the transverse colon. Appendix: No evidence of appendicitis. Intraperitoneal space: Malignant ascites. No free air. No significant fluid collection. Retroperitoneal space: No significant retroperitoneal inflammatory changes are noted. Vasculature: Unremarkable. No abdominal aortic aneurysm. Lymph nodes: Unremarkable. No enlarged lymph nodes. Urinary bladder: Unremarkable as visualized. Reproductive: Unremarkable as visualized. Bones/joints: Unremarkable. No acute fracture. Soft tissues: Unremarkable. IMPRESSION: 1. 4 cm mass in the hepatic flexure with lead point intussusception into the transverse colon. 2. Cecal mass 8 cm. 3. Hepatic metastatic disease. 4. Malignant ascites.
--- NOTE | 2025-02-01 21:16 | ED_ITS ---
Discharge Plan Disposition Patient Disposition: Home, Self-Care Chief Complaint: Nausea/Vomiting/Diarrhea Prescriptions Prescriptions: No Action colestipol [Colestid] 1 gram tablet 1 g PO BID Qty: 60 12RF magnesium oxide 400 mg magnesium tablet 400 mg PO BID Qty: 60 3RF Eliquis 2.5 mg tablet 2.5 mg PO BID Qty: 60 3RF ferrous sulfate [FeroSul] 325 mg (65 mg iron) tablet 325 mg PO DAILY Qty: 30 3RF prochlorperazine maleate [Compazine] 10 mg tablet 10 mg PO Q6H PRN (Reason: nausea and vomiting) Qty: 30 0RF Rx Instructions: take one tablet by mouth every 6 hrs as needed for N/V diphenoxylate-atropine [Lomotil] 2.5-0.025 mg tablet 1 tab PO QID PRN (Reason: diarrhea) Qty: 30 0RF loperamide 2 mg capsule 2 mg PO TID PRN (Reason: diarrhea) 90 Days Qty: 270 0RF doxepin 10 mg capsule 10 mg PO BID 90 Days Qty: 180 0RF metoprolol succinate [Toprol XL] 100 mg tablet extended release 24 hr 100 mg PO DAILY 90 Days Qty: 90 0RF potassium chloride 20 mEq tablet extended release 20 meq PO DAILY sulfamethoxazole-trimethoprim [Bactrim DS] 800-160 mg tablet 1 tab PO BID 8 Days Qty: 16 0RF Clinical Impressions Clinical Impression: Colon cancer, Hypomagnesemia, Acute hypokalemia, Acute hyponatremia Print Language Print Language: [place] Discharge ED Provider: Eliseo Jung General Adult HPI <NADIRA Guzman - Last Filed: 02/01/25 21:39> General Chief complaint: Nausea/Vomiting/Diarrhea Stated complaint: V/D,stomach pain,low blood count Time Seen by Provider: 02/01/25 20:53 Mode of Arrival: Ambulatory Source of Information: Patient and Relative Description of Symptoms (Recalled from ER Triage Doc. by RN): Pt presents for evaluation of decreased appetite, and vomiting and diarrhea. Pt states she has a hx of colon cancer with mets to liver and stomach. Last chemo was 2 months ago. Per family patient has not ate much in the last 2 days. History of Present Illness HPI narrative: Patient presents for evaluation of nausea vomiting diarrhea. Patient's daughter accompanies her and states that over the last 2 days she is not eaten much or drank much. Patient has widely metastatic colon cancer and is now reached the end of therapeutic treatment. Dr. Edwards of oncology offered hospice however patient declined at the time. She denies any chest pain fever chills hemoptysis hematochezia melena hematemesis hematuria. She denies any abdominal pain currently. Related Data Home Medications ?Medication ?Instructions ?Recorded ?Confirmed potassium chloride 20 mEq 20 meq PO DAILY 12/08/24 01/13/25 tablet,extended release Previous Rx's ?Medication ?Instructions ?Recorded ferrous sulfate 325 mg (65 mg 325 mg PO DAILY #30 tabs 08/27/23 iron) tablet (FeroSul) colestipol 1 gram tablet (Colestid) 1 g PO BID #60 tabs 07/07/24 apixaban 2.5 mg tablet (Eliquis) 2.5 mg PO BID #60 tabs 12/03/24 prochlorperazine maleate 10 mg 10 mg PO Q6H PRN nausea and 12/08/24 tablet (Compazine) vomiting #30 tabs diphenoxylate-atropine 2.5 1 tab PO QID PRN diarrhea #30 tabs 12/15/24 mg-0.025 mg tablet (Lomotil) magnesium oxide 400 mg PO BID #60 tabs 12/17/24 sulfamethoxazole 800 1 tab PO BID 8 days #16 tabs 12/31/24 mg-trimethoprim 160 mg tablet (Bactrim DS) doxepin 10 mg capsule 10 mg PO BID 90 days #180 caps 01/21/25 loperamide 2 mg capsule 2 mg PO TID PRN diarrhea 90 days 01/21/25 #270 caps metoprolol succinate 100 mg 100 mg PO DAILY 90 days #90 tabs 01/21/25 tablet,extended release 24 hr (Toprol XL) Allergies Allergy/AdvReac Type Severity Reaction Status Date / Time No Known Allergies Allergy Verified 01/13/25 10:49 [facility] <NADIRA Guzman - Last Filed: 02/01/25 21:39> [facility] Disclaimer: The information contained in this section may have been updated after the patient was seen, as this information can be updated by other users. 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 History of hysterectomy Family History Mother Cancer Father Coronary artery disease Social History Smoking Status: Never smoker alcohol intake: never substance use type: denies use current occupational status: unemployed and retired Travel in the last 8 weeks?: None household members: none housing: house lives independently: Yes marital status: Have you lived/traveled outside [place] in past 30 days?: No Contact w/someone who lives/traveled outside US past 30 days?: No Exposure to someone with infectious disease in past 14 days?: No Do you have a fever (greater than 100.4 F or 38 C)?: No Have you tested positive for COVID-19?: No Exposed to someone with COVID-19 in past 14 days?: No Do you have a sore throat?: No Do you have a cough?: No Do you have any weakness?: No Do you have any diarrhea?: Yes Are you experiencing any unusual bleeding?: No Do you have any muscle aches/pain?: Yes Do you have any abdominal pain?: No Are you experiencing loss of taste or smell?: No Other Medical History Have you received the Flu Vaccine for this season: No Have you received the Pneumonia Vaccine: No <NADIRA Guzman - Last Filed: 02/01/25 21:39> ROS Obtained: Yes Systems reviewed as appropriate & no additional complaints except as documented Physical Exam <NADIRA Guzman - Last Filed: 02/01/25 21:39> General General appearance: alert Respiratory Respiratory exam: Present normal lung sounds bilaterally Cardiovascular Cardiovascular exam: Present tachycardia Neurological Exam Neurological exam: Present alert Medical Decision Making <NADIRA Guzman - Last Filed: 02/01/25 21:39> Medical Records Medical records reviewed: Yes I reviewed the patient's medical records. Screening: Per USPSTF and CDC recommendations, given the prevalence of disease in our region, it is our hospital?s policy to screen for HIV and viral Hepatitis for all patients aged 18 and over and those with ongoing risk factors. Jn Inquiry Pt receiving controlled substance: No Vital Signs: 02/01/25 20:47 02/01/25 21:00 02/01/25 21:10 Temperature 99.4 F Temperature Source Temporal Artery Scan Pulse Rate 95 H 89 Pulse Rate [Right] 120 H Respiratory Rate 16 Blood Pressure 152/71 H 163/85 H Blood Pressure [Right Arm] 140/81 Blood Pressure Mean [Right Arm] 100 Blood Pressure Source [Right Arm] Automatic Cuff Blood Pressure Position [Right Arm] Sitting 02 Sat by Pulse Oximetry 98 98 98 Oxygen Delivery Method Room Air 02/01/25 21:20 02/01/25 21:30 02/01/25 21:40 Temperature Temperature Source Pulse Rate 95 H 90 93 H Pulse Rate [Right] Respiratory Rate Blood Pressure 168/84 H 164/84 H 161/73 H Blood Pressure [Right Arm] Blood Pressure Mean [Right Arm] Blood Pressure Source [Right Arm] Blood Pressure Position [Right Arm] 02 Sat by Pulse Oximetry 95 98 96 Oxygen Delivery Method 02/01/25 21:50 02/01/25 22:00 02/01/25 22:20 Temperature Temperature Source Pulse Rate 92 H 94 H 112 H Pulse Rate [Right] Respiratory Rate Blood Pressure 166/83 H 142/115 H 186/93 H Blood Pressure [Right Arm] Blood Pressure Mean [Right Arm] Blood Pressure Source [Right Arm] Blood Pressure Position [Right Arm] 02 Sat by Pulse Oximetry 96 96 98 Oxygen Delivery Method Room Air Room Air Room Air 02/01/25 22:30 Temperature Temperature Source Pulse Rate 110 H Pulse Rate [Right] Respiratory Rate Blood Pressure 181/92 H Blood Pressure [Right Arm] Blood Pressure Mean [Right Arm] Blood Pressure Source [Right Arm] Blood Pressure Position [Right Arm] 02 Sat by Pulse Oximetry 97 Oxygen Delivery Method Room Air Lab Data Lab results reviewed: Yes I reviewed the patient's lab results. Lab Results 02/01/25 21:30: WBC 3.6 L, RBC 2.97 L, Hgb 9.1 L, Hct 27.6 L, MCV 92.9, MCH 30.6, MCHC 33.0, RDW 14.2, Plt Count 193, MPV 9.7, Neut % (Auto) 82.4 H, Lymph % (Auto) 8.1 L, [place] % (Auto) 7.5, Eos % (Auto) 0.8, Baso % (Auto) 0.6, Neut # (Auto) 3.0, Lymph # (Auto) 0.3 L, [place] # (Auto) 0.3, Eos # (Auto) 0.0, Baso # (Auto) 0.0, Total Counted 100, Neutrophils % (Manual) 85 H, Band Neutrophils % 1, Lymphocytes % (Manual) 7 L, Monocytes % (Manual) 5, Eosinophils % (Manual) 2, Platelet Estimate Normal, RBC Morphology Normal, Hypochromasia 1+, PT 13.0 H, I NR 1.18 H, Sodium 130 L, Potassium 2.9 L*, Chloride 100, Carbon Dioxide 29, A nion Gap 3.9 L, BUN 7, Creatinine 1.00, Estimated Creat Clear 51, Estimated GFR 54 L, Est GFR ( Amer) 65, Glucose 147 H, Lactate 0.9, Calcium 7.4 L, M agnesium 1.1 L, Total Bilirubin 0.8, AST 21, ALT 8 L, Alkaline Phosphatase 185 H , Total Protein 5.6 L, Albumin 2.6 L, Globulin 3.0, Albumin/Globulin Ratio 0.9 L , Procalcitonin 0.691 02/01/25 21:30 02/01/25 21:30 Orders (Tests/Meds): ED MEDICATIONS Generic Name Dose Route Start Last Admin Trade Name Freq PRN Reason Stop Dose Admin Potassium Chloride/Water 100 mls @ 50 mls/hr 02/01/25 21:55 02/01/25 22:15 Potassium Chloride 20meq/100ml Ivpb IV 02/02/25 03:54 50 mls/hr Q2H JAIME Administration Discontinued Medications Generic Name Dose Route Start Last Admin Trade Name Freq PRN Reason Stop Dose Admin Sodium Chloride 1,000 mls @ 999 mls/hr 02/01/25 21:16 02/01/25 21:40 Sod Chlor 0.9% 1000ml Bag IV 02/01/25 22:16 999 mls/hr .Q1H1M ONE Administration Magnesium Sulfate 2 gm in 50 mls @ 50 mls/hr 02/01/25 21:59 02/01/25 22:15 Magnesium Sulfate 2gm/50ml Premix IV 02/01/25 22:58 50 mls/hr ONCE ONE Administration Iopamidol 75 ml 02/01/25 22:19 02/01/25 22:20 Iopamidol-370 (76%);100ml Bottle IV 02/01/25 22:20 75 ml ONCE ONE Administration Ondansetron HCl 4 mg 02/01/25 21:16 02/01/25 21:40 Ondansetron 4mg/2ml Vial IV 02/01/25 21:17 4 mg ONCE ONE Administration Sodium Chloride 10 ml 02/01/25 22:19 02/01/25 22:20 Sodium Chloride 0.9% 10ml Syr (Rad Only) IV 02/01/25 22:20 10 ml ONCE ONE Administration ORDERS Category Date Time Status CT abdomen pelvis w con Stat Cat Scan 02/01/25 21:16 Completed CBC w/Auto Diff [Complete Blood Count Auto Diff] Stat Lab 02/01/25 21:30 Completed CMP [Comprehensive Metabolic Panel] Stat Lab 02/01/25 21:30 Completed INR [Prothrombin Time INR] Stat Lab 02/01/25 21:30 Completed Lactic Acid Stat Lab 02/01/25 21:30 Completed Magnesium Stat Lab 02/01/25 21:30 Completed Procalcitonin Stat Lab 02/01/25 21:30 Completed Medical Decision Narrative: In summary patient is a 79-year-old female who presents to the emergency department for evaluation of nausea vomiting diarrhea. Patient has a history of widely metastatic colon cancer that is failed salvage chemotherapy. Patient has not had chemotherapy in 2 months. She does far has declined hospice care.. Patient is normotensive with a blood pressure 140/81 tachycardic at 120 sinus tachycardia the bedside monitor breathing 16 times a minute satting at 98% on room air upon arrival, with a temperature of 99.4. Physical exam reveals a well-nourished well-developed 79-year-old female who currently is in no acute distress. Physical exam reveals nontender abdomen with hypoactive bowel sounds clear breath sounds without any adventitious sounds or increased work of breathing. Differential diagnosis includes bowel obstruction versus electrolyte abnormality versus enteritis versus worsening cancer etc. Initial workup will be conducted with hematologic labs CT scan abdomen pelvis. Initial interventions include crystalloid bolus Zofran. Initial workup ordered and pending at the time of handoff to Dr. Jung at 2200 hrs. <Eliseo Jung MD - Last Filed: 02/01/25 23:10> Vital Signs: 02/01/25 20:47 02/01/25 21:00 02/01/25 21:10 Temperature 99.4 F Temperature Source Temporal Artery Scan Pulse Rate 95 H 89 Pulse Rate [Right] 120 H Respiratory Rate 16 Blood Pressure 152/71 H 163/85 H Blood Pressure [Right Arm] 140/81 Blood Pressure Mean [Right Arm] 100 Blood Pressure Source [Right Arm] Automatic Cuff Blood Pressure Position [Right Arm] Sitting 02 Sat by Pulse Oximetry 98 98 98 Oxygen Delivery Method Room Air 02/01/25 21:20 02/01/25 21:30 02/01/25 21:40 Temperature Temperature Source Pulse Rate 95 H 90 93 H Pulse Rate [Right] Respiratory Rate Blood Pressure 168/84 H 164/84 H 161/73 H Blood Pressure [Right Arm] Blood Pressure Mean [Right Arm] Blood Pressure Source [Right Arm] Blood Pressure Position [Right Arm] 02 Sat by Pulse Oximetry 95 98 96 Oxygen Delivery Method 02/01/25 21:50 02/01/25 22:00 02/01/25 22:20 Temperature Temperature Source Pulse Rate 92 H 94 H 112 H Pulse Rate [Right] Respiratory Rate Blood Pressure 166/83 H 142/115 H 186/93 H Blood Pressure [Right Arm] Blood Pressure Mean [Right Arm] Blood Pressure Source [Right Arm] Blood Pressure Position [Right Arm] 02 Sat by Pulse Oximetry 96 96 98 Oxygen Delivery Method Room Air Room Air Room Air 02/01/25 22:30 Temperature Temperature Source Pulse Rate 110 H Pulse Rate [Right] Respiratory Rate Blood Pressure 181/92 H Blood Pressure [Right Arm] Blood Pressure Mean [Right Arm] Blood Pressure Source [Right Arm] Blood Pressure Position [Right Arm] 02 Sat by Pulse Oximetry 97 Oxygen Delivery Method Room Air Lab Data Lab Results 02/01/25 21:30: WBC 3.6 L, RBC 2.97 L, Hgb 9.1 L, Hct 27.6 L, MCV 92.9, MCH 30.6, MCHC 33.0, RDW 14.2, Plt Count 193, MPV 9.7, Neut % (Auto) 82.4 H, Lymph % (Auto) 8.1 L, [place] % (Auto) 7.5, Eos % (Auto) 0.8, Baso % (Auto) 0.6, Neut # (Auto) 3.0, Lymph # (Auto) 0.3 L, [place] # (Auto) 0.3, Eos # (Auto) 0.0, Baso # (Auto) 0.0, Total Counted 100, Neutrophils % (Manual) 85 H, Band Neutrophils % 1, Lymphocytes % (Manual) 7 L, Monocytes % (Manual) 5, Eosinophils % (Manual) 2, Platelet Estimate Normal, RBC Morphology Normal, Hypochromasia 1+, PT 13.0 H, I NR 1.18 H, Sodium 130 L, Potassium 2.9 L*, Chloride 100, Carbon Dioxide 29, A nion Gap 3.9 L, BUN 7, Creatinine 1.00, Estimated Creat Clear 51, Estimated GFR 54 L, Est GFR ( Amer) 65, Glucose 147 H, Lactate 0.9, Calcium 7.4 L, M agnesium 1.1 L, Total Bilirubin 0.8, AST 21, ALT 8 L, Alkaline Phosphatase 185 H , Total Protein 5.6 L, Albumin 2.6 L, Globulin 3.0, Albumin/Globulin Ratio 0.9 L , Procalcitonin 0.691 Orders (Tests/Meds): ED MEDICATIONS Generic Name Dose Route Start Last Admin Trade Name Freq PRN Reason Stop Dose Admin Potassium Chloride/Water 100 mls @ 50 mls/hr 02/01/25 21:55 02/01/25 22:15 Potassium Chloride 20meq/100ml Ivpb IV 02/02/25 03:54 50 mls/hr Q2H JAIME Administration Discontinued Medications Generic Name Dose Route Start Last Admin Trade Name Freq PRN Reason Stop Dose Admin Sodium Chloride 1,000 mls @ 999 mls/hr 02/01/25 21:16 02/01/25 21:40 Sod Chlor 0.9% 1000ml Bag IV 02/01/25 22:16 999 mls/hr .Q1H1M ONE Administration Magnesium Sulfate 2 gm in 50 mls @ 50 mls/hr 02/01/25 21:59 02/01/25 22:15 Magnesium Sulfate 2gm/50ml Premix IV 02/01/25 22:58 50 mls/hr ONCE ONE Administration Iopamidol 75 ml 02/01/25 22:19 02/01/25 22:20 Iopamidol-370 (76%);100ml Bottle IV 02/01/25 22:20 75 ml ONCE ONE Administration Ondansetron HCl 4 mg 02/01/25 21:16 02/01/25 21:40 Ondansetron 4mg/2ml Vial IV 02/01/25 21:17 4 mg ONCE ONE Administration Sodium Chloride 10 ml 02/01/25 22:19 02/01/25 22:20 Sodium Chloride 0.9% 10ml Syr (Rad Only) IV 02/01/25 22:20 10 ml ONCE ONE Administration ORDERS Category Date Time Status CT abdomen pelvis w con Stat Cat Scan 02/01/25 21:16 Completed CBC w/Auto Diff [Complete Blood Count Auto Diff] Stat Lab 02/01/25 21:30 Completed CMP [Comprehensive Metabolic Panel] Stat Lab 02/01/25 21:30 Completed INR [Prothrombin Time INR] Stat Lab 02/01/25 21:30 Completed Lactic Acid Stat Lab 02/01/25 21:30 Completed Magnesium Stat Lab 02/01/25 21:30 Completed Procalcitonin Stat Lab 02/01/25 21:30 Completed Medical Decision Narrative: In summary patient is a 79-year-old female who presents to the emergency department for evaluation of nausea vomiting diarrhea. Patient has a history of widely metastatic colon cancer that is failed salvage chemotherapy. Patient has not had chemotherapy in 2 months. She does far has declined hospice care.. Patient is normotensive with a blood pressure 140/81 tachycardic at 120 sinus tachycardia the bedside monitor breathing 16 times a minute satting at 98% on room air upon arrival, with a temperature of 99.4. Physical exam reveals a well-nourished well-developed 79-year-old female who currently is in no acute distress. Physical exam reveals nontender abdomen with hypoactive bowel sounds clear breath sounds without any adventitious sounds or increased work of breathing. Differential diagnosis includes bowel obstruction versus electrolyte abnormality versus enteritis versus worsening cancer etc. Initial workup will be conducted with hematologic labs CT scan abdomen pelvis. Initial interventions include crystalloid bolus Zofran. Initial workup ordered and pending at the time of handoff to Dr. Jung at 2200 hrs. Erich: I assumed primary responsibility for this patient after signout from previous KAVEH. Independent interpretation of hematologic workup, patient has relatively new leukopenia, stable hemoglobin with normal platelet count. Patient's chemistry with acute hypokalemia, hyponatremia, hypomagnesemia all of which were repleted. CT scan of the abdomen and pelvis was independently interpreted and patient has widely metastatic colon cancer with what appears to be acute intussusception of the transverse colon into larger mass. 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 Given severe metabolic derangements, hospital medicine contacted and case was discussed. Patient to be admitted. Because patient high risk for clinical decompensation, deemed appropriate for inpatient admission. Results were relayed to patient who voiced understanding and patient was agreeable to inpatient admission and management. Patient was admitted to the hospital for further definitive management. Critical Care <NADIRA Guzman - Last Filed: 02/01/25 21:39> Critical Care Time Critical Care Time: Yes Attestation: On 02/01/25, the high probability of a clinically significant, sudden or life threatening deterioration of the following system(s) required my full and direct attention, intervention and personal management. The time I documented below is in addition to time spent performing reported procedures but includes the following listed in this critical care notation. Total Time Total Critical Care Time: 35
[2025-02-01] MEDS: 0.9 % SODIUM CHLORIDE 1000ML 1,000 ML 999 ML IV (21:40)
[2025-02-01] MEDS: ONDANSETRON 4MG/2ML VIAL 4 MG IV (21:40)
[2025-02-01 21:42] LABS: Basophils % 0.6 % (0.1-2.0); Eosinophils % 0.8 % (0.1-12.0); Hematocrit 27.6 % (37.0-47.0); Hemoglobin 9.1 g/dL (12.2-16.2); Lymphocytes # 0.3 K/mm3 (0.7-4.5); Lymphocytes % 8.1 % (10-50); Mean Corpuscular Hemoglobin 30.6 pg (27.0-31.2); Mean Corpuscular Volume 92.9 fl (81-99); Mean Platelet Volume 9.7 fl (7.4-10.4); Monocytes # 0.3 K/mm3 (0.1-1.0); Monocytes % 7.5 % (1.7-9.3); Neutrophils % 82.4 % (37.0-80.0); Nucleated Red Blood Cells # 0 10^3/uL; Nucleated Red Blood Cells % 0 %; Platelet Count 193 K/mm3 (142-424); Red Blood Count 2.97 M/mm3 (4.20-5.40); Red Cell Distribution Width 14.2 % (11.5-17.5); White Blood Count 3.6 K/mm3 (4.8-10.8)
[2025-02-01 21:46] LABS: Albumin Level 2.6 g/dl (3.5-5.0); Chloride 100 mmol/L (98-107)
[2025-02-01 21:47] LABS: Sodium 130 mmol/L (136-145)
[2025-02-01 21:49] LABS: Alanine Aminotransferase 8 U/L (12-78); Albumin/Globulin Ratio 0.9 (1.1-1.8); Alkaline Phosphatase 185 U/L (38-126); Anion Gap 3.9 mEq/L (5-15); Aspartate Amino Transferase 21 U/L (14-36); Bilirubin,Total 0.8 mg/dl (0.2-1.3); Blood Urea Nitrogen 7 mg/dl (7-17); Carbon Dioxide 29 mmol/L (22.0-30.0); Creatinine Clearance Estimated 51 mL/min (50-200); Estimated Glomerular Filt Rate 54 ml/min (>60); GFR (African American) 65 ML/MIN (>60); INR 1.18 (0.9-1.1); Total Protein,Serum 5.6 g/dl (6.3-8.2)
[2025-02-01 21:50] LABS: Calcium 7.4 mg/dl (8.4-10.2); Glucose 147 mg/dl (74-100); Lactic Acid 0.9 mmol/L (0.7-2.1); Magnesium 1.1 mg/dl (1.6-2.3)
[2025-02-01 21:52] LABS: Potassium 2.9 mmoL/L (3.5-5.1)
--- NOTE | 2025-02-01 21:53 | PC.NURSE ---
lab calls to report K 2.9 attending ED provider Don notified verbally.
[2025-02-01 21:54] LABS: MANUAL DIFFERENTIAL MANUAL DIFFERENTIAL (MANUAL DIFF)
[2025-02-01] MEDS: KCl 20mEq/100ml 100 ML 50 MEQ IV (22:15)
[2025-02-01] MEDS: MAGNESIUM SULFATE IN WATER 2 GM/50 ML PIGGYBACK IV (22:15)
[2025-02-01 22:20] LABS: Procalcitonin 0.691 ng/mL (0.0-2.0)
[2025-02-01] MEDS: SODIUM CHLORIDE 0.9% 10ML SYR (RAD ONLY) 10 ML IV (22:20)
[2025-02-01] MEDS: IOPAMIDOL-370 (76%);100ML BOTTLE 75 ML IV (22:20)
[2025-02-01 22:56] LABS: Band Neutrophils % 1 (0-8); Eosinophils % 2 % (0-3); Hypochromasia 1+; Lymphocytes % 7 % (10-50); Monocytes % 5 % (2-9); Neutrophils % 85 % (42-76); Platelet Estimate Normal; RBC Morphology Normal; Total Cells Counted 100
--- NOTE | 2025-02-01 23:01 | PC.NURSE ---
supervisor communications and signals notified of plans for admission
--- NOTE | 2025-02-01 23:16 | PC.NURSE ---
assisted to and from bedside commode.
--- NOTE | 2025-02-01 23:31 | P.HP_ITS ---
<Statement entered by Phillip Menchaca MD - 02/06/25 13:00> I personally evaluated the patient and agree with the plan of care as outlined by the B[facility]. History of Present Illness *Admission Date: 02/01/25 *Reason for visit:: Nausea vomiting *History of present illness: This is a 79-year-old female with past medical history of metastatic adenocarcinoma who follows with Dr. Szymanski, chronic nausea vomiting, left mural thrombus who presents emergency department today with complaints of nausea vomiting abdominal pain. She under care of Dr. Szymanski for adenocarcinoma. Has recently seen him in office who is determined her adenocarcinoma of nonsalvageable. Has offered her palliative care versus hospice. Patient has agreed to palliative care but denies wanting hospice at this time. She understands that her adenocarcinoma is not on surgical at this point and her disease process. She reports increased nausea vomiting with diarrhea this week. Generalized weakness. Urgency department workup notable for electrolyte disturbances including hypokalemia, hypomagnesemia, and hyponatremia. Mildly tachycardic on arrival. Given her dehydration electrolyte imbalances she will be admitted to the hospital service [facility] Disclaimer: The information contained in this section may have been updated after the patient was seen, as this information can be updated by other users. 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 History of hysterectomy Family History Mother Cancer Father Coronary artery disease Social History Smoking Status: Never smoker alcohol intake: never substance use type: denies use current occupational status: unemployed and retired Travel in the last 8 weeks?: None household members: none housing: house lives independently: Yes marital status: Have you lived/traveled outside US in past 30 days?: No Contact w/someone who lives/traveled outside US past 30 days?: No Exposure to someone with infectious disease in past 14 days?: No Do you have a fever (greater than 100.4 F or 38 C)?: No Have you tested positive for COVID-19?: No Exposed to someone with COVID-19 in past 14 days?: No Do you have a sore throat?: No Do you have a cough?: No Do you have any weakness?: No Do you have any diarrhea?: Yes Are you experiencing any unusual bleeding?: No Do you have any muscle aches/pain?: Yes Do you have any abdominal pain?: No Are you experiencing loss of taste or smell?: No Other Medical History Have you received the Flu Vaccine for this season: No Have you received the Pneumonia Vaccine: No Review of Systems Review of Systems Review of systems:: pertinent systems reviewed and negative unless documented below Review of systems (narrative): Negative except for HPI Meds Home Medications and Allergies Home Medications ?Medication ?Instructions ?Recorded ?Confirmed ?Type ferrous sulfate 325 mg (65 mg 325 mg PO DAILY #30 tabs 08/27/23 01/13/25 Rx iron) tablet (FeroSul) colestipol 1 gram tablet (Colestid) 1 g PO BID #60 tabs 07/07/24 01/13/25 Rx apixaban 2.5 mg tablet (Eliquis) 2.5 mg PO BID #60 tabs 12/03/24 01/13/25 Rx potassium chloride 20 mEq 20 meq PO DAILY 12/08/24 01/13/25 History tablet,extended release prochlorperazine maleate 10 mg 10 mg PO Q6H PRN nausea and 12/08/24 01/13/25 Rx tablet (Compazine) vomiting #30 tabs diphenoxylate-atropine 2.5 1 tab PO QID PRN diarrhea #30 tabs 12/15/24 01/13/25 Rx mg-0.025 mg tablet (Lomotil) magnesium oxide 400 mg PO BID #60 tabs 12/17/24 01/13/25 Rx sulfamethoxazole 800 1 tab PO BID 8 days #16 tabs 12/31/24 01/13/25 Rx mg-trimethoprim 160 mg tablet (Bactrim DS) doxepin 10 mg capsule 10 mg PO BID 90 days #180 caps 01/21/25 Rx loperamide 2 mg capsule 2 mg PO TID PRN diarrhea 90 days 01/21/25 Rx #270 caps metoprolol succinate 100 mg 100 mg PO DAILY 90 days #90 tabs 01/21/25 Rx tablet,extended release 24 hr (Toprol XL) New Prescriptions to Start Prescriptions: Allergies Allergy/AdvReac Type Severity Reaction Status Date / Time No Known Allergies Allergy Verified 01/13/25 10:49 Exam Data for Last 24 hours Vital signs and Labs for Last 24 Hours: Temp Pulse Resp BP Pulse Ox O2 Del Method 99.4 F 106 H 16 162/79 H 93 L Room Air 02/01/25 20:47 02/01/25 23:00 02/01/25 23:00 02/01/25 23:00 02/01/25 23:00 02/01/25 22:30 Laboratory Results - last 24 hr 02/01/25 21:30: WBC 3.6 L, RBC 2.97 L, Hgb 9.1 L, Hct 27.6 L, MCV 92.9, MCH 30.6, MCHC 33.0, RDW 14.2, Plt Count 193, MPV 9.7, Neut % (Auto) 82.4 H, Lymph % (Auto) 8.1 L, [place] % (Auto) 7.5, Eos % (Auto) 0.8, Baso % (Auto) 0.6, Neut # (Auto) 3.0, Lymph # (Auto) 0.3 L, [place] # (Auto) 0.3, Eos # (Auto) 0.0, Baso # (Auto) 0.0, Total Counted 100, Neutrophils % (Manual) 85 H, Band Neutrophils % 1, Lymphocytes % (Manual) 7 L, Monocytes % (Manual) 5, Eosinophils % (Manual) 2, Platelet Estimate Normal, RBC Morphology Normal, Hypochromasia 1+, PT 13.0 H, INR 1.18 H, Sodium 130 L, Potassium 2.9 L*, Chloride 100, Carbon Dioxide 29, Anion Gap 3.9 L, BUN 7, Creatinine 1.00, Estimated Creat Clear 51, Estimated GFR 54 L, Est GFR ( Amer) 65, Glucose 147 H, Lactate 0.9, Calcium 7.4 L, Magnesium 1.1 L, Total Bilirubin 0.8, AST 21, ALT 8 L, Alkaline Phosphatase 185 H, Total Protein 5.6 L, Albumin 2.6 L, Globulin 3.0, Albumin/Globulin Ratio 0.9 L, Procalcitonin 0.691 I & O for Last 24 hours: Intake & Output 01/29/25 01/30/25 01/31/25 02/01/25 23:59 23:59 23:59 23:59 Weight 70.307 kg Constitutional Constitutional: no acute distress *Routine HEENT Exam Head: Present normocephalic Eye: Present EOMI and PERRL ENT: Present mucous membranes moist *Routine Neck Exam Neck: Present supple; Absent lymphadenopathy *Routine Respiratory Exam Respiratory: Present CTA bilaterally *Routine Cardiovascular Exam Cardiovascular: Present tachycardia *Routine Abdominal Exam Abdominal: Present soft, normoactive bowel sounds and tenderness (Diffuse tenderness throughout abdomen) *Routine Rectal Exam Rectal:: deferred *Routine Genitalia Exam Genitalia:: deferred *Routine Extremities Exam Extremities: Absent cyanosis, clubbing or edema *Routine Skin Exam Skin: Present warm; Absent rash *Routine Neurological Exam Neurological: Present alert and oriented X3 Assessment and Plan *Assessment and plan (1) Acute hyponatremia: Status: Acute Category: Medical Code(s): E87.1 - Hypo-osmolality and hyponatremia (2) Acute hypokalemia: Status: Acute Category: Medical Code(s): E87.6 - Hypokalemia (3) Hypomagnesemia: Status: Acute Category: Medical Code(s): E83.42 - Hypomagnesemia (4) Colon cancer: Status: Acute Category: Medical Code(s): C18.9 - Malignant neoplasm of colon, unspecified (5) Nausea and vomiting: Status: Acute Category: Medical Code(s): R11.2 - Nausea with vomiting, unspecified Plan #Acute hyponatremia #Acute hypokalemia #Acute hypomagnesemia Dehydration and electrolyte disturbances from volume loss. Patient reports vomiting and diarrhea. Replace per protocol Recheck electrolytes in AM including phosphorus Monitor cardiac telemetry #Tachycardia Likely 2/2 dehydration and volume Continue maintenance IV fluids #Metastatic neoplasm of the colon #Adenocarcinoma Follows with Dr. Szymanski. Stopped chemo 2 weeks ago as incurable situation outweighs any potential benefits. Agrees to palliative care but does not want entertain hospice at this time. #Intracardiac thrombus Continue patient's home Eliquis
--- NOTE | 2025-02-01 23:37 | PC.NURSE ---
Patient arrived to floor via stretcher from ED at 23:35.
[2025-02-02] VITALS: BP 164/86; PULSE 102; PULSE 110; RESP 16; TEMP 36.7; O2SAT 97; BMI 22.2
[2025-02-02] MEDS: LACTATED RINGERS 1000ML 1,000 ML 75 ML IV ×2 (00:40→13:57)
[2025-02-02] MEDS: KCl 20mEq/100ml 100 ML 50 MEQ IV ×2 (00:40→02:10)
[2025-02-02] MEDS: ONDANSETRON 4MG/2ML VIAL 4 MG IV ×2 (03:35→13:57)
[2025-02-02 04:00] VITALS: BP 145/75; PULSE 100; PULSE 104; RESP 16; TEMP 37; O2SAT 94; BMI 22.1
[2025-02-02 06:22] LABS: Basophils % 0.3 % (0.1-2.0); Eosinophils % 1.2 % (0.1-12.0); Hematocrit 25.9 % (37.0-47.0); Hemoglobin 8.3 g/dL (12.2-16.2); Lymphocytes # 0.4 K/mm3 (0.7-4.5); Lymphocytes % 11.4 % (10-50); Mean Corpuscular Hemoglobin 29.9 pg (27.0-31.2); Mean Corpuscular Volume 93.2 fl (81-99); Mean Platelet Volume 9.4 fl (7.4-10.4); Monocytes # 0.3 K/mm3 (0.1-1.0); Monocytes % 7.6 % (1.7-9.3); Neutrophils # 2.7 K/mm3 (1.8-7.8); Neutrophils % 79.2 % (37.0-80.0); Nucleated Red Blood Cells # 0 10^3/uL; Nucleated Red Blood Cells % 0 %; Platelet Count 190 K/mm3 (142-424); Red Blood Count 2.78 M/mm3 (4.20-5.40); Red Cell Distribution Width 14.1 % (11.5-17.5); Red Cell Distribution Width-SD 48.5 fL; White Blood Count 3.4 K/mm3 (4.8-10.8)
[2025-02-02 06:23] LABS: MANUAL DIFFERENTIAL MANUAL DIFFERENTIAL (MANUAL DIFF)
[2025-02-02 06:31] LABS: Anion Gap -0.2 mEq/L (5-15); Blood Urea Nitrogen 6 mg/dl (7-17); Calcium 7.1 mg/dl (8.4-10.2); Carbon Dioxide 30 mmol/L (22.0-30.0); Chloride 104 mmol/L (98-107); Creatinine Clearance Estimated 39 mL/min (50-200); Estimated Glomerular Filt Rate 69 ml/min (>60); GFR (African American) 84 ML/MIN (>60); Glucose 122 mg/dl (74-100); Phosphorous 2.1 mg/dl (2.5-4.5); Potassium 3.8 mmoL/L (3.5-5.1); Sodium 130 mmol/L (136-145)
--- NOTE | 2025-02-02 07:54 | HMH.PHAINT1 ---
Pharmacy Intervention Comments: HOME MEDICATION LIST VERIFIED USING LIST FROM OUTPATIENT PHARMACY AND PT INTERVIEW
[2025-02-02 07:58] LABS: Eosinophils % 1 % (0-3); Hypochromasia 1+; Lymphocytes % 8 % (10-50); Monocytes % 3 % (2-9); Neutrophils % 83 % (42-76); Ovalocytes 1+; Platelet Estimate Normal; Total Cells Counted 100
[2025-02-02 08:00] VITALS: BP 141/70; PULSE 112; PULSE 140; RESP 18; TEMP 36.9; O2SAT 96
--- NOTE | 2025-02-02 08:22 | P.CONS_ITS ---
History of Present Illness *Admission Date: 02/01/25 *Reason for visit:: Intussusception *History of present illness: Patient is a 79-year-old female from [facility]. She has a history of gynecologic cancer several decades ago treated with hysterectomy in [place] followed by radiation and chemotherapy. In addition to current issues she has a history of congestive heart failure, hypertension, coronary artery disease, ischemic cardiomyopathy, left ventricular mural thrombus. She has a history of iron deficiency anemia and ultimately underwent colonoscopy with gastroenterology (Dr. Rogers) on 05/14/2024 at which time she was found to have large multilobulated fungating mass in the transverse colon as well as large ulcerated fungating multilobular villous mass occupying the entire cecum. She has seen oncology. Imaging has shown evidence of liver metastases. Since she had evidence of metastatic disease it was felt that she was not a candidate for surgery. She had been started on salvage chemotherapy. Subsequent recent imaging has revealed left ventricular aneurysm with thrombus and worsening metastatic disease of the liver. She has tolerated salvage chemotherapy poorly. She has had ongoing issues with bowels characterized mostly as diarrhea. She presented to the emergency department in the evening of 02/01/2025 with nausea, vomiting, and diarrhea. Patient has apparently declined hospice care however she does have home health care. CT scan reveals 4 cm mass at the hepatic flexure with lead point intussusception in the transverse colon. There is also 8 cm cecal mass. Multiple hepatic metastases and malignant ascites are seen. Discussion has been held previously with her from oncology standpoint emphasizing the point that her cancer is not salvageable and that she is not a surgical candidate. She has been offered palliative care versus hospice. She has previously declined hospice but been accepting of palliative care. She was admitted for inpatient management. Surgical consultation was ordered. . [facility] Disclaimer: The information contained in this section may have been updated after the patient was seen, as this information can be updated by other users. 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 History of hysterectomy Family History Mother Cancer Father Coronary artery disease Social History (Updated 02/02/25 @ 00:58 by Ce Flores RN) Smoking Status: Never smoker alcohol intake: never substance use type: denies use current occupational status: retired Travel in the last 8 weeks?: None household members: none housing: house lives independently: Yes marital status: Have you lived/traveled outside US in past 30 days?: No Contact w/someone who lives/traveled outside US past 30 days?: No Exposure to someone with infectious disease in past 14 days?: No Do you have a fever (greater than 100.4 F or 38 C)?: No Have you tested positive for COVID-19?: No Exposed to someone with COVID-19 in past 14 days?: No Do you have a sore throat?: No Do you have a cough?: No Do you have any weakness?: No Do you have any diarrhea?: Yes Are you experiencing any unusual bleeding?: No Do you have any muscle aches/pain?: Yes Do you have any abdominal pain?: No Are you experiencing loss of taste or smell?: No Meds Home Medications and Allergies Home Medications ?Medication ?Instructions ?Recorded ?Confirmed ?Type ferrous sulfate 325 mg (65 mg 325 mg PO DAILY #30 tabs 08/27/23 02/02/25 Rx iron) tablet (FeroSul) apixaban 2.5 mg tablet (Eliquis) 2.5 mg PO BID #60 tabs 12/03/24 02/02/25 Rx potassium chloride 20 mEq 20 meq PO DAILY 12/08/24 02/02/25 History tablet,extended release diphenoxylate-atropine 2.5 1 tab PO QID PRN diarrhea #30 tabs 12/15/24 02/02/25 Rx mg-0.025 mg tablet (Lomotil) magnesium oxide 400 mg PO BID #60 tabs 12/17/24 02/02/25 Rx doxepin 10 mg capsule 10 mg PO BID 90 days #180 caps 01/21/25 02/02/25 Rx loperamide 2 mg capsule 2 mg PO TID PRN diarrhea 90 days 01/21/25 02/02/25 Rx #270 caps metoprolol succinate 100 mg 100 mg PO DAILY 90 days #90 tabs 01/21/25 02/02/25 Rx tablet,extended release 24 hr (Toprol XL) New Prescriptions to Start Prescriptions: Allergies Allergy/AdvReac Type Severity Reaction Status Date / Time No Known Allergies Allergy Verified 01/13/25 10:49 Exam (Inpt) Vital signs and Labs for Last 24 Hours: Temp Pulse Resp BP Pulse Ox O2 Del Method 98.6 F 104 H 16 145/75 H 94 L Room Air 02/02/25 04:00 02/02/25 04:00 02/02/25 04:00 02/02/25 04:00 02/02/25 04:00 02/02/25 05:00 Laboratory Results - last 24 hr 02/01/25 21:30: WBC 3.6 L, RBC 2.97 L, Hgb 9.1 L, Hct 27.6 L, MCV 92.9, MCH 30.6, MCHC 33.0, RDW 14.2, Plt Count 193, MPV 9.7, Neut % (Auto) 82.4 H, Lymph % (Auto) 8.1 L, [place] % (Auto) 7.5, Eos % (Auto) 0.8, Baso % (Auto) 0.6, Neut # (Auto) 3.0, Lymph # (Auto) 0.3 L, [place] # (Auto) 0.3, Eos # (Auto) 0.0, Baso # (Auto) 0.0, Total Counted 100, Neutrophils % (Manual) 85 H, Band Neutrophils % 1, Lymphocytes % (Manual) 7 L, Monocytes % (Manual) 5, Eosinophils % (Manual) 2, Platelet Estimate Normal, RBC Morphology Normal, Hypochromasia 1+, PT 13.0 H, I NR 1.18 H, Sodium 130 L, Potassium 2.9 L*, Chloride 100, Carbon Dioxide 29, A nion Gap 3.9 L, BUN 7, Creatinine 1.00, Estimated Creat Clear 51, Estimated GFR 54 L, Est GFR ( Amer) 65, Glucose 147 H, Lactate 0.9, Calcium 7.4 L, M agnesium 1.1 L, Total Bilirubin 0.8, AST 21, ALT 8 L, Alkaline Phosphatase 185 H , Total Protein 5.6 L, Albumin 2.6 L, Globulin 3.0, Albumin/Globulin Ratio 0.9 L , Procalcitonin 0.691 02/02/25 06:11: WBC 3.4 L, RBC 2.78 L, Hgb 8.3 L, Hct 25.9 L, MCV 93.2, MCH 29.9, MCHC 32.0, RDW 14.1, Plt Count 190, MPV 9.4, Neut % (Auto) 79.2, Lymph % (Auto) 11.4, [place] % (Auto) 7.6, Eos % (Auto) 1.2, Baso % (Auto) 0.3, Neut # (Auto) 2.7, Lymph # (Auto) 0.4 L, [place] # (Auto) 0.3, Eos # (Auto) 0.0, Baso # (Auto) 0.0, Total Counted 100, Neutrophils % (Manual) 83 H, Band Neutrophils % 3.0, Lymphocytes % (Manual) 8 L, Atypical Lymphs % 2.0, Monocytes % (Manual) 3, Eosinophils % (Manual) 1, Platelet Estimate Normal, Hypochromasia 1+, Ovalocytes 1+, Sodium 130 L, Potassium 3.8 D, Chloride 104, Carbon Dioxide 30, Anion Gap - 0.2 L, BUN 6 L, Creatinine 0.80, Estimated Creat Clear 39, Estimated GFR 69, Est GFR ( Amer) 84 D, Glucose 122 H, Calcium 7.1 L, Phosphorus 2.1 L, M agnesium 2.0 D I & O for Labs for Last 24 Hours: Intake & Output 01/30/25 01/31/25 02/01/25 02/02/25 11:59 11:59 11:59 11:59 Intake Total 300 / 300 Output Total 190 / 190 Balance 110 / 110 Weight 117 lb 9.6 oz Constitutional: chronically ill appearing GI: Present soft Comments:: Slightly distended. Nontender. Rectal (female): Present deferred (female): Present deferred Results Labs 02/02/25 06:11 02/02/25 06:11 Labs: Laboratory Results - last 24 hr 02/01/25 21:30: WBC 3.6 L, RBC 2.97 L, Hgb 9.1 L, Hct 27.6 L, MCV 92.9, MCH 30.6, MCHC 33.0, RDW 14.2, Plt Count 193, MPV 9.7, Neut % (Auto) 82.4 H, Lymph % (Auto) 8.1 L, [place] % (Auto) 7.5, Eos % (Auto) 0.8, Baso % (Auto) 0.6, Neut # (Auto) 3.0, Lymph # (Auto) 0.3 L, [place] # (Auto) 0.3, Eos # (Auto) 0.0, Baso # (Auto) 0.0, Total Counted 100, Neutrophils % (Manual) 85 H, Band Neutrophils % 1, Lymphocytes % (Manual) 7 L, Monocytes % (Manual) 5, Eosinophils % (Manual) 2, Platelet Estimate Normal, RBC Morphology Normal, Hypochromasia 1+, PT 13.0 H, I NR 1.18 H, Sodium 130 L, Potassium 2.9 L*, Chloride 100, Carbon Dioxide 29, A nion Gap 3.9 L, BUN 7, Creatinine 1.00, Estimated Creat Clear 51, Estimated GFR 54 L, Est GFR ( Amer) 65, Glucose 147 H, Lactate 0.9, Calcium 7.4 L, M agnesium 1.1 L, Total Bilirubin 0.8, AST 21, ALT 8 L, Alkaline Phosphatase 185 H , Total Protein 5.6 L, Albumin 2.6 L, Globulin 3.0, Albumin/Globulin Ratio 0.9 L , Procalcitonin 0.691 02/02/25 06:11: WBC 3.4 L, RBC 2.78 L, Hgb 8.3 L, Hct 25.9 L, MCV 93.2, MCH 29.9, MCHC 32.0, RDW 14.1, Plt Count 190, MPV 9.4, Neut % (Auto) 79.2, Lymph % (Auto) 11.4, [place] % (Auto) 7.6, Eos % (Auto) 1.2, Baso % (Auto) 0.3, Neut # (Auto) 2.7, Lymph # (Auto) 0.4 L, [place] # (Auto) 0.3, Eos # (Auto) 0.0, Baso # (Auto) 0.0, Total Counted 100, Neutrophils % (Manual) 83 H, Band Neutrophils % 3.0, Lymphocytes % (Manual) 8 L, Atypical Lymphs % 2.0, Monocytes % (Manual) 3, Eosinophils % (Manual) 1, Platelet Estimate Normal, Hypochromasia 1+, Ovalocytes 1+, Sodium 130 L, Potassium 3.8 D, Chloride 104, Carbon Dioxide 30, Anion Gap - 0.2 L, BUN 6 L, Creatinine 0.80, Estimated Creat Clear 39, Estimated GFR 69, Est GFR ( Amer) 84 D, Glucose 122 H, Calcium 7.1 L, Phosphorus 2.1 L, M agnesium 2.0 D Assessment and Plan *Assessment and plan (1) Widespread metastatic malignant neoplastic disease: Status: Acute Category: Medical Code(s): C80.0 - Disseminated malignant neoplasm, unspecified (2) Colon cancer: Status: Acute Category: Medical Code(s): C18.9 - Malignant neoplasm of colon, unspecified (3) Colon cancer metastasized to liver: Status: Acute Category: Medical Code(s): C18.9 - Malignant neoplasm of colon, unspecified; C78.7 - Secondary malignant neoplasm of liver and intrahepatic bile duct (4) Cancer of transverse colon: Status: Acute Category: Medical Code(s): C18.4 - Malignant neoplasm of transverse colon (5) Malignant neoplasm of cecum: Status: Acute Category: Medical Code(s): C18.0 - Malignant neoplasm of cecum Plan I reviewed her imaging. She has evidence of very widespread tumor burden and metastatic disease. There are numerous very large liver masses. She has evidence of malignant ascites. There appears to be a very large right lower quadrant mass in the cecum. Colon distal to this is decompressed until the proximal transverse colon where there is another mass with intussusception. This is likely creating partial large bowel obstruction. Some of this may be chronic. This is beyond the capabilities of this facility surgically. Recommend discussion be held with tertiary facility if palliative surgical intervention is entertained.
--- NOTE | 2025-02-02 09:25 | PC.NURSE ---
TECH NOTE; NURSE NOTIFIED OF HEART RATE FOR 0800 VITAL SIGNS Lee MIMS, SRNA
[2025-02-02 12:00] VITALS: BP 143/68; PULSE 100; PULSE 102; RESP 16; TEMP 37.1; O2SAT 98
[2025-02-02 16:00] VITALS: BP 149/70; PULSE 106; RESP 16; O2SAT 97
[2025-02-02 20:00] VITALS: BP 150/70; PULSE 100; PULSE 98; RESP 16; TEMP 36.9; O2SAT 96
--- NOTE | 2025-02-02 21:23 | EXP.PN ---
Subjective *Date: 02/02/25 *Time: 21:23 Interval history: Patient doing okay today, tolerating clear liquid diet. Will try to advance tomorrow as tolerated. Having bowel movements. Exam Data for Last 24 hours Vital signs and Labs for Last 24 Hours: Temp Pulse Resp BP Pulse Ox O2 Del Method 98.4 F 98 H 16 150/70 H 96 Room Air 02/02/25 20:00 02/02/25 20:00 02/02/25 20:00 02/02/25 20:00 02/02/25 20:00 02/02/25 20:00 Laboratory Results - last 24 hr 02/01/25 21:30: WBC 3.6 L, RBC 2.97 L, Hgb 9.1 L, Hct 27.6 L, MCV 92.9, MCH 30.6, MCHC 33.0, RDW 14.2, Plt Count 193, MPV 9.7, Neut % (Auto) 82.4 H, Lymph % (Auto) 8.1 L, [place] % (Auto) 7.5, Eos % (Auto) 0.8, Baso % (Auto) 0.6, Neut # (Auto) 3.0, Lymph # (Auto) 0.3 L, [place] # (Auto) 0.3, Eos # (Auto) 0.0, Baso # (Auto) 0.0, Total Counted 100, Neutrophils % (Manual) 85 H, Band Neutrophils % 1, Lymphocytes % (Manual) 7 L, Monocytes % (Manual) 5, Eosinophils % (Manual) 2, Platelet Estimate Normal, RBC Morphology Normal, Hypochromasia 1+, PT 13.0 H, INR 1.18 H, Sodium 130 L, Potassium 2.9 L*, Chloride 100, Carbon Dioxide 29, Anion Gap 3.9 L, BUN 7, Creatinine 1.00, Estimated Creat Clear 51, Estimated GFR 54 L, Est GFR ( Amer) 65, Glucose 147 H, Lactate 0.9, Calcium 7.4 L, Magnesium 1.1 L, Total Bilirubin 0.8, AST 21, ALT 8 L, Alkaline Phosphatase 185 H, Total Protein 5.6 L, Albumin 2.6 L, Globulin 3.0, Albumin/Globulin Ratio 0.9 L, Procalcitonin 0.691 02/02/25 06:11: WBC 3.4 L, RBC 2.78 L, Hgb 8.3 L, Hct 25.9 L, MCV 93.2, MCH 29.9, MCHC 32.0, RDW 14.1, Plt Count 190, MPV 9.4, Neut % (Auto) 79.2, Lymph % (Auto) 11.4, [place] % (Auto) 7.6, Eos % (Auto) 1.2, Baso % (Auto) 0.3, Neut # (Auto) 2.7, Lymph # (Auto) 0.4 L, [place] # (Auto) 0.3, Eos # (Auto) 0.0, Baso # (Auto) 0.0, Total Counted 100, Neutrophils % (Manual) 83 H, Band Neutrophils % 3.0, Lymphocytes % (Manual) 8 L, Atypical Lymphs % 2.0, Monocytes % (Manual) 3, Eosinophils % (Manual) 1, Platelet Estimate Normal, Hypochromasia 1+, Ovalocytes 1+, Sodium 130 L, Potassium 3.8 D, Chloride 104, Carbon Dioxide 30, Anion Gap -0.2 L, BUN 6 L, Creatinine 0.80, Estimated Creat Clear 39, Estimated GFR 69, Est GFR ( Amer) 84 D, Glucose 122 H, Calcium 7.1 L, Phosphorus 2.1 L, Magnesium 2.0 D I & O for Last 24 hours: Intake & Output 01/30/25 01/31/25 02/01/25 02/02/25 23:59 23:59 23:59 23:59 Intake Total 1922 / 1922 Output Total 740 / 740 Balance 1182 / 1182 Weight 70.307 kg 53.342 kg Constitutional Constitutional: no acute distress *Routine HEENT Exam Head: Present normocephalic Eye: Present EOMI and PERRL ENT: Present mucous membranes moist *Routine Neck Exam Neck: Present supple; Absent lymphadenopathy *Routine Respiratory Exam Respiratory: Present CTA bilaterally *Routine Cardiovascular Exam Cardiovascular: Present RRR *Routine Abdominal Exam Abdominal: Present soft, normoactive bowel sounds and distended; Absent tenderness *Routine Extremities Exam Extremities: Absent cyanosis, clubbing or edema *Routine Skin Exam Skin: Present warm; Absent rash *Routine Neurological Exam Neurological: Present alert and oriented X3 Assessment and Plan *Assessment and plan (1) Acute hyponatremia: Status: Acute Category: Medical Code(s): E87.1 - Hypo-osmolality and hyponatremia (2) Acute hypokalemia: Status: Acute Category: Medical Code(s): E87.6 - Hypokalemia (3) Hypomagnesemia: Status: Acute Category: Medical Code(s): E83.42 - Hypomagnesemia (4) Colon cancer: Status: Acute Category: Medical Code(s): C18.9 - Malignant neoplasm of colon, unspecified (5) Nausea and vomiting: Status: Acute Category: Medical Code(s): R11.2 - Nausea with vomiting, unspecified Plan Viviane Richard is a 79-year-old female who presented with nausea/vomiting, abdominal pain and was admitted for intussusception. #Intussusception #Metastatic colon cancer, adenocarcinoma ? Has followed closely with Dr. Pruitt for metastatic colon cancer, unfortunately cancer is unsalvageable. Not open to hospice at this time. ? Found to have intussusception on CT abdomen/pelvis in the transverse colon with a 4 cm hepatic flexure mass. ? Extensively discussed with general surgery, unfortunately due to tumor burden patient is not a appropriate surgical candidate at this facility. Recommended transfer if patient is interested in surgery. ? Extensively discussed with patient, does not want to pursue surgery but rather palliative/conservative management. ? Continue clear liquid diet, advance as tolerated. Having bowel movements, though mostly chronic diarrhea. ? Continue LR at 75 mL/h. #Intracardiac thrombus Continue patient's home Eliquis DNR/DNI DVT prophylaxis: Home Eliquis.
[2025-02-03] VITALS: BP 146/69; PULSE 100; PULSE 95; RESP 16; TEMP 37.1; O2SAT 97
--- NOTE | 2025-02-03 01:38 | PC.NURSE ---
After returning from the bathroom at this time, the patient was requesting to have her anti-diarrheal home medications restarted, for she continues to have watery bowel movements. Mitesh BATES was paged concerning the patient's request. A verbal order was obtained to restart loperamide 2 mg capsules PO TID PRN for diarrhea. Order to be faxed through the overnight pharmacy.
[2025-02-03] MEDS: LOPERAMIDE 2MG CAPSULE 2 MG PO ×2 (02:15→15:28)
--- NOTE | 2025-02-03 03:50 | PC.NURSE ---
Patient is alert and oriented x4. She was observed to have eyes closed, respirations even and unlabored, and no apparent distress throughout the majority of the night. Scheduled medications were administered as appropriately per MAR. Loperamide was restarted/administered due to complaint of ongoing, chronic diarrhea. She has ambulated multiple times to the bathroom to void/defecate this shift; she ambulates with standby assistance + use of a walker without major difficulty. She has been tolerating a clear liquid diet quite well without any reports of nausea/vomiting this shift. Patient denied abdominal tenderness upon palpation. Diminished but clear lungs sounds heard upon auscultation; heart and bowel sounds within normal findings. Normal sinus rhythm on telemetry. Trace edema was observed in her bilateral lower extremities. Scheduled medications administered as appropriately per MAR. Lactated Ringers continue to infuse through the accessed port in her left upper chest at 75 mL/hr. At this time, the patient is resting in bed without any further complaints. No new needs at this time. Call light within reach.
[2025-02-03 04:00] VITALS: BP 130/75; PULSE 110; RESP 16; TEMP 36.8; O2SAT 98; BMI 21.7
[2025-02-03] MEDS: LACTATED RINGERS 1000ML 1,000 ML 75 ML IV (04:10)
[2025-02-03 06:17] LABS: Basophils % 0.5 % (0.1-2.0); Eosinophils # 0.1 Kmm3 (0.0-0.4); Eosinophils % 2.1 % (0.1-12.0); Hematocrit 27.7 % (37.0-47.0); Hemoglobin 8.5 g/dL (12.2-16.2); Immature Granulocytes # 0.02 10^3uL; Immature Granulocytes % 0.5 %; Lymphocytes # 0.4 K/mm3 (0.7-4.5); Lymphocytes % 10.4 % (10-50); Mean Corpuscular HGB Conc 30.7 g/dL (31.8-35.4); Mean Corpuscular Hemoglobin 28.8 pg (27.0-31.2); Mean Corpuscular Volume 93.9 fl (81-99); Mean Platelet Volume 9.1 fl (7.4-10.4); Monocytes # 0.3 K/mm3 (0.1-1.0); Monocytes % 7.3 % (1.7-9.3); Neutrophils # 3.4 K/mm3 (1.8-7.8); Neutrophils % 79.2 % (37.0-80.0); Nucleated Red Blood Cells # 0 10^3/uL; Nucleated Red Blood Cells % 0 %; Platelet Count 169 K/mm3 (142-424); Red Blood Count 2.95 M/mm3 (4.20-5.40); Red Cell Distribution Width 14.1 % (11.5-17.5); Red Cell Distribution Width-SD 47.8 fL; White Blood Count 4.2 K/mm3 (4.8-10.8)
[2025-02-03 06:18] LABS: MANUAL DIFFERENTIAL MANUAL DIFFERENTIAL (MANUAL DIFF)
[2025-02-03 06:26] LABS: Alanine Aminotransferase 7 U/L (12-78); Albumin Level 2.2 g/dl (3.5-5.0); Albumin/Globulin Ratio 0.8 (1.1-1.8); Alkaline Phosphatase 156 U/L (38-126); Anion Gap 1.2 mEq/L (5-15); Aspartate Amino Transferase 18 U/L (14-36); Bilirubin,Total 0.6 mg/dl (0.2-1.3); Blood Urea Nitrogen 5 mg/dl (7-17); Calcium 7.5 mg/dl (8.4-10.2); Carbon Dioxide 30 mmol/L (22.0-30.0); Chloride 104 mmol/L (98-107); Creatinine Clearance Estimated 38 mL/min (50-200); Estimated Glomerular Filt Rate 69 ml/min (>60); GFR (African American) 84 ML/MIN (>60); Globulin 2.7 g/dL (1.3-3.2); Glucose 99 mg/dl (74-100); Magnesium 1.7 mg/dl (1.6-2.3); Potassium 3.2 mmoL/L (3.5-5.1); Sodium 132 mmol/L (136-145); Total Protein,Serum 4.9 g/dl (6.3-8.2)
[2025-02-03 08:00] VITALS: BP 128/76; PULSE 110; PULSE 99; RESP 16; TEMP 36.9; O2SAT 97
[2025-02-03 09:44] LABS: Lymphocytes % 9 % (10-50); Monocytes % 6 % (2-9); Neutrophils % 85 % (42-76); Platelet Estimate Normal; RBC Morphology Normal; Total Cells Counted 100
[2025-02-03] MEDS: POTASSIUM CHLORIDE 20MEQ TAB 40 MEQ PO ×2 (10:02→12:09)
[2025-02-03] MEDS: MAGNESIUM SULFATE IN WATER 2 GM/50 ML PIGGYBACK IV ×2 (10:02→11:00)
[2025-02-03 12:00] VITALS: BP 126/78; PULSE 110; PULSE 99; RESP 16; TEMP 36.9; O2SAT 98
[2025-02-03 15:50] VITALS: BP 130/78; PULSE 86; RESP 14; TEMP 37; O2SAT 98
--- NOTE | 2025-02-03 17:23 | EXP.DC.SUM ---
General Admission date:: 02/01/25 HPI HPI HPI: Patient is a 79-year-old female from [facility]. She has a history of gynecologic cancer several decades ago treated with hysterectomy in [place] followed by radiation and chemotherapy. In addition to current issues she has a history of congestive heart failure, hypertension, coronary artery disease, ischemic cardiomyopathy, left ventricular mural thrombus. She has a history of iron deficiency anemia and ultimately underwent colonoscopy with gastroenterology (Dr. Rogers) on 05/14/2024 at which time she was found to have large multilobulated fungating mass in the transverse colon as well as large ulcerated fungating multilobular villous mass occupying the entire cecum. She has seen oncology. Imaging has shown evidence of liver metastases. Since she had evidence of metastatic disease it was felt that she was not a candidate for surgery. She had been started on salvage chemotherapy. Subsequent recent imaging has revealed left ventricular aneurysm with thrombus and worsening metastatic disease of the liver. She has tolerated salvage chemotherapy poorly. She has had ongoing issues with bowels characterized mostly as diarrhea. She presented to the emergency department in the evening of 02/01/2025 with nausea, vomiting, and diarrhea. Patient has apparently declined hospice care however she does have home health care. CT scan reveals 4 cm mass at the hepatic flexure with lead point intussusception in the transverse colon. There is also 8 cm cecal mass. Multiple hepatic metastases and malignant ascites are seen. Discussion has been held previously with her from oncology standpoint emphasizing the point that her cancer is not salvageable and that she is not a surgical candidate. She has been offered palliative care versus hospice. She has previously declined hospice but been accepting of palliative care. She was admitted for inpatient management. Surgical consultation was ordered. . Hospital Course Hospital Course Hospital Course: Viviane Richard is a 79-year-old female who presented with nausea/vomiting, abdominal pain and was admitted for intussusception. #Intussusception #Metastatic colon cancer, adenocarcinoma ? Has followed closely with Dr. Pruitt for metastatic colon cancer, unfortunately cancer is unsalvageable. Not open to hospice at this time. ? Found to have intussusception on CT abdomen/pelvis in the transverse colon with a 4 cm hepatic flexure mass. ? Extensively discussed with general surgery, unfortunately due to tumor burden patient is not a appropriate surgical candidate at this facility. Recommended transfer if patient is interested in surgery. ? However, patient's symptoms improved with slow advancement of diet. Tolerating diet without nausea/vomiting/abdominal pain. ? Advised to continue to advance diet as tolerated. Will follow-up with Dr. Pruitt within 2 weeks. #Intracardiac thrombus ? Likely in the setting of cancer. Continue patient's home Eliquis. Exam Data for Last 24 hours Vital signs and Labs for Last 24 Hours: Temp Pulse Resp BP Pulse Ox O2 Del Method 98.6 F 86 14 130/78 98 Room Air 02/03/25 15:50 02/03/25 15:50 02/03/25 15:50 02/03/25 15:50 02/03/25 15:50 02/03/25 15:50 Laboratory Results - last 24 hr 02/03/25 06:00: WBC 4.2 L, RBC 2.95 L, Hgb 8.5 L, Hct 27.7 L, MCV 93.9, MCH 28.8, MCHC 30.7 L, RDW 14.1, Plt Count 169, MPV 9.1, Neut % (Auto) 79.2, Lymph % (Auto) 10.4, [place] % (Auto) 7.3, Eos % (Auto) 2.1, Baso % (Auto) 0.5, Neut # (Auto) 3.4, Lymph # (Auto) 0.4 L, [place] # (Auto) 0.3, Eos # (Auto) 0.1, Baso # (Auto) 0.0, Total Counted 100, Neutrophils % (Manual) 85 H, Lymphocytes % (Manual) 9 L, Monocytes % (Manual) 6, Platelet Estimate Normal, RBC Morphology Normal, Sodium 132 L, Potassium 3.2 L, Chloride 104, Carbon Dioxide 30, Anion Gap 1.2 L, BUN 5 L, Creatinine 0.80, Estimated Creat Clear 38, Estimated GFR 69, Est GFR ( Amer) 84, Glucose 99, Calcium 7.5 L, Magnesium 1.7 D, Total Bilirubin 0.6, AST 18, ALT 7 L, Alkaline Phosphatase 156 H, Total Protein 4.9 L, Albumin 2.2 L D, Globulin 2.7, Albumin/Globulin Ratio 0.8 L I & O for Last 24 hours: Intake & Output 05/04/25 05/05/25 05/06/25 05/07/25 23:59 23:59 23:59 23:59 Intake Total 1922 / 2980 1398 / 1398 Output Total 740 / 740 360 / 360 Balance 1182 / 2240 1038 / 1038 Weight 70.307 kg 53.342 kg 52.191 kg Constitutional Constitutional: no acute distress *Routine HEENT Exam Head: Present normocephalic Eye: Present EOMI and PERRL ENT: Present mucous membranes moist *Routine Neck Exam Neck: Present supple; Absent lymphadenopathy *Routine Respiratory Exam Respiratory: Present CTA bilaterally *Routine Cardiovascular Exam Cardiovascular: Present RRR *Routine Abdominal Exam Abdominal: Present soft and normoactive bowel sounds; Absent tenderness *Routine Extremities Exam Extremities: Absent cyanosis, clubbing or edema *Routine Skin Exam Skin: Present warm; Absent rash *Routine Neurological Exam Neurological: Present alert and oriented X3 Results Data Completed and Pending Labs on day of discharge: Labs from last 24 hours 02/03/25 06:00 WBC 4.2 L RBC 2.95 L Hgb 8.5 L Hct 27.7 L MCV 93.9 MCH 28.8 MCHC 30.7 L RDW 14.1 Plt Count 169 MPV 9.1 Neut % (Auto) 79.2 Lymph % (Auto) 10.4 [place] % (Auto) 7.3 Eos % (Auto) 2.1 Baso % (Auto) 0.5 Neut # (Auto) 3.4 Lymph # (Auto) 0.4 L [place] # (Auto) 0.3 Eos # (Auto) 0.1 Baso # (Auto) 0.0 Total Counted 100 Neutrophils % (Manual) 85 H Lymphocytes % (Manual) 9 L Monocytes % (Manual) 6 Platelet Estimate Normal RBC Morphology Normal Sodium 132 L Potassium 3.2 L Chloride 104 Carbon Dioxide 30 Anion Gap 1.2 L BUN 5 L Creatinine 0.80 Estimated Creat Clear 38 Estimated GFR 69 Est GFR ( Amer) 84 Glucose 99 Calcium 7.5 L Magnesium 1.7 D Total Bilirubin 0.6 AST 18 ALT 7 L Alkaline Phosphatase 156 H Total Protein 4.9 L Albumin 2.2 L D Globulin 2.7 Albumin/Globulin Ratio 0.8 L DS: Diagnosis Discharge Diagnosis (1) Acute hyponatremia: Status: Acute Code(s): E87.1 - Hypo-osmolality and hyponatremia (2) Acute hypokalemia: Status: Acute Code(s): E87.6 - Hypokalemia (3) Hypomagnesemia: Status: Acute Code(s): E83.42 - Hypomagnesemia (4) Colon cancer: Status: Acute Code(s): C18.9 - Malignant neoplasm of colon, unspecified (5) Nausea and vomiting: Status: Acute Code(s): R11.2 - Nausea with vomiting, unspecified Meds Home Medications and Allergies Home Medications ?Medication ?Instructions ?Recorded ?Confirmed ?Type ferrous sulfate 325 mg (65 mg 325 mg PO DAILY #30 tabs 08/27/23 02/25/25 Rx iron) tablet (FeroSul) apixaban 2.5 mg tablet (Eliquis) 2.5 mg PO BID #60 tabs 12/03/24 02/25/25 Rx magnesium oxide 400 mg PO BID #60 tabs 12/17/24 02/25/25 Rx doxepin 10 mg capsule 10 mg PO BID 90 days #180 caps 01/21/25 02/25/25 Rx loperamide 2 mg capsule 2 mg PO TID PRN diarrhea 90 days 01/21/25 02/25/25 Rx #270 caps metoprolol succinate 100 mg 100 mg PO DAILY 90 days #90 tabs 01/21/25 02/25/25 Rx tablet,extended release 24 hr (Toprol XL) diphenoxylate-atropine 2.5 1 tab PO QID PRN diarrhea 30 days 02/25/25 02/25/25 Rx mg-0.025 mg tablet (Lomotil) #120 tabs methylprednisolone 4 mg tablets in See Rx Instructions PO PER PKG DIR 02/25/25 02/25/25 Rx a dose pack (Medrol (Rodney)) #21 tabs potassium chloride 20 mEq 40 meq (2 x 20 mEq) PO BID #120 02/25/25 Rx tablet,extended release (K-Tab) tabs New Prescriptions to Start Prescriptions: Allergies Allergy/AdvReac Type Severity Reaction Status Date / Time No Known Allergies Allergy Verified 02/25/25 13:33 Discharge Plan Disposition Patient Disposition: Home, Self-Care Condition: Fair Discharge Order Discharge Orders: Discharge Order (Routine); Ordered 02/03/25 Ordered By: Phillip Menchaca Follow up Plan Prescriptions/Medication Reconciliation: Continued magnesium oxide 400 mg magnesium tablet 400 mg PO BID Qty: 60 3RF Eliquis 2.5 mg tablet 2.5 mg PO BID Qty: 60 3RF ferrous sulfate [FeroSul] 325 mg (65 mg iron) tablet 325 mg PO DAILY Qty: 30 3RF loperamide 2 mg capsule 2 mg PO TID PRN (Reason: diarrhea) 90 Days Qty: 270 0RF doxepin 10 mg capsule 10 mg PO BID 90 Days Qty: 180 0RF metoprolol succinate [Toprol XL] 100 mg tablet extended release 24 hr 100 mg PO DAILY 90 Days Qty: 90 0RF No Action methylprednisolone [Medrol (Rodney)] 4 mg tablets,dose pack See Rx Instructions PO PER PKG DIR Qty: 21 0RF Rx Instructions: PO PER PKG DIR for 6 days diphenoxylate-atropine [Lomotil] 2.5-0.025 mg tablet 1 tab PO QID PRN (Reason: diarrhea) 30 Days Qty: 120 0RF potassium chloride [K-Tab] 20 mEq tablet extended release 40 meq PO BID Qty: 120 1RF Problem Reconciliation Problems Reviewed?: Yes Patient Discharge Instructions Patient Instructions: DI for Hyponatremia Print Language: [place] Providers Primary Care Provider: Karlos Vickers Admit Provider: Antonio Garnica Attending Provider: Antonio Garnica
--- NOTE | 2025-02-04 10:04 | SW/DCPLANNER ---
Spoke with patient on the phone. Patient stated that she is doing pretty good other than having diarrhea. Patient stated that she sees her primary care provider next week. Patient stated that she was not prescribed any new medicine. Patient stated that she has no concerns or questions. Benjamin Eisenberg
== END 2025-02-03 17:56 | disposition home or self-care (01) ==
LOC: ER 20:58 → 2ND 23:10
PROVIDERS: Nurse Practitioner Acute Care; Physician Assistant; Student in an Organized Health Care Education/Training Program; Admitting Provider Internal Medicine Adolescent Medicine; Emergency Provider Emergency Medicine; PCP Family Medicine; Visit Provider Internal Medicine Adolescent Medicine
DX: K56.1 Intussusception (principal); C18.9 Malignant neoplasm of colon, unspecified; C78.7 Secondary malignant neoplasm of liver and intrahepatic bile duct; E87.1 Hypo-osmolality and hyponatremia; R18.0 Malignant ascites; E87.6 Hypokalemia; R11.2 Nausea with vomiting, unspecified; Z66 Do not resuscitate; E83.42 Hypomagnesemia; I50.9 Heart failure, unspecified; I11.0 Hypertensive heart disease with heart failure; E86.0 Dehydration; Z79.60 Long term (current) use of unspecified immunomodulators and immunosuppressants; Z79.899 Other long term (current) drug therapy; I51.3 Intracardiac thrombosis, not elsewhere classified; D50.9 Iron deficiency anemia, unspecified; Z79.01 Long term (current) use of anticoagulants
CPT/HCPCS: 74177; 80048; 80053; 83605; 83735; 84100; 84145; 85007; 85025; 85610; 99291; J2405; J3475; J7030; J7120; Q9967

== ENCOUNTER 2025-02-25 13:11 | Outpatient (CLI) | payer MEDICARE, OTHER, SELFPAY ==
[2025-02-25] MEDS: SODIUM CHLORIDE 0.9% 10ML FLUSH SYRINGE 10 ML IV (13:24)
[2025-02-25 14:05] LABS: Albumin Level 2.7 g/dl (3.5-5.0); Chloride 106 mmol/L (98-107); Sodium 136 mmol/L (136-145)
[2025-02-25 14:08] LABS: Alanine Aminotransferase 11 U/L (12-78); Alkaline Phosphatase 269 U/L (38-126); Aspartate Amino Transferase 24 U/L (14-36); Bilirubin,Total 0.6 mg/dl (0.2-1.3); Blood Urea Nitrogen 7 mg/dl (7-17); Calcium 7.8 mg/dl (8.4-10.2); Estimated Glomerular Filt Rate 54 ml/min (>60); GFR (African American) 65 ML/MIN (>60); Glucose 98 mg/dl (74-100); Total Protein,Serum 5.9 g/dl (6.3-8.2)
[2025-02-25 14:11] LABS: Albumin/Globulin Ratio 0.8 (1.1-1.8); Globulin 3.2 g/dL (1.3-3.2)
[2025-02-25 14:33] LABS: Basophils # 0.1 K/mm3 (0-0.2); Basophils % 0.7 % (0.1-2.0); Eosinophils # 0.3 Kmm3 (0.0-0.4); Eosinophils % 3.5 % (0.1-12.0); Hematocrit 26.9 % (37.0-47.0); Hemoglobin 8.3 g/dL (12.2-16.2); Immature Granulocytes # 0.02 10^3uL; Immature Granulocytes % 0.3 %; Lymphocytes # 0.9 K/mm3 (0.7-4.5); Lymphocytes % 11.6 % (10-50); Mean Corpuscular HGB Conc 30.9 g/dL (31.8-35.4); Mean Corpuscular Hemoglobin 28.8 pg (27.0-31.2); Mean Corpuscular Volume 93.4 fl (81-99); Mean Platelet Volume 9.9 fl (7.4-10.4); Monocytes # 0.5 K/mm3 (0.1-1.0); Neutrophils % 77.9 % (37.0-80.0); Nucleated Red Blood Cells # 0 10^3/uL; Nucleated Red Blood Cells % 0 %; Platelet Count 317 K/mm3 (142-424); Red Blood Count 2.88 M/mm3 (4.20-5.40); Red Cell Distribution Width 14.7 % (11.5-17.5); Red Cell Distribution Width-SD 50.4 fL; White Blood Count 7.7 K/mm3 (4.8-10.8)
[2025-02-25 15:11] LABS: Carbon Dioxide 26 mmol/L (22.0-30.0)
== END 2025-02-25 13:25 | disposition home or self-care (01) ==
LOC: INF 13:16
PROVIDERS: PCP Family Medicine; Visit Provider Internal Medicine Medical Oncology
DX: C18.9 Malignant neoplasm of colon, unspecified (principal)
CPT/HCPCS: 36591; 80053; 85025; J1642

== ENCOUNTER 2025-03-01 22:02 | Observation (INO) | payer MEDICARE, OTHER, SELFPAY ==
[2025-03-01 22:26] VITALS: BP 119/53; PULSE 79; RESP 14; TEMP 36.4; O2SAT 98; BMI 21.1
--- NOTE | 2025-03-01 22:49 | ED_ITS ---
Discharge Plan Disposition Patient Disposition: Admitted Condition: Fair Clinical Impressions Clinical Impression: UTI (urinary tract infection), Metastatic cancer, Hypomagnesemia Discharge ED Provider: Jorge Anders Adult HPI <Jorge Anders MD - Last Filed: 03/02/25 00:00> General Chief complaint: Nausea/Vomiting/Diarrhea Stated complaint: V/D/abnormal labs Time Seen by Provider: 03/01/25 22:49 Mode of Arrival: Wheelchair Source of Information: Patient Description of Symptoms (Recalled from ER Triage Doc. by RN): Pt was seen by Dr Pruitt last and dx with low K+ (3.0) increased her daily PO K+. Pt is having extrem nausea, vomiting and diarrhea. Pt has hx of stomach CA and not responding to chemo therapy so it was stopped 2 months ago. History of Present Illness HPI narrative: The patient presents to the Emergency Department with a chief complaint of vomiting and diarrhea. She reports having diarrhea all day and throwing up. The patient has a history of chronic diarrhea, but the current episode appears to be more severe. The patient was recently seen by Dr. Pruitt on , who noted that her potassium levels were low ( destroyed ). As a result, her potassium supplementation was doubled. The patient mentions that she has had a little bit of diarrhea since then, but it's unclear if this is a continuation of her chronic symptoms or a new development. The patient has a history of anemia requiring blood transfusions. When asked about the presence of blood in her stool, the patient's graduate teaching associate (likely a caregiver) states that it doesn't visibly show up, but the patient has required blood transfusions in the past due to low blood counts. When asked about pain, the patient reports that her stomach hurts the worst. She denies pain with urination. The patient has a history of low blood counts requiring blood transfusions, chronic diarrhea, and electrolyte imbalance, specifically low potassium. Her current medication includes potassium supplementation, which was recently doubled and is associated with diarrhea. The patient reports fatigue, vomiting, and diarrhea, but denies painful urination. Please note that above description of symptoms, in this electronic medical record under categorization of recalled from ER triage doctor by RN are reflective of an initial nursing assessment, however, is not reflective of my full history and physical exam that was personally taken and clarified. Consequentially, this preceding description of symptoms, which may include the patient's categorized chief complaint in the EMR, do not reflect my personal clinical impression, and the ultimate description of history of present illness and patient stated complaints should be deferred to this section of the note. Unless stated otherwise or congruent with this section of the note, additional signs, symptoms, or incongruence should be interpreted as inaccurate with my clinical impression. Related Data Previous Rx's ?Medication ?Instructions ?Recorded ferrous sulfate 325 mg (65 mg 325 mg PO DAILY #30 tabs 08/27/23 iron) tablet (FeroSul) apixaban 2.5 mg tablet (Eliquis) 2.5 mg PO BID #60 tab s 12/03/24 magnesium oxide 400 mg PO BID #60 tabs 12/17 doxepin 10 mg capsule 10 mg PO BID 90 days #180 ca ps 01/21/25 loperamide 2 mg capsule 2 mg PO TID PRN diarrhea 90 days 01/21/25 #270 caps metoprolol succinate 100 mg 100 mg PO DAILY 90 days #9 0 tabs 01/21/25 tablet,extended release 24 hr (Toprol XL) diphenoxylate-atropine 2.5 1 tab PO QID PRN diarrhea 3 0 days 02/25/25 mg-0.025 mg tablet (Lomotil) #120 tabs methylprednisolone 4 mg tablets in See Rx Instructions PO PER PKG DIR 02/25/25 a dose pack (Medrol (Rodney)) #21 tabs potassium chloride 20 mEq 40 meq (2 x 20 mEq) PO BID # 120 02/25/25 tablet,extended release (K-Tab) tabs Allergies Allergy/AdvReac Type Severity Reaction Status Date / Time No Known Allergies Allergy Verified 02/25/25 13:33 [facility] <Jorge Anders MD - Last Filed: 03/02/25 00:00> [facility] Disclaimer: The information contained in this section may have been updated after the patient was seen, as this information can be updated by other users. 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 History of hysterectomy Family History Mother Cancer Father Coronary artery disease Social History Smoking Status: Never smoker alcohol intake: never substance use type: denies use current occupational status: retired Travel in the last 8 weeks?: None household members: none housing: house lives independently: Yes marital status: Have you lived/traveled outside [place] in past 30 days?: No Contact w/someone who lives/traveled outside US past 30 days?: No Exposure to someone with infectious disease in past 14 days?: No Do you have a fever (greater than 100.4 F or 38 C)?: No Have you tested positive for COVID-19?: No Exposed to someone with COVID-19 in past 14 days?: No Do you have a sore throat?: No Do you have a cough?: No Do you have any weakness?: No Do you have any diarrhea?: No Are you experiencing any unusual bleeding?: No Do you have any muscle aches/pain?: No Do you have any abdominal pain?: No Are you experiencing loss of taste or smell?: No Other Medical History Have you received the Flu Vaccine for this season: No Have you received the Pneumonia Vaccine: No <Jorge Anders MD - Last Filed: 03/02/25 00:00> ROS Obtained: Yes other As per HPI Physical Exam <Jorge Anders MD - Last Filed: 03/02/25 00:00> General General appearance: alert and in no apparent distress Head Head exam: atraumatic and normocephalic Eye Eye exam: Present normal appearance Neck Neck exam: Present normal inspection Chest Chest inspection: Present normal inspection and symmetric chest wall rise Respiratory Respiratory exam: Present normal lung sounds bilaterally; Absent respiratory distress Cardiovascular Cardiovascular exam: Present regular rate and normal rhythm Abdominal Exam Abdominal exam: Present soft Neurological Exam Neurological exam: Present alert and oriented X3 Psychiatric Psychiatric exam: Present normal affect and normal mood Skin Skin exam: Present warm and dry Other Other exam information: Suprapubic abdominal tenderness to palpation Medical Decision Making <Jorge Anders MD - Last Filed: 03/02/25 00:00> Medical Records Medical records reviewed: Yes I reviewed the patient's medical records. Screening: Per USPSTF and CDC recommendations, given the prevalence of disease in our region, it is our hospital?s policy to screen for HIV and viral Hepatitis for all patients aged 18 and over and those with ongoing risk factors. Jn Inquiry Pt receiving controlled substance: No Vital Signs: 03/01/25 22:26 03/02/25 00:00 03/02/25 00:30 Temperature 97.5 F L Temperature Source Temporal Artery Scan Pulse Rate 85 82 Pulse Rate [Left] 79 Respiratory Rate 14 Blood Pressure 125/67 105/56 L Blood Pressure [Right Arm] 119/53 L Blood Pressure Mean 86 Blood Pressure Mean [Right Arm] 75 Blood Pressure Source [Right Arm] Automatic Cuff Blood Pressure Position [Right Arm] Sitting 02 Sat by Pulse Oximetry 98 99 97 Oxygen Delivery Method Room Air Lab Data Lab Results 03/01/25 00:00: Magnesium 1.4 L 03/01/25 23:09: WBC 10.0, RBC 3.41 L, Hgb 10.0 L, Hct 31.8 L, MCV 93.3, MCH 29.3, MCHC 31.4 L, RDW 15.5, Plt Count 430 H, MPV 9.6, Neut % (Auto) 84.8 H, L ymph % (Auto) 7.0 L, [place] % (Auto) 6.8, Eos % (Auto) 0.9, Baso % (Auto) 0.2, N eut # (Auto) 8.5 H, Lymph # (Auto) 0.7, [place] # (Auto) 0.7, Eos # (Auto) 0.1, Baso # (Auto) 0.0, Sodium 134 L, Potassium 3.6, Chloride 106, Carbon Dioxide 28, Anion Gap 3.6 L, BUN 17, Creatinine 1.10 H, Estimated Creat Clear 34, Estimated GFR 48 L, Est GFR ( Amer) 58 L, Glucose 136 H, Calcium 8.1 L, Magnesium 1.4 L, Total Bilirubin 0.9, AST 30, ALT 13, Alkaline Phosphatase 287 H, Total Creatine Kinase 34, Total Protein 5.8 L, Albumin 2.6 L, Globulin 3.2, A lbumin/Globulin Ratio 0.8 L, Lipase 24, HCV Ab AYAN w/Rflx PCR Qn Negative, HIV Ag/Ab Combo Qual Negative 03/02/25 01:06: Urine Color Yellow, Urine Appearance Cloudy, Urine pH 6.0, Ur Specific [place] <= 1.005, Urine Protein Negative, Urine Glucose (UA) Negative, Urine Ketones Negative, Urine Blood 2+ A, Urine Nitrate Positive A, Urine Bilirubin Negative, Urine Urobilinogen 0.2, Ur Leukocyte Esterase 2+ A, Urine RBC 10-20, Urine WBC 20-50, Ur Squamous Epith Cells 3-5, Urine Bacteria 3+ 03/01/25 23:09 03/01/25 23:09 Orders (Tests/Meds): ED MEDICATIONS Generic Name Dose Route Start Last Admin Trade Name Freq PRN Reason Stop Dose Admin Sodium Chloride 10 ml 03/01/25 23:24 03/01/25 23:31 Sodium Chloride 0.9% 10ml Syr (Rad Only) IV 03/31/25 23:23 10 ml NEEDED PRN Administration Maintain IV Site Discontinued Medications Generic Name Dose Route Start Last Admin Trade Name Freq PRN Reason Stop Dose Admin Ceftriaxone Sodium 1 gm/ 50 mls @ 100 mls/hr 03/02/25 01:49 03/02/25 01:55 Sodium Chloride IV 03/02/25 02:18 100 mls/hr ONCE ONE Administration Iopamidol 75 ml 03/01/25 23:24 03/01/25 23:31 Iopamidol-370 (76%);100ml Bottle IV 03/01/25 23:25 75 ml ONCE ONE Administration ORDERS Category Date Time Status CT abdomen pelvis w con Stat Cat Scan 03/01/25 22:56 Completed CBC w/Auto Diff [Complete Blood Count Auto Diff] Stat Lab 03/01/25 23:09 Completed CK [Creatine Kinase] Stat Lab 03/01/25 23:09 Completed CMP [Comprehensive Metabolic Panel] Stat Lab 03/01/25 23:09 Completed HIV Combo Stat Lab 03/01/25 23:09 Completed Hepatitis C Ab Qual. W/ RFX Stat Lab 03/01/25 23:09 Completed Lipase Stat Lab 03/01/25 23:09 Completed MAG [Magnesium] Stat Lab 03/01/25 23:09 Completed Magnesium Stat Lab 03/02/25 00:07 Completed Urinalysis and Microscopic Stat Lab 03/02/25 01:06 Completed Blood Culture Stat Micro 03/02/25 01:58 ORD Urine Culture Stat Micro 03/02/25 01:06 Received Medical Decision Narrative: Patient with history and exam per above presenting for evaluation of abdominal pain, nausea, vomiting Diagnoses considered include infectious diarrhea, electrolyte abnormality, anemia, bowel obstruction, among others ED workup and treatment included: ED MEDICATIONS Generic Name Dose Route Start Last Admin Trade Name Freq PRN Reason Stop Dose Admin Sodium Chloride 10 ml 03/01/25 23:24 03/01/25 23:31 Sodium Chloride 0.9% 10ml Syr (Rad Only) IV 03/31/25 23:23 10 ml NEEDED PRN Administration Maintain IV Site Discontinued Medications Generic Name Dose Route Start Last Admin Trade Name Freq PRN Reason Stop Dose Admin Iopamidol 75 ml 03/01/25 23:24 03/01/25 23:31 Iopamidol-370 (76%);100ml Bottle IV 03/01/25 23:25 75 ml ONCE ONE Administration ORDERS Category Date Time Status CT abdomen pelvis w con Stat Cat Scan 03/01/25 22:56 Taken CBC w/Auto Diff [Complete Blood Count Auto Diff] Stat Lab 03/01/25 23:09 Completed CK [Creatine Kinase] Stat Lab 03/01/25 23:09 Completed CMP [Comprehensive Metabolic Panel] Stat Lab 03/01/25 23:09 Completed HIV Combo Stat Lab 03/01/25 23:09 Received Hepatitis C Ab Qual. W/ RFX Stat Lab 03/01/25 23:09 Received Lipase Stat Lab 03/01/25 23:09 Completed MAG [Magnesium] Stat Lab 03/01/25 23:09 Completed Urinalysis and Microscopic Stat Lab 03/01/25 22:55 Ordered Labs and imaging pending at this time, care was transferred to incoming physician <Pooja Kelly MD - Last Filed: 03/02/25 02:31> Vital Signs: 03/01/25 22:26 03/02/25 00:00 03/02/25 00:30 Temperature 97.5 F L Temperature Source Temporal Artery Scan Pulse Rate 85 82 Pulse Rate [Left] 79 Respiratory Rate 14 Blood Pressure 125/67 105/56 L Blood Pressure [Right Arm] 119/53 L Blood Pressure Mean 86 Blood Pressure Mean [Right Arm] 75 Blood Pressure Source [Right Arm] Automatic Cuff Blood Pressure Position [Right Arm] Sitting 02 Sat by Pulse Oximetry 98 99 97 Oxygen Delivery Method Room Air Lab Data Lab Results 03/01/25 00:00: Magnesium 1.4 L 03/01/25 23:09: WBC 10.0, RBC 3.41 L, Hgb 10.0 L, Hct 31.8 L, MCV 93.3, MCH 29.3, MCHC 31.4 L, RDW 15.5, Plt Count 430 H, MPV 9.6, Neut % (Auto) 84.8 H, L ymph % (Auto) 7.0 L, [place] % (Auto) 6.8, Eos % (Auto) 0.9, Baso % (Auto) 0.2, N eut # (Auto) 8.5 H, Lymph # (Auto) 0.7, [place] # (Auto) 0.7, Eos # (Auto) 0.1, Baso # (Auto) 0.0, Sodium 134 L, Potassium 3.6, Chloride 106, Carbon Dioxide 28, Anion Gap 3.6 L, BUN 17, Creatinine 1.10 H, Estimated Creat Clear 34, Estimated GFR 48 L, Est GFR ( Amer) 58 L, Glucose 136 H, Calcium 8.1 L, Magnesium 1.4 L, Total Bilirubin 0.9, AST 30, ALT 13, Alkaline Phosphatase 287 H, Total Creatine Kinase 34, Total Protein 5.8 L, Albumin 2.6 L, Globulin 3.2, A lbumin/Globulin Ratio 0.8 L, Lipase 24, HCV Ab AYAN w/Rflx PCR Qn Negative, HIV Ag/Ab Combo Qual Negative 03/02/25 01:06: Urine Color Yellow, Urine Appearance Cloudy, Urine pH 6.0, Ur Specific [place] <= 1.005, Urine Protein Negative, Urine Glucose (UA) Negative, Urine Ketones Negative, Urine Blood 2+ A, Urine Nitrate Positive A, Urine Bilirubin Negative, Urine Urobilinogen 0.2, Ur Leukocyte Esterase 2+ A, Urine RBC 10-20, Urine WBC 20-50, Ur Squamous Epith Cells 3-5, Urine Bacteria 3+ Orders (Tests/Meds): ED MEDICATIONS Generic Name Dose Route Start Last Admin Trade Name Freq PRN Reason Stop Dose Admin Sodium Chloride 10 ml 03/01/25 23:24 03/01/25 23:31 Sodium Chloride 0.9% 10ml Syr (Rad Only) IV 03/31/25 23:23 10 ml NEEDED PRN Administration Maintain IV Site Discontinued Medications Generic Name Dose Route Start Last Admin Trade Name Freq PRN Reason Stop Dose Admin Ceftriaxone Sodium 1 gm/ 50 mls @ 100 mls/hr 03/02/25 01:49 03/02/25 01:55 Sodium Chloride IV 03/02/25 02:18 100 mls/hr ONCE ONE Administration Iopamidol 75 ml 03/01/25 23:24 03/01/25 23:31 Iopamidol-370 (76%);100ml Bottle IV 03/01/25 23:25 75 ml ONCE ONE Administration ORDERS Category Date Time Status CT abdomen pelvis w con Stat Cat Scan 03/01/25 22:56 Completed CBC w/Auto Diff [Complete Blood Count Auto Diff] Stat Lab 03/01/25 23:09 Completed CK [Creatine Kinase] Stat Lab 03/01/25 23:09 Completed CMP [Comprehensive Metabolic Panel] Stat Lab 03/01/25 23:09 Completed HIV Combo Stat Lab 03/01/25 23:09 Completed Hepatitis C Ab Qual. W/ RFX Stat Lab 03/01/25 23:09 Completed Lipase Stat Lab 03/01/25 23:09 Completed MAG [Magnesium] Stat Lab 03/01/25 23:09 Completed Magnesium Stat Lab 03/02/25 00:07 Completed Urinalysis and Microscopic Stat Lab 03/02/25 01:06 Completed Blood Culture Stat Micro 03/02/25 01:58 ORD Urine Culture Stat Micro 03/02/25 01:06 Received Medical Decision Narrative: Patient with history and exam per above presenting for evaluation of abdominal pain, nausea, vomiting Diagnoses considered include infectious diarrhea, electrolyte abnormality, anemia, bowel obstruction, among others ED workup and treatment included: ED MEDICATIONS Generic Name Dose Route Start Last Admin Trade Name Freq PRN Reason Stop Dose Admin Sodium Chloride 10 ml 03/01/25 23:24 03/01/25 23:31 Sodium Chloride 0.9% 10ml Syr (Rad Only) IV 03/31/25 23:23 10 ml NEEDED PRN Administration Maintain IV Site Discontinued Medications Generic Name Dose Route Start Last Admin Trade Name Freq PRN Reason Stop Dose Admin Iopamidol 75 ml 03/01/25 23:24 03/01/25 23:31 Iopamidol-370 (76%);100ml Bottle IV 03/01/25 23:25 75 ml ONCE ONE Administration ORDERS Category Date Time Status CT abdomen pelvis w con Stat Cat Scan 03/01/25 22:56 Taken CBC w/Auto Diff [Complete Blood Count Auto Diff] Stat Lab 03/01/25 23:09 Completed CK [Creatine Kinase] Stat Lab 03/01/25 23:09 Completed CMP [Comprehensive Metabolic Panel] Stat Lab 03/01/25 23:09 Completed HIV Combo Stat Lab 03/01/25 23:09 Received Hepatitis C Ab Qual. W/ RFX Stat Lab 03/01/25 23:09 Received Lipase Stat Lab 03/01/25 23:09 Completed MAG [Magnesium] Stat Lab 03/01/25 23:09 Completed Urinalysis and Microscopic Stat Lab 03/01/25 22:55 Ordered Labs and imaging pending at this time, care was transferred to incoming physician Kelly: Upon my assumption of care patient is stable. I agree with the assessment and plan from Dr. Anders. CT abdomen pelvis personally interpreted demonstrates ascites and evidence of metastatic disease. See radiology read for final interpretation. Labs personally reviewed demonstrate no leukocytosis, anemia improved from prior, CMP not specifically actionable at this time, patient is receiving magnesium repletion, lipase normal, UA positive for UTI, Rocephin is being administered. I had a long discussion with patient and family at bedside about their goals. Patient and family indicate that there is not really more to be done about the cancer so they are planning to pursue comfort measures but patient is not quite ready for hospice. Patient is still uncomfortable and not feeling well and would prefer to be admitted which I believe is reasonable. She is appropriate for admission at this time for treatment of UTI and goals of care management and coordination while inpatient. I discussed this case with the hospitalist who graciously accepted the patient for admission. Patient admitted in stable condition. Critical Care <Jorge Anders MD - Last Filed: 03/02/25 00:00> Critical Care Time Critical Care Time: No
--- NOTE | 2025-03-01 22:56 | CT_ITS ---
PROCEDURE INFORMATION: Exam: CT Abdomen And Pelvis With Contrast Exam date and time: 03/01/2025 11:23 PM Age: 79 years old Clinical indication: Abdominal pain; Additional info: Abdominal pain/n/v/diarrhea, known cancer TECHNIQUE: Imaging protocol: Computed tomography of the abdomen and pelvis with contrast. Radiation optimization: All CT scans at this facility use at least one of these dose optimization techniques: automated exposure control; mA and/or kV adjustment per patient size (includes targeted exams where dose is matched to clinical indication); or iterative reconstruction. Contrast material: ISOVUE; Contrast volume: 75 ml; Contrast route: IV; COMPARISON: CT ABDOMEN PELVIS W CON 02/01/2025 10:11 PM FINDINGS: Lungs: Visualized lung bases are clear. Liver: Again noted are heterogeneously enhancing masses in the liver measuring up to 6 cm consistent with metastases. Portal veins are patent. Gallbladder and biliary ducts: The gallbladder has been resected. No biliary duct dilatation. Pancreas: Normal. No ductal dilation. Spleen: Normal. No splenomegaly. Adrenal glands: Normal. No mass. Kidneys and ureters: Left kidney unremarkable. No hydroureteronephrosis. 3.4 cm likely benign right renal cyst, requiring no further evaluation. Stomach and bowel: Increased fluid-filled distension of large and small bowel consistent with ileus in likely representing underlying diarrhea. No bowel wall thickening or surrounding inflammation identified. Appendix: No evidence of appendicitis. Intraperitoneal space: Again noted nodular hypodense masses in the mesentery of the right lower quadrant measuring up to nearly 6 cm consistent with metastases. Increased [id number] ascites in the abdomen and pelvis. No free air. Vasculature: There is moderate atherosclerosis of the aorta without aneurysm.No occlusion. No significant stenosis or dissection. Lymph nodes: Unremarkable. No enlarged lymph nodes. Urinary bladder: Bladder suboptimally visualized due to adjacent free fluid. Reproductive: The uterus has been resected. Bones/joints: Unremarkable. No acute fracture. Soft tissues: Unremarkable. IMPRESSION: 1. Again noted hepatic and mesenteric metastases as described. 2. Increased ascites. 3. Increased diffuse fluid-filled bowel distension consistent with ileus and underlying diarrhea. 4. Post-operative change as described.
--- NOTE | 2025-03-01 23:15 | PC.NURSE ---
late entry: Upon placing patient to assigned room, pt reports bowel movement and would need assistance getting cleaned up. Pt placed in and mango care complete per Alyson Vitale certified composites technician.
[2025-03-01 23:18] LABS: Basophils % 0.2 % (0.1-2.0); Eosinophils # 0.1 Kmm3 (0.0-0.4); Eosinophils % 0.9 % (0.1-12.0); Hematocrit 31.8 % (37.0-47.0); Immature Granulocytes # 0.03 10^3uL; Immature Granulocytes % 0.3 %; Lymphocytes # 0.7 K/mm3 (0.7-4.5); Mean Corpuscular HGB Conc 31.4 g/dL (31.8-35.4); Mean Corpuscular Hemoglobin 29.3 pg (27.0-31.2); Mean Corpuscular Volume 93.3 fl (81-99); Mean Platelet Volume 9.6 fl (7.4-10.4); Monocytes # 0.7 K/mm3 (0.1-1.0); Monocytes % 6.8 % (1.7-9.3); Neutrophils # 8.5 K/mm3 (1.8-7.8); Neutrophils % 84.8 % (37.0-80.0); Nucleated Red Blood Cells # 0 10^3/uL; Nucleated Red Blood Cells % 0 %; Platelet Count 430 K/mm3 (142-424); Red Blood Count 3.41 M/mm3 (4.20-5.40); Red Cell Distribution Width 15.5 % (11.5-17.5); Red Cell Distribution Width-SD 52.9 fL
[2025-03-01 23:30] LABS: Alanine Aminotransferase 13 U/L (12-78); Albumin Level 2.6 g/dl (3.5-5.0); Albumin/Globulin Ratio 0.8 (1.1-1.8); Alkaline Phosphatase 287 U/L (38-126); Anion Gap 3.6 mEq/L (5-15); Aspartate Amino Transferase 30 U/L (14-36); Bilirubin,Total 0.9 mg/dl (0.2-1.3); Blood Urea Nitrogen 17 mg/dl (7-17); Calcium 8.1 mg/dl (8.4-10.2); Carbon Dioxide 28 mmol/L (22.0-30.0); Chloride 106 mmol/L (98-107); Creatine Kinase 34 U/L (30-135); Creatinine Clearance Estimated 34 mL/min (50-200); Estimated Glomerular Filt Rate 48 ml/min (>60); GFR (African American) 58 ML/MIN (>60); Globulin 3.2 g/dL (1.3-3.2); Glucose 136 mg/dl (74-100); Lipase 24 U/L (23-300); Magnesium 1.4 mg/dl (1.6-2.3); Potassium 3.6 mmoL/L (3.5-5.1); Sodium 134 mmol/L (136-145); Total Protein,Serum 5.8 g/dl (6.3-8.2)
[2025-03-01] MEDS: IOPAMIDOL-370 (76%);100ML BOTTLE 75 ML IV (23:31)
[2025-03-01] MEDS: SODIUM CHLORIDE 0.9% 10ML SYR (RAD ONLY) 10 ML IV (23:31)
[2025-03-02] VITALS (9 sets, daily range): BP systolic 105–148; BP diastolic 56–78; PULSE 76–92; RESP 16–20; TEMP 36.4–36.7; O2SAT 90–99; BMI 20.2; BMI 20.6; BMI 21.2
[2025-03-02 00:12] LABS: HIV Combo NEGATIVE (Negative)
[2025-03-02 00:17] LABS: Magnesium 1.4 mg/dl (1.6-2.3)
[2025-03-02 00:20] LABS: Hepatitis C Ab Qual. W/ RFX NEGATIVE (Negative)
--- NOTE | 2025-03-02 00:56 | PC.NURSE ---
pt taken to restroom to attempt to provide urine for testing.
[2025-03-02 01:11] LABS: Microscopic, Urine URINE MICROSCOPIC (MICROSCOPIC)
[2025-03-02 01:16] LABS: Appearance,Urine CLOUDY (Clear); Bilirubin,Urine Negative (Negative); Blood, Urine 2+ (Negative); Color,Urine YELLOW (Yellow); Glucose,Urine (UA) Negative (Negative); Ketones,Urine Negative (Negative); Leukocyte Esterase,Urine 2+ (Negative); Nitrate,Urine POSITIVE (Negative); Protein,Urine Negative (Negative); Specific Gravity, Urine <= 1.005 (1.005-1.030); Urobilinogen,Urine 0.2 EU/dl (0.2)
[2025-03-02 01:21] LABS: Bacteria,Urine 3+ /lpf; WBC,Urine 20-50 #/hpf (0-3)
[2025-03-02] MEDS: CEFTRIAXONE 1 GM 1 GM in 0.9 % SODIUM CHLORIDE 50 ML IV (01:55)
--- NOTE | 2025-03-02 01:58 | PC.NURSE ---
medication scanned when this RN realized blood cultures have not been drawn. Medication held until cultures are drawn.
--- NOTE | 2025-03-02 02:08 | PC.NURSE ---
Admitting provider at the bedside as well as phlebotomy to obtain second set of cultures prior to antibiotic administration
--- NOTE | 2025-03-02 02:54 | PC.NURSE ---
Patient arrived to floor via wheelchair from ED at 02:50.
--- NOTE | 2025-03-02 04:30 | P.HP_ITS ---
<Statement entered by Phillip Menchaca MD - 03/08/25 17:48> Personally evaluated the patient and agree with the plan of care as outlined by the APPRAISER AUDITOR. History of Present Illness *Admission Date: 03/02/25 *Reason for visit:: Weakness diarrhea abdominal pain need for hospice consult *History of present illness: Ms. Shepard who is quite articulate at 79 and is able to answer and ask questions in a very knowledgeable way., She knows that she had cancer 27 years ago and had a bowel resection and it went away. She just cannot understand why she is caught cancer again. We talked about treatment and she knows that no further treatment will help.. Her main concern now is the diarrhea but also the abdominal pain. In talking with her about hospice she so far has been afraid to bring hospice in because if you go on hospice you soon. I explained to her that I was a hospice nurse myself and the different scenarios for hospice, and explained to her that we consider end-of-life is 6 months or less but other people live much longer such as Jeffery Foster was on hospice for more than a year she understood that. She was mainly concerned also about her diarrhea and pain medication, talked with her about hospice that they would then be able to provide the pain medication, and with right planning could probably do this in her home, we also went over the difference of a hospice inpatient hospital and a jail where hospice comes in to care for you. She does not want anything to do with a jail. That after talking with her she has agreed that I am going to admit her and she is okay with that for pain control. That she has taken hydrocodone before that has been helpful and so I have ordered that with also the secondary benefit I hope is to slow down her diarrhea. She is also agreed to meet with hospice so hospice consult has been placed in the computer. [facility] Disclaimer: The information contained in this section may have been updated after the patient was seen, as this information can be updated by other users. Medical History (Updated 03/02/25 @ 04:47 by Manolo Jones APRN) LV (left ventricular) mural thrombus Iron deficiency anemia Heart failure, left systolic, acute Chronic diarrhea Anemia CHF (congestive heart failure) Arthritis SIRS (systemic inflammatory response syndrome) CAP (community acquired pneumonia) Menopausal symptom Hypertension Cervical cancer Hormone replacement therapy (HRT) Osteoarthritis of both knees Surgical History (Updated 03/01/25 @ 00:00 by Darvin Khan) H/O colonoscopy Total knee replacement status History of hysterectomy Family History Mother Cancer Father Coronary artery disease Social History (Updated 03/02/25 @ 03:04 by Pat Perez RN) Smoking Status: Never smoker alcohol intake: never substance use type: denies use current occupational status: retired Travel in the last 8 weeks?: None household members: none housing: house lives independently: Yes marital status: Have you lived/traveled outside [place] in past 30 days?: No Contact w/someone who lives/traveled outside US past 30 days?: No Exposure to someone with infectious disease in past 14 days?: No Do you have a fever (greater than 100.4 F or 38 C)?: No Have you tested positive for COVID-19?: No Exposed to someone with COVID-19 in past 14 days?: No Do you have a sore throat?: No Do you have a cough?: No Do you have any weakness?: No Are you experiencing any nausea/vomitting?: No Do you have any diarrhea?: No Are you experiencing any unusual bleeding?: No Do you have any muscle aches/pain?: No Do you have any abdominal pain?: No Are you experiencing loss of taste or smell?: No Other Medical History Have you received the Flu Vaccine for this season: No Have you received the Pneumonia Vaccine: No Review of Systems Review of Systems Review of systems:: pertinent systems reviewed and negative unless documented below Constitutional Constitutional: Reports as per HPI and Reports weight loss Eyes Eyes: Reports as per HPI ENT Ears, Nose, Mouth, and Throat: Reports as per HPI *Cardiovascular Cardiovascular: Reports as per HPI *Respiratory Respiratory: Reports as per HPI *Gastrointestinal Gastrointestinal: Reports as per HPI, Reports abdominal pain and Reports change in bowel habits *Genitourinary Genitourinary: Reports as per HPI *Musculoskeletal Musculoskeletal: Reports as per HPI Integumentary/Breasts Skin/Breast: Reports as per HPI *Neurologic Neurologic: Reports as per HPI Psychiatric Psychiatric: Reports as per HPI Endocrine Endocrine: Reports as per HPI Hematologic/Lymphatic Hematologic/Lymphatic: Reports as per HPI Allergic/Immunologic Allergic/Immunologic: Reports as per HPI Meds Home Medications and Allergies Home Medications ?Medication ?Instructions ?Recorded ?Confirmed ?Type ferrous sulfate 325 mg (65 mg 325 mg PO DAILY #30 tabs 08/27/23 03/02/25 Rx iron) tablet (FeroSul) apixaban 2.5 mg tablet (Eliquis) 2.5 mg PO BID #60 tab s 12/03/24 03/02/25 Rx magnesium oxide 400 mg PO BID #60 tabs 12/1703/02/25 Rx doxepin 10 mg capsule 10 mg PO BID 90 days #180 ca ps 01/21/25 03/02/25 Rx loperamide 2 mg capsule 2 mg PO TID PRN diarrhea 90 days 01/21/25 03/02/25 Rx #270 caps metoprolol succinate 100 mg 100 mg PO DAILY 90 days #9 0 tabs 01/21/25 03/02/25 Rx tablet,extended release 24 hr (Toprol XL) diphenoxylate-atropine 2.5 1 tab PO QID PRN diarrhea 3 0 days 02/25/25 03/02/25 Rx mg-0.025 mg tablet (Lomotil) #120 tabs methylprednisolone 4 mg tablets in See Rx Instructions PO PER PKG DIR 02/25/25 03/02/25 Rx a dose pack (Medrol (Rodney)) #21 tabs potassium chloride 20 mEq 40 meq (2 x 20 mEq) PO BID # 120 02/25/25 03/02/25 Rx tablet,extended release (K-Tab) tabs New Prescriptions to Start Prescriptions: Allergies Allergy/AdvReac Type Severity Reaction Status Date / Time No Known Allergies Allergy Verified 02/25/25 13:33 Exam Data for Last 24 hours Vital signs and Labs for Last 24 Hours: Temp Pulse Resp BP Pulse Ox O2 Del Method 98.1 F 88 16 144/65 H 98 Room Air 03/02/25 03:15 03/02/25 03:15 03/02/25 03:15 03/02/25 03:15 03/02/25 03:15 03/02/25 03:15 Laboratory Results - last 24 hr 03/01/25 00:00: Magnesium 1.4 L 03/01/25 23:09: WBC 10.0, RBC 3.41 L, Hgb 10.0 L, Hct 31.8 L, MCV 93.3, MCH 29.3, MCHC 31.4 L, RDW 15.5, Plt Count 430 H, MPV 9.6, Neut % (Auto) 84.8 H, Lymph % (Auto) 7.0 L, [place] % (Auto) 6.8, Eos % (Auto) 0.9, Baso % (Auto) 0.2, Neut # (Auto) 8.5 H, Lymph # (Auto) 0.7, [place] # (Auto) 0.7, Eos # (Auto) 0.1, Baso # (Auto) 0.0, Sodium 134 L, Potassium 3.6, Chloride 106, Carbon Dioxide 28, Anion Gap 3.6 L, BUN 17, Creatinine 1.10 H, Estimated Creat Clear 34, Estimated GFR 48 L, Est GFR ( Amer) 58 L, Glucose 136 H, Calcium 8.1 L, Magnesium 1.4 L, Total Bilirubin 0.9, AST 30, ALT 13, Alkaline Phosphatase 287 H, Total Creatine Kinase 34, Total Protein 5.8 L, Albumin 2.6 L, Globulin 3.2, Albumin/Globulin Ratio 0.8 L, Lipase 24, HCV Ab AYAN w/Rflx PCR Qn Negative, HIV Ag/Ab Combo Qual Negative 03/02/25 01:06: Urine Color Yellow, Urine Appearance Cloudy, Urine pH 6.0, Ur Specific [place] <= 1.005, Urine Protein Negative, Urine Glucose (UA) Negative, Urine Ketones Negative, Urine Blood 2+ A, Urine Nitrate Positive A, Urine Bilirubin Negative, Urine Urobilinogen 0.2, Ur Leukocyte Esterase 2+ A, Urine RBC 10-20, Urine WBC 20-50, Ur Squamous Epith Cells 3-5, Urine Bacteria 3+ I & O for Last 24 hours: Intake & Output 02/27/25 02/28/25 03/01/25 03/02/25 05:59 05:59 05:59 05:59 Weight 107 lb 6.4 oz Narrative: Patient on blood thinner for apparently having a thrombus in the cardiac chamber Constitutional Constitutional: mild distress, thin and cooperative Comments: Mentally stressed over her terminal condition *Routine HEENT Exam Head: Present normocephalic Eye: Present EOMI ENT: Present mucous membranes moist *Routine Neck Exam Neck: Present supple and full ROM Routine Chest/Breast/Axilla Exam Chest wall: Present tenderness *Routine Respiratory Exam Respiratory: Present CTA bilaterally *Routine Cardiovascular Exam Cardiovascular: Present RRR, Normal S1, Normal S2 and tachycardia *Routine Abdominal Exam Abdominal: Present soft and guarding Comments: Generalized pain so palpation was extremely light *Routine Rectal Exam Rectal:: deferred *Routine Genitalia Exam Genitalia:: deferred *Routine Extremities Exam Extremities: Present pulses intact and normal capillary refill Comments: Patient is pale and appears to be slightly malnourished losing weight but able to move all extremities well no signs of cyanosis Routine Back/Spine/Pelvis Exam Back/Spine: Present full ROM Comments: Patient is weak but she is able to stand and walk, for short distances but requires wheelchair for anything extended *Routine Skin Exam Skin: Present intact, dry and normal turgor Comments: Pale thin skin *Routine Neurological Exam Neurological: Present alert, oriented X3, CN II-XII intact, normal tone, vision grossly intact, hearing grossly intact and normal speech Comments: No signs of neurological deficits except for just generalized weakness Routine Psychiatric Exam Psychiatric: Present normal affect, normal thought process and cooperative Comments: Patient is not willing at this point in time probably to fully except the diagnosis that her cancer is termed, I think on an intellectual basis she knows this but emotionally she is not ready to except H&P: Result Impressions Terminal: Metastatic cancer, with secondary anemia, abdominal pain, nausea, diarrhea Assessment and Plan *Assessment and plan (1) Colon cancer metastasized to multiple sites: Status: Acute Category: Medical Code(s): C18.9 - Malignant neoplasm of colon, unspecified (2) Abdominal pain: Status: Acute Qualifiers: Abdominal location: generalized Qualified Code(s): R10.84 - Generalized abdominal pain Category: Medical Code(s): R10.9 - Unspecified abdominal pain (3) Nausea vomiting and diarrhea: Status: Acute Category: Medical Code(s): R11.2 - Nausea with vomiting, unspecified; R19.7 - Diarrhea, unspecified (4) UTI (urinary tract infection): Status: Acute Qualifiers: Urinary tract infection type: acute cystitis Hematuria presence: with hematuria Qualified Code(s): N30.01 - Acute cystitis with hematuria Category: Medical Code(s): N39.0 - Urinary tract infection, site not specified Plan 1. Hospice consult with aid of case management 2. Hydrocodone for abdominal pain hopefully was secondary effect of slowing diarrhea 3. Continue Rocephin for urinary tract infection 4. Gastric and dietary supplements to try to slow diarrhea and increase digesti on 5. Benzodiazepines small dose for any anxiety
--- NOTE | 2025-03-02 08:01 | SW/DCPLANNER ---
Addendum entered by Pilar Juarez 03/02/25 13:19: Marlena w/ Hospice at bedside to evaluate patient. Marlena confirmed patient will be admitted to Hospice services once returning home. Per MD patient will discharge home this afternoon. Original Note: I received a Hospice consult for this patient. I spoke w/ patient this AM regarding Hospice services. Patient is agreeable for information to be faxed to [facility]. Patient does plan to return home w/ Hospice services at time of discharge. Patient has several family members that live close by that check on her often. Once Marlena pedraza/ [facility] reviews patient information I will follow up. Discharge date is unknown at this time.
--- NOTE | 2025-03-02 08:10 | HMH.PHAINT1 ---
Pharmacy Intervention Comments: MEDICATION RECONCILIATION COMPLETED ON PATIENT USING EXTERNAL FILL HISTORY FROM PHARMACY AND LIST FROM ONCOLOGY OFFICE. -ROMEO CUENCA, BIJALD
[2025-03-02] MEDS: FAMOTIDINE 20MG TABLET 20 MG PO (09:05)
[2025-03-02] MEDS: LACTOBACILLUS PROBIOTIC COMB CAPSULE 1 CAP PO (09:05)
[2025-03-02] MEDS: LIPASE/PROTEASE/AMYLASE 1 EACH CAPSULE.DR 2 EACH PO ×2 (09:06→11:22)
[2025-03-02] MEDS: MAGNESIUM SULFATE IN WATER 2 GM/50 ML PIGGYBACK IV ×3 (10:30→12:58)
--- NOTE | 2025-03-02 10:38 | HMH.PTEV ---
Physical Therapy Evaluation Rehab PT IP Evaluation Start: 03/02/25 03:53 Freq: ONCE Status: Active Protocol: Document 03/02/25 10:17 SUNNY (Rec: 03/02/25 10:37 SUNNY [id number]) Subjective/History History History Ms. Shepard who is quite articulate at 79 and is able to answer and ask questions in a very knowledgeable way., She knows that she had cancer 27 years ago and had a bowel resection and it went away. She just cannot understand why she is caught cancer again. Her main concern now is the diarrhea but also the abdominal pain . Pt has 2 daughters and 1 son who are able to provide 24/ care. Pt is able to ambulate with a walker at home. Subjective Subjective Pt presents seated on bedside commode. She is willing to participate in therapy and ambulate in the hallway. Pt returned to bed with call light and personal items in reach. [facility] How much help from another person do you currently need... Turning from your None back to your side while in a flat bed without using bedrails? Moving from lying on None back to sitting on the side of a flat bed without using bedrails? Moving to and from a A little bed to a chair ( including a wheelchair)? Standing up from a A little chair using your arms? (e.g., wheelchair, bedside chair) Walking in hospital None room? Climbing 3-5 steps A little with a railing? Mobility Score 21 Mobility Level [facility] Mobility 6 Walk 10 steps or more Mobility Calculator Rehab PT IP Eval Objective Appearance Patient Behavior Appropriate,Cooperative Patient Orientation Person,Place Difficulty following none instructions Speech Pattern Clear,Appropriate Ambulation Patient Able to Yes Ambulate Ambulation Observation IP General Gait Shuffling Step Pattern Observation Ambulation Distance 50 (feet) Ambulation Assistive Standard Walker Device Ambulation Ability Contact Guard/Hand Hold Balance Ability to Arise Able, w/o using arms Sitting Balance Steady, safe Standing Balance Steady, wide stance Dynamic Sitting Normal Balance Ability Dynamic Standing Normal Balance Ability Transfers Bed Transfer Ability Independent Chair Transfer Contact Guard/Hand Hold Ability Sit to Stand Bed Contact Guard/Hand Hold Transfer Ability Sit to Stand Chair Contact Guard/Hand Hold Transfer Ability Rehab PT IP prob,goals,plan Problems Date of Evaluation: 03/02/25 PT IP Problems Bed Mobility,Transfers,Gait,Safety Rehab Potential Rehab Potential Good Equipment Needs Assistive Devices Rolling / Wheeled Walker Plan PT Intervention Plan Bed Mobility,Transfers,Gait,Balance,Safety,Therapeutic Exercise PT Plan Frequency Daily Duration LOS Discharge Goals Bed Transfer Ability Independent Sit to Stand Chair Independent Transfer Ability Ambulation Assistive Rolling Walker Device Ambulation Distance 75 (feet) Discharge Plan PT Discharge Plan Patient is currently most appropriate to return home once medically stable for d/c with family assistance. Pt is near baseline with all mobility and is able to ambulate independently with a standard walker. Skilled acute therapy is currently indicated to improve LE strength and endurance to return to OF with all ADLs and mobility. Eval Complexity Eval Charge Codes 74714 - High Complexity PHYSICIAN CERTIFICATION: I certify the specified therapy services for Viviane Richard are required, authorized, and reviewed every 30 days.
[2025-03-02 11:37] LABS: Adenovirus F 40/41, stool Not Detected (NotDetected); Astrovirus Not Detected (NotDetected); Campylobacter Not Detected (NotDetected); Cryptosporidium Not Detected (NotDetected); Cyclospora Cayetanesis Not Detected (NotDetected); Entamoeba histolytica Not Detected (NotDetected); Enteroaggregative E coli Not Detected (NotDetected); Enteropathogenic E coli Not Detected (NotDetected); Enterotoxigenic E coli Not Detected (NotDetected); Giardia lamblia Not Detected (NotDetected); Norovirus Not Detected (NotDetected); Plesimonas Shigalloides, PCR Not Detected (NotDetected); Rotavirus A Not Detected (NotDetected); Salmonella, PCR Not Detected (NotDetected); Sapovirus Not Detected (NotDetected); Shiga-like toxin E coli Not Detected (NotDetected); Shigella Enterovasive E coli Not Detected (NotDetected); Vibrio Cholerae Not Detected (NotDetected); Vibrio, PCR Not Detected (NotDetected); Yersinia Entercolitica, PCR Not Detected (NotDetected)
[2025-03-02 13:58] LABS: Clostridium Difficile A/B, PCR Detected (NotDetected)
--- NOTE | 2025-03-02 14:07 | EXP.DC.SUM ---
General Admission date:: 03/02/25 HPI HPI HPI: Ms. Shepard who is quite articulate at 79 and is able to answer and ask questions in a very knowledgeable way., She knows that she had cancer 27 years ago and had a bowel resection and it went away. She just cannot understand why she is caught cancer again. We talked about treatment and she knows that no further treatment will help.. Her main concern now is the diarrhea but also the abdominal pain. In talking with her about hospice she so far has been afraid to bring hospice in because if you go on hospice you soon. I explained to her that I was a hospice nurse myself and the different scenarios for hospice, and explained to her that we consider end-of-life is 6 months or less but other people live much longer such as Jeffery Foster was on hospice for more than a year she understood that. She was mainly concerned also about her diarrhea and pain medication, talked with her about hospice that they would then be able to provide the pain medication, and with right planning could probably do this in her home, we also went over the difference of a hospice inpatient hospital and a skilled nursing where hospice comes in to care for you. She does not want anything to do with a skilled nursing. That after talking with her she has agreed that I am going to admit her and she is okay with that for pain control. That she has taken hydrocodone before that has been helpful and so I have ordered that with also the secondary benefit I hope is to slow down her diarrhea. She is also agreed to meet with hospice so hospice consult has been placed in the computer. Hospital Course Hospital Course Hospital Course: Viviane Richard is a 79-year-old female who presented with nausea/vomiting/diarrhea in the setting of metastatic colon cancer. Also tested positive for C. difficile. #Metastatic colon cancer, adenocarcinoma #Recurrent nausea/vomiting/diarrhea #Ileus #C. difficile diarrhea #UTI ? Patient presents unfortunately again due to nausea/vomiting/diarrhea in the setting of metastatic colon cancer. She was previously admitted for intussusception which does not seem to be present on CT abdomen this time. However, there does seem to be an ileus present. ? Diarrhea panel positive for C. difficile. Started on vancomycin. ? UA also grossly abnormal, started on levofloxacin. ? Has followed closely with Dr. Pruitt for metastatic colon cancer, unfortunately cancer is unsalvageable. Had been on palliative care, previously refused hospice care. ? Given extent of disease patient had talked it over with family, and now wants to pursue hospice care. She is currently tolerating p.o. intake without nausea, abdominal discomfort. ? Hospice care consulted, admitted to hospice care at home. ? Discharged with vancomycin, levofloxacin, and oxycodone to home with hospice care. #Intracardiac thrombus ? Likely in the setting of cancer. Continue patient's home Eliquis. #Severe protein calorie malnutrition ? Nutrition consulted, provided counseling and nutritional supplementations. Exam Data for Last 24 hours Vital signs and Labs for Last 24 Hours: Temp Pulse Resp BP Pulse Ox O2 Del Method 97.9 F 92 H 19 148/78 H 98 Room Air 03/02/25 08:00 03/02/25 08:00 03/02/25 08:00 03/02/25 08:00 03/02/25 08:00 03/02/25 13:00 Laboratory Results - last 24 hr 03/01/25 00:00: Magnesium 1.4 L 03/01/25 23:09: WBC 10.0, RBC 3.41 L, Hgb 10.0 L, Hct 31.8 L, MCV 93.3, MCH 29.3, MCHC 31.4 L, RDW 15.5, Plt Count 430 H, MPV 9.6, Neut % (Auto) 84.8 H, Lymph % (Auto) 7.0 L, Mchenry % (Auto) 6.8, Eos % (Auto) 0.9, Baso % (Auto) 0.2, Neut # (Auto) 8.5 H, Lymph # (Auto) 0.7, Mchenry # (Auto) 0.7, Eos # (Auto) 0.1, Baso # (Auto) 0.0, Sodium 134 L, Potassium 3.6, Chloride 106, Carbon Dioxide 28, Anion Gap 3.6 L, BUN 17, Creatinine 1.10 H, Estimated Creat Clear 34, Estimated GFR 48 L, Est GFR ( Amer) 58 L, Glucose 136 H, Calcium 8.1 L, Magnesium 1.4 L, Total Bilirubin 0.9, AST 30, ALT 13, Alkaline Phosphatase 287 H, Total Creatine Kinase 34, Total Protein 5.8 L, Albumin 2.6 L, Globulin 3.2, Albumin/Globulin Ratio 0.8 L, Lipase 24, HCV Ab AYAN w/Rflx PCR Qn Negative, HIV Ag/Ab Combo Qual Negative 03/02/25 01:06: Urine Color Yellow, Urine Appearance Cloudy, Urine pH 6.0, Ur Specific [place] <= 1.005, Urine Protein Negative, Urine Glucose (UA) Negative, Urine Ketones Negative, Urine Blood 2+ A, Urine Nitrate Positive A, Urine Bilirubin Negative, Urine Urobilinogen 0.2, Ur Leukocyte Esterase 2+ A, Urine RBC 10-20, Urine WBC 20-50, Ur Squamous Epith Cells 3-5, Urine Bacteria 3+ 03/02/25 11:30: Stl Aeromonas (PCR) Not detected, Stl C. cayetanensis PCR Not detected, Stool Rotavirus (PCR) Not detected, Stl Adenov F 40/41 PCR Not detected, Stool Astrovirus (PCR) Not detected, Stool Campylobacter PCR Not detected, Stl C.difficile Tox PCR Detected A, Stool Cryptosporidium PCR Not detected, Stl E.coli Shiga Tox PCR Not detected, Stool E coli O157 PCR Not detected, Stl Enterotoxigenic E PCR Not detected, Stool EPEC (PCR) Not detected, Stool EAEC (PCR) Not detected, Stl E. histolytica PCR Not detected, Stool Giardia Lamblia PCR Not detected, Stool Salmonella PCR Not detected, Stool Sapovirus (PCR) Not detected, Stl P. shigelloides PCR Not detected, Stl Shigella/EIEC PCR Not detected, St Y.enterocolitica PCR Not detected, Stool Vibrio (PCR) Not detected, Stl Vibrio cholerae PCR Not detected, Stl Norovirus GI/GII PCR Not detected I & O for Last 24 hours: Intake & Output 02/27/25 02/28/25 03/01/25 03/02/25 23:59 23:59 23:59 23:59 Intake Total 480 / 480 Output Total 150 / 150 Balance 330 / 330 Weight 50.802 kg 51.075 kg Microbiology Reports for the Last 24 Hours: Microbiology 03/02/25 01:06 Urine,Clean Catch Urine Culture - Preliminary Constitutional Constitutional: no acute distress *Routine HEENT Exam Head: Present normocephalic Eye: Present EOMI and PERRL ENT: Present mucous membranes moist *Routine Neck Exam Neck: Present supple; Absent lymphadenopathy *Routine Respiratory Exam Respiratory: Present CTA bilaterally *Routine Cardiovascular Exam Cardiovascular: Present RRR *Routine Abdominal Exam Abdominal: Present soft and normoactive bowel sounds; Absent tenderness *Routine Extremities Exam Extremities: Absent cyanosis, clubbing or edema *Routine Skin Exam Skin: Present warm; Absent rash *Routine Neurological Exam Neurological: Present alert and oriented X3 Results Data Completed and Pending Labs on day of discharge: Labs from last 24 hours 03/02/25 03/02/25 03/01/25 11:30 01:06 23:09 WBC 10.0 RBC 3.41 L Hgb 10.0 L Hct 31.8 L MCV 93.3 MCH 29.3 MCHC 31.4 L RDW 15.5 Plt Count 430 H MPV 9.6 Neut % (Auto) 84.8 H Lymph % (Auto) 7.0 L Mchenry % (Auto) 6.8 Eos % (Auto) 0.9 Baso % (Auto) 0.2 Neut # (Auto) 8.5 H Lymph # (Auto) 0.7 Mchenry # (Auto) 0.7 Eos # (Auto) 0.1 Baso # (Auto) 0.0 Sodium 134 L Potassium 3.6 Chloride 106 Carbon Dioxide 28 Anion Gap 3.6 L BUN 17 Creatinine 1.10 H Estimated Creat Clear 34 Estimated GFR 48 L Est GFR ( Amer) 58 L Glucose 136 H Calcium 8.1 L Magnesium 1.4 L Total Bilirubin 0.9 AST 30 ALT 13 Alkaline Phosphatase 287 H Total Creatine Kinase 34 Total Protein 5.8 L Albumin 2.6 L Globulin 3.2 Albumin/Globulin Ratio 0.8 L Lipase 24 Urine Color Yellow Urine Appearance Cloudy Urine pH 6.0 Ur Specific [place] <= 1.005 Urine Protein Negative Urine Glucose (UA) Negative Urine Ketones Negative Urine Blood 2+ A Urine Nitrate Positive A Urine Bilirubin Negative Urine Urobilinogen 0.2 Ur Leukocyte Esterase 2+ A Urine RBC 10-20 Urine WBC 20-50 Ur Squamous Epith Cells 3-5 Urine Bacteria 3+ Stl Aeromonas (PCR) Not detected Stl C. cayetanensis PCR Not detected Stool Rotavirus (PCR) Not detected Stl Adenov F 40/41 PCR Not detected Stool Astrovirus (PCR) Not detected Stool Campylobacter PCR Not detected Stl C.difficile Tox PCR Detected A Stool Cryptosporidium PCR Not detected Stl E.coli Shiga Tox PCR Not detected Stool E coli O157 PCR Not detected Stl Enterotoxigenic E PCR Not detected Stool EPEC (PCR) Not detected Stool EAEC (PCR) Not detected Stl E. histolytica PCR Not detected Stool Giardia Lamblia PCR Not detected Stool Salmonella PCR Not detected Stool Sapovirus (PCR) Not detected Stl P. shigelloides PCR Not detected Stl Shigella/EIEC PCR Not detected St Y.enterocolitica PCR Not detected Stool Vibrio (PCR) Not detected Stl Vibrio cholerae PCR Not detected Stl Norovirus GI/GII PCR Not detected HCV Ab AYAN w/Rflx PCR Qn Negative HIV Ag/Ab Combo Qual Negative 03/01/25 00:00 WBC RBC Hgb Hct MCV MCH MCHC RDW Plt Count MPV Neut % (Auto) Lymph % (Auto) Mchenry % (Auto) Eos % (Auto) Baso % (Auto) Neut # (Auto) Lymph # (Auto) Mchenry # (Auto) Eos # (Auto) Baso # (Auto) Sodium Potassium Chloride Carbon Dioxide Anion Gap BUN Creatinine Estimated Creat Clear Estimated GFR Est GFR ( Amer) Glucose Calcium Magnesium 1.4 L Total Bilirubin AST ALT Alkaline Phosphatase Total Creatine Kinase Total Protein Albumin Globulin Albumin/Globulin Ratio Lipase Urine Color Urine Appearance Urine pH Ur Specific [place] Urine Protein Urine Glucose (UA) Urine Ketones Urine Blood Urine Nitrate Urine Bilirubin Urine Urobilinogen Ur Leukocyte Esterase Urine RBC Urine WBC Ur Squamous Epith Cells Urine Bacteria Stl Aeromonas (PCR) Stl C. cayetanensis PCR Stool Rotavirus (PCR) Stl Adenov F 40/41 PCR Stool Astrovirus (PCR) Stool Campylobacter PCR Stl C.difficile Tox PCR Stool Cryptosporidium PCR Stl E.coli Shiga Tox PCR Stool E coli O157 PCR Stl Enterotoxigenic E PCR Stool EPEC (PCR) Stool EAEC (PCR) Stl E. histolytica PCR Stool Giardia Lamblia PCR Stool Salmonella PCR Stool Sapovirus (PCR) Stl P. shigelloides PCR Stl Shigella/EIEC PCR St Y.enterocolitica PCR Stool Vibrio (PCR) Stl Vibrio cholerae PCR Stl Norovirus GI/GII PCR HCV Ab AYAN w/Rflx PCR Qn HIV Ag/Ab Combo Qual Preliminary micro results at discharge 03/02/25 01:06 Urine Culture - Preliminary Urine,Clean Catch DS: Diagnosis Discharge Diagnosis (1) Colon cancer metastasized to multiple sites: Status: Acute Code(s): C18.9 - Malignant neoplasm of colon, unspecified (2) Abdominal pain: Status: Acute Code(s): R10.9 - Unspecified abdominal pain Qualifiers: Abdominal location: generalized Qualified Code(s): R10.84 - Generalized abdominal pain (3) Nausea vomiting and diarrhea: Status: Acute Code(s): R11.2 - Nausea with vomiting, unspecified; R19.7 - Diarrhea, unspecified (4) UTI (urinary tract infection): Status: Acute Code(s): N39.0 - Urinary tract infection, site not specified Qualifiers: Hematuria presence: with hematuria Urinary tract infection type: acute cystitis Qualified Code(s): N30.01 - Acute cystitis with hematuria Meds Home Medications and Allergies Home Medications ?Medication ?Instructions ?Recorded ?Confirmed ?Type ferrous sulfate 325 mg (65 mg 325 mg PO DAILY #30 tabs 08/27/23 03/02/25 Rx iron) tablet (FeroSul) apixaban 2.5 mg tablet (Eliquis) 2.5 mg PO BID #60 tabs 12/03/24 03/02/25 Rx magnesium oxide 400 mg PO BID #60 tabs 12/17/24 03/02/25 Rx doxepin 10 mg capsule 10 mg PO BID 90 days #180 caps 01/21/25 03/02/25 Rx metoprolol succinate 100 mg 100 mg PO DAILY 90 days #90 tabs 01/21/25 03/02/25 Rx tablet,extended release 24 hr (Toprol XL) methylprednisolone 4 mg tablets in See Rx Instructions PO PER PKG DIR 02/25/25 03/02/25 Rx a dose pack (Medrol (Rodney)) #21 tabs diphenoxylate-atropine 2.5 1 tab PO QIDP PRN diarrhea 03/02/25 03/02/25 History mg-0.025 mg tablet (Lomotil) loperamide 2 mg capsule 2 mg PO TIDP PRN diarrhea 03/02/25 03/02/25 History oxycodone 5 mg tablet 5 mg PO Q6H PRN pain #20 tabs 03/02/25 Rx potassium chloride 20 mEq 40 meq PO BID 03/02/25 03/02/25 History tablet,extended release(part/cryst) vancomycin 50 mg/mL oral solution 125 mg (2.5 mL) PO QID 10 days 03/02/25 Rx (Firvanq) #100 mL cefdinir 300 mg capsule 300 mg PO BID 7 days #14 caps 03/05/25 Rx New Prescriptions to Start Prescriptions: cefdinir Phillip Menchaca oxycodone Phillip Menchaca vancomycin [Firvanq] Phillip Menchaca Allergies Allergy/AdvReac Type Severity Reaction Status Date / Time No Known Allergies Allergy Verified 02/25/25 13:33 Discharge Plan Disposition Patient Disposition: Hospice - Home Condition: Fair Discharge Order Discharge Orders: Discharge Order (Routine); Ordered 03/02/25 Ordered By: Phillip Menchaca Follow up Plan Follow up with: Karlos Vickers MD [Primary Care Provider, Internal Medicine] - 03/10/25 1:00 pm Prescriptions/Medication Reconciliation: New vancomycin [Firvanq] 50 mg/mL Recon Soln 125 mg PO QID 10 Days Qty: 100 0RF oxycodone 5 mg tablet 5 mg PO Q6H PRN (Reason: pain) Qty: 20 0RF cefdinir 300 mg capsule 300 mg PO BID 7 Days Qty: 14 0RF Continued magnesium oxide 400 mg magnesium tablet 400 mg PO BID Qty: 60 3RF methylprednisolone [Medrol (Rodney)] 4 mg tablets,dose pack See Rx Instructions PO PER PKG DIR Qty: 21 0RF Rx Instructions: PO PER PKG DIR for 6 days Eliquis 2.5 mg tablet 2.5 mg PO BID Qty: 60 3RF ferrous sulfate [FeroSul] 325 mg (65 mg iron) tablet 325 mg PO DAILY Qty: 30 3RF doxepin 10 mg capsule 10 mg PO BID 90 Days Qty: 180 0RF metoprolol succinate [Toprol XL] 100 mg tablet extended release 24 hr 100 mg PO DAILY 90 Days Qty: 90 0RF potassium chloride 20 mEq tablet,ER particles/crystals 40 meq PO BID Patient Comments: TAKE 2 TABLETS 2 TIMES EACH DAY loperamide 2 mg capsule 2 mg PO TIDP PRN (Reason: diarrhea) diphenoxylate-atropine [Lomotil] 2.5-0.025 mg tablet 1 tab PO QIDP PRN (Reason: diarrhea) Problem Reconciliation Problems Reviewed?: Yes Patient Discharge Instructions Patient Instructions: DI for Urinary Tract Infection (UTI) Print Language: Spanish Providers Primary Care Provider: Karlos Vickers Admit Provider: Antonio Garnica Attending Provider: Antonio Garnica
[2025-03-02] MEDS: VANCOMYCIN HCL 50MG/ML 150ML KIT 125 MG PO (15:55)
--- NOTE | 2025-03-02 23:43 | PC.NURSE ---
Positive blood cultures. Gram+ cocci PCR +staph
--- NOTE | 2025-03-03 01:12 | PC.NURSE ---
Called pt to check on condition. Informed pt that she had + blood cultures. Pt states she is feeling better than she did yesterday. Pt states she's now under Hospice Care and the nurse will be there at approx 10am this morning. Pt states she will share with Hospice and if they have any question, they will call. Dr. Kelly spoke w/ [facility] and the abx given to patient should cover until we get both sets back. Communicated all of this with Dr. Kelly.
--- NOTE | 2025-03-03 01:13 | EXP.EVENT.NO ---
Maria Luisa discharge rnMARCK Martinez took a phone call from lab regarding blood cultures on this patient. 1 of 4 bottles (an aerobic bottle) had gram-positive growth at 24 hours. Initial PCR is staph species which has not been differentiated further. Results were reported to me. I reviewed patient's chart. She had been admitted to the hospitalist service after her ER visit last night. She was admitted for UTI, general weakness, diarrhea. Review of records demonstrates while inpatient she tested positive for C. difficile. She was treated for urinary tract infection. She was discharged on 750 mg oral Levaquin every 48 hours for 5 days. I suspect this dosing was specifically selected due to patient's slightly diminished kidney function. She was also discharged with oral vancomycin. Additionally, she was discharged with home hospice. She did not have a leukocytosis or evidence of sepsis while in the ER or while admitted. After reviewing these items in the record, I discussed this case with [facility] pharmacist Leona including her oral levaquin dosing, kidney function, and the blood culture results. Leona and I discussed the dose and results and she believes the oral levofloxacin treatment and dosing should be appropriate for coverage of currently undifferentiated staph species, though we discussed that levofloxacin does not have good coverage of MRSA. I reviewed the patient's previous blood cultures and she has never had MRSA identified on any micro testing here. I appreciate Leona's input. I have high suspicion that with only 1 bottle having growth at the 24-hour viktor and it being a currently undifferentiated staph species that it is likely a contamination. With the input from the pharmacist that she believes the Levaquin is appropriate coverage, I do not believe the patient has to come immediately back to the ER but do believe it is important to call the patient maria luisa and see how she is feeling compared to when she left the hospital and of course if she is worse for her to immediately return. athletic scoutMARCK Martinez called the patient and the patient answered the phone and reports she feels improved since the time of discharge. She reports she is still having diarrhea and was advised that that will likely persist for a few days until the antibiotics really start to take care of the C. difficile infection. She reports that hospice nurse is coming at 10 AM. Patient was informed of the blood culture findings and to continue to monitor her symptoms and of course return to the ER if she feels any worse. She was also instructed to let her hospice nurse know about the findings. I am comfortable with this plan as is the patient. Lab will call back to the ER with speciation at that time if indicated patient can be specifically instructed to come back to the ER if needed. Pooja Kelly MD
[2025-03-03 06:19] LABS: Acinetobacter calcoaceticus-ba Not Detected; Bacteroides fragilis Not Detected; Candida albicans Not Detected; Candida auris Not Detected; Candida glabrata Not Detected; Candida krusei Not Detected; Candida parapsilosis Not Detected; Candida tropicalis Not Detected; Cryptococcus neoformans/gattii Not Detected; Enterobacter cloacae complex Not Detected; Enterobacterales Not Detected; Enterococcus faecalis Not Detected; Enterococcus faecium Not Detected; Haemophilus influenzae Not Detected; Klebsiella aerogenes Not Detected; Klebsiella pneumoniae grp Not Detected; Listeria monocytogenes Not Detected; Neisseria meningitidis Not Detected; Proteus spp. Not Detected; Pseudomonas aeruginosa Not Detected; Salmonella spp. Not Detected; Serratia marcescens Not Detected; Staphylococcus epidermidis Not Detected; Staphylococcus lugdunensis Not Detected; Staphylococcus spp. Detected; Stenotrophomonas maltophilia Not Detected; Streptococcus agalactiae(GrpB) Not Detected; Streptococcus pneumoniae Not Detected; Streptococcus pyogenes Group A Not Detected; Streptococcus spp. Not Detected
--- NOTE | 2025-03-03 09:25 | PC.NURSE ---
Patient already notified of cultures and is on antibiotic per Dr. Kelly. Hospice already notified per patient as well. Culture results forwarded to hospitalist.
== END 2025-03-02 16:13 | disposition hospice, home (50) ==
LOC: ER 22:46 → 2ND 03-02 02:31
PROVIDERS: Emergency Medicine; Student in an Organized Health Care Education/Training Program; Admitting Provider Internal Medicine Adolescent Medicine; Emergency Provider Emergency Medicine; PCP Family Medicine; Visit Provider Internal Medicine Adolescent Medicine
DX: R19.7 Diarrhea, unspecified (principal); R10.84 Generalized abdominal pain; R11.2 Nausea with vomiting, unspecified; N30.01 Acute cystitis with hematuria; F41.9 Anxiety disorder, unspecified; I11.0 Hypertensive heart disease with heart failure; I50.9 Heart failure, unspecified; C18.9 Malignant neoplasm of colon, unspecified; R18.8 Other ascites; Z79.899 Other long term (current) drug therapy; Z85.41 Personal history of malignant neoplasm of cervix uteri; Z96.653 Presence of artificial knee joint, bilateral; Z90.710 Acquired absence of both cervix and uterus; E83.42 Hypomagnesemia; D64.9 Anemia, unspecified; Z80.9 Family history of malignant neoplasm, unspecified
CPT/HCPCS: 96365; 96366; 96367; 74177; 80053; 81001; 82550; 83690; 83735; 85025; 86803; 87040; 87086; 87088; 87154; 87186; 87389; 87507; 97163; G0378; J0696; J1642; J3475; Q9967

== ENCOUNTER 2025-03-31 06:36 | Emergency (ER) | payer MEDICARE, OTHER, SELFPAY ==
--- OUTSIDE RECORDS SUMMARY | 2025-02-10 20:00 | XMS_ITS | Clinical Summary ---
Author Organization Unknown Care Team Providers Care Klystrom Tube Tester Name Role Phone NATASHA DIANE Unavailable Kirsten tanesha CAMARGO RN, PAULINE Unavailable Unavailable JANAE FUENTESN, AJAY Unavailable Unavailisiah STEPHENSON PT, ROSALEE Unavailable Unavailable ARNULFO GAS MASK ASSEMBLER, GALILEO Unavailable Unavailable OTILIA OT, DES Unavailable Unavailable Payers Payer Name Policy Type Policy Number Effective Date Expira tion Date MEDICARE.[facility] [id number] Problems Condition Name Condition Details Condition Category Status Onset Date Resolution Date Last Treatment Date Treating Clinician Comments HYPOKALEMIA Active 01-05 00:00: 00 HYPOMAGNESEM IA Active 01-05 00:00: 00 MALIGNANT NEOPLASM OF CECUM Active 01-05 00:00: 00 ACUTE PAIN DUE TO TRAUMA Active 01-05 00:00: 00 PAIN IN LEFT WRIST Active 01-05 00:00: 00 OSTEOPHYTE, LEFT WRIST Active 01-05 00:00: 00 INTRACARDIAC THROMBOSIS, NOT ELSEWHERE CLASSIFIED Active 01-05 00:00: 00 HYPERTENSIVE HEART DISEASE WITH HEART FAILURE Active 01-05 00:00: 00 CHRONIC SYSTOLIC (CONGESTIVE) HEART FAILURE Active 01-05 00:00: 00 ATHSCL HEART DISEASE OF [place] CORONARY ARTERY W/O ANG PCTRS Active 01-05 00:00: 00 IRON DEFICIENCY ANEMIA, UNSPECIFIED Active 01-05 00:00: 00 SKILLED NURSING (CURRENT) USE OF ANTICOAGULAN TS Active 01-05 00:00: 00 PERSONAL HISTORY OF PNEUMONIA (RECURRENT) Active 01-05 00:00: 00 PRESENCE OF ARTIFICIAL KNEE JOINT, BILATERAL Active 01-05 00:00: 00 HISTORY OF FALLING Active 01-05 00:00: 00 PERSONAL HISTORY OF OTH DISEASES OF THE FEMALE GENITAL TRACT Active 01-05 00:00: 00 PERSONAL HISTORY OF MALIGNANT NEOPLASM OF CERVIX UTERI Active 1 00:00: 00 Allergies, Adverse Reactions, Alerts Allergy Name Allergy Type Status Severity Reaction(s) Onset Date Inactive Date Treating Clinician Comments NO KNOWN ALLERGIES Propensity to adverse reactions Active 01-05 10:37: 17 Medications Ordered Medication Name Filled Medication Name Start Date Stop Date Current Medication? Ordering Clinician Indication Dosage Frequency Signature (SIG) Comments Components sulfamethox azole 800 mg-trimetho prim 160 mg tablet 12-31 00:00: 00 01-08 23:59 :00 No [id number] ANTIOBIOT 1 tablet 2 TIMES DAILY 1 tablet 2 TIMES DAILY (route: oral) Med Classific ation: Anti-Infe ctive Agents octreotide acetate 100 mcg/mL (1 mL) injection syringe -21 00:00: 00 Yes [id number] DIARRHEA 1 mL 3 TIMES DAILY 1 mL 3 TIMES DAILY (route: injection) Med Classific ation: Endocrine diphenoxyla te-atropine 2.5 mg-0.025 mg tablet -18 00:00: 00 Yes [id number] DIARRHEA 1 tablet 4 TIMES EACH DAY NEEDED 1 tablet 4 TIMES EACH DAY NEEDED (route: oral) Med Classific ation: Gastroint estinal Therapy Agents ondansetron HCl 8 mg tablet 3-12 00:00: 00 Yes [id number] NAUSEA 1 tablet 2 TIMES EACH DAY FOR 2 DAYS NEEDED 1 tablet 2 TIMES EACH DAY FOR 2 DAYS NEEDED (route: oral) Med Classific ation: Gastroint estinal Therapy Agents prochlorper azine maleate 10 mg tablet 3-12 00:00: 00 Yes [id number] NAUSEA 1 tablet EVERY 6 HOURS NEEDED 1 tablet EVERY 6 HOURS NEEDED (route: oral) Med Classific ation: Gastroint estinal Therapy Agents Eliquis 2.5 mg tablet 3-06 00:00: 00 Yes [id number] HEART 1 tablet 2 TIMES EACH DAY 1 tablet 2 TIMES EACH DAY (route: oral) Med Classific ation: Hematolog ical Agents potassium chloride ER 20 mEq tablet,exte nded release(par t/cryst) 12-01 00:00: 00 Yes [id number] SUPPLEMENT 1 tablet 1 TIME EACH DAY 1 tablet 1 TIME EACH DAY (route: oral) Med Classific ation: Electroly te Balance-N utritiona l Products colestipol 1 gram tablet 01-05 00:00: 00 Yes [id number] DIARRHEA 1 tablet 2 TIMES DAILY 1 tablet 2 TIMES DAILY (route: oral) Med Classific ation: Cardiovas cular Therapy Agents ferrous sulfate 325 mg (65 mg iron) tablet,lemuel yed release 01-05 00:00: 00 Yes [id number] SUPPLEMENT 1 tablet DAILY 1 tablet DAILY (route: oral) Med Classific ation: Electroly te Balance-N utritiona l Products loperamide 2 mg capsule 01-05 00:00: 00 Yes [id number] DIARRHEA 1 capsule 3 TIMES DAILY 1 capsule 3 TIMES DAILY (route: oral) Med Classific ation: Gastroint estinal Therapy Agents magnesium 400 mg (as magnesium oxide) tablet 01-05 00:00: 00 Yes [id number] SUPPLEMENT 1 tablet DAILY 1 tablet DAILY (route: oral) Med Classific ation: Electroly te Balance-N utritiona l Products metoprolol succinate ER 100 mg tablet,exte nded release 24 hr 01-05 00:00: 00 Yes [id number] BLOOD PRESSURE 1 tablet DAILY 1 tablet DAILY (route: oral) Med Classific ation: Cardiovas cular Therapy Agents Vital Signs Vital Name Observation Time Observation Value Commen ts Temperature 2025-02-11 12:01:00.000 97.8 [degF] Temperature 2025-01-28 15:27:00.000 98.5 [degF] Temperature 2025-01-19 14:19:00.000 97.8 [degF] Temperature 2025-01-15 13:55:00.000 97.8 [degF] Temperature 2025-01-12 09:11:00.000 96.9 [degF] Temperature 2025-01-05 11:13:00.000 98.3 [degF] Height 2025-01-05 10:45:30.000 61 [in_us] Pulse 2025-02-11 12:01:00.000 76 /min Pulse 2025-01-28 15:27:00.000 81 /min Pulse 2025-01-19 14:19:00.000 79 /min Pulse 2025-01-15 13:55:00.000 83 /min Pulse 2025-01-12 09:11:00.000 73 /min Pulse 2025-01-05 11:13:00.000 68 /min O2 Saturation (%) 2025-02-11 12:01:00.000 99 % O2 Saturation (%) 2025-01-28 15:27:00.000 99 % O2 Saturation (%) 2025-01-19 14:19:00.000 99 % O2 Saturation (%) 2025-01-15 13:55:00.000 98 % O2 Saturation (%) 2025-01-05 11:13:00.000 99 % Respirations 2025-02-11 12:01:00.000 20 /min Respirations 2025-01-28 15:27:00.000 18 /min Respirations 2025-01-19 14:19:00.000 18 /min Respirations 2025-01-15 13:55:00.000 18 /min Respirations 2025-01-12 09:11:00.000 18 /min Respirations 2025-01-05 11:13:00.000 20 /min Weight (lbs) 2025-01-28 15:27:00.000 115 [lb_av] Weight (lbs) 2025-01-19 14:19:00.000 116 [lb_av] Weight (lbs) 2025-01-15 13:55:00.000 116 [lb_av] Systolic Blood Pressure 2025-02-11 12:01:00.000 102 mm [Hg] Systolic Blood Pressure 2025-01-28 15:27:00.000 128 mm [Hg] Systolic Blood Pressure 2025-01-19 14:19:00.000 102 mm [Hg] Systolic Blood Pressure 2025-01-15 13:55:00.000 140 mm [Hg] Systolic Blood Pressure 2025-01-12 09:11:00.000 130 mm [Hg] Systolic Blood Pressure 2025-01-05 11:13:00.000 128 mm [Hg] Diastolic Blood Pressure 2025-02-11 12:01:00.000 54 mm [Hg] Diastolic Blood Pressure 2025-01-28 15:27:00.000 62 mm [Hg] Diastolic Blood Pressure 2025-01-19 14:19:00.000 68 mm [Hg] Diastolic Blood Pressure 2025-01-15 13:55:00.000 78 mm [Hg] Diastolic Blood Pressure 2025-01-12 09:11:00.000 79 mm [Hg] Diastolic Blood Pressure 2025-01-05 11:13:00.000 72 mm [Hg] Plan of Treatment Planned Activity Planned Date Details Comments Future Scheduled Test RN TO OBSE RVE, ASSESS, EVALUATE, AND DEVELOP AN INDIVIDUALIZED PLAN OF CARE. AGENCY MAY ACCEPT ORDERS FROM CONSULTING PHYSICIANS NATASHA HERNÁNDEZ. RN TO OBSERVE AND ASSESS, AGRICULTURAL COMMODITIES INSPECTOR/ASSOCIATE PROFESSOR OF COUNSELING TO OBSERVE FOR RISK FOR FALLS AND INSTRUCT IN FALL PREVENTION, HOME SAFETY, MEDICATION MANAGEMENT, INFECTION PREVENTION, AND NUTRITION MANAGEMENT. RN/AGRICULTURAL COMMODITIES INSPECTOR/ASSOCIATE PROFESSOR OF COUNSELING NURSE MAY PERFORM O2 SATURATION LEVEL ON ADMISSION AND PRN FOR INCREASED SOA. FOR RN TO ASSESS/AGRICULTURAL COMMODITIES INSPECTOR TO OBSERVE PATIENT, WITH NOTIFICATION TO THE PHYSICIAN IF SATURATION IS 90% IN THE ABSENCE OF MORE SPECIFIC PARAMETERS FROM THE PHYSICIAN. AGENCY MAY PERFORM A RESUMPTION OF CARE VISIT FOLLOWING ANY HOSPITAL ADMISSION. RN/AGRICULTURAL COMMODITIES INSPECTOR/ASSOCIATE PROFESSOR OF COUNSELING TO MONITOR CO-MORBID CONDITIONS LISTED ON THE PLAN OF CARE AND ANY NEW CONDITIONS THAT PRESENT THEMSELVES DURING THIS EPISODE TO IDENTIFY CHANGES AND INTERVENE TO MINIMIZE COMPLICATIONS. [code = RN TO OBSERVE, ASSESS, EVALUATE, AND DEVELOP AN INDIVIDUALIZED PLAN OF CARE. AGENCY MAY ACCEPT ORDERS FROM CONSULTING PHYSICIANS NATASHA HERNÁNDEZ. RN TO OBSERVE AND ASSESS, AGRICULTURAL COMMODITIES INSPECTOR/ASSOCIATE PROFESSOR OF COUNSELING TO OBSERVE FOR RISK FOR FALLS AND INSTRUCT IN FALL PREVENTION, HOME SAFETY, MEDICATION MANAGEMENT, INFECTION PREVENTION, AND NUTRITION MANAGEMENT. RN/AGRICULTURAL COMMODITIES INSPECTOR/ASSOCIATE PROFESSOR OF COUNSELING NURSE MAY PERFORM O2 SATURATION LEVEL ON ADMISSION AND PRN FOR INCREASED SOA. FOR RN TO ASSESS/AGRICULTURAL COMMODITIES INSPECTOR TO OBSERVE PATIENT, WITH NOTIFICATION TO THE PHYSICIAN IF SATURATION IS 90% IN THE ABSENCE OF MORE SPECIFIC PARAMETERS FROM THE PHYSICIAN. AGENCY MAY PERFORM A RESUMPTION OF CARE VISIT FOLLOWING ANY HOSPITAL ADMISSION. RN/AGRICULTURAL COMMODITIES INSPECTOR/ASSOCIATE PROFESSOR OF COUNSELING TO MONITOR CO-MORBID CONDITIONS LISTED ON THE PLAN OF CARE AND ANY NEW CONDITIONS THAT PRESENT THEMSELVES DURING THIS EPISODE TO IDENTIFY CHANGES AND INTERVENE TO MINIMIZE COMPLICATIONS.] Future Scheduled Test RISK FOR H OSPITALIZATION; RN TO ASSESS/TEACH, ASSOCIATE PROFESSOR OF COUNSELING/AGRICULTURAL COMMODITIES INSPECTOR TO OBSERVE/TEACH PATIENT/CAREGIVER ON RISK FOR HOSPITALIZATION/EMERGENCY ROOM VISITS, TEACH SIGNS AND SYMPTOMS THAT PUT PATIENT AT RISK, WHEN TO NOTIFY NURSE/PHYSICIAN OF COMPLICATIONS/DECLINE, AND WHEN TO CALL 911. [code = RISK FOR HOSPITALIZATION; RN TO ASSESS/TEACH, ASSOCIATE PROFESSOR OF COUNSELING/AGRICULTURAL COMMODITIES INSPECTOR TO OBSERVE/TEACH PATIENT/CAREGIVER ON RISK FOR HOSPITALIZATION/EMERGENCY ROOM VISITS, TEACH SIGNS AND SYMPTOMS THAT PUT PATIENT AT RISK, WHEN TO NOTIFY NURSE/PHYSICIAN OF COMPLICATIONS/DECLINE, AND WHEN TO CALL 911.] Future Scheduled Test CARDIOVASC ULAR SYSTEM; RN TO ASSESS/TEACH, AGRICULTURAL COMMODITIES INSPECTOR/ASSOCIATE PROFESSOR OF COUNSELING TO OBSERVE/TEACH RELATED TO ALTERED CARDIOVASCULAR STATUS TO MINIMIZE COMPLICATIONS AND REDUCE HOSPITALIZATION. [code = CARDIOVASCULAR SYSTEM; RN TO ASSESS/TEACH, AGRICULTURAL COMMODITIES INSPECTOR/ASSOCIATE PROFESSOR OF COUNSELING TO OBSERVE/TEACH RELATED TO ALTERED CARDIOVASCULAR STATUS TO MINIMIZE COMPLICATIONS AND REDUCE HOSPITALIZATION.] Future Scheduled Test HEART FAIL URE; RN TO ASSESS/TEACH, AGRICULTURAL COMMODITIES INSPECTOR/ASSOCIATE PROFESSOR OF COUNSELING TO OBSERVE/TEACH CARDIOPULMONARY SYSTEM TO IDENTIFY SIGNS OF DECOMPENSATION AND INTERVENE TO MINIMIZE THE SEVERITY OF FLUID OVERLOAD. OBSERVE PATIENT ABILITY TO MONITOR AND RECORD DAILY WEIGHTS AND VITAL SIGNS, INCLUDING PULSE AND BLOOD PRESSURE; RECORD PATIENT REPORTED WEIGHT, OR WEIGH PATIENT NEEDED. REPORT INCREASED EDEMA OR WEIGHT GAIN OF >2 LBS IN 1 DAY OR >5 LBS IN 1 WEEK OR 5LBS OR MORE OVER TARGET WEIGHT. MAY MEASURE ABDOMINAL GIRTH IF UNABLE TO WEIGH. SCALES AND BP MONITOR TO BE PROVIDED IF NEEDED. [code = HEART FAILURE; RN TO ASSESS/TEACH, AGRICULTURAL COMMODITIES INSPECTOR/ASSOCIATE PROFESSOR OF COUNSELING TO OBSERVE/TEACH CARDIOPULMONARY SYSTEM TO IDENTIFY SIGNS OF DECOMPENSATION AND INTERVENE TO MINIMIZE THE SEVERITY OF FLUID OVERLOAD. OBSERVE PATIENT ABILITY TO MONITOR AND RECORD DAILY WEIGHTS AND VITAL SIGNS, INCLUDING PULSE AND BLOOD PRESSURE; RECORD PATIENT REPORTED WEIGHT, OR WEIGH PATIENT NEEDED. REPORT INCREASED EDEMA OR WEIGHT GAIN OF >2 LBS IN 1 DAY OR >5 LBS IN 1 WEEK OR 5LBS OR MORE OVER TARGET WEIGHT. MAY MEASURE ABDOMINAL GIRTH IF UNABLE TO WEIGH. SCALES AND BP MONITOR TO BE PROVIDED IF NEEDED.] Future Scheduled Test HYPERTENSI ON MANAGEMENT; RN TO ASSESS AND TEACH, AGRICULTURAL COMMODITIES INSPECTOR/ASSOCIATE PROFESSOR OF COUNSELING TO OBSERVE AND TEACH WARNING SIGNS AND SYMPTOMS TO AVOID HOSPITALIZATION. [code = HYPERTENSION MANAGEMENT; RN TO ASSESS AND TEACH, AGRICULTURAL COMMODITIES INSPECTOR/ASSOCIATE PROFESSOR OF COUNSELING TO OBSERVE AND TEACH WARNING SIGNS AND SYMPTOMS TO AVOID HOSPITALIZATION.] Future Scheduled Test RESPIRATOR Y SYSTEM MANAGEMENT; RN TO ASSESS AND TEACH, AGRICULTURAL COMMODITIES INSPECTOR/ASSOCIATE PROFESSOR OF COUNSELING TO OBSERVE AND TEACH RELATED TO ALTERED RESPIRATORY STATUS TO MINIMIZE COMPLICATIONS AND REDUCE HOSPITALIZATION. [code = RESPIRATORY SYSTEM MANAGEMENT; RN TO ASSESS AND TEACH, AGRICULTURAL COMMODITIES INSPECTOR/ASSOCIATE PROFESSOR OF COUNSELING TO OBSERVE AND TEACH RELATED TO ALTERED RESPIRATORY STATUS TO MINIMIZE COMPLICATIONS AND REDUCE HOSPITALIZATION.] Future Scheduled Test SKIN INTEG RITY RN TO ASSESS AND TEACH, AGRICULTURAL COMMODITIES INSPECTOR/ASSOCIATE PROFESSOR OF COUNSELING TO OBSERVE AND TEACH INTEGUMENTARY STATUS TO IDENTIFY CHANGES AND INTERVENE TO MINIMIZE COMPLICATIONS. PROVIDE SKILLED TEACHING OF GENERAL WOUND AND SKIN CARE AND PREVENTION RELATED TO POTENTIAL FOR OR ACTUAL ALTERED SKIN INTEGRITY [code = SKIN INTEGRITY RN TO ASSESS AND TEACH, AGRICULTURAL COMMODITIES INSPECTOR/ASSOCIATE PROFESSOR OF COUNSELING TO OBSERVE AND TEACH INTEGUMENTARY STATUS TO IDENTIFY CHANGES AND INTERVENE TO MINIMIZE COMPLICATIONS. PROVIDE SKILLED TEACHING OF GENERAL WOUND AND SKIN CARE AND PREVENTION RELATED TO POTENTIAL FOR OR ACTUAL ALTERED SKIN INTEGRITY ] Future Scheduled Test PAIN MANAG EMENT; RN TO ASSESS AND TEACH, ASSOCIATE PROFESSOR OF COUNSELING/AGRICULTURAL COMMODITIES INSPECTOR TO OBSERVE AND TEACH AND PROVIDE EDUCATION ON PAIN MANAGEMENT TECHNIQUES. [code = PAIN MANAGEMENT; RN TO ASSESS AND TEACH, ASSOCIATE PROFESSOR OF COUNSELING/AGRICULTURAL COMMODITIES INSPECTOR TO OBSERVE AND TEACH AND PROVIDE EDUCATION ON PAIN MANAGEMENT TECHNIQUES.] Future Scheduled Test GASTROINTE STINAL MANAGEMENT; RN TO ASSESS AND TEACH, ASSOCIATE PROFESSOR OF COUNSELING/AGRICULTURAL COMMODITIES INSPECTOR TO OBSERVE AND TEACH RELATED TO ALTERED GASTROINTESTINAL STATUS TO MINIMIZE COMPLICATIONS AND REDUCE HOSPITALIZATION. [code = GASTROINTESTINAL MANAGEMENT; RN TO ASSESS AND TEACH, ASSOCIATE PROFESSOR OF COUNSELING/AGRICULTURAL COMMODITIES INSPECTOR TO OBSERVE AND TEACH RELATED TO ALTERED GASTROINTESTINAL STATUS TO MINIMIZE COMPLICATIONS AND REDUCE HOSPITALIZATION.] Future Scheduled Test CANCER MAN AGEMENT; RN TO ASSESS AND TEACH, ASSOCIATE PROFESSOR OF COUNSELING/AGRICULTURAL COMMODITIES INSPECTOR TO OBSERVE AND TEACH AND PROVIDE EDUCATION ON CANCER. [code = CANCER MANAGEMENT; RN TO ASSESS AND TEACH, ASSOCIATE PROFESSOR OF COUNSELING/AGRICULTURAL COMMODITIES INSPECTOR TO OBSERVE AND TEACH AND PROVIDE EDUCATION ON CANCER.] Future Scheduled Test FALL REDUC TION MANAGEMENT; RN TO ASSESS AND OBSERVE, AGRICULTURAL COMMODITIES INSPECTOR/ASSOCIATE PROFESSOR OF COUNSELING TO OBSERVE FALL RISK FACTORS AND EDUCATE PATIENT/CAREGIVER ON STRATEGIES TO MINIMIZE THE RISK OF FALLING. [code = FALL REDUCTION MANAGEMENT; RN TO ASSESS AND OBSERVE, AGRICULTURAL COMMODITIES INSPECTOR/ASSOCIATE PROFESSOR OF COUNSELING TO OBSERVE FALL RISK FACTORS AND EDUCATE PATIENT/CAREGIVER ON STRATEGIES TO MINIMIZE THE RISK OF FALLING.] Future Scheduled Test PHYSICAL T HERAPIST TO EVALUATE FOR GAIT STRENGTH ENDURANCE [code = PHYSICAL THERAPIST TO EVALUATE FOR GAIT STRENGTH ENDURANCE ] Future Scheduled Test OCCUPATION AL THERAPIST TO EVALUATE FOR ADLS AND IADLS [code = OCCUPATIONAL THERAPIST TO EVALUATE FOR ADLS AND IADLS ] Future Scheduled Test PRN VISITS ; NUMBER OF RN/AGRICULTURAL COMMODITIES INSPECTOR/ASSOCIATE PROFESSOR OF COUNSELING VISITS: 2 RN/AGRICULTURAL COMMODITIES INSPECTOR/ASSOCIATE PROFESSOR OF COUNSELING TO PERFORM: ASSESSMENT FOR THE FOLLOWING REASONS: CHF [code = PRN VISITS; NUMBER OF RN/AGRICULTURAL COMMODITIES INSPECTOR/ASSOCIATE PROFESSOR OF COUNSELING VISITS: 2 RN/AGRICULTURAL COMMODITIES INSPECTOR/ASSOCIATE PROFESSOR OF COUNSELING TO PERFORM: ASSESSMENT FOR THE FOLLOWING REASONS: CHF] Future Scheduled Test MALNUTRITI ON MANAGEMENT; RN TO ASSESS AND TEACH, ASSOCIATE PROFESSOR OF COUNSELING/AGRICULTURAL COMMODITIES INSPECTOR TO OBSERVE AND TEACH AND INSTRUCT PATIENT / CAREGIVER ON INTERVENTIONS TO IMPROVE NUTRITIONAL INTAKE AND PATIENT WELLBEING. [code = MALNUTRITION MANAGEMENT; RN TO ASSESS AND TEACH, ASSOCIATE PROFESSOR OF COUNSELING/AGRICULTURAL COMMODITIES INSPECTOR TO OBSERVE AND TEACH AND INSTRUCT PATIENT / CAREGIVER ON INTERVENTIONS TO IMPROVE NUTRITIONAL INTAKE AND PATIENT WELLBEING.] Goal 2025-02-11 Patient Goal - GET STRONGER Goal Provider Goal - A PLAN OF CARE WILL BE ESTABLISHED THAT MEETS THE PATIENTS NEEDS. PATIENT WILL DEMONSTRATE OXYGEN SATURATION WITHIN NORMAL LIMITS OR PATIENTS OPTIMAL LEVEL ESTABLISHED BY THE PHYSICIAN THROUGHOUT CARE. CHANGES TO CO-MORBID CONDITIONS AND ANY NEW CONDITIONS WILL BE IDENTIFIED AND REPORTED TO THE PHYSICIAN. Goal Provider Goal - PATIENT/CAREGIVER WILL VERBALIZE UNDERSTANDING OF SIGNS AND SYMPTOMS THAT PUT THE PATIENT AT RISK FOR HOSPITALIZATION /EMERGENCY ROOM VISITS, WHEN TO NOTIFY NURSE/PHYSICIAN OF COMPLICATIONS/DECLINE AND WHEN TO CALL 911. Goal Provider Goal - PATIENT / CAREGIVER WILL VERBALIZE/DEMONSTRATE UNDERSTANDING OF MEASURES TO MANAGE ALTERED CARDIOVASCULAR STATUS BY WEEK 02/28/25. Goal Provider Goal - PATIENT / CAREGIVER WILL VERBALIZE/DEMONSTRATE AN ABILITY TO ADHERE TO SELF-MANAGEMENT OF HF TO MINIMIZE COMPLICATIONS AND AVOID HOSPITALIZATION BY WEEK OF 02/28/25 Goal Provider Goal - PATIENT / CAREGIVER WILL VERBALIZE/DEMONSTRATE AN ABILITY TO ADHERE TO SELF-MANAGEMENT OF HTN TO MINIMIZE COMPLICATIONS AND AVOID HOSPITALIZATION BY WEEK 02/28/25 Goal Provider Goal - PATIENT / CAREGIVER WILL VERBALIZE/DEMONSTRATE UNDERSTANDING OF MEASURES TO MANAGE ALTERED RESPIRATORY STATUS BY WEEK OF 02/28/25 Goal Provider Goal - CHANGES IN SKIN INTEGRITY STATUS WILL BE IDENTIFIED AND REPORTED TO THE PHYSICIAN FOR PROMPT INTERVENTION. PATIENT / CAREGIVER WILL VERBALIZE/DEMONSTRATE ADEQUATE KNOWLEDGE OF INTEGUMENTARY STATUS AND APPROPRIATE MEASURES TO PROMOTE SKIN INTEGRITY AND PREVENT INJURY BY WEEK OF 02/28/25 Goal Provider Goal - PATIENT / CAREGIVER WILL VERBALIZE / DEMONSTRATE UNDERSTANDING OF PAIN CONTROL MEASURES BY WEEK OF 02/28/25 Goal Provider Goal - PATIENT / CAREGIVER WILL VERBALIZE/DEMONSTRATE UNDERSTANDING OF MEASURES TO MANAGE ALTERED GASTROINTESTINAL STATUS BY WEEK OF 02/28/25 Goal Provider Goal - PATIENT / CAREGIVER WILL VERBALIZE/DEMONSTRATE UNDERSTANDING OF MEASURES TO MINIMIZE COMPLICATIONS AND REDUCE HOSPITALIZATION RELATED TO CANCER BY WEEK OF 02/28/25 Goal Provider Goal - PATIENT/CAREGIVER WILL VERBALIZE/DEMONSTRATE UNDERSTANDING OF FALL RISK FACTORS AND IMPLEMENT STRATEGIES TO MINIMIZE FALL RISK. PATIENT/CAREGIVER WILL VERBALIZE/DEMONSTRATE AN ABILITY TO ADHERE TO FALL REDUCTION SELF-MANAGEMENT AND LIFE-STYLE CHANGES BY WEEK OF 02/28/25 Goal Provider Goal - Goal Provider Goal - Goal Provider Goal - Goal Provider Goal - PATIENT / CAREGIVER WILL VERBALIZE/DEMONSTRATE APPROPRIATE METHODS TO IMPROVE NUTRITIONAL STATUS BY WEEK OF 02/28/25 Reason for Visit INDEPENDENT IN THE COMMUNITY Encounters Start Date/Time End Date/Time Encounter Type Admission Type [facility] Department Encounter ID Discharge Date Discharge Status Discharge Condition Discharge Reason Percent Goals Met 2025-01-05 00:00:00 2025-02-11 00:00:00 Outpatient NEW ADMISSION PAULINE CAMARGO [facility] [id number] 2025-02-11 00:00:00 DISCHARGE TO HOME OR SELF CARE INDEPENDEN T IN THE COMMUNITY HH OR [facility]- GOALS MET 100.00
[2025-03-31] VITALS (14 sets, daily range): BP systolic 123–153; BP diastolic 59–86; PULSE 102–121; RESP 12–19; TEMP 37.1–37.2; O2SAT 96–100; BMI 21.1
--- NOTE | 2025-03-31 06:46 | ECG_ITS ---
APPROVED REPORT Exam: Resting ECG HR:114 bpm ECG Measurements Heart Rate 114 AXES CA 109 P 46 QRSd 98 QRS 23 QT 329 T 63 QTc 396 Conclusion SINUS TACHYCARDIA WITH SHORT CA INTERVAL WITH OCCASIONAL SUPRAVENTRICULAR PREMATURE COMPLEXES POSSIBLE ANTERIOR MYOCARDIAL INFARCTION , OF INDETERMINATE AGE [30 ms Q WAVE IN V3/V4, OR R < 0.2 mV IN V4] ABNORMAL ECG INTERPRETATION BASED ON A DEFAULT AGE OF 40 YEARS Electronically signed by : MAMIE FLOOD, 04/02/2025 14:11:56
--- NOTE | 2025-03-31 06:53 | HMH.EDGENADL ---
Discharge Plan Disposition Patient Disposition: Home, Self-Care Condition: Fair Prescriptions Prescriptions: No Action magnesium oxide 400 mg magnesium tablet 400 mg PO BID Qty: 60 3RF methylprednisolone [Medrol (Rodney)] 4 mg tablets,dose pack See Rx Instructions PO PER PKG DIR Qty: 21 0RF Rx Instructions: PO PER PKG DIR for 6 days Eliquis 2.5 mg tablet 2.5 mg PO BID Qty: 60 3RF ferrous sulfate [FeroSul] 325 mg (65 mg iron) tablet 325 mg PO DAILY Qty: 30 3RF doxepin 10 mg capsule 10 mg PO BID 90 Days Qty: 180 0RF metoprolol succinate [Toprol XL] 100 mg tablet extended release 24 hr 100 mg PO DAILY 90 Days Qty: 90 0RF potassium chloride 20 mEq tablet,ER particles/crystals 40 meq PO BID Patient Comments: TAKE 2 TABLETS 2 TIMES EACH DAY loperamide 2 mg capsule 2 mg PO TIDP PRN (Reason: diarrhea) diphenoxylate-atropine [Lomotil] 2.5-0.025 mg tablet 1 tab PO QIDP PRN (Reason: diarrhea) vancomycin [Firvanq] 50 mg/mL Recon Soln 125 mg PO QID 10 Days Qty: 100 0RF oxycodone 5 mg tablet 5 mg PO Q6H PRN (Reason: pain) Qty: 20 0RF cefdinir 300 mg capsule 300 mg PO BID 7 Days Qty: 14 0RF Referrals Follow up/Referrals: Karlos Vickers MD [Primary Care Provider, Internal Medicine] - See instructions Activity Restrictions/Add. Instructions Additional Instructions/Restrictions: Take a multivitamin daily. Return to the emergency department if you are unable to keep anything down. Clinical Impressions Clinical Impression: Adult failure to thrive, Acute hypokalemia, Hypomagnesemia Print Language Print Language: Tuvaluan Discharge ED Provider: Hubert Melchor Adult HPI General Chief complaint: Weakness Stated complaint: hospice care, low on fluids, feet, abd swelling Time Seen by Provider: 03/31/25 06:53 History of Present Illness HPI narrative: Patient is a 79-year-old female with history of metastatic stomach cancer. She is presenting today due to concerns for inability to take care of herself at home. She reports over the last several days she has felt so weak she can barely get out of bed. She is only taking care of by once a week hospice nurse as well as her daughters who can only come in every so often. Otherwise she lives at home alone. She reports that she has been having copious nonbloody diarrhea as well as new nonbloody vomiting. She has been having the diarrhea for some time. She reports that she has not been able to eat or drink very well in the last few days. Denies any dysuria hematuria fevers chest pain shortness of breath or abdominal pain. Related Data Home Medications ?Medication ?Instructions ?Recorded ?Confirmed diphenoxylate-atropine 2.5 1 tab PO QIDP PRN diarrhea 03/02/25 03/02/25 mg-0.025 mg tablet (Lomotil) loperamide 2 mg capsule 2 mg PO TIDP PRN diarrhea 03/02/25 03/02/25 potassium chloride 20 mEq 40 meq PO BID 03/02/25 03/02/25 tablet,extended release(part/cryst) Previous Rx's ?Medication ?Instructions ?Recorded ferrous sulfate 325 mg (65 mg 325 mg PO DAILY #30 tabs 08/27/23 iron) tablet (FeroSul) apixaban 2.5 mg tablet (Eliquis) 2.5 mg PO BID #60 tabs 12/03/24 magnesium oxide 400 mg PO BID #60 tabs 12/17/24 doxepin 10 mg capsule 10 mg PO BID 90 days #180 caps 01/21/25 metoprolol succinate 100 mg 100 mg PO DAILY 90 days #90 tabs 01/21/25 tablet,extended release 24 hr (Toprol XL) methylprednisolone 4 mg tablets in See Rx Instructions PO PER PKG DIR 02/25/25 a dose pack (Medrol (Rodney)) #21 tabs oxycodone 5 mg tablet 5 mg PO Q6H PRN pain #20 tabs 03/02/25 vancomycin 50 mg/mL oral solution 125 mg (2.5 mL) PO QID 10 days 03/02/25 (Firvanq) #100 mL cefdinir 300 mg capsule 300 mg PO BID 7 days #14 caps 03/05/25 Allergies Allergy/AdvReac Type Severity Reaction Status Date / Time No Known Allergies Allergy Verified 02/25/25 13:33 [facility] Disclaimer: The information contained in this section may have been updated after the patient was seen, as this information can be updated by other users. 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 History of hysterectomy Family History Mother Cancer Father Coronary artery disease Social History (Updated 03/02/25 @ 03:04 by Pat Perez RN) Smoking Status: Never smoker alcohol intake: never substance use type: denies use current occupational status: retired Travel in the last 8 weeks?: None household members: none housing: house lives independently: Yes marital status: Have you lived/traveled outside US in past 30 days?: No Contact w/someone who lives/traveled outside US past 30 days?: No Exposure to someone with infectious disease in past 14 days?: No Do you have a fever (greater than 100.4 F or 38 C)?: No Have you tested positive for COVID-19?: No Exposed to someone with COVID-19 in past 14 days?: No Do you have a sore throat?: No Do you have a cough?: No Do you have any weakness?: No Do you have any diarrhea?: No Are you experiencing any unusual bleeding?: No Do you have any muscle aches/pain?: No Do you have any abdominal pain?: No Are you experiencing loss of taste or smell?: No Other Medical History Have you received the Flu Vaccine for this season: No Have you received the Pneumonia Vaccine: No ROS Obtained: Yes All systems reviewed & no additional complaints except as documented Physical Exam General General appearance: alert, in no apparent distress, cachectic and other (Chronically ill) Head Head exam: atraumatic and normocephalic Eye Eye exam: Present PERRL and EOMI ENT ENT exam: Present normal oropharynx Neck Neck exam: Present full ROM and trachea midline Chest Chest inspection: Present symmetric chest wall rise Respiratory Respiratory exam: Present normal lung sounds bilaterally; Absent stridor Cardiovascular Cardiovascular exam: Present regular rate and normal rhythm Abdominal Exam Abdominal exam: Present soft; Absent distention or tenderness Extremities Exam Extremities exam: Present full ROM Neurological Exam Neurological exam: Present alert and oriented X3 Psychiatric Psychiatric exam: Present normal mood Skin Skin exam: Present warm and dry Medical Decision Making Medical Records Screening: Per USPSTF and CDC recommendations, given the prevalence of disease in our region, it is our hospital?s policy to screen for HIV and viral Hepatitis for all patients aged 18 and over and those with ongoing risk factors. Jn Inquiry Pt receiving controlled substance: No Vital Signs: 03/31/25 06:46 03/31/25 07:00 03/31/25 07:30 Temperature 98.9 F Temperature Source Oral Pulse Rate 110 H 111 H Pulse Rate [Radial] 121 H Respiratory Rate 18 18 16 Blood Pressure 134/67 123/66 Blood Pressure [Right Arm] 134/59 L Blood Pressure Mean 92 Blood Pressure Mean [Right Arm] 84 Blood Pressure Source Blood Pressure Position Blood Pressure Position [Right Arm] Sitting 02 Sat by Pulse Oximetry 100 97 96 Oxygen Delivery Method Room Air 03/31/25 08:00 03/31/25 08:37 03/31/25 09:00 Temperature Temperature Source Pulse Rate 115 H 111 H 111 H Pulse Rate [Radial] Respiratory Rate 12 17 12 Blood Pressure 132/64 153/73 H 136/76 Blood Pressure [Right Arm] Blood Pressure Mean 86 99 Blood Pressure Mean [Right Arm] Blood Pressure Source Blood Pressure Position Blood Pressure Position [Right Arm] 02 Sat by Pulse Oximetry 97 98 97 Oxygen Delivery Method Room Air 03/31/25 09:30 03/31/25 10:00 03/31/25 10:30 Temperature Temperature Source Pulse Rate 110 H 114 H 116 H Pulse Rate [Radial] Respiratory Rate 17 13 18 Blood Pressure 146/73 H 140/72 136/69 Blood Pressure [Right Arm] Blood Pressure Mean 90 Blood Pressure Mean [Right Arm] Blood Pressure Source Blood Pressure Position Blood Pressure Position [Right Arm] 02 Sat by Pulse Oximetry 96 96 99 Oxygen Delivery Method Room Air 03/31/25 10:45 03/31/25 11:00 03/31/25 11:30 Temperature Temperature Source Pulse Rate 113 H 110 H 108 H Pulse Rate [Radial] Respiratory Rate 13 13 17 Blood Pressure 136/69 140/69 136/72 Blood Pressure [Right Arm] Blood Pressure Mean Blood Pressure Mean [Right Arm] Blood Pressure Source Blood Pressure Position Blood Pressure Position [Right Arm] 02 Sat by Pulse Oximetry 98 98 98 Oxygen Delivery Method Room Air 03/31/25 12:00 03/31/25 12:20 Temperature 98.7 F Temperature Source Oral Pulse Rate 102 H Pulse Rate [Radial] Respiratory Rate 13 19 Blood Pressure 128/60 124/86 Blood Pressure [Right Arm] Blood Pressure Mean Blood Pressure Mean [Right Arm] Blood Pressure Source Automatic Cuff Blood Pressure Position Supine Blood Pressure Position [Right Arm] 02 Sat by Pulse Oximetry Oxygen Delivery Method Room Air Lab Data Lab Results 03/31/25 06:55: WBC 17.5 H, RBC 3.19 L, Hgb 9.6 L, Hct 29.9 L, MCV 93.7, MCH 30.1, MCHC 32.1, RDW 17.4, Plt Count 394, MPV 9.7, Neut % (Auto) 90.1 H, Lymph % (Auto) 3.4 L, [place] % (Auto) 5.7, Eos % (Auto) 0.1, Baso % (Auto) 0.2, Neut # (Auto) 15.8 H, Lymph # (Auto) 0.6 L, [place] # (Auto) 1.0, Eos # (Auto) 0.0, Baso # (Auto) 0.0, Sodium 126 L, Potassium 2.9 L*, Chloride 95 L, Carbon Dioxide 29, Anion Gap 4.9 L, BUN 10, Creatinine 0.90, Estimated Creat Clear 37, Estimated GFR 61, Est GFR ( Amer) 73, Glucose 111 H, Calcium 7.3 L, Phosphorus 2.4 L, Magnesium 1.4 L, Total Bilirubin 1.2, AST 23, ALT 13, Alkaline Phosphatase 248 H, Total Protein 5.6 L, Albumin 2.6 L, Globulin 3.0, Albumin/Globulin Ratio 0.9 L, Lipase 15 L 03/31/25 06:55 03/31/25 06:55 Orders (Tests/Meds): ED MEDICATIONS Discontinued Medications Generic Name Dose Route Start Last Admin Trade Name Freq PRN Reason Stop Dose Admin Famotidine 20 mg 03/31/25 07:11 03/31/25 07:40 Famotidine 20mg/2ml Vial IV 03/31/25 07:12 20 mg ONCE ONE Administration Heparin Sodium (Porcine) 300 unit 03/31/25 11:54 03/31/25 11:57 Heparin Lock Flush 500 Units/5ml Syr IV 03/31/25 11:55 300 units ONCE ONE Administration Magnesium Sulfate 2 gm in 50 mls @ 50 mls/hr 03/31/25 07:54 03/31/25 07:59 Magnesium Sulfate 2gm/50ml Premix IV 03/31/25 08:53 50 mls/hr ONCE ONE Administration Potassium Chloride/Water 100 mls @ 100 mls/hr 03/31/25 08:00 03/31/25 10:23 Potassium Chloride 10meq/100ml Ivpb IV 03/31/25 10:59 100 mls/hr Q1H JAIME Administration Ondansetron HCl 4 mg 03/31/25 07:11 03/31/25 07:40 Ondansetron 4mg/2ml Vial IV 03/31/25 07:12 4 mg ONCE ONE Administration Potassium Chloride 40 meq 03/31/25 09:20 03/31/25 09:33 Potassium Chloride 20meq/15ml Udc PO 03/31/25 09:21 Not Given ONCE ONE Sodium Chloride 8 ml 03/31/25 07:11 Sodium Chloride 0.9% 10ml Vial IV 04/30/25 07:10 NEEDED PRN dilute pepcid ORDERS Category Date Time Status CBC w/Auto Diff [Complete Blood Count Auto Diff] Stat Lab 03/31/25 06:55 Completed CMP [Comprehensive Metabolic Panel] Stat Lab 03/31/25 06:55 Completed Lipase Stat Lab 03/31/25 06:55 Completed MAG [Magnesium] Stat Lab 03/31/25 06:55 Completed PHOS [Phosphorous] Stat Lab 03/31/25 06:55 Completed ECG Data Tracing #1: I reviewed this ECG and interpreted as documented below: A-fib with a rate of 114, no acute ischemic ST changes within the limits of exam, significant artifact. Medical Decision Narrative: In summary, this 79-year-old female presents to the emergency department today with vomiting and diarrhea. On initial evaluation patient is afebrile, mildly tachycardic to 115, stable. On exam, patient is protecting her airway, moist mucous membranes, mildly diminished capillary refill to 2 seconds, lower extremity edema 2+ extending all the way up to mid thighs. Patient has no rhonchi, but per my review the EMR, has an LVEF of 35%. Will withhold fluid resuscitation at this time, obtain basic labs, replete as necessary. Her abdominal exam is reassuring, soft, oddly tender in suprapubic region. I have had a lengthy discussion with family. Patient is amenable to receiving medications and IV fluids, but does not want any heroic measures. She will likely need to be admitted to the hospital given that she cannot take care of herself at home ED observation began at 0800 pending case management and electrolyte repletion and placement. Case management, myself, family at bedside and patient had lengthy multiple discussions regarding her desire for care. She does not want anything more than electrolyte replacement at this time. She is not interested in admission to the hospital for further workup, nor is she interested in being admitted to an inpatient hospice facility. I have told her that I do not believe that this is in the best interest of her health due to the fact that she cannot take care of herself at home. However, she is alert and oriented and GCS 15 and adamantly refusing to be placed in either of these facilities. Family reports that they can help take care of her at home to the best of their abilities and agrees with her decision for her to be discharged home. She is instructed that should she change her mind she is always welcome to present back to the emergency department. Patient completed her potassium repletion and magnesium repletion here, and was tolerating some scant liquid intake before discharge. Critical Care Critical Care Time Critical Care Time: No
--- OUTSIDE RECORDS SUMMARY | 2025-03-31 07:08 | XMS_ITS ---
Author Name Auto Generated, Auto Generated Organization [facility] Address [address] [place] [address] Phone [phone] Care Team Providers Care Rocket Motor Mechanic Name Role Phone ContrerasSuleiman Unavailable [phone] Guille Andrade Unavailable [phone] Nickie Rahman Unavailable Manolo Jones Unavailable [phone] Functional Status No Results Mental Status No Results Allergies and Intolerances Name Onset Date Reaction Severity No Known Allergies (Allergy) SatMar 03 11:33:00 EDT 2024 Encounters Program Name Primary Diagnosis Admission Date/Time Dis charge Date/Time Home-based Hospice Malignant neoplasm o f colon, unspecified SatMar 02 20:00:00 EDT 2024 Medications Medication Directions Start Date End Date Florastor 250 mg capsule 1 Capsule Oral 1 Time Daily Indication: diarrhea SatMar 30 00:00:00 EDT 2024 dexAMETHasone 2 mg tablet 1 Tablet Oral 1 Time Daily Indication: diarrhea SatMar 17 00:00:00 EDT 2024 levoFLOXacin 750 mg tablet 1 Tablet Oral Every 2 Days for 5 Days Indication: Infection SatMar 04 00:00:00 EDT 2024Mar 04 11:21:00 EDT 2024 levoFLOXacin 750 mg tablet 1 Tablet Oral Every 2 Days for 5 Days Indication: UTI SatMar 04 00:00:00 EDT 2024Mar 08 23:59:00 EDT 2024 vancomycin 50 mg/mL oral solution 2.5 Milliliter Oral 4 Times Daily Indication: UTI/possible infectious diarrhea SatMar 04 00:00:00 EDT 2024 dexAMETHasone 2 mg tablet 1 Tablet Oral 1 Time Daily for 7 Days Indication: diarrhea SatMar 03 00:00:00 EDT 2024Mar 09 23:59:00 EDT 2024 vancomycin 50 mg/mL oral solution 2.5 Milliliter Oral 4 Times Daily Indication: Infection SatMar 03 00:00:00 EDT 2024Mar 04 11:24:00 EDT 2024 levoFLOXacin 750 mg tablet 1 Tablet Oral Every 2 Days Indication: Infection SatMar 03 00:00:00 EDT 2024Mar 04 11:21:00 EDT 2024 diphenoxylate-atropine 2.5 mg-0.025 mg tablet 1 Tablet Oral PRN Every 6 Hours Indication: Diarrhea SatMar 03 00:00:00 EDT 2024 Compazine 10 mg tablet 1 Tablet Oral PRN Every 6 Hours Indication: Nausea/Vomiting SatMar 03 00:00:00 EDT 2024 ferrous sulfate 325 mg (65 mg iron) tablet 1 Tablet Oral 1 Time Daily Indication: Supplement SatMar 03 00:00:00 EDT 2024 loperamide 2 mg tablet 1 Tablet Oral PRN Every 1 Day Indication: diarrhea SatMar 03 00:00:00 EDT 2024 magnesium oxide 400 mg (241.3 mg magnesium) tablet 1 Tablet Oral 2 Times Daily Indication: supplement SatMar 03 00:00:00 EDT 2024 metoprolol succinate ER 100 mg tablet,extended release 24 hr 1 Tablet Oral 1 Time Daily Indication: HTN SatMar 03 00:00:00 EDT 2024 doxepin 150 mg capsule 1 Capsule Oral 2 Times Daily Indication: Anxiety/Depression SatMar 03 00:00:00 EDT 2024 oxyCODONE 5 mg tablet 1 Tablet Oral PRN Every 6 Hours Indication: Pain SatMar 03 00:00:00 EDT 2024 octreotide acetate 100 mcg/mL (1 mL) injection syringe 1 Milliliter Intramuscular 3 Times Daily Indication: diarrhea SatMar 03 00:00:00 EDT 2024 potassium chloride ER 20 mEq tablet,extended release 2 Tablet Oral 2 Times Daily Indication: Supplement SatMar 03 00:00:00 EDT 2024 Treatment Plan Problems No Known Problems Vital Signs Vital Sign Measurement Date Systolic blood pressure 120 mm[Hg] SatMar 03 06:30:00 EDT 2024 Diastolic blood pressure 80 mm[Hg] SatMar 03 06:30:00 EDT 2024 Respiratory rate 20 /min SatMar 03 06:3 0:00 EDT 2024 Heart rate 128 /min SatMar 03 06:30 :00 EDT 2024 Systolic blood pressure 105 mm[Hg] Rissa Mar 25 07:45:00 EDT 2024 Diastolic blood pressure 70 mm[Hg] Rissa Mar 25 07:45:00 EDT 2024 Respiratory rate 20 /min SatMar 25 07:4 5:00 EDT 2024 Heart rate 86 /min SatMar 25 07:45 :00 EDT 2024 Systolic blood pressure 102 mm[Hg] SatMar 09 10:40:00 EDT 2024 Diastolic blood pressure 58 mm[Hg] SatMar 09 10:40:00 EDT 2024 Respiratory rate 12 /min SatMar 09 10:4 0:00 EDT 2024 Heart rate 110 /min SatMar 09 10:40 :00 EDT 2024 Systolic blood pressure 118 mm[Hg] SatMar 30 08:10:00 EDT 2024 Diastolic blood pressure 76 mm[Hg] SatMar 30 08:10:00 EDT 2024 Respiratory rate 12 /min SatMar 30 08:1 0:00 EDT 2024 Heart rate 68 /min SatMar 30 08:10 :00 EDT 2024 Systolic blood pressure 70 mm[Hg] SatMar 17 10:00:00 EDT 2024 Diastolic blood pressure 40 mm[Hg] SatMar 17 10:00:00 EDT 2024 Respiratory rate 20 /min SatMar 17 10:0 0:00 EDT 2024 Heart rate 62 /min SatMar 17 10:00 :00 EDT 2024 Reason for Referral
--- OUTSIDE RECORDS SUMMARY | 2025-03-31 07:09 | XMS_ITS | Referral Summary ---
Author Organization [employer] ([place], [place], [place], [place]) Address [address] [place] [address] Care Team Providers Care Big Data Solutions Architect Name Role Phone Unavailable Primary Care Provider Unavailabl e Social History Tobacco Use Types Packs/Day Years Used Date Smoking Tobacco: Never Assessed Food Insecurity Answer Date Recorded Food run out past 12 months Not on file 05/31 Food did not last past 12 months Not on file 06/10/2024 Employment Answer Date Recorded Help finding and keeping a job Not on file 0 06/10/2024 Family and Community Support Answer Bienvenido e Recorded Help with Day to Day Activities Not on file 06/10/2024 Feeling Lonely or Isolated Not on file 06/10 Educational Attainment Answer Date Royce rded Speak language other than Guamanian at home Not on file 06/10/2024 Want help with school or training Not on file 06/10/2024 Substance Use Answer Date Recorded Used prescription meds for non-medical reasons N ot on file 06/10/2024 Used illegal drugs past 12 months Not on file 06/10/2024 Comments Unknown Sex and Gender Information Value Date Recorded Sex Assigned at Not on file Legal Sex Female 12:13 PM CDT Gender Identity Not on file Sexual Orientation Not on file Plan of Treatment Not on file
--- OUTSIDE RECORDS SUMMARY | 2025-03-31 07:09 | XMS_ITS | Clinical Summary ---
Author Organization [employer] ([place], [place], [place], [place]) Address [address] [place] [address] Care Team Providers Care Java Web Developer Name Role Phone Unavailable Primary Care Provider [...] Date Royce rded Speak language other than Romansh at home Not on file 06/10/2024 Want [...] Orientation Not on file Plan of Treatment Health Maintenance Due Date Last Done Comments DXA SCAN 1945 Depression Screening (12+) 1958 Tobacco Cessation Counseling and Screening (12+) 09/09 Hepatitis C Screening 1964 DTAP/TDAP/TD VACCINES (1 - Tdap) 1965 Pneumococcal 50+ years (1 of 1 - PCV) 1996 Shingles Vaccine (Zoster) (1 of 2) 1996 Respiratory Syncytial Virus (RSV) Adult or (1 - 1-dose 75+ series) 2021 COVID-19 VACCINE ( - 2023- season) 2024 Falls Risk Screening 09/30/2024 Influenza Vaccine (Season Ended) 2025 08/14/20
[2025-03-31 07:20] LABS: Hematocrit 29.9 % (37.0-47.0); Hemoglobin 9.6 g/dL (12.2-16.2); Immature Granulocytes % 0.5 %; Mean Corpuscular HGB Conc 32.1 g/dL (31.8-35.4); Mean Corpuscular Hemoglobin 30.1 pg (27.0-31.2); Mean Corpuscular Volume 93.7 fl (81-99); Nucleated Red Blood Cells % 0 %; Platelet Count 394 K/mm3 (142-424); Red Blood Count 3.19 M/mm3 (4.20-5.40); Red Cell Distribution Width-SD 60.5 fL; White Blood Count 17.5 K/mm3 (4.8-10.8)
[2025-03-31 07:27] LABS: Alanine Aminotransferase 13 U/L (12-78); Albumin Level 2.6 g/dl (3.5-5.0); Albumin/Globulin Ratio 0.9 (1.1-1.8); Alkaline Phosphatase 248 U/L (38-126); Anion Gap 4.9 mEq/L (5-15); Aspartate Amino Transferase 23 U/L (14-36); Bilirubin,Total 1.2 mg/dl (0.2-1.3); Blood Urea Nitrogen 10 mg/dl (7-17); Calcium 7.3 mg/dl (8.4-10.2); Carbon Dioxide 29 mmol/L (22.0-30.0); Chloride 95 mmol/L (98-107); Creatinine Clearance Estimated 37 mL/min (50-200); Creatinine,Serum 0.90 mg/dl (0.52-1.04); Estimated Glomerular Filt Rate 61 ml/min (>60); GFR (African American) 73 ML/MIN (>60); Globulin 3.0 g/dL (1.3-3.2); Glucose 111 mg/dl (74-100); Lipase 15 U/L (23-300); Magnesium 1.4 mg/dl (1.6-2.3); Phosphorous 2.4 mg/dl (2.5-4.5); Sodium 126 mmol/L (136-145); Total Protein,Serum 5.6 g/dl (6.3-8.2)
[2025-03-31 07:38] LABS: Potassium 2.9 mmoL/L (3.5-5.1)
[2025-03-31] MEDS: FAMOTIDINE 20MG/2ML VIAL 20 MG IV (07:40)
[2025-03-31] MEDS: ONDANSETRON 4MG/2ML VIAL 4 MG IV (07:40)
[2025-03-31] MEDS: MAGNESIUM SULFATE IN WATER 2 GM/50 ML PIGGYBACK IV (07:59)
--- NOTE | 2025-03-31 09:24 | SW/DCPLANNER ---
I was contacted by Dr Garnica to speak w/ this patient in the ED regarding possible placement. Patient is currently established w/ Hospice services. I spoke w/ patient and daughter in ED regarding LTC placement w/ Hospice services. Per patient and daughter they prefer to return home and further discuss w/ other family members regarding LTC. I did inform patient/daughter of LTC facilities. I have also called and updated Marlena w/ Hospice regarding discharge plans and asked that their Pharmacy District Manager follow up w/ patient and family later today or tomorrow.
--- NOTE | 2025-03-31 10:20 | PC.NURSE ---
Patient alert and oriented, VSS. Patient consumed 100% of meal tray. Denies complaints at this time. Call light in reach.
== END 2025-03-31 12:22 | disposition home or self-care (01) ==
PROVIDERS: Emergency Provider Emergency Medicine; PCP Family Medicine
DX: E87.6 Hypokalemia (principal); E87.1 Hypo-osmolality and hyponatremia; E83.42 Hypomagnesemia; R53.1 Weakness; R62.7 Adult failure to thrive; I48.0 Paroxysmal atrial fibrillation; R11.2 Nausea with vomiting, unspecified; R19.7 Diarrhea, unspecified; C18.9 Malignant neoplasm of colon, unspecified
CPT/HCPCS: 80053; 83690; 83735; 84100; 85025; 93005; 96365; 96366; 96375; 99285; J1642; J2405; J3475; J3480